=== PATIENT | male | born 1935 | race Caucasian/White ===

== ENCOUNTER 2019-06-18 11:26 | Inpatient (IN) | payer MEDICARE, SELFPAY ==
[2019-06-18] VITALS (20 sets, daily range): BP systolic 82–163; BP diastolic 61–112; PULSE 74–79; RESP 12–28; TEMP 33.6–37; O2SAT 90–100; BMI 25.0; BMI 25.1; BMI 24.0
--- NOTE | 2019-06-18 12:10 | EKG12_ITS ---
Test Reason : MENTAL CHANGE Blood Pressure : / mmHG Vent. Rate : 075 BPM Atrial Rate : 075 BPM P-R Int : 000 ms QRS Dur : 180 ms QT Int : 464 ms P-R-T Axes : 000 262 112 degrees QTc Int : 518 ms Ventricular-paced rhythm Biventricular pacemaker detected Abnormal ECG Confirmed by NATALIIA PORTILLO MD ([id number]), news video editor CODI PEGUERO ([id number]) on 06/22/2019 3:44:38 PM Referred By: KENDAL Confirmed By:NATALIIA PORTILLO MD
--- NOTE | 2019-06-18 12:12 | RAD_ITS ---
STUDY: X-RAY CHEST REASON FOR EXAM: Male, 84 years old. HYPOTENSION, ALTERED MENTAL STATUS TECHNIQUE: Single AP portable view of the chest. COMPARISON: None. FINDINGS: EKG electrodes are seen. The lungs are clear and expanded. There is no demonstrated pleural abnormality. Sternal cerclage wires and vascular clips are present from a prior sternotomy and coronary artery bypass graft procedure (CABG). Moderate cardiomegaly. A left-sided ICD is seen. Normal mediastinum and nevaeh. Normal visualized pulmonary arteries. There is atherosclerotic tortuosity of the aortic arch and descending thoracic aorta. Normal visualized thoracic spine. There is degenerative osteoarthritis of the bilateral shoulders. There is no demonstrated abnormality of the visualized soft tissue structures of the upper abdomen. RAD/Chest 1 View (Portable) IMPRESSION: Cardiomegaly. The lungs are clear. Electronically Signed: Dnoi Mcneal, at 12:36 EST , Service support ,
--- NOTE | 2019-06-18 12:13 | ED.DCSUM_ITS ---
- ER Visit Summary Date of Service: 06/18/19 Chief Complaint: Sent from snf with low blood pressure. Patient states he does not feel sick. History of Present Illness: The patient is a 84 M preop prior stroke, CAD, SC, triple bypass. COPD and diabetes. On Coumadin. History of pacemaker defibrill ator. Patient was recently hospitalized at [facility] for pneumonia. Was discharged back to extended care facility. Reportedly had low blood pressure today and was sent to the emergency department. He denies complaints. Physical Examination: Older male currently no acute distress. Blood pressure is 92/71. He is afebrile. His pulse ox 97% on room air no signs hypoxia. Family is at bedside. H EENT exam right eye is irregular from prior eye surgery. Left pupil is about 2 mm and reactive. Extra motions are intact. No facial droop. Moist mucous membranes. Neck nontender no lymphadenopathy. Lungs clear to auscultation bilaterally. Heart regular rate and rhythm no murmur. Rate about 80. Abdomen soft nontender normal bowel sounds no peritoneal signs. Nondistended. Extremities moves all 4. 1+ pitting edema both lower extremities up to his knees. Family states that been going on for several weeks. Normal equal symmetrical supervisor smoke control strength. Dorsi plantarflexion intact. Neurologically is awake and alert. He does know where he is at. He does follow commands. Test Results: [] Emergency Department Course and Treatment: Older male with hypotension from the snf. He also has chronic lower extremity edema for last several weeks. Treatment Plan: [] Disposition: [] Impression: Acute hypotension Bilateral lower extremity edema History of CAD with prior triple bypass and pacemaker. History of diabetes This note was generated with ActiveReplay dictation software. It may contain incorrect words, spelling, and punctuation that were not noted in review of the chart prior to signing ED Disposition - Plan for ED Patient: Referrals: Jens Giraldo MD [Primary Care Provider] -
--- NOTE | 2019-06-18 12:17 | NURSING ---
NO OLD EKGS
[2019-06-18 13:15] LABS: Absolute Lymphocyte Count 1.22 X10^3/uL (0.83-4.51); Absolute Neutrophil Count 3.5 X10^3/uL (2.0-7.7); Basophil# 0.02 X10^3/uL; Basophil% 0.4 % (0-1); Eosinophil# 0.11 X10^3/uL; Hematocrit 31.6 % (40-54); Hemoglobin 9.6 g/dL (13.0-16.5); Lymphocyte # 1.22 X10^3/ul (4.0); Lymphocyte % 22.7 % (19-41); Mean Corp Hgb Conc 30.4 g/dL (32-36); Mean Corpuscular Hgb 28.8 pg (27.0-32.0); Mean Corpuscular Volume 94.9 fL (80-94); Monocyte# 0.48 X10^3/uL; Monocyte% 8.9 % (0-10); NRBC Flagged by Analyzer 0 % (0-5); Neutrophil # 3.54 X10^3/uL (2.7-7.7); Neutrophil % 65.8 % (47-70); Platelet Count 135 K/mm3 (150-450); RBC Distribution Width CV 16.1 % (11.6-14.6); Red Blood Count 3.33 M/mm3 (4.6-6.2); White Blood Count 5.4 K/mm3 (4.4-11.0)
[2019-06-18 13:24] LABS: Prothrombin Time (Protime)PT. 44.9 SECONDS (11.7-14.9)
[2019-06-18 13:25] LABS: International Normalized Ratio 4.7
[2019-06-18 13:31] LABS: Anion Gap 5 (5-15); BUN 54 mg/dL (7-18); BUN/Creat Ratio 28.7 RATIO (10-20); Calcium,Total 9.3 mg/dL (8.5-10.1); Chloride 108 mmol/L (98-107); Creatinine, Serum 1.88 mg/dL (0.70-1.30); EST Glomerular Filtration Rate 37 mL/min (>60); Est Glom Filt Rate - Afr Amer 44 mL/min (>60); Estimated Creatinine Clearance 29.25 ml/min; Glucose 67 mg/dL (74-106); Sodium Level 143 mmol/L (136-145)
[2019-06-18 13:39] LABS: BNP,B-Type NATRIURETIC PEPTIDE 389.6 pg/mL (0-100)
[2019-06-18 15:05] LABS: Bacteria 0 SEEN /hpf (None Seen); Mucous, Urine 0 SEEN /hpf (<or=2+); Red Blood Cells-Urine 0 SEEN /hpf (0-5); Squamous Epithelial Cells - UA 0 SEEN /hpf (0-5); White Blood Cells 0 SEEN /hpf (0-5)
[2019-06-18 15:07] LABS: Color, Urine Yellow (Yellow); Glucose, Dipstick Normal (Normal); Ketone-Dipstick Negative (Negative); Leukocyte Esterase-Dipstick Negative /ul (Negative); Nitrite-Dipstick Negative (Negative); Occult Blood-Urine Negative /ul (Negative); Protein-Dipstick 15 mg/dl (Negative); Specific Gravity, Urine 1.015 (1.002-1.030); Urine Bilirubin Dipstick Negative (Negative); Urine Clarity Clear (Clear); Urine Urobilinogen Normal (Normal)
[2019-06-18 15:12] LABS: Hyaline Cast 0-5 SEEN /lpf (0-5)
--- NOTE | 2019-06-18 15:49 | NURSING ---
115 KOTSONIS HYPOTENSION, DEHYDRATION, ANTICOAGULATED
--- NOTE | 2019-06-18 15:54 | CT_ITS ---
STUDY: CT BRAIN WITHOUT CONTRAST REASON FOR EXAM: Male, 84 years old. FALL. Hx of diabetes, HTN, CAD, CHF and hypothyroid RADIATION DOSAGE (If Supplied By Facility): CTDIvol = ( 44.99 ) mGy, DLP = ( 812.98 ) mGycm TECHNIQUE: Transaxial CT imaging of the brain was performed without administration of intravenous contrast material. Individualized dose optimization techniques were used for this CT. COMPARISON: No relevant priors. FINDINGS: Normal soft tissue structures. Normal calvarium. There is mild cerebral atrophy with widening of the extra-axial spaces and ventricular dilatation. There are areas of decreased attenuation within the white matter tracts of the supratentorial brain, consistent with microvascular disease changes. Ill-defined decreased density of possible microvascular ischemic change also questioned in the bilateral basal ganglia. Focal low-density in the medial left limb of the midbrain on series 2 image 17 may be a prominent perivascular space or very small old lacunar infarct. Normal cerebellum. There is no intracranial hemorrhage. Incompletely defined subcortical lucencies in the bilateral insula consistent with additional chronic ischemic change. There are no findings of an acute ischemic infarction. Normal visualized paranasal sinuses. There are small to moderate accumulations of cerumen in the bilateral external auditory canals. CT/Brain/Head without Contrast IMPRESSION: Chronic involutional and ischemic changes of the brain, as described. No acute intracranial injury. Electronically Signed: Jesus Pandya MD at 16:32 EST , Service support ,
--- NOTE | 2019-06-18 16:04 | NURSING ---
115 CHF EXAC, AND HYPOTENSION ROSALINOS
[2019-06-18] MEDS: Dextrose 50%-Water 25 GM/50 ML DISP.SYRIN IV (16:12)
--- NOTE | 2019-06-18 16:22 | ED.RN ---
PATIENT UNRESPONSIVE IN BED. BLOOD SUGAR OF 22 AND D50 GIVEN PER MD VERBAL ORDER. ON ARRIVAL BACK FROM CT PT BLOOD SUGAR WAS 160. PATIENT NOW A&O X3 WILL CONTINUE TO MONITOR.
--- NOTE | 2019-06-18 16:48 | PCM.HP.STD ---
<Mainor Cho - Last Filed: 06/18/19 17:34> Problem List (1) Hypoglycemia Status: Acute (2) CHF (congestive heart failure) Status: Acute (3) Hypotension Status: Acute (4) CAD (coronary artery disease) Status: Chronic (5) Pacemaker Status: Chronic (6) Diabetes Status: Chronic Qualifiers: Diabetes mellitus type: type 2 History of Present Illness Date of Admission: 06/18/19 Chief Complaint: altered mental status The patient is a 84 year old M with pmhx of CAD with CABG, pacemaker, CHF, who was sent to the ER from assisted living with multiple complaints. Reportedly he has been very lethargic, and today he is noted to have a change in his right pupil, low blood pressure, and supposedly he was told that he was dehydrated. The patient is in the [facility] nursing facility after being admitted to [facility] and treated for pneumonia. Prior to that he was completely independent. Today he is very lethargic and unable to follow commands, however this improved after he was given D50 for a blood sugar of 22. He was found to have evidence of congestive heart failure with severe swelling of the lower extremities. He does not have any respiratory complaints at this time. He is resting comfortably in bed off oxygen. He has had all his care at [facility] and we do not have any records of his previous diagnoses and treatments. [] Past Medical History Past Medical History (Chronic Problems): Chronic Problems CAD (coronary artery disease) (Chronic) Pacemaker (Chronic) Diabetes (Chronic) Allergies No Known Allergies Allergy (Verified 06/18/19 11:28) Home Medications: Ambulatory Orders Medication Instructions Recorded Calcitriol 0.25 mcg PO DAILY 06/18/19 Carvedilol 25 mg PO BID 06/18/19 Ferrous Sulfate 325 mg PO DAILY 06/18/19 Glimepiride [Amaryl] 1 mg PO BID 06/18/19 Insulin Lispro [Humalog KwikPen] See Protocol SQ QHS 06/18/19 Insulin Lispro [Humalog KwikPen] See Protocol SQ TIDCM 06/18/19 Levothyroxine Sodium [Synthroid] 125 mcg PO DAILY 06/18/19 Lisinopril [Zestril] 10 mg PO DAILY 06/18/19 Magnesium Oxide 400 mg PO DAILY 06/18/19 Omeprazole [Prilosec] 20 mg PO DAILY 06/18/19 Pravastatin Sodium 80 mg PO QHS 06/18/19 Warfarin Sodium [Coumadin] 2 mg PO QHS 06/18/19 Surgical History: no surgical history Psychiatric History: No pertinent psych hx Lives: Assisted Smoking Status: Former smoker Tobacco Use: Cigars Alcohol: None Drugs: None - *Family History Maternal History Items: No pertinent history Paternal History Items: No pertinent history Review of Systems Unable to obtain accurate/complete ROS d/t: Patient lethargic and confused VTE Information - Inpt Only VTE Present on Admission: No VTE Mechan Device Prophylaxis: None VTE Pharm Prophylaxis ordered?: Yes Patient Problems: Active and Suspected Problems Hypoglycemia (Acute) CHF (congestive heart failure) (Acute) Hypotension (Acute) - Physical Exam Vitals/I&O's: Vital Signs Temp Pulse Resp BP Pulse Ox 98.6 F 75 12 94/66 97 06/18/19 15:47 06/18/19 16:29 06/18/19 16:29 06/18/19 16:36 06/18/19 16:36 Oxygen Delivery Method Room Air Weight: 169 lb 12.095 oz Body Mass Index (BMI) 25.0 Intake and Output for Last 24 Hours 06/16/19 06/17/19 06/18/19 23:59 23:59 23:59 Intake Total 500 / 500 Balance 500 / 500 General: Alert, Confused, Lethargic HEENT: Atraumatic, PERRLA, EOMI, Normocephalic Neck: Supple, No JVD, Negative Carotid Bruits Lungs: Clear to auscultation, Normal air movement Cardiovascular: Regular rate, No murmurs Abdomen: Bowel Sounds Present, Soft, Non Tender Extremities: No edema, Capillary Refill Less than 3 Seconds Skin: No rashes, No breakdown Musculoskeletal: No Tenderness to Palpation of Joints or Extremities Neurological: Cranial nerves II-XII grossly intact Psych/Mental Status: Normal Affect, Appropriate, Alert and oriented to time, place, person, mood and affect Laboratory Results 06/18/19 13:02: WBC 5.4, RBC 3.33 L, Hgb 9.6 L, Hct 31.6 L, MCV 94.9 H, MCH 28.8, MCHC 30.4 L, RDW Std Deviation 55.0 H, RDW Coeff of Shelbi 16.1 H, Plt Count 135 L, MPV 11.0, Immature Gran % (Auto) 0.200, Neut % (Auto) 65.8, Lymph % (Auto) 22.7, Reynolds % (Auto) 8.9, Eos % (Auto) 2.0, Baso % (Auto) 0.4, Absolute Neuts (auto) 3.5, Absolute Lymphs (auto) 1.22, Nucleated RBC % 0 06/18/19 13:02: PT 44.9 H, INR 4.7 H* 06/18/19 13:02: Sodium 143, Potassium 4.0, Chloride 108 H, Carbon Dioxide 30.0, Anion Gap 5, BUN 54 H, Creatinine 1.88 H, Estim Creat Clear Calc 29.25, Est GFR (MDRD) Af Amer 44 L, Est GFR (MDRD) Non-Af 37 L, BUN/Creatinine Ratio 28.7 H, Glucose 67 L, Calcium 9.3, Troponin I 0.117 H 06/18/19 13:02: Lactic Acid 1.0 06/18/19 13:02: B-Natriuretic Peptide 389.6 H 06/18/19 14:57: Urine Color Yellow, Urine Clarity Clear, Urine pH 5.0, Ur Specific Foster 1.015, Urine Protein 15 H, Urine Glucose (UA) Normal, Urine Ketones Negative, Urine Occult Blood Negative, Urine Nitrite Negative, Urine Bilirubin Negative, Urine Urobilinogen Normal, Ur Leukocyte Esterase Negative, Urine RBC 0 SEEN, Urine WBC 0 SEEN, Ur Squamous Epith Cells 0 SEEN, Urine Bacteria 0 SEEN, Hyaline Casts 0-5 SEEN, Urine Mucus 0 SEEN Current Medications Sodium Chloride () 10 - 40 ml IV UD PRN PRN Reason: SALINE FLUSH Assessment/Plan All Active Problems Hypoglycemia (Acute) CHF (congestive heart failure) (Acute) Hypotension (Acute) 1. Acute CHF-type unclear, no prior records here. Elevated BNP, severe lower extremity edema. Chest x-ray shows cardiomegaly, clear lungs. Apply Jamel wraps, limit sodium and fluid. Dietitian eval. Obtain echo. Trend BP with some mild hypotension in the ER, however map 75 so he should tolerate diuresis. 2. Indeterminate troponin-no chest pain. History of CAD, CABG. Will need to cycle this and repeat EKG in the morning. EKG now shows V paced rhythm. 3. Supratherapeutic INR-4.7. I do not have any records as to why he is on this. Will obtain records from [facility]. Trend INR. 4. Acute metabolic encephalopathy likely secondary to hypoglycemia-improving after D50. CT of the brain is negative. UA negative. Check TSH. 5. Type 2 diabetes with [id number]-Cafc-Ozyra every 6, hold home medications. Hypoglycemic protocol. Reintroduce medications when appropriate. Sliding scale insulin. 6. Suspected CKD, stage unclear, obtain prior records. BUN 54, creatinine 1.88. 7. Anemia-Baseline unclear, will trend, obtain records. Continue ferrous sulfate. 8. Hypothyroidism-continue Synthroid, check TSH. DVT prophylaxis: INR is supratherapeutic DC planning: Likely will return to the [facility] when appropriate. This patient was seen by Mainor Cho PA-C under the supervision of Doctor Sridhar. <Ramana Waller - Last Filed: 06/18/19 21:04> History of Present Illness The patient is a 84 year old M [] Past Medical History Allergies No Known Allergies Allergy (Verified 06/18/19 11:28) - Physical Exam Vitals/I&O's: Vital Signs Temp Pulse Resp BP Pulse Ox 95.8 F L 75 20 H 101/68 96 06/18/19 19:00 06/18/19 19:00 06/18/19 19:00 06/18/19 19:00 06/18/19 19:00 Oxygen Delivery Method Room Air Weight: 165 lb 5.547 oz Body Mass Index (BMI) 24.0 Intake and Output for Last 24 Hours 06/16/19 06/17/19 06/18/19 23:59 23:59 23:59 Intake Total 500 / 500 Balance 500 / 500 Laboratory Results 06/18/19 13:02: WBC 5.4, RBC 3.33 L, Hgb 9.6 L, Hct 31.6 L, MCV 94.9 H, MCH 28.8, MCHC 30.4 L, RDW Std Deviation 55.0 H, RDW Coeff of Shelbi 16.1 H, Plt Count 135 L, MPV 11.0, Immature Gran % (Auto) 0.200, Neut % (Auto) 65.8, Lymph % (Auto) 22.7, Reynolds % (Auto) 8.9, Eos % (Auto) 2.0, Baso % (Auto) 0.4, Absolute Neuts (auto) 3.5, Absolute Lymphs (auto) 1.22, Nucleated RBC % 0 06/18/19 13:02: PT 44.9 H, INR 4.7 H* 06/18/19 13:02: Sodium 143, Potassium 4.0, Chloride 108 H, Carbon Dioxide 30.0, Anion Gap 5, BUN 54 H, Creatinine 1.88 H, Estim Creat Clear Calc 29.25, Est GFR (MDRD) Af Amer 44 L, Est GFR (MDRD) Non-Af 37 L, BUN/Creatinine Ratio 28.7 H, Glucose 67 L, Calcium 9.3, Troponin I 0.117 H 06/18/19 13:02: Lactic Acid 1.0 06/18/19 13:02: B-Natriuretic Peptide 389.6 H 06/18/19 14:57: Urine Color Yellow, Urine Clarity Clear, Urine pH 5.0, Ur Specific Foster 1.015, Urine Protein 15 H, Urine Glucose (UA) Normal, Urine Ketones Negative, Urine Occult Blood Negative, Urine Nitrite Negative, Urine Bilirubin Negative, Urine Urobilinogen Normal, Ur Leukocyte Esterase Negative, Urine RBC 0 SEEN, Urine WBC 0 SEEN, Ur Squamous Epith Cells 0 SEEN, Urine Bacteria 0 SEEN, Hyaline Casts 0-5 SEEN, Urine Mucus 0 SEEN 06/18/19 17:10: TSH 1.00 06/18/19 17:10: Troponin I 0.120 H 06/18/19 17:20: POC Glucose 96 06/18/19 18:51: POC Glucose 95 Current Medications Furosemide (Lasix) 40 mg IV DAILY SHADY Glucagon () 1 mg IM .X1 PRN PRN Reason: Hypoglycemia Dextrose (Dextrose 10%-Water) 250 mls @ 999 mls/hr IV .Q16M PRN; Protocol PRN Reason: HYPOGLYCEMIA Ondansetron HCl (Zofran) 4 mg IV Q8H PRN PRN PRN Reason: NAUSEA/VOMITING Sodium Chloride () 10 - 40 ml IV UD PRN PRN Reason: SALINE FLUSH Last Admin: 06/18/19 17:43 Dose: 10 ml Documented by: Addendum: Dr. Waller I personally examined the patient and reviewed the chart. I agree with the above. 84-year-old male with a history of a CAD status post CABG and stents as well as systolic heart failure presents with hypotension, and confusion. Initially there was thought that he had hit his head with supratherapeutic INR 4.7, CT of his brain was negative for bleed. He was also hypotensive into the mid 80s to low 90s with a normal map in the 70s. He was given a liter of fluid to try to support his blood pressure which did not help. It was felt that given his elevated BNP and his increased lower extremity edema, he was probably in failure so dose of Lasix was provided. He did seem to do a little bit better from his blood pressure standpoint after Lasix with systolics in the 100s. Will obtain an echo in the morning as well as further electrolytes. He was also found to be hypoglycemic, he is on insulin and is on a sulfonylurea therefore these were discontinued and he was given D50. At one point did recheck a blood sugar of 22. We will continue to monitor at a q2 interval and provide either orange juice or D50 as needed. Inpatient E&M: 57094 Init Hosp L3
--- NOTE | 2019-06-18 16:53 | ECHOCS_ITS ---
Reason For Study: CHF Procedure This was a 2D Doppler, Color Flow transthoracic echocardiogram. Contrast injection was performed. Exam performed portable in ICU/CCU. Left Ventricle Normal LV size. The estimated ejection fraction is 15 %. Infero-Basal: Akinetic. Basal inferoseptal: Akinetic. There is severe global hypokinesis of the left ventricle. Right Ventricle Normal RV size. ICD or pacer leads identified within the right ventricle. Normal systolic function. Atria The left atrium is moderately enlarged. The right atrium is mildly enlarged. Mitral Valve Mild-Moderate (1-2+) eccentric mitral valve insufficiency. Aortic Valve Trisinus/trileaflet aortic valve. Mild focal aortic valve calcification. Mild (1+) aortic valve insufficiency. Pulmonic Valve The pulmonic valve is not well visualized. Great Vessels Normal aortic root. The pulmonary artery is normal size. Normal inferior vena cava. Pericardium/Pleural No pericardial effusion. Medication Diluted definity 2ml given slow IV push to enhance endocardial definition. MMode/2D Measurements & Calculations LVIDd: 5.0 cm IVSd: 1.0 cm Ao root diam: 3.8 cm LVIDs: 4.6 cm LVPWd: 1.2 cm LA dimension: 5.5 cm RVDd: 3.7 cm FS: 7.7 % LAV(MOD-bp): 143.2 ml LVAd ap4: 50.8 cm2 SV(MOD-sp4): 56.9 ml LAV(MOD-bp) Indexed: 75.2 ml/m2 EDV(MOD-sp4): 237.0 ml LAV(MOD-sp2): 126.2 ml EDV(sp4-el): 244.3 ml LAV(MOD-sp4): 159.6 ml LVAs ap4: 43.3 cm2 ESV(MOD-sp4): 180.1 ml ESV(sp4-el): 188.5 ml EF(MOD-sp4): 24.0 % EF(sp4-el): 22.8 % SV(sp4-el): 55.8 ml LA A4 area: 37.7 cm2 RA A4 area: 25.5 cm2 Time Measurements MV dec time: 0.14 sec Doppler Measurements & Calculations MV E max dinh: 113.6 cm/sec Lat Peak E' Dinh: 5.6 cm/sec Med Peak E' Dinh: 5.4 cm/sec MV A max dinh: 25.7 cm/sec E/E' lat: 20.5 E/E' med: 21.2 MV E/A: 4.4 MV V2 max: 111.7 cm/sec MV P1/2t max dinh: 112.7 cm/sec Ao V2 max: 80.9 cm/sec MV max P.0 mmHg MV P1/2t: 53.8 msec Ao max P.6 mmHg MV V2 mean: 64.3 cm/sec MV mean P.9 mmHg MV dec slope: 613.4 cm/sec2 MV V2 VTI: 26.4 cm MVA(P1/2t): 4.1 cm2 AI max dinh: 312.0 cm/sec LV V1 max: 69.5 cm/sec MR max dinh: 343.4 cm/sec AI max P.9 mmHg LV V1 max P.9 mmHg MR max P.2 mmHg AI dec slope: 190.3 cm/sec2 MR mean dinh: 262.9 cm/sec AI P1/2t: 480.4 msec MR mean P.8 mmHg MR VTI: 128.8 cm PA V2 max: 64.2 cm/sec TR max dinh: 257.6 cm/sec TR max P.5 mmHg Interpretation Summary Normal LV size. The estimated ejection fraction is 15 %. ICD or pacer leads identified within the right ventricle. The left atrium is moderately enlarged. The right atrium is mildly enlarged. Contrast injection was performed. Ordering Physician: Ramana Waller Referring Physician: Blake Rhodes Performed By: Brien Fajardo RCS
[2019-06-18 17:40] LABS: Bedside Glucose 96 mg/dL (70-110)
[2019-06-18] MEDS: 0.9% Saline Lock 10 ML Syringe IV (17:43)
[2019-06-18] MEDS: Furosemide 40 MG/4 ML Vial IV (17:43)
[2019-06-18 18:55] LABS: Bedside Glucose 95 mg/dL (70-110)
--- NOTE | 2019-06-18 19:59 | NURSING ---
Pt was alert and asking for help with TV remote at 19:30. Pt heart monitor leads had been adjusted at that time d/t interference from pacemaker. pt had been vpaced at that time. This RN reviewed ECG reading post lead adjustment and pt converted to vtach at 19:35. This RN ran back to room and pt was not responding with tremors noted to LUE. Pt had a pulse and was breathing at that time. Staff assist was called by this RN. Pt breathing became more labored and pt's lips and cheeks became dusky. pt put on 2L O2. Pt was noted to have stopped breathing and carotid pulse was not noted. CPR was initiated. pt given x1 dose of epi and shocked once. pt breathing and pulse returned. Pt en route to ICU. report given to TOOL STORAGE ATTENDANT by this RN. Carolynn GOMES
[2019-06-18 20:00] LABS: Base Excess -3 mmol/L (-2 to +2); Bicarbonate 23.6 mmol/L (22-26); Blood Gas Specimen Type ART; FI02 100; PO2 105 mmHG (75-100); SITE R Radial; SO2 97 % (95-99); Time Given 1948; Total Carbon Dioxide 25 mmol/L; pCO2 46.3 mmHg (35-45); pH 7.32 (7.35-7.45)
[2019-06-18 20:06] LABS: Absolute Lymphocyte Count 3.84 X10^3/uL (0.83-4.51); Absolute Neutrophil Count 3.7 X10^3/uL (2.0-7.7); Basophil# 0.04 X10^3/uL; Basophil% 0.5 % (0-1); Eosinophil# 0.13 X10^3/uL; Eosinophils% 1.6 % (0-5); Hematocrit 36.8 % (40-54); Lymphocyte # 3.84 X10^3/ul (4.0); Lymphocyte % 46.2 % (19-41); Mean Corp Hgb Conc 29.9 g/dL (32-36); Mean Corpuscular Hgb 29.3 pg (27.0-32.0); Mean Corpuscular Volume 97.9 fL (80-94); Mean Platelet Vol. 11.6 fl (6.2-12.0); Monocyte# 0.54 X10^3/uL; Monocyte% 6.5 % (0-10); NRBC Flagged by Analyzer 0.6 % (0-5); Neutrophil # 3.65 X10^3/uL (2.7-7.7); Neutrophil % 43.8 % (47-70); POSITIVE COUNT YES; Platelet Count 97 K/mm3 (150-450); RBC Distribution Width CV 16.1 % (11.6-14.6); RBC Distribution Width SD 57.4 fl (35.1-43.9); Red Blood Count 3.76 M/mm3 (4.6-6.2); White Blood Count 8.3 K/mm3 (4.4-11.0)
[2019-06-18 20:08] LABS: Differential Indicated SCAN CRITERIA MET
[2019-06-18 20:24] LABS: Anion Gap 4 (5-15); BUN 52 mg/dL (7-18); Calcium,Total 9.6 mg/dL (8.5-10.1); Chloride 111 mmol/L (98-107); EST Glomerular Filtration Rate 34 mL/min (>60); Est Glom Filt Rate - Afr Amer 41 mL/min (>60); Estimated Creatinine Clearance 27.49 ml/min; Glucose 102 mg/dL (74-106); Magnesium 2.5 mg/dL (1.6-2.6); Potassium 4.4 mmol/L (3.5-5.1); Sodium Level 144 mmol/L (136-145)
[2019-06-18 20:40] LABS: Lactic Acid 3.9 mmol/L (0.4-1.9)
[2019-06-18 20:42] LABS: Ovalocyte 1+; Platelet Estimate MOD DEC (ADEQ); Red Cell Morphology N CHROM NORMAL (NORM C&C)
--- NOTE | 2019-06-18 20:42 | RAD_ITS ---
STUDY: X-RAY CHEST REASON FOR EXAM: Male, 84 years old. POST CPR TECHNIQUE: Post-CPR. COMPARISON: None. FINDINGS: Left pacer placed with leads overlying the right atrium and right ventricle. Sternotomy wires are midline. Prominent interstitial markings are seen bilaterally consistent with component of soft tissue edema. There is no demonstrated pleural abnormality. There is moderate cardiac enlargement. Normal mediastinum and nevaeh. Normal visualized pulmonary arteries. Normal visualized aortic arch and descending thoracic aorta. Normal visualized thoracic spine. Normal visualized ribs, clavicles, and shoulders. There is no demonstrated abnormality of the visualized soft tissue structures of the upper abdomen. RAD/Chest 1 View (Portable) IMPRESSION: Prominent interstitial markings consistent with component of interstitial edema with moderate cardiomegaly. Electronically Signed: Gerhard Metz DO at 21:19 EST , Service support ,
[2019-06-18 20:55] LABS: Bedside Glucose 86 mg/dL (70-110)
[2019-06-18] MEDS: 0.9% Normal Saline 1,000 ML 125 ML IV (21:04)
--- NOTE | 2019-06-18 21:04 | PN_ITS ---
Progress Note At 1935 and a rapid response was called for patient being unresponsive. Is also arriving this was converted into a CODE BLUE. Per report he had gone into V. tach and was unresponsive without a pulse, CPR was initiated right away as well as a dose of epinephrine was given. After round of CPR it was seen that he was still in V. tach and therefore he was shocked. After a single shock he returned to his paced rhythm and he was alert and communicative. Labs were obtained with normal electrolytes and an ABG was obtained which was unremarkable. Lactates was elevated secondary to CPR and a CXR is pending. He was placed on oxygen and transferred to the ICU. He was started on IVF @125 NS and the case was discussed with both cardiology and the tai chi instructor. It appears that the ICD did not fire and this will need to be interrogated in the morning. There is an echo pending in the am as well. I had a 30 mintue discussion on advance care planning and code status with the patient and the family, the patient is AOx3 and wants to be a full code at this time. Critical care time of 60 minutes General: Alert, Oriented x3, Cooperative, No apparent distress HEENT: Atraumatic, PERRLA on the left the right pupil is abnormal from surgery, EOMI, Normocephalic Oral: Moist Mucosa Neck: Supple Lungs: Clear to auscultation, Normal air movement, No rhonchi, No wheeze, No rales Cardiovascular: Regular rate, Regular Rhythm, Normal S1, Normal S2, No murmurs Abdomen: Soft, Non Tender, Non-Distended, No Hepato-splenomegaly Extremities: 1+ pitting edema, Capillary Refill Less than 3 Seconds Skin: No rashes, No breakdown Musculoskeletal: No Tenderness to Palpation of Joints or Extremities Neurological: Cranial nerves II-XII grossly intact, Motor Exam 5/5 strength throughout, Sensory exam intact to light touch and pain Psych/Mental Status: Normal Affect, Appropriate A/P: Vtach arrest secondary low EF and [id number] of his ICD 1. Consult to cardiology and ICU 2. NS@125 3. echo and pacemaker interrogation 4. O2 via NC 5. Hold all BP and dm medications 6. Check INR in am and hold coumadin STROKE Vital Signs/Narrative: Vital Signs Temp Pulse Pulse Resp Resp BP BP 06/18/19 19:56 76 28 H 163/112 H 03/05/20 19:00 95.8 F L 75 20 H 101/68 06/18/19 17:06 95.7 F L 77 20 H 96/65 Pulse Ox 06/18/19 19:56 06/18/19 19:00 96 06/18/19 17:06 99 Procedures: 84371 Critial Care 1st Hr
[2019-06-18 21:26] LABS: Bedside Glucose 121 mg/dL (70-110)
--- NOTE | 2019-06-18 21:59 | PCM.PN.BLA ---
Progress Note Patient with a temperature of 92.6 Fahrenheit; lactic acid of 3.6; recent hypoglycemia. Cannot rule out infection. Source unclear at this time. Will start patient on vancomycin and Zosyn. Of note patient was coded during the last 3 hours. Blood cultures are pending. Urinalysis and urine culture ordered. No address sirs criteria to classify as septic at this time. STROKE Vital Signs/Narrative: Vital Signs Temp Pulse Pulse Resp Resp BP BP 06/18/19 19:56 76 28 H 163/112 H 06/18/19 19:00 95.8 F L 75 20 H 101/68 Pulse Ox 06/18/19 19:56 06/18/19 19:00 96
[2019-06-18 22:28] LABS: Bacteria 0 SEEN /hpf (None Seen); Mucous, Urine 0 SEEN /hpf (<or=2+); Squamous Epithelial Cells - UA 0 SEEN /hpf (0-5)
[2019-06-18 22:31] LABS: Color, Urine Straw (Yellow); Glucose, Dipstick Normal (Normal); Ketone-Dipstick Negative (Negative); Leukocyte Esterase-Dipstick Negative /ul (Negative); Nitrite-Dipstick Negative (Negative); Occult Blood-Urine 25 /ul (Negative); Protein-Dipstick 30 mg/dl (Negative); Urine Bilirubin Dipstick Negative (Negative); Urine Clarity Clear (Clear); Urine Urobilinogen Normal (Normal); Urine pH 6.5 (5.0 - 8.0)
[2019-06-18 22:57] LABS: Red Blood Cells-Urine 0-5 SEEN /hpf (0-5); White Blood Cells 0-5 SEEN /hpf (0-5)
[2019-06-18 23:08] LABS: Hyaline Cast 0-5 SEEN /lpf (0-5)
[2019-06-19] VITALS (33 sets, daily range): BP systolic 74–102; BP diastolic 49–75; PULSE 74–79; RESP 13–25; TEMP 34.8–36.7; O2SAT 90–100
[2019-06-19 00:31] LABS: Bedside Glucose 118 mg/dL (70-110)
--- NOTE | 2019-06-19 00:36 | PCM.RX.CS ---
Consult Pharmacy has been consulted to manage selected antiobiotic: Vancomycin Type of Consult: New start Suspected Infection: Other Prior Doses of Antibiotics Received/Current Regimen: Medications Vancomycin HCl 750 mg/ Sodium (Chloride) 265 mls @ 250 mls/hr IV Q24H SHADY Discontinued Medications Vancomycin HCl 1,250 mg/ (Sodium Chloride) 275 mls @ 167 mls/hr IV X1 ONE Stop: 06/19/19 00:08 Last Admin: 06/18/19 23:42 Dose: 167 mls/hr Labs: Sodium 144 mmol/L (136-145) 06/18/19 19:45 Potassium 4.4 mmol/L (3.5-5.1) 06/18/19 19:45 Chloride 111 mmol/L (98-107) H 06/18/19 19:45 Carbon Dioxide 29.0 mmol/L (21.0-32.0) 06/18/19 19:45 Anion Gap 4 (5-15) L 06/18/19 19:45 BUN 52 mg/dL (7-18) H 06/18/19 19:45 Creatinine 2.00 mg/dL (0.70-1.30) H 06/18/19 19:45 Est GFR (MDRD) Af Amer 41 mL/min (>60) L 06/18/19 19:45 Est GFR (MDRD) Non-Af 34 mL/min (>60) L 06/18/19 19:45 BUN/Creatinine Ratio 26.0 RATIO (10-20) H 06/18/19 19:45 Glucose 102 mg/dL (74-106) 06/18/19 19:45 Weight used for dosin kg Estimated Creatinine Clearance: 27.5 Goal Trough: 15-20 mcg/mL Pharmacy Plan for Drug Dosing: Pharmacy Service will continue to monitor and adjust dosing as required. Follow-Up Labs: Trough Vancomycin Labs to be done on [date and time ordered]: 06/20/19 @2300
[2019-06-19 02:16] LABS: Bedside Glucose 103 mg/dL (70-110)
[2019-06-19 04:01] LABS: Absolute Lymphocyte Count 1.14 X10^3/uL (0.83-4.51); Absolute Neutrophil Count 5.1 X10^3/uL (2.0-7.7); Basophil# 0.01 X10^3/uL; Basophil% 0.1 % (0-1); Eosinophil# 0.08 X10^3/uL; Eosinophils% 1.2 % (0-5); Hematocrit 28.5 % (40-54); Hemoglobin 8.9 g/dL (13.0-16.5); Lymphocyte # 1.14 X10^3/ul (4.0); Lymphocyte % 16.6 % (19-41); Mean Corp Hgb Conc 31.2 g/dL (32-36); Mean Corpuscular Hgb 29.6 pg (27.0-32.0); Mean Corpuscular Volume 94.7 fL (80-94); Mean Platelet Vol. 10.9 fl (6.2-12.0); Monocyte# 0.53 X10^3/uL; Monocyte% 7.7 % (0-10); NRBC Flagged by Analyzer 0 % (0-5); Neutrophil # 5.09 X10^3/uL (2.7-7.7); Neutrophil % 74.1 % (47-70); Platelet Count 114 K/mm3 (150-450); RBC Distribution Width CV 16.1 % (11.6-14.6); RBC Distribution Width SD 55.2 fl (35.1-43.9); Red Blood Count 3.01 M/mm3 (4.6-6.2); White Blood Count 6.9 K/mm3 (4.4-11.0)
[2019-06-19 04:19] LABS: Anion Gap 4 (5-15); BUN 52 mg/dL (7-18); Calcium,Total 8.6 mg/dL (8.5-10.1); Chloride 109 mmol/L (98-107); Cholesterol 119 mg/dL (200); Creatinine, Serum 2.08 mg/dL (0.70-1.30); EST Glomerular Filtration Rate 33 mL/min (>60); Est Glom Filt Rate - Afr Amer 39 mL/min (>60); Estimated Creatinine Clearance 26.44 ml/min; Glucose 95 mg/dL (74-106); High Density Lipoprotein 45 mg/dL; Potassium 4.3 mmol/L (3.5-5.1); Sodium Level 141 mmol/L (136-145); Triglycerides 120 mg/dL; Very Low Density Lipoprotein 24 mg/dL (5-40)
[2019-06-19 04:29] LABS: Prothrombin Time (Protime)PT. 43.7 SECONDS (11.7-14.9)
[2019-06-19 04:30] LABS: International Normalized Ratio 4.6
[2019-06-19 04:36] LABS: Bedside Glucose 74 mg/dL (70-110)
[2019-06-19] MEDS: Dextrose 10%-Water 250 ML 999 ML IV (05:32)
[2019-06-19] MEDS: 0.9% Normal Saline 1,000 ML 125 ML IV (05:52)
[2019-06-19] MEDS: 0.9% Saline Lock 10 ML Syringe IV (05:53)
--- NOTE | 2019-06-19 05:55 | EKG12_ITS ---
Test Reason : AM EKG Blood Pressure : / mmHG Vent. Rate : 075 BPM Atrial Rate : 441 BPM P-R Int : 000 ms QRS Dur : 172 ms QT Int : 436 ms P-R-T Axes : 000 -79 130 degrees QTc Int : 486 ms Electronic ventricular pacemaker Confirmed by NORM GUERIN, ОЛЬГА ([id number]), editor department KOKO QUIROS ([id number]) on 06/24/2019 9:43:44 AM Referred By: EMILE Confirmed By:ОЛЬГА ZHENG MD
[2019-06-19 05:56] LABS: Bedside Glucose 113 mg/dL (70-110)
[2019-06-19] MEDS: Dext 5%-0.45% NS 1,000 ML 75 ML IV (06:37)
[2019-06-19 07:06] LABS: Bedside Glucose 160 mg/dL (70-110)
[2019-06-19 07:06] LABS: Bedside Glucose 22 mg/dL (70-110)
[2019-06-19 08:35] LABS: Bedside Glucose 94 mg/dL (70-110)
--- NOTE | 2019-06-19 09:40 | PCM.CON.CC ---
Problem List (1) Cardiac arrest Status: Acute (2) Hypoglycemia Status: Acute (3) CHF (congestive heart failure) Status: Acute (4) Hypotension Status: Acute Qualifiers: Hypotension type: idiopathic hypotension Qualified Code(s): I95.0 - Idiopathic hypotension (5) CAD (coronary artery disease) Status: Chronic Qualifiers: Coronary Disease-Associated Artery/Lesion type: [place] artery [place] vs. transplanted heart: [place] heart Associated angina: angina presence unspecified Qualified Code(s): I25.10 - Atherosclerotic heart disease of [place] coronary artery without angina pectoris (6) Pacemaker Status: Chronic (7) Diabetes Status: Chronic Qualifiers: Diabetes mellitus type: type 2 Reason for Consult Date of Consultation: 06/19/19 Reason for Consultation: Cardiac arrest History of Present Illness: The patient is a 84 year old M, with past medical history listed below, who presented to [facility]. Patient reportedly did not feel sick. Patient does have a history of coronary artery disease status post triple bypass, [place], COPD and diabetes. Patient is on Coumadin and was recently hospitalized at [facility] for pneumonia. Patient was discharged to extended care facility and was noted to have lower blood pressure, so was sent to the ER for evaluation. Patient denied any subjective complaints. Per patient's daughter, blood pressures are typically in the 100s over 70s. In the ER, patient was 97% on room air. Patient was noted to be afebrile with a blood pressure of 92/71. Neurologic examination was nonfocal and mild lower extremity edema was noted. She reportedly did have a blood sugar of 22 requiring D50, but was admitted to the floor and was doing well. Last evening, patient reportedly had a VT arrest. Patient received 1 dose of epinephrine and electrocardioversion with response. Patient was able to be placed back on room air. Patient was transferred to the intensive care unit for further evaluation. Overnight, patient has had marginal blood sugars requiring additional glucose administration. Patient was confused on my evaluation, but patient's daughter reported that he had decided he wanted to be a full code. Patient was requiring 3 L nasal cannula this morning when sleeping, but this appears to be improving now that he is awake. Unable to obtain a reliable review of systems secondary to acute condition. No bleeding complications have been reported by nursing despite elevated INR. Patient's daughter does report a history of chronic kidney problems, but is unaware of a baseline creatinine. Past Medical History Past Medical History (Chronic Problems): Chronic Problems CAD (coronary artery disease) (Chronic) Pacemaker (Chronic) Diabetes (Chronic) Allergies No Known Allergies Allergy (Verified 06/18/19 11:28) Home Medications: Ambulatory Orders Medication Instructions Recorded Calcitriol 0.25 mcg PO DAILY 06/18/19 Carvedilol 25 mg PO BID 06/18/19 Ferrous Sulfate 325 mg PO DAILY 06/18/19 Glimepiride [Amaryl] 1 mg PO BID 06/18/19 Insulin Lispro [Humalog KwikPen] See Protocol SQ QHS 06/18/19 Insulin Lispro [Humalog KwikPen] See Protocol SQ TIDCM 06/18/19 Levothyroxine Sodium [Synthroid] 125 mcg PO DAILY 06/18/19 Lisinopril [Zestril] 10 mg PO DAILY 06/18/19 Magnesium Oxide 400 mg PO DAILY 06/18/19 Omeprazole [Prilosec] 20 mg PO DAILY 06/18/19 Pravastatin Sodium 80 mg PO QHS 06/18/19 Warfarin Sodium [Coumadin] 2 mg PO QHS 06/18/19 Surgical History: no surgical history Psychiatric History: No pertinent psych hx Lives: Jail Smoking Status: Former smoker Tobacco Use: Cigars Alcohol: None Drugs: None - *Family History Maternal History Items: No pertinent history Paternal History Items: No pertinent history Review of Systems Unable to obtain accurate/complete ROS d/t: See HPI Patient Problems: Active and Suspected Problems Hypoglycemia (Acute) CHF (congestive heart failure) (Acute) Hypotension (Acute) Cardiac arrest (Acute) Objective: Chest x-ray shows increased interstitial markings consistent with possible pulmonary edema. CT of the head was read as chronic involutional changes with no acute issues. Patient does not have any echocardiogram or pulmonary function tests in our system. - Physical Exam Vitals/I&O's: Vital Signs Temp Pulse Resp BP Pulse Ox 36.3 C L 75 18 78/61 L 100 06/19/19 08:00 06/19/19 09:00 06/19/19 09:00 06/19/19 09:00 06/19/19 09:00 Oxygen Flow Rate (L/min) 3 Oxygen Delivery Method Nasal Cannula Weight: 78 kg Body Mass Index (BMI) 24.0 Intake and Output for Last 24 Hours 06/17/19 06/18/19 06/19/19 23:59 23:59 23:59 Intake Total 831.25 / 831.25 1099.89 / 1099.89 Output Total 300 / 300 300 / 300 Balance 531.25 / 531.25 799.89 / 799.89 General: Alert, Cooperative, Confused - Intermittently, - - Appears stated age. No conversational dyspnea. HEENT: Atraumatic, PERRLA, EOMI, Normocephalic, - - Mild temporal wasting Oral: Moist Mucosa, No Gingival or Mucosal Lesions/ Ulcerations Neck: Supple, No JVD, No Nodes, Trachea Midline Lungs: No rhonchi, No wheeze, No rales, Diminished, - - Symmetric expansion. No dullness to percussion. Cardiovascular: Regular rate, Normal S1, Normal S2, Murmur - Grade 2 out of 6 systolic ejection murmur at the right sternal border, No rub noted, No Gallop, - - Paced rhythm on telemetry Abdomen: Bowel Sounds Present, Soft, Non Tender, Non-Distended Extremities: No clubbing, No cyanosis, Edema - 1+ lower extremity Skin: No rashes, No breakdown Musculoskeletal: No Tenderness to Palpation of Joints or Extremities Lymphatic: No Cervical, Supraclavicular, or Inguinal Adenopathy Neurological: Cranial nerves II-XII grossly intact, Neuro grossly intact - Marginal cooperation with examination. Spontaneous movement of all extremities. Psych/Mental Status: Appropriate, Flat Affect Laboratory Results 06/18/19 13:02: WBC 5.4, RBC 3.33 L, Hgb 9.6 L, Hct 31.6 L, MCV 94.9 H, MCH 28.8, MCHC 30.4 L, RDW Std Deviation 55.0 H, RDW Coeff of Shelbi 16.1 H, Plt Count 135 L, MPV 11.0, Immature Gran % (Auto) 0.200, Neut % (Auto) 65.8, Lymph % (Auto) 22.7, Terrell % (Auto) 8.9, Eos % (Auto) 2.0, Baso % (Auto) 0.4, Absolute Neuts (auto) 3.5, Absolute Lymphs (auto) 1.22, Nucleated RBC % 0 06/18/19 13:02: PT 44.9 H, INR 4.7 H* 06/18/19 13:02: Sodium 143, Potassium 4.0, Chloride 108 H, Carbon Dioxide 30.0, Anion Gap 5, BUN 54 H, Creatinine 1.88 H, Estim Creat Clear Calc 29.25, Est GFR (MDRD) Af Amer 44 L, Est GFR (MDRD) Non-Af 37 L, BUN/Creatinine Ratio 28.7 H, Glucose 67 L, Calcium 9.3, Troponin I 0.117 H 06/18/19 13:02: Lactic Acid 1.0 06/18/19 13:02: B-Natriuretic Peptide 389.6 H 06/18/19 14:57: Urine Color Yellow, Urine Clarity Clear, Urine pH 5.0, Ur Specific Whitmer 1.015, Urine Protein 15 H, Urine Glucose (UA) Normal, Urine Ketones Negative, Urine Occult Blood Negative, Urine Nitrite Negative, Urine Bilirubin Negative, Urine Urobilinogen Normal, Ur Leukocyte Esterase Negative, Urine RBC 0 SEEN, Urine WBC 0 SEEN, Ur Squamous Epith Cells 0 SEEN, Urine Bacteria 0 SEEN, Hyaline Casts 0-5 SEEN, Urine Mucus 0 SEEN 06/18/19 16:03: POC Glucose 22 L* 06/18/19 16:17: POC Glucose 160 H 06/18/19 17:10: TSH 1.00 06/18/19 17:10: Troponin I 0.120 H 06/18/19 17:20: POC Glucose 96 06/18/19 18:51: POC Glucose 95 06/18/19 19:36: POC Glucose 86 06/18/19 19:45: Troponin I 0.139 H 06/18/19 19:45: Sodium 144, Potassium 4.4, Chloride 111 H, Carbon Dioxide 29.0, Anion Gap 4 L, BUN 52 H, Creatinine 2.00 H, Estim Creat Clear Calc 27.49, Est GFR (MDRD) Af Amer 41 L, Est GFR (MDRD) Non-Af 34 L, BUN/Creatinine Ratio 26.0 H, Glucose 102, Calcium 9.6, Phosphorus 4.0, Magnesium 2.5 06/18/19 19:45: WBC 8.3, RBC 3.76 L, Hgb 11.0 L, Hct 36.8 L, MCV 97.9 H, MCH 29.3, MCHC 29.9 L, RDW Std Deviation 57.4 H, RDW Coeff of Shelbi 16.1 H, Plt Count 97 L, MPV 11.6, Immature Gran % (Auto) 1.400 H, Neut % (Auto) 43.8 L, Lymph % (Auto) 46.2 H, Terrell % (Auto) 6.5, Eos % (Auto) 1.6, Baso % (Auto) 0.5, Absolute Neuts (auto) 3.7, Absolute Lymphs (auto) 3.84, Nucleated RBC % 0.6, Platelet Estimate MOD DEC, RBC Morphology N CHROM, Ovalocytes 1+ 06/18/19 19:45: Lactic Acid 3.9 H* 06/18/19 19:54: Specimen Type ART, Sample Site R Radial, pH 7.32 L, Bicarbonate Actual 23.6, POC Total CO2 25, Base Excess -3 L, O2 Saturation 97, O2 % 100, ABG pCO2 46.3 H, ABG pO2 105 H, O2 Delivery Device Ambu, Blood Gas Notified Whom [facility] , Blood Gas Notified Time 194706/18/19 21:12: POC Glucose 121 H 06/18/19 22:20: Urine Color Straw, Urine Clarity Clear, Urine pH 6.5, Ur Specific [place] 1.010, Urine Protein 30 H, Urine Glucose (UA) Normal, Urine Ketones Negative, Urine Occult Blood 25 H, Urine Nitrite Negative, Urine Bilirubin Negative, Urine Urobilinogen Normal, Ur Leukocyte Esterase Negative, Urine RBC 0-5 SEEN, Urine WBC 0-5 SEEN, Ur Squamous Epith Cells 0 SEEN, Urine Bacteria 0 SEEN, Hyaline Casts 0-5 SEEN, Urine Mucus 0 SEEN 06/19/19 00:24: POC Glucose 118 H 06/19/19 02:11: POC Glucose 103 06/19/19 03:50: Sodium 141, Potassium 4.3, Chloride 109 H, Carbon Dioxide 28.0, Anion Gap 4 L, BUN 52 H, Creatinine 2.08 H, Estim Creat Clear Calc 26.44, Est GFR (MDRD) Af Amer 39 L, Est GFR (MDRD) Non-Af 33 L, BUN/Creatinine Ratio 25.0 H, Glucose 95, Calcium 8.6, Triglycerides 120, Cholesterol 119, LDL Cholesterol 50, VLDL Cholesterol 24, HDL Cholesterol 45 03/06/20 03:50: WBC 6.9, RBC 3.01 L, Hgb 8.9 L, Hct 28.5 L, MCV 94.7 H, MCH 29.6, MCHC 31.2 L, RDW Std Deviation 55.2 H, RDW Coeff of Shelbi 16.1 H, Plt Count 114 L, MPV 10.9, Immature Gran % (Auto) 0.300, Neut % (Auto) 74.1 H, Lymph % (Auto) 16.6 L, Terrell % (Auto) 7.7, Eos % (Auto) 1.2, Baso % (Auto) 0.1, Absolute Neuts (auto) 5.1, Absolute Lymphs (auto) 1.14, Nucleated RBC % 0 06/19/19 03:50: PT 43.7 H, INR 4.6 H* 06/19/19 04:32: POC Glucose 74 06/19/19 05:42: POC Glucose 113 H 06/19/19 08:31: POC Glucose 94 Current Medications Furosemide (Lasix) 40 mg IV DAILY SHADY Glucagon () 1 mg IM .X1 PRN PRN Reason: Hypoglycemia Dextrose (Dextrose 10%-Water) 250 mls @ 999 mls/hr IV .Q16M PRN; Protocol PRN Reason: HYPOGLYCEMIA Last Infusion: 06/19/19 05:39 Dose: 0 mls/hr Documented by: Piperacillin Sod/Tazobactam (Sod 3.375 gm/ Sodium Chloride) 50 mls @ 12.5 mls/hr IV Q8 SHADY Last Admin: 06/19/19 05:33 Dose: 12.5 mls/hr Documented by: Vancomycin IV Pharmacy to Dose (1,250 ea/ Sodium Chloride) 500 mls @ 250 mls/hr IV PRN PRN; Protocol Vancomycin HCl 750 mg/ Sodium (Chloride) 265 mls @ 250 mls/hr IV Q24H [facility] Dextrose/Sodium Chloride () 1,000 mls @ 75 mls/hr IV .[id number] [facility] Last Admin: 06/19/19 06:37 Dose: 75 mls/hr Documented by: Ondansetron HCl (Zofran) 4 mg IV Q8H PRN PRN PRN Reason: NAUSEA/VOMITING Sodium Chloride () 10 - 40 ml IV UD PRN PRN Reason: SALINE FLUSH Last Admin: 06/19/19 05:53 Dose: 20 ml Documented by: Clinical Impression(s) from Imaging Studies Chest X-Ray 06/18/19 12:12 IMPRESSION: Cardiomegaly. The lungs are clear. Electronically Signed: Doni Mcnela, at 12:36 EST , Service support , Brain CT 06/18/19 15:54 IMPRESSION: Chronic involutional and ischemic changes of the brain, as described. No acute intracranial injury. Electronically Signed: Jesus Pandya MD at 16:32 EST , Service support , Chest X-Ray 06/18/19 20:42 IMPRESSION: Prominent interstitial markings consistent with component of interstitial edema with moderate cardiomegaly. Electronically Signed: Gerhard Metz DO at 21:19 EST , Service support , Assessment/Plan Active and Suspected Problems Hypoglycemia (Acute) CHF (congestive heart failure) (Acute) Hypotension (Acute) Cardiac arrest (Acute) RECOMMENDATIONS: 1. Continue to hold BP and DM medications 2. Initiate low-dose dextrose infusion 3. Await echocardiogram and ICD interrogation 4. Hold on diuretic therapy secondary to hypotension 5. Await cardiology recommendations 6. No active reversal of INR unless develops bleeding problems 7. Monitor in intensive care unit IMPRESSIONS: 1. Acute ventricular tachycardic arrest Unclear etiology at this time. Electrolytes were within normal limits following the acute condition. Patient has done relatively well overnight. Patient's blood pressures are a little bit down. Cannot exclude an acute [place] given extensive coronary disease. Will await echocardiogram. Will likely need old records for comparison to see if there is a significant change. Patient has been hypoglycemic, but blood sugar at the code was in acceptable levels. 2. Hypoglycemia Clinical suspicion for slowed elimination of sulfonylureas leading to recurrent hypoglycemia. Patient will be placed on a lower dextrose infusion. Continue blood sugar monitoring. Patient is on a modified diet, so p.o. intake may be variable. 3. Coagulopathy secondary to Coumadin Clinical suspicion for interactions with Coumadin leading to elevated INR. However, patient is not actively bleeding. Would continue to monitor on a daily basis. No indication for FFP or vitamin K from my perspective 4. Hypotension Medical suspicion for cardiac versus drug etiology. Patient does have some renal dysfunction, but it is unclear if this is secondary to an acute event or chronic dysfunction. Patient was recently hospitalized at [facility]. Will attempt to obtain records for comparison. Patient may have accumulation of medication secondary to decreased elimination. All blood pressure medications have been held. Low clinical suspicion for sepsis. Likely okay to discontinue antibiotics at 48 hours if culture negative. 5. Advanced age/poor history/diabetes mellitus/hyperlipidemia/GERD/hypothyroidism Complicates care, management, recovery and prognosis. Medication alterations as listed above. Continue to monitor in the intensive care unit for another 24 hours. Inpatient E&M: 17143 Init Hosp L3
--- NOTE | 2019-06-19 09:54 | PCM.PN.HOSP ---
Patient Problems: Active and Suspected Problems Hypoglycemia (Acute) CHF (congestive heart failure) (Acute) Hypotension (Acute) Cardiac arrest (Acute) Subjective: Alert and oriented and no further issues overnight, he has continued to have difficulty with low blood sugar Vitals/I&O's: Vital Signs Temp Pulse Resp BP Pulse Ox 97.4 F L 75 18 78/61 L 100 06/19/19 08:00 06/19/19 09:00 06/19/19 09:00 06/19/19 09:00 06/19/19 09:00 Oxygen Flow Rate (L/min) 3 Oxygen Delivery Method Nasal Cannula Weight: 171 lb 15.369 oz Body Mass Index (BMI) 24.0 Intake and Output for Last 24 Hours 06/17/19 06/18/19 06/19/19 23:59 23:59 23:59 Intake Total 831.25 / 831.25 1099.89 / 1099.89 Output Total 300 / 300 300 / 300 Balance 531.25 / 531.25 799.89 / 799.89 General: Alert, Oriented x3, Cooperative, No apparent distress HEENT: Atraumatic, PERRLA, EOMI, Normocephalic Oral: Moist Mucosa Neck: Supple, No JVD Lungs: Clear to auscultation, Normal air movement, No rhonchi, No wheeze, No rales, Diminished Cardiovascular: Regular rate, Regular Rhythm, Normal S1, Normal S2, No murmurs Abdomen: Soft, Non Tender, Non-Distended, No Hepato-splenomegaly Extremities: Capillary Refill Less than 3 Seconds, Edema - 1+ pitting edema Skin: No rashes, No breakdown Neurological: Neuro grossly intact, Sensory exam intact to light touch and pain Psych/Mental Status: Normal Affect, Appropriate Laboratory Results 06/18/19 13:02: WBC 5.4, RBC 3.33 L, Hgb 9.6 L, Hct 31.6 L, MCV 94.9 H, MCH 28.8, MCHC 30.4 L, RDW Std Deviation 55.0 H, RDW Coeff of Shelbi 16.1 H, Plt Count 135 L, MPV 11.0, Immature Gran % (Auto) 0.200, Neut % (Auto) 65.8, Lymph % (Auto) 22.7, Page % (Auto) 8.9, Eos % (Auto) 2.0, Baso % (Auto) 0.4, Absolute Neuts (auto) 3.5, Absolute Lymphs (auto) 1.22, Nucleated RBC % 0 06/18/19 13:02: PT 44.9 H, INR 4.7 H* 06/18/19 13:02: Sodium 143, Potassium 4.0, Chloride 108 H, Carbon Dioxide 30.0, Anion Gap 5, BUN 54 H, Creatinine 1.88 H, Estim Creat Clear Calc 29.25, Est GFR (MDRD) Af Amer 44 L, Est GFR (MDRD) Non-Af 37 L, BUN/Creatinine Ratio 28.7 H, Glucose 67 L, Calcium 9.3, Troponin I 0.117 H 06/18/19 13:02: Lactic Acid 1.0 06/18/19 13:02: B-Natriuretic Peptide 389.6 H 06/18/19 14:57: Urine Color Yellow, Urine Clarity Clear, Urine pH 5.0, Ur Specific [place] 1.015, Urine Protein 15 H, Urine Glucose (UA) Normal, Urine Ketones Negative, Urine Occult Blood Negative, Urine Nitrite Negative, Urine Bilirubin Negative, Urine Urobilinogen Normal, Ur Leukocyte Esterase Negative, Urine RBC 0 SEEN, Urine WBC 0 SEEN, Ur Squamous Epith Cells 0 SEEN, Urine Bacteria 0 SEEN, Hyaline Casts 0-5 SEEN, Urine Mucus 0 SEEN 06/18/19 16:03: POC Glucose 22 L* 06/18/19 16:17: POC Glucose 160 H 06/18/19 17:10: TSH 1.00 06/18/19 17:10: Troponin I 0.120 H 06/18/19 17:20: POC Glucose 96 06/18/19 18:51: POC Glucose 95 06/18/19 19:36: POC Glucose 86 06/18/19 19:45: Troponin I 0.139 H 06/18/19 19:45: Sodium 144, Potassium 4.4, Chloride 111 H, Carbon Dioxide 29.0, Anion Gap 4 L, BUN 52 H, Creatinine 2.00 H, Estim Creat Clear Calc 27.49, Est GFR (MDRD) Af Amer 41 L, Est GFR (MDRD) Non-Af 34 L, BUN/Creatinine Ratio 26.0 H, Glucose 102, Calcium 9.6, Phosphorus 4.0, Magnesium 2.5 03/05/20 19:45: WBC 8.3, RBC 3.76 L, Hgb 11.0 L, Hct 36.8 L, MCV 97.9 H, MCH 29.3, MCHC 29.9 L, RDW Std Deviation 57.4 H, RDW Coeff of Shelbi 16.1 H, Plt Count 97 L, MPV 11.6, Immature Gran % (Auto) 1.400 H, Neut % (Auto) 43.8 L, Lymph % (Auto) 46.2 H, Page % (Auto) 6.5, Eos % (Auto) 1.6, Baso % (Auto) 0.5, Absolute Neuts (auto) 3.7, Absolute Lymphs (auto) 3.84, Nucleated RBC % 0.6, Platelet Estimate MOD DEC, RBC Morphology N CHROM, Ovalocytes 1+ 06/18/19 19:45: Lactic Acid 3.9 H* 06/18/19 19:54: Specimen Type ART, Sample Site R Radial, pH 7.32 L, Bicarbonate Actual 23.6, POC Total CO2 25, Base Excess -3 L, O2 Saturation 97, O2 % 100, ABG pCO2 46.3 H, ABG pO2 105 H, O2 Delivery Device Ambu, Blood Gas Notified Whom [facility] , Blood Gas Notified Time 194706/18/19 21:12: POC Glucose 121 H 06/18/19 22:20: Urine Color Straw, Urine Clarity Clear, Urine pH 6.5, Ur Specific Wever 1.010, Urine Protein 30 H, Urine Glucose (UA) Normal, Urine Ketones Negative, Urine Occult Blood 25 H, Urine Nitrite Negative, Urine Bilirubin Negative, Urine Urobilinogen Normal, Ur Leukocyte Esterase Negative, Urine RBC 0-5 SEEN, Urine WBC 0-5 SEEN, Ur Squamous Epith Cells 0 SEEN, Urine Bacteria 0 SEEN, Hyaline Casts 0-5 SEEN, Urine Mucus 0 SEEN 06/19/19 00:24: POC Glucose 118 H 06/19/19 02:11: POC Glucose 103 06/19/19 03:50: Sodium 141, Potassium 4.3, Chloride 109 H, Carbon Dioxide 28.0, Anion Gap 4 L, BUN 52 H, Creatinine 2.08 H, Estim Creat Clear Calc 26.44, Est GFR (MDRD) Af Amer 39 L, Est GFR (MDRD) Non-Af 33 L, BUN/Creatinine Ratio 25.0 H, Glucose 95, Calcium 8.6, Triglycerides 120, Cholesterol 119, LDL Cholesterol 50, VLDL Cholesterol 24, HDL Cholesterol 45 06/19/19 03:50: WBC 6.9, RBC 3.01 L, Hgb 8.9 L, Hct 28.5 L, MCV 94.7 H, MCH 29.6, MCHC 31.2 L, RDW Std Deviation 55.2 H, RDW Coeff of Shelbi 16.1 H, Plt Count 114 L, MPV 10.9, Immature Gran % (Auto) 0.300, Neut % (Auto) 74.1 H, Lymph % (Auto) 16.6 L, Page % (Auto) 7.7, Eos % (Auto) 1.2, Baso % (Auto) 0.1, Absolute Neuts (auto) 5.1, Absolute Lymphs (auto) 1.14, Nucleated RBC % 0 06/19/19 03:50: PT 43.7 H, INR 4.6 H* 06/19/19 04:32: POC Glucose 74 06/19/19 05:42: POC Glucose 113 H 06/19/19 08:31: POC Glucose 94 Current Medications Furosemide (Lasix) 40 mg IV DAILY SHADY Glucagon () 1 mg IM .X1 PRN PRN Reason: Hypoglycemia Dextrose (Dextrose 10%-Water) 250 mls @ 999 mls/hr IV .Q16M PRN; Protocol PRN Reason: HYPOGLYCEMIA Last Infusion: 06/19/19 05:39 Dose: 0 mls/hr Documented by: Piperacillin Sod/Tazobactam (Sod 3.375 gm/ Sodium Chloride) 50 mls @ 12.5 mls/hr IV Q8 SHADY Last Admin: 06/19/19 05:33 Dose: 12.5 mls/hr Documented by: Vancomycin IV Pharmacy to Dose (1,250 ea/ Sodium Chloride) 500 mls @ 250 mls/hr IV PRN PRN; Protocol Vancomycin HCl 750 mg/ Sodium (Chloride) 265 mls @ 250 mls/hr IV Q24H [facility] Dextrose/Sodium Chloride () 1,000 mls @ 75 mls/hr IV .[id number] [facility] Last Admin: 06/19/19 06:37 Dose: 75 mls/hr Documented by: Ondansetron HCl (Zofran) 4 mg IV Q8H PRN PRN PRN Reason: NAUSEA/VOMITING Sodium Chloride () 10 - 40 ml IV UD PRN PRN Reason: SALINE FLUSH Last Admin: 06/19/19 05:53 Dose: 20 ml Documented by: STROKE Vital Signs/Narrative: Vital Signs Temp Pulse Resp BP Pulse Ox 06/19/19 09:00 75 18 78/61 L 100 06/19/19 08:00 97.4 F L 75 20 H 83/55 L 92 06/19/19 07:00 75 22 H 96/64 92 06/19/19 06:00 97.3 F L 75 15 84/59 L 95 Medical Necessity - Tobacco Use Smoking Status: Former smoker Tobacco Use: Cigars Assessment/Plan All Active Problems Hypoglycemia (Acute) CHF (congestive heart failure) (Acute) Hypotension (Acute) Cardiac arrest (Acute) 1. Acute systolic CHF exacerbation/hypoglycemia/V. tach arrest/hypotension/acute metabolic encephalopathy resolved with improvement in hyperglycemia -He had CPR yesterday and has been stable since, he is not intubated and is alert -He would like to be a full code -Appreciate cardiology and space engineer input -We will interrogate both pacer and have a echo performed -Troponin was only mildly elevated, will monitor -We will hold his home blood pressure medications and he will likely need to be adjusted -BNP was elevated to 389 however he did have renal disease on admission as well -No evidence of an infectious process can likely discontinue antibiotics that were started overnight 2. Supratherapeutic INR -Awaiting records from [place] to see why he is on Coumadin 3. DM 2/hyperglycemia/CKD 3/anemia of chronic disease -With his renal failure he is likely maintaining his sulfonylurea, will hold his home medications and provide him with D50 as needed -He is allowed to eat -As his polyuria clears his body will have a sliding scale insulin available as needed -He had no previous records on him therefore I assume he has CKD 3 though we will continue to monitor -Continue to monitor hemoglobin 4. Hypothyroidism -Stable -TSH was a 1, will continue with his home Synthroid DVT: supratherapeutic INR Inpatient E&M: 19799 Subs Hosp L2
[2019-06-19 11:01] LABS: Bedside Glucose 72 mg/dL (70-110)
[2019-06-19 12:21] LABS: Bedside Glucose 61 mg/dL (70-110)
[2019-06-19 13:20] LABS: Bedside Glucose 79 mg/dL (70-110)
--- NOTE | 2019-06-19 14:41 | CHAPLAIN ---
Type of Pastoral Visit _x__ Initial Visit ___ Follow-up Visit ___ On-call Visit ___ General Patient Visit ___ Spiritual Assessment ___ Family Conference ___ Bereavement ___ Rapid Response ___ Code Blue ___ Other (describe below) Pastoral Care Referral From ___ Patient _x__ Family ___ Nurse ___ Physician ___ Insole Presser ___ Creasing Machine Operator ___ Other (describe below) Sacrament/Intervention _x__ Active listening ___ Anointing ___ Yarsani ___ Bereavement ___ Communion ___ Kimberly exploration ___ _x__ Life review _x__ Prayer ___ Reconciliation ___ Sacrament of Sick _x__ Supportive presence ___ Wedding ___ Other (describe below) Pastoral Comments patient is awake and acknowledges 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
--- NOTE | 2019-06-19 15:30 | CASEMGMT ---
Addendum entered by Katie Rasheed 06/19/19 15:38: Spoke with [facility] and pt is from SNF and can return - will need new precert to return. No DC at this time. SW to continue to follow. Original Note: Social Work Per chart review, pt was independent prior at [facility], but unsure if pt was from [place] or SNF. Left message with Gege at [facility] for further information, and to confirm pt will need a new precert through [employer] prior to return, if accepted. SW to continue to follow. Katie Rasheed, SUJATHA EID
[2019-06-19 15:31] LABS: Bedside Glucose 77 mg/dL (70-110)
--- NOTE | 2019-06-19 15:34 | PCM.CONS.C ---
Reason for Consult Date of Consultation: 06/19/19 Reason for Consultation: Cardiac dysrhythmia History of Present Illness: The patient is a 84 year old M with past medical history significant for coronary artery disease status post remote triple bypass, ischemic cardiomyopathy, status post ICD implantation. The patient was apparently recently hospitalized to [facility] for pneumonia and was subsequently discharged to an extended care facility. While he was in the extended care facility he was noted to have low blood pressure and so he was sent to the emergency room. He was evaluated here he was noted to be mildly hypotensive but was markedly hypoglycemic. He did require D50. The patient was then admitted to the hospital. While in the hospital he reportedly had a VT arrest requiring a dose of epinephrine and cardioversion. Throughout the night he was noted to have marginal blood pressures as well as blood sugars which were also noted to be marginal. He was noted to have a paced rhythm. The patient has not been very communicative and has not been able to give an exact history as to whether he has had any chest pain. In the intensive care unit he was noted to have some dysrhythmias. Cardiology was called for further evaluation and management. On further questioning of the daughter who is present at this time no defibrillator discharges have been noted. Past Medical History Allergies/Adverse Reactions: Allergies No Known Allergies Allergy (Verified 06/18/19 11:28) Home Medications: Ambulatory Orders Medication Instructions Recorded Calcitriol 0.25 mcg PO DAILY 06/18/19 Carvedilol 25 mg PO BID 06/18/19 Ferrous Sulfate 325 mg PO DAILY 06/18/19 Glimepiride [Amaryl] 1 mg PO BID 06/18/19 Insulin Lispro [Humalog KwikPen] See Protocol SQ QHS 06/18/19 Insulin Lispro [Humalog KwikPen] See Protocol SQ TIDCM 06/18/19 Levothyroxine Sodium [Synthroid] 125 mcg PO DAILY 06/18/19 Lisinopril [Zestril] 10 mg PO DAILY 06/18/19 Magnesium Oxide 400 mg PO DAILY 06/18/19 Omeprazole [Prilosec] 20 mg PO DAILY 06/18/19 Pravastatin Sodium 80 mg PO QHS 06/18/19 Warfarin Sodium [Coumadin] 2 mg PO QHS 06/18/19 Past Medical History (Chronic Problems): Chronic Problems CAD (coronary artery disease) (Chronic) Pacemaker (Chronic) Diabetes (Chronic) Surgical History: no surgical history Psychiatric History: No pertinent psych hx - *Family History Maternal History Items: No pertinent history Paternal History Items: No pertinent history Lives: Retirement Smoking Status: Former smoker Tobacco Use: Cigars Alcohol: None Drugs: None Review of Systems - Review of Systems General: Denies: Fever, Night Sweats, Fatigue HEENT: Denies: Vision Change Cardiovascular: Denies: Chest Discomfort, Shortness of Breath, Orthopnea, PND, Peripheral Edema, Palpitations, Lightheadedness, Dizziness, Near Syncope, Syncope Respiratory: Denies: Cough, Sputum Production, Hemoptysis Gastrointestinal: Denies: Hematemesis, Hematochezia, Melena Genitourinary: Denies: Dysuria, Hematuria Muscoloskeletal: Denies: Myalgias Skin: Denies: Rash Neurological: Reports: Weakness. Denies: Dizziness Psychiatric: Denies: Anxiety Endocrine: Denies: Heat Intolerance Hematologic/ Lymphatic: Denies: Anemia Subjectve: Elderly man in no distress lying in bed not very communicative Objective: Vital Signs Temp Pulse Resp BP Pulse Ox 97.0 F L 76 19 H 91/65 90 06/19/19 12:00 06/19/19 13:00 06/19/19 13:00 06/19/19 13:00 06/19/19 13:00 Oxygen Flow Rate (L/min) 2 Oxygen Delivery Method Nasal Cannula Weight: 171 lb 15.369 oz Body Mass Index (BMI) 24.0 Intake and Output for Last 24 Hours 06/17/19 06/18/19 06/19/19 23:59 23:59 23:59 Intake Total 831.25 / 831.25 1149.89 / 1149.89 Output Total 300 / 300 500 / 500 Balance 531.25 / 531.25 649.89 / 649.89 General: Awake, Alert, Oriented x 3 HEENT: PERRL, EOMI, Sclera Non Icteric Neck: Supple, Good ROM, No Lymph Node Enlargement Lungs: Clear to auscultation Cardiovascular: Regular Rhythm, Normal S1, Normal S2, No Murmurs, No Rubs, No Gallops Vascular: No Carotid Bruits, Normal Femoral Pulses, Normal Radial Pulses, Normal Dorsalis Pedal Pulse, Normal Posterior Tibial Pulses Abdomen: Bowel Sounds Present, Soft, Non Tender, No HSM, No Organomegaly Extremities: No Cyanosis, No Clubbing, No edema Musculoskeletal: No Erythema Skin: No Rashes Lymphatic: No Lymph Node Enlargement Neurological: No Focal Motor or Sensory Deficit Psych/Mental Status: Appropriate 06/18/19 17:10: Troponin I 0.120 H 06/18/19 19:45: Troponin I 0.139 H 06/18/19 19:45: Sodium 144, Potassium 4.4, Chloride 111 H, Carbon Dioxide 29.0, Anion Gap 4 L, BUN 52 H, Creatinine 2.00 H, Est GFR (MDRD) Af Amer 41 L, Est GFR (MDRD) Non-Af 34 L, BUN/Creatinine Ratio 26.0 H, Glucose 102, Calcium 9.6, Phosphorus 4.0, Magnesium 2.5 06/18/19 19:45: WBC 8.3, RBC 3.76 L, Hgb 11.0 L, Hct 36.8 L, MCV 97.9 H, MCH 29.3, MCHC 29.9 L, Plt Count 97 L, MPV 11.6, Immature Gran % (Auto) 1.400 H, Neut % (Auto) 43.8 L, Lymph % (Auto) 46.2 H, Sampson % (Auto) 6.5, Eos % (Auto) 1.6, Baso % (Auto) 0.5, Absolute Neuts (auto) 3.7, Nucleated RBC % 0.6 06/18/19 19:45: Lactic Acid 3.9 H* 06/18/19 19:54: pH 7.32 L, Bicarbonate Actual 23.6, POC Total CO2 25, Base Excess -3 L, O2 Saturation 97, ABG pCO2 46.3 H, ABG pO2 105 H 06/18/19 22:20: Urine Color Straw, Urine Clarity Clear, Urine pH 6.5, Ur Specific Rowlett 1.010, Urine Protein 30 H, Urine Glucose (UA) Normal, Urine Ketones Negative, Urine Occult Blood 25 H, Urine Nitrite Negative, Urine Bilirubin Negative, Urine Urobilinogen Normal, Ur Leukocyte Esterase Negative, Urine RBC 0-5 SEEN, Urine WBC 0-5 SEEN 06/19/19 03:50: Sodium 141, Potassium 4.3, Chloride 109 H, Carbon Dioxide 28.0, Anion Gap 4 L, BUN 52 H, Creatinine 2.08 H, Est GFR (MDRD) Af Amer 39 L, Est GFR (MDRD) Non-Af 33 L, BUN/Creatinine Ratio 25.0 H, Glucose 95, Calcium 8.6, Triglycerides 120, Cholesterol 119, LDL Cholesterol 50, VLDL Cholesterol 24, HDL Cholesterol 45 06/19/19 03:50: WBC 6.9, RBC 3.01 L, Hgb 8.9 L, Hct 28.5 L, MCV 94.7 H, MCH 29.6, MCHC 31.2 L, Plt Count 114 L, MPV 10.9, Immature Gran % (Auto) 0.300, Neut % (Auto) 74.1 H, Lymph % (Auto) 16.6 L, Sampson % (Auto) 7.7, Eos % (Auto) 1.2, Baso % (Auto) 0.1, Absolute Neuts (auto) 5.1, Nucleated RBC % 0 06/19/19 03:50: PT 43.7 H, INR 4.6 H* Rhythm: EKG: Sinus rhythm with a ventricular pacing ECHO: Globally reduced left ventricular ejection fraction estimated EF 15% Stress Test: Cardiac Cath: PCI: CT Surgery: Holter monitor: EPS: PPM: CXR: Chest CT Scan: Assessment/Plan 1. Sustained ventricular tachycardia and cardiac arrest Patient appears to have sustained ventricular tachycardia and had a cardiac arrest. Interrogation of his ICD demonstrated numerous episodes of nonsustained ventricular tachycardia with antitachycardia pacing. The cut off however appear to be below the threshold for the defibrillator to discharge. He responded well to epinephrine and DC cardioversion. At this particular time I would recommend that we continue to manage him medically with intravenous amiodarone loading. Depending on how his blood pressure response his medications may be resumed. At this particular time the exact etiology for why his defibrillator discharge was not clear but certainly hypoglycemia, hypoxia and acidosis could be potential etiologies. 2. Coronary artery disease He does have evidence of coronary artery disease status post bypass surgery. He does have mildly elevated cardiac troponin enzymes but at this time I would recommend that we continue to observe him to see how he does. Will discuss with the family as to further investigations which may need to be performed. 3. Left ventricular systolic dysfunction He does have known severe left ventricular systolic dysfunction likely secondary to his coronary artery disease. He did not appear to be in any heart failure. He had previously been on a beta-mike and ANOOP inhibitor and depending on his recovery the above may be reinstituted. Thank you for allowing me to participate in the care of your patient. Please don't hesitate to call if any issues arise His overall prognosis appears to be rather guarded. And I will continue to follow with you.
[2019-06-19] MEDS: Amiodarone 360 MG in Dextrose 5% Viaflo Bag 192.8 ML 33.3 MG CONT INF (16:02)
[2019-06-19 17:21] LABS: Bedside Glucose 84 mg/dL (70-110)
[2019-06-19] MEDS: Sodium Chloride 19.25 MEQ in Dextrose 10%-Water 250 ML 75 MEQ IV ×2 (18:55→22:06)
[2019-06-19 19:41] LABS: Bedside Glucose 98 mg/dL (70-110)
[2019-06-19] MEDS: Amiodarone 360 MG in Dextrose 5% Viaflo Bag 192.8 ML 16.7 MG CONT INF (21:45)
[2019-06-19 21:55] LABS: Bedside Glucose 143 mg/dL (70-110)
[2019-06-19 23:36] LABS: Bedside Glucose 164 mg/dL (70-110)
[2019-06-20] VITALS (28 sets, daily range): BP systolic 71–115; BP diastolic 57–78; PULSE 74–107; RESP 12–29; TEMP 35.3–37.8; O2SAT 90–99
[2019-06-20] MEDS: Sodium Chloride 19.25 MEQ in Dextrose 10%-Water 250 ML 75 MEQ IV ×2 (01:31→04:56)
[2019-06-20 01:41] LABS: Bedside Glucose 152 mg/dL (70-110)
[2019-06-20 03:51] LABS: Bedside Glucose 162 mg/dL (70-110)
[2019-06-20 03:53] LABS: Absolute Lymphocyte Count 1.39 X10^3/uL (0.83-4.51); Basophil# 0.02 X10^3/uL; Basophil% 0.3 % (0-1); Eosinophil# 0.12 X10^3/uL; Eosinophils% 1.9 % (0-5); Hematocrit 30.5 % (40-54); Hemoglobin 9.4 g/dL (13.0-16.5); Lymphocyte # 1.39 X10^3/ul (4.0); Lymphocyte % 22.3 % (19-41); Mean Corp Hgb Conc 30.8 g/dL (32-36); Mean Corpuscular Hgb 29.1 pg (27.0-32.0); Mean Corpuscular Volume 94.4 fL (80-94); Mean Platelet Vol. 11.5 fl (6.2-12.0); Monocyte# 0.67 X10^3/uL; Monocyte% 10.8 % (0-10); NRBC Flagged by Analyzer 0 % (0-5); Neutrophil # 3.99 X10^3/uL (2.7-7.7); Neutrophil % 64.2 % (47-70); Platelet Count 127 K/mm3 (150-450); RBC Distribution Width CV 16.2 % (11.6-14.6); RBC Distribution Width SD 55.5 fl (35.1-43.9); Red Blood Count 3.23 M/mm3 (4.6-6.2); White Blood Count 6.2 K/mm3 (4.4-11.0)
[2019-06-20 04:02] LABS: International Normalized Ratio 3.4; Prothrombin Time (Protime)PT. 34.5 SECONDS (11.7-14.9)
[2019-06-20 04:05] LABS: Anion Gap 6 (5-15); BUN 50 mg/dL (7-18); BUN/Creat Ratio 22.4 RATIO (10-20); Calcium,Total 8.8 mg/dL (8.5-10.1); Chloride 108 mmol/L (98-107); Creatinine, Serum 2.23 mg/dL (0.70-1.30); EST Glomerular Filtration Rate 30 mL/min (>60); Est Glom Filt Rate - Afr Amer 36 mL/min (>60); Estimated Creatinine Clearance 24.66 ml/min; Glucose 177 mg/dL (74-106); Potassium 4.5 mmol/L (3.5-5.1); Sodium Level 140 mmol/L (136-145)
[2019-06-20] MEDS: 0.9% Saline Lock 10 ML Syringe IV ×2 (04:57→12:33)
[2019-06-20 05:45] LABS: Bedside Glucose 180 mg/dL (70-110)
--- NOTE | 2019-06-20 07:29 | PN_ITS ---
Subjective: Patient did okay overnight. Patient has had marginal blood pressures, but no significant interventions have been required. No bleeding is been reported. Patient is currently on an amiodarone drip. Blood sugars have been trending up on D10 drip. Patient is very confused this morning and unable to provide much history or insight. Objective: Echocardiogram from yesterday showed an EF of 15% with akinetic inferior basal wall, moderately dilated left atrium and mildly enlarged right atrium. Unable to estimate pulmonary artery pressures. General: Alert, No apparent distress, Confused, Disoriented, - - Periodic cough noted. HEENT: Atraumatic, PERRLA, EOMI, Normocephalic, - - No scleral icterus or injection noted Oral: Moist Mucosa, No Gingival or Mucosal Lesions/ Ulcerations Neck: Supple, No Nodes, Trachea Midline, JVD, Right Lungs: No wheeze, No rales, Diminished, Rhonchi, - - Symmetric expansion. No dullness to percussion. Cardiovascular: Normal S1, Normal S2, No murmurs, Irregular Rate, No rub noted, No Gallop Abdomen: Bowel Sounds Present, Soft, Non Tender, Non-Distended Extremities: No clubbing, No cyanosis, Edema Skin: No rashes, No breakdown Musculoskeletal: No Tenderness to Palpation of Joints or Extremities Lymphatic: No Cervical, Supraclavicular, or Inguinal Adenopathy Neurological: Cranial nerves II-XII grossly intact, Neuro grossly intact, Motor Exam 5/5 strength throughout Psych/Mental Status: Impulsive, Restless Vital Signs Temp Pulse Resp BP Pulse Ox 36.3 C L 75 29 H 91/70 90 06/20/19 07:00 06/20/19 07:00 06/20/19 07:00 06/20/19 07:00 06/20/19 07:00 Oxygen Flow Rate (L/min) 2 Oxygen Delivery Method Room Air Weight: 79.1 kg Body Mass Index (BMI) 24.0 Intake and Output for Last 24 Hours 06/18/19 06/19/19 06/20/19 23:59 23:59 23:59 Intake Total 831.25 / 831.25 2732.01 / 2732.01 939.6175 / 939.6175 Output Total 300 / 300 900 / 900 125 / 125 Balance 531.25 / 531.25 1832.01 / 1832.01 814.6175 / 814.6175 Labs (Last 48 Hours) 06/18/19 06/18/19 06/18/19 13:02 13:02 13:02 WBC 5.4 RBC 3.33 L Hgb 9.6 L Hct 31.6 L MCV 94.9 H MCH 28.8 MCHC 30.4 L RDW Std Deviation 55.0 H RDW Coeff of Shelbi 16.1 H Plt Count 135 L MPV 11.0 Immature Gran % (Auto) 0.200 Neut % (Auto) 65.8 Lymph % (Auto) 22.7 Pope % (Auto) 8.9 Eos % (Auto) 2.0 Baso % (Auto) 0.4 Absolute Neuts (auto) 3.5 Absolute Lymphs (auto) 1.22 Nucleated RBC % 0 Platelet Estimate RBC Morphology Ovalocytes PT 44.9 H INR 4.7 H* Specimen Type Sample Site pH Bicarbonate Actual POC Total CO2 Base Excess O2 Saturation O2 % ABG pCO2 ABG pO2 O2 Delivery Device Blood Gas Notified Whom Blood Gas Notified Time Sodium 143 Potassium 4.0 Chloride 108 H Carbon Dioxide 30.0 Anion Gap 5 BUN 54 H Creatinine 1.88 H Estim Creat Clear Calc 29.25 Est GFR (MDRD) Af Amer 44 L Est GFR (MDRD) Non-Af 37 L BUN/Creatinine Ratio 28.7 H Glucose 67 L Lactic Acid Calcium 9.3 Phosphorus Magnesium Troponin I 0.117 H B-Natriuretic Peptide Triglycerides Cholesterol LDL Cholesterol VLDL Cholesterol HDL Cholesterol TSH Urine Color Urine Clarity Urine pH Ur Specific [place] Urine Protein Urine Glucose (UA) Urine Ketones Urine Occult Blood Urine Nitrite Urine Bilirubin Urine Urobilinogen Ur Leukocyte Esterase Urine RBC Urine WBC Ur Squamous Epith Cells Urine Bacteria Hyaline Casts Urine Mucus POC Glucose 06/18/19 06/18/19 06/18/19 13:02 13:02 14:57 WBC RBC Hgb Hct MCV MCH MCHC RDW Std Deviation RDW Coeff of [place] Plt Count MPV Immature Gran % (Auto) Neut % (Auto) Lymph % (Auto) Pope % (Auto) Eos % (Auto) Baso % (Auto) Absolute Neuts (auto) Absolute Lymphs (auto) Nucleated RBC % Platelet Estimate RBC Morphology Ovalocytes PT INR Specimen Type Sample Site pH Bicarbonate Actual POC Total CO2 Base Excess O2 Saturation O2 % ABG pCO2 ABG pO2 O2 Delivery Device Blood Gas Notified Whom Blood Gas Notified Time Sodium Potassium Chloride Carbon Dioxide Anion Gap BUN Creatinine Estim Creat Clear Calc Est GFR (MDRD) Af Amer Est GFR (MDRD) Non-Af BUN/Creatinine Ratio Glucose Lactic Acid 1.0 Calcium Phosphorus Magnesium Troponin I B-Natriuretic Peptide 389.6 H Triglycerides Cholesterol LDL Cholesterol VLDL Cholesterol HDL Cholesterol TSH Urine Color Yellow Urine Clarity Clear Urine pH 5.0 Ur Specific [place] 1.015 Urine Protein 15 H Urine Glucose (UA) Normal Urine Ketones Negative Urine Occult Blood Negative Urine Nitrite Negative Urine Bilirubin Negative Urine Urobilinogen Normal Ur Leukocyte Esterase Negative Urine RBC 0 SEEN Urine WBC 0 SEEN Ur Squamous Epith Cells 0 SEEN Urine Bacteria 0 SEEN Hyaline Casts 0-5 SEEN Urine Mucus 0 SEEN POC Glucose 06/18/19 06/18/19 06/18/19 16:03 16:17 17:10 WBC RBC Hgb Hct MCV MCH MCHC RDW Std Deviation RDW Coeff of Shel[place] Plt Count MPV Immature Gran % (Auto) Neut % (Auto) Lymph % (Auto) Pope % (Auto) Eos % (Auto) Baso % (Auto) Absolute Neuts (auto) Absolute Lymphs (auto) Nucleated RBC % Platelet Estimate RBC Morphology Ovalocytes PT INR Specimen Type Sample Site pH Bicarbonate Actual POC Total CO2 Base Excess O2 Saturation O2 % ABG pCO2 ABG pO2 O2 Delivery Device Blood Gas Notified Whom Blood Gas Notified Time Sodium Potassium Chloride Carbon Dioxide Anion Gap BUN Creatinine Estim Creat Clear Calc Est GFR (MDRD) Af Amer Est GFR (MDRD) Non-Af BUN/Creatinine Ratio Glucose Lactic Acid Calcium Phosphorus Magnesium Troponin I B-Natriuretic Peptide Triglycerides Cholesterol LDL Cholesterol VLDL Cholesterol HDL Cholesterol TSH 1.00 Urine Color Urine Clarity Urine pH Ur Specific [place] Urine Protein Urine Glucose (UA) Urine Ketones Urine Occult Blood Urine Nitrite Urine Bilirubin Urine Urobilinogen Ur Leukocyte Esterase Urine RBC Urine WBC Ur Squamous Epith Cells Urine Bacteria Hyaline Casts Urine Mucus POC Glucose 22 L* 160 H 06/18/19 06/18/19 06/18/19 17:10 17:20 18:51 WBC RBC Hgb Hct MCV MCH MCHC RDW Std Deviation RDW Coeff of [place] Plt Count MPV Immature Gran % (Auto) Neut % (Auto) Lymph % (Auto) Pope % (Auto) Eos % (Auto) Baso % (Auto) Absolute Neuts (auto) Absolute Lymphs (auto) Nucleated RBC % Platelet Estimate RBC Morphology Ovalocytes PT INR Specimen Type Sample Site pH Bicarbonate Actual POC Total CO2 Base Excess O2 Saturation O2 % ABG pCO2 ABG pO2 O2 Delivery Device Blood Gas Notified Whom Blood Gas Notified Time Sodium Potassium Chloride Carbon Dioxide Anion Gap BUN Creatinine Estim Creat Clear Calc Est GFR (MDRD) Af Amer Est GFR (MDRD) Non-Af BUN/Creatinine Ratio Glucose Lactic Acid Calcium Phosphorus Magnesium Troponin I 0.120 H B-Natriuretic Peptide Triglycerides Cholesterol LDL Cholesterol VLDL Cholesterol HDL Cholesterol TSH Urine Color Urine Clarity Urine pH Ur Specific [place] Urine Protein Urine Glucose (UA) Urine Ketones Urine Occult Blood Urine Nitrite Urine Bilirubin Urine Urobilinogen Ur Leukocyte Esterase Urine RBC Urine WBC Ur Squamous Epith Cells Urine Bacteria Hyaline Casts Urine Mucus POC Glucose 96 95 06/18/19 06/18/19 06/18/19 19:36 19:45 19:45 WBC RBC Hgb Hct MCV MCH MCHC RDW Std Deviation RDW Coeff of [place] Plt Count MPV Immature Gran % (Auto) Neut % (Auto) Lymph % (Auto) Pope % (Auto) Eos % (Auto) Baso % (Auto) Absolute Neuts (auto) Absolute Lymphs (auto) Nucleated RBC % Platelet Estimate RBC Morphology Ovalocytes PT INR Specimen Type Sample Site pH Bicarbonate Actual POC Total CO2 Base Excess O2 Saturation O2 % ABG pCO2 ABG pO2 O2 Delivery Device Blood Gas Notified Whom Blood Gas Notified Time Sodium 144 Potassium 4.4 Chloride 111 H Carbon Dioxide 29.0 Anion Gap 4 L BUN 52 H Creatinine 2.00 H Estim Creat Clear Calc 27.49 Est GFR (MDRD) Af Amer 41 L Est GFR (MDRD) Non-Af 34 L BUN/Creatinine Ratio 26.0 H Glucose 102 Lactic Acid Calcium 9.6 Phosphorus 4.0 Magnesium 2.5 Troponin I 0.139 H B-Natriuretic Peptide Triglycerides Cholesterol LDL Cholesterol VLDL Cholesterol HDL Cholesterol TSH Urine Color Urine Clarity Urine pH Ur Specific [place] Urine Protein Urine Glucose (UA) Urine Ketones Urine Occult Blood Urine Nitrite Urine Bilirubin Urine Urobilinogen Ur Leukocyte Esterase Urine RBC Urine WBC Ur Squamous Epith Cells Urine Bacteria Hyaline Casts Urine Mucus POC Glucose 86 06/18/19 06/18/19 06/18/19 19:45 19:45 19:54 WBC 8.3 RBC 3.76 L Hgb 11.0 L Hct 36.8 L MCV 97.9 H MCH 29.3 MCHC 29.9 L RDW Std Deviation 57.4 H RDW Coeff of Shelbi 16.1 H Plt Count 97 L MPV 11.6 Immature Gran % (Auto) 1.400 H Neut % (Auto) 43.8 L Lymph % (Auto) 46.2 H Pope % (Auto) 6.5 Eos % (Auto) 1.6 Baso % (Auto) 0.5 Absolute Neuts (auto) 3.7 Absolute Lymphs (auto) 3.84 Nucleated RBC % 0.6 Platelet Estimate MOD DEC RBC Morphology N CHROM Ovalocytes 1+ PT INR Specimen Type ART Sample Site R Radial pH 7.32 L Bicarbonate Actual 23.6 POC Total CO2 25 Base Excess -3 L O2 Saturation 97 O2 % 100 ABG pCO2 46.3 H ABG pO2 105 H O2 Delivery Device Ambu Blood Gas Notified Whom HOSP Blood Gas Notified Time 1947 Sodium Potassium Chloride Carbon Dioxide Anion Gap BUN Creatinine Estim Creat Clear Calc Est GFR (MDRD) Af Amer Est GFR (MDRD) Non-Af BUN/Creatinine Ratio Glucose Lactic Acid 3.9 H* Calcium Phosphorus Magnesium Troponin I B-Natriuretic Peptide Triglycerides Cholesterol LDL Cholesterol VLDL Cholesterol HDL Cholesterol TSH Urine Color Urine Clarity Urine pH Ur Specific [place] Urine Protein Urine Glucose (UA) Urine Ketones Urine Occult Blood Urine Nitrite Urine Bilirubin Urine Urobilinogen Ur Leukocyte Esterase Urine RBC Urine WBC Ur Squamous Epith Cells Urine Bacteria Hyaline Casts Urine Mucus POC Glucose 06/18/19 06/18/19 06/19/19 21:12 22:20 00:24 WBC RBC Hgb Hct MCV MCH MCHC RDW Std Deviation RDW Coeff of [place] Plt Count MPV Immature Gran % (Auto) Neut % (Auto) Lymph % (Auto) Pope % (Auto) Eos % (Auto) Baso % (Auto) Absolute Neuts (auto) Absolute Lymphs (auto) Nucleated RBC % Platelet Estimate RBC Morphology Ovalocytes PT INR Specimen Type Sample Site pH Bicarbonate Actual POC Total CO2 Base Excess O2 Saturation O2 % ABG pCO2 ABG pO2 O2 Delivery Device Blood Gas Notified Whom Blood Gas Notified Time Sodium Potassium Chloride Carbon Dioxide Anion Gap BUN Creatinine Estim Creat Clear Calc Est GFR (MDRD) Af Amer Est GFR (MDRD) Non-Af BUN/Creatinine Ratio Glucose Lactic Acid Calcium Phosphorus Magnesium Troponin I B-Natriuretic Peptide Triglycerides Cholesterol LDL Cholesterol VLDL Cholesterol HDL Cholesterol TSH Urine Color Straw Urine Clarity Clear Urine pH 6.5 Ur Specific [place] 1.010 Urine Protein 30 H Urine Glucose (UA) Normal Urine Ketones Negative Urine Occult Blood 25 H Urine Nitrite Negative Urine Bilirubin Negative Urine Urobilinogen Normal Ur Leukocyte Esterase Negative Urine RBC 0-5 SEEN Urine WBC 0-5 SEEN Ur Squamous Epith Cells 0 SEEN Urine Bacteria 0 SEEN Hyaline Casts 0-5 SEEN Urine Mucus 0 SEEN POC Glucose 121 H 118 H 06/19/19 06/19/19 06/19/19 02:11 03:50 03:50 WBC 6.9 RBC 3.01 L Hgb 8.9 L Hct 28.5 L MCV 94.7 H MCH 29.6 MCHC 31.2 L RDW Std Deviation 55.2 H RDW Coeff of Shel[place] 16.1 H Plt Count 114 L MPV 10.9 Immature Gran % (Auto) 0.300 Neut % (Auto) 74.1 H Lymph % (Auto) 16.6 L Pope % (Auto) 7.7 Eos % (Auto) 1.2 Baso % (Auto) 0.1 Absolute Neuts (auto) 5.1 Absolute Lymphs (auto) 1.14 Nucleated RBC % 0 Platelet Estimate RBC Morphology Ovalocytes PT INR Specimen Type Sample Site pH Bicarbonate Actual POC Total CO2 Base Excess O2 Saturation O2 % ABG pCO2 ABG pO2 O2 Delivery Device Blood Gas Notified Whom Blood Gas Notified Time Sodium 141 Potassium 4.3 Chloride 109 H Carbon Dioxide 28.0 Anion Gap 4 L BUN 52 H Creatinine 2.08 H Estim Creat Clear Calc 26.44 Est GFR (MDRD) Af Amer 39 L Est GFR (MDRD) Non-Af 33 L BUN/Creatinine Ratio 25.0 H Glucose 95 Lactic Acid Calcium 8.6 Phosphorus Magnesium Troponin I B-Natriuretic Peptide Triglycerides 120 Cholesterol 119 LDL Cholesterol 50 VLDL Cholesterol 24 HDL Cholesterol 45 TSH Urine Color Urine Clarity Urine pH Ur Specific [place] Urine Protein Urine Glucose (UA) Urine Ketones Urine Occult Blood Urine Nitrite Urine Bilirubin Urine Urobilinogen Ur Leukocyte Esterase Urine RBC Urine WBC Ur Squamous Epith Cells Urine Bacteria Hyaline Casts Urine Mucus POC Glucose 103 06/19/19 06/19/19 06/19/19 03:50 04:32 05:42 WBC RBC Hgb Hct MCV MCH MCHC RDW Std Deviation RDW Coeff of [place] Plt Count MPV Immature Gran % (Auto) Neut % (Auto) Lymph % (Auto) Pope % (Auto) Eos % (Auto) Baso % (Auto) Absolute Neuts (auto) Absolute Lymphs (auto) Nucleated RBC % Platelet Estimate RBC Morphology Ovalocytes PT 43.7 H INR 4.6 H* Specimen Type Sample Site pH Bicarbonate Actual POC Total CO2 Base Excess O2 Saturation O2 % ABG pCO2 ABG pO2 O2 Delivery Device Blood Gas Notified Whom Blood Gas Notified Time Sodium Potassium Chloride Carbon Dioxide Anion Gap BUN Creatinine Estim Creat Clear Calc Est GFR (MDRD) Af Amer Est GFR (MDRD) Non-Af BUN/Creatinine Ratio Glucose Lactic Acid Calcium Phosphorus Magnesium Troponin I B-Natriuretic Peptide Triglycerides Cholesterol LDL Cholesterol VLDL Cholesterol HDL Cholesterol TSH Urine Color Urine Clarity Urine pH Ur Specific [place] Urine Protein Urine Glucose (UA) Urine Ketones Urine Occult Blood Urine Nitrite Urine Bilirubin Urine Urobilinogen Ur Leukocyte Esterase Urine RBC Urine WBC Ur Squamous Epith Cells Urine Bacteria Hyaline Casts Urine Mucus POC Glucose 74 113 H 06/19/19 06/19/19 06/19/19 08:31 10:57 12:15 WBC RBC Hgb Hct MCV MCH MCHC RDW Std Deviation RDW Coeff of [place] Plt Count MPV Immature Gran % (Auto) Neut % (Auto) Lymph % (Auto) Pope % (Auto) Eos % (Auto) Baso % (Auto) Absolute Neuts (auto) Absolute Lymphs (auto) Nucleated RBC % Platelet Estimate RBC Morphology Ovalocytes PT INR Specimen Type Sample Site pH Bicarbonate Actual POC Total CO2 Base Excess O2 Saturation O2 % ABG pCO2 ABG pO2 O2 Delivery Device Blood Gas Notified Whom Blood Gas Notified Time Sodium Potassium Chloride Carbon Dioxide Anion Gap BUN Creatinine Estim Creat Clear Calc Est GFR (MDRD) Af Amer Est GFR (MDRD) Non-Af BUN/Creatinine Ratio Glucose Lactic Acid Calcium Phosphorus Magnesium Troponin I B-Natriuretic Peptide Triglycerides Cholesterol LDL Cholesterol VLDL Cholesterol HDL Cholesterol TSH Urine Color Urine Clarity Urine pH Ur Specific [place] Urine Protein Urine Glucose (UA) Urine Ketones Urine Occult Blood Urine Nitrite Urine Bilirubin Urine Urobilinogen Ur Leukocyte Esterase Urine RBC Urine WBC Ur Squamous Epith Cells Urine Bacteria Hyaline Casts Urine Mucus POC Glucose 94 72 61 L 06/19/19 06/19/19 06/19/19 13:11 15:19 17:18 WBC RBC Hgb Hct MCV MCH MCHC RDW Std Deviation RDW Coeff of [place] Plt Count MPV Immature Gran % (Auto) Neut % (Auto) Lymph % (Auto) Pope % (Auto) Eos % (Auto) Baso % (Auto) Absolute Neuts (auto) Absolute Lymphs (auto) Nucleated RBC % Platelet Estimate RBC Morphology Ovalocytes PT INR Specimen Type Sample Site pH Bicarbonate Actual POC Total CO2 Base Excess O2 Saturation O2 % ABG pCO2 ABG pO2 O2 Delivery Device Blood Gas Notified Whom Blood Gas Notified Time Sodium Potassium Chloride Carbon Dioxide Anion Gap BUN Creatinine Estim Creat Clear Calc Est GFR (MDRD) Af Amer Est GFR (MDRD) Non-Af BUN/Creatinine Ratio Glucose Lactic Acid Calcium Phosphorus Magnesium Troponin I B-Natriuretic Peptide Triglycerides Cholesterol LDL Cholesterol VLDL Cholesterol HDL Cholesterol TSH Urine Color Urine Clarity Urine pH Ur Specific [place] Urine Protein Urine Glucose (UA) Urine Ketones Urine Occult Blood Urine Nitrite Urine Bilirubin Urine Urobilinogen Ur Leukocyte Esterase Urine RBC Urine WBC Ur Squamous Epith Cells Urine Bacteria Hyaline Casts Urine Mucus POC Glucose 79 77 84 06/19/19 06/19/19 06/19/19 19:33 21:48 23:25 WBC RBC Hgb Hct MCV MCH MCHC RDW Std Deviation RDW Coeff of [place] Plt Count MPV Immature Gran % (Auto) Neut % (Auto) Lymph % (Auto) Pope % (Auto) Eos % (Auto) Baso % (Auto) Absolute Neuts (auto) Absolute Lymphs (auto) Nucleated RBC % Platelet Estimate RBC Morphology Ovalocytes PT INR Specimen Type Sample Site pH Bicarbonate Actual POC Total CO2 Base Excess O2 Saturation O2 % ABG pCO2 ABG pO2 O2 Delivery Device Blood Gas Notified Whom Blood Gas Notified Time Sodium Potassium Chloride Carbon Dioxide Anion Gap BUN Creatinine Estim Creat Clear Calc Est GFR (MDRD) Af Amer Est GFR (MDRD) Non-Af BUN/Creatinine Ratio Glucose Lactic Acid Calcium Phosphorus Magnesium Troponin I B-Natriuretic Peptide Triglycerides Cholesterol LDL Cholesterol VLDL Cholesterol HDL Cholesterol TSH Urine Color Urine Clarity Urine pH Ur Specific [place] Urine Protein Urine Glucose (UA) Urine Ketones Urine Occult Blood Urine Nitrite Urine Bilirubin Urine Urobilinogen Ur Leukocyte Esterase Urine RBC Urine WBC Ur Squamous Epith Cells Urine Bacteria Hyaline Casts Urine Mucus POC Glucose 98 143 H 164 H 06/20/19 06/20/19 06/20/19 01:35 03:15 03:15 WBC 6.2 RBC 3.23 L Hgb 9.4 L Hct 30.5 L MCV 94.4 H MCH 29.1 MCHC 30.8 L RDW Std Deviation 55.5 H RDW Coeff of Shelbi 16.2 H Plt Count 127 L MPV 11.5 Immature Gran % (Auto) 0.500 Neut % (Auto) 64.2 Lymph % (Auto) 22.3 Pope % (Auto) 10.8 H Eos % (Auto) 1.9 Baso % (Auto) 0.3 Absolute Neuts (auto) 4.0 Absolute Lymphs (auto) 1.39 Nucleated RBC % 0 Platelet Estimate RBC Morphology Ovalocytes PT 34.5 H INR 3.4 Specimen Type Sample Site pH Bicarbonate Actual POC Total CO2 Base Excess O2 Saturation O2 % ABG pCO2 ABG pO2 O2 Delivery Device Blood Gas Notified Whom Blood Gas Notified Time Sodium Potassium Chloride Carbon Dioxide Anion Gap BUN Creatinine Estim Creat Clear Calc Est GFR (MDRD) Af Amer Est GFR (MDRD) Non-Af BUN/Creatinine Ratio Glucose Lactic Acid Calcium Phosphorus Magnesium Troponin I B-Natriuretic Peptide Triglycerides Cholesterol LDL Cholesterol VLDL Cholesterol HDL Cholesterol TSH Urine Color Urine Clarity Urine pH Ur Specific [place] Urine Protein Urine Glucose (UA) Urine Ketones Urine Occult Blood Urine Nitrite Urine Bilirubin Urine Urobilinogen Ur Leukocyte Esterase Urine RBC Urine WBC Ur Squamous Epith Cells Urine Bacteria Hyaline Casts Urine Mucus POC Glucose 152 H 06/20/19 06/20/19 06/20/19 03:15 03:34 05:40 WBC RBC Hgb Hct MCV MCH MCHC RDW Std Deviation RDW Coeff of [place] Plt Count MPV Immature Gran % (Auto) Neut % (Auto) Lymph % (Auto) Pope % (Auto) Eos % (Auto) Baso % (Auto) Absolute Neuts (auto) Absolute Lymphs (auto) Nucleated RBC % Platelet Estimate RBC Morphology Ovalocytes PT INR Specimen Type Sample Site pH Bicarbonate Actual POC Total CO2 Base Excess O2 Saturation O2 % ABG pCO2 ABG pO2 O2 Delivery Device Blood Gas Notified Whom Blood Gas Notified Time Sodium 140 Potassium 4.5 Chloride 108 H Carbon Dioxide 26.0 Anion Gap 6 BUN 50 H Creatinine 2.23 H Estim Creat Clear Calc 24.66 Est GFR (MDRD) Af Amer 36 L Est GFR (MDRD) Non-Af 30 L BUN/Creatinine Ratio 22.4 H Glucose 177 H Lactic Acid Calcium 8.8 Phosphorus Magnesium Troponin I B-Natriuretic Peptide Triglycerides Cholesterol LDL Cholesterol VLDL Cholesterol HDL Cholesterol TSH Urine Color Urine Clarity Urine pH Ur Specific [place] Urine Protein Urine Glucose (UA) Urine Ketones Urine Occult Blood Urine Nitrite Urine Bilirubin Urine Urobilinogen Ur Leukocyte Esterase Urine RBC Urine WBC Ur Squamous Epith Cells Urine Bacteria Hyaline Casts Urine Mucus POC Glucose 162 H 180 H Medical Necessity - Tobacco Use Smoking Status: Former smoker Tobacco Use: Cigars Assessment/Plan All Active Problems Hypoglycemia (Acute) CHF (congestive heart failure) (Acute) Hypotension (Acute) Cardiac arrest (Acute) RECOMMENDATIONS: 1. Continue to hold BP and DM medications 2. Discontinue IV fluids. Recheck blood sugars in 2 hours 3. Await cardiology recommendations 4. Hold on diuretic therapy secondary to hypotension 5. Continue delirium protocol. Consider renal consult 6. No active reversal of INR unless develops bleeding problems 7. Monitor in intensive care unit IMPRESSIONS: 1. Acute ventricular tachycardic arrest Unclear etiology at this time. Electrolytes were within normal limits following the acute condition. Patient has done relatively well overnight. Patient's blood pressures are a little bit down. Interrogation of the pacemaker showed nonsustained V. tach with ATP response. Patient currently is on amiodarone. Cardiology following. 2. Hypoglycemia Clinical suspicion for slowed elimination of sulfonylureas leading to recurrent hypoglycemia. Blood sugars have been trending up. Will attempt to discontinue IV fluids. Rhonchi on exam may be secondary to fluid overload. May dose with Lasix. 3. Coagulopathy secondary to Coumadin Clinical suspicion for interactions with Coumadin leading to elevated INR. However, patient is not actively bleeding. Would continue to monitor on a d aily basis. No indication for FFP or vitamin K from my perspective 4. Hypotension Medical suspicion for cardiac versus drug etiology. Patient does have some renal dysfunction, but it is unclear if this is secondary to an acute event or chronic dysfunction. Patient was recently hospitalized at [facility]. Will attempt to obtain records for comparison. Patient may have accumulation of medication secondary to decreased elimination. All blood pressure medications have been held. Low clinical suspicion for sepsis. Likely okay to discontinue antibiotics at 48 hours if culture negative. 5. Advanced age/poor history/diabetes mellitus/hyperlipidemia/GERD/hypothyroidism Complicates care, management, recovery and prognosis. Medication alterations as listed above. Continue to monitor in the intensive care unit for another 24 hours. 6. Delirium Patient very confused this morning. Unclear what baseline renal function has been. There is an element of uremia, but not enough to suggest an etiology for current confusion. Could consider renal consult. Inpatient E&M: [id number] Subs Hosp L3
[2019-06-20 08:41] LABS: Bedside Glucose 118 mg/dL (70-110)
[2019-06-20] MEDS: Amiodarone 360 MG in Dextrose 5% Viaflo Bag 192.8 ML 16.7 MG CONT INF ×2 (09:44→23:29)
--- NOTE | 2019-06-20 09:45 | CM.UR ---
Participated in interdisciplinary rounds. Patient coded on PCU and then his defibrillator went off during CPR. Transferred to ICU. Patient remains confused. Patient is normally independent. From the [address]. Remains on o2 per nc. Therapy to evaluate. Anticipating need for SNF at discharge. Sue Jensen RN, CCM.
[2019-06-20 10:21] LABS: Bedside Glucose 100 mg/dL (70-110)
--- NOTE | 2019-06-20 10:48 | PN.CARD_ITS ---
Subjectve: Patient seen and evaluated. Appears to be somnolent. Objective: Vital Signs Temp Pulse Resp BP Pulse Ox 97.4 F L 75 29 H 91/70 90 06/20/19 07:00 06/20/19 07:00 06/20/19 07:00 06/20/19 07:00 06/20/19 07:00 Oxygen Flow Rate (L/min) 2 Oxygen Delivery Method Room Air Weight: 174 lb 6.17 oz Body Mass Index (BMI) 24.0 Intake and Output for Last 24 Hours 06/18/19 06/19/19 06/20/19 23:59 23:59 23:59 Intake Total 831.25 / 831.25 2732.01 / 2732.01 989.6175 / 989.6175 Output Total 300 / 300 900 / 900 125 / 125 Balance 531.25 / 531.25 1832.01 / 1832.01 864.6175 / 864.6175 General: Awake, Alert, Oriented x 3 HEENT: PERRL, EOMI, Sclera Non Icteric Neck: Supple, Good ROM, No Lymph Node Enlargement Lungs: Clear to auscultation Cardiovascular: Regular Rhythm, Normal S1, Normal S2, No Murmurs, No Rubs, No Gallops Vascular: No Carotid Bruits, Normal Femoral Pulses, Normal Radial Pulses, Normal Dorsalis Pedal Pulse, Normal Posterior Tibial Pulses Abdomen: Bowel Sounds Present, Soft, Non Tender, No HSM, No Organomegaly Extremities: No Cyanosis, No Clubbing, No edema Musculoskeletal: No Erythema Skin: No Rashes Lymphatic: No Lymph Node Enlargement Neurological: No Focal Motor or Sensory Deficit Psych/Mental Status: Appropriate 06/20/19 03:15: PT 34.5 H, INR 3.4 06/20/19 03:15: WBC 6.2, RBC 3.23 L, Hgb 9.4 L, Hct 30.5 L, MCV 94.4 H, MCH 29.1, MCHC 30.8 L, Plt Count 127 L, MPV 11.5, Immature Gran % (Auto) 0.500, Neut % (Auto) 64.2, Lymph % (Auto) 22.3, [place] % (Auto) 10.8 H, Eos % (Auto) 1.9, Baso % (Auto) 0.3, Absolute Neuts (auto) 4.0, Nucleated RBC % 0 06/20/19 03:15: Sodium 140, Potassium 4.5, Chloride 108 H, Carbon Dioxide 26.0, Anion Gap 6, BUN 50 H, Creatinine 2.23 H, Est GFR (MDRD) Af Amer 36 L, Est GFR (MDRD) Non-Af 30 L, BUN/Creatinine Ratio 22.4 H, Glucose 177 H, Calcium 8.8 Rhythm: EKG: ECHO: Stress Test: Cardiac Cath: PCI: CT Surgery: Holter monitor: EPS: PPM: CXR: Chest CT Scan: Medical Necessity - Tobacco Use Smoking Status: Former smoker Tobacco Use: Cigars Assessment/Plan 1. Sustained ventricular tachycardia and cardiac arrest Patient appears to have sustained ventricular tachycardia and had a cardiac arrest. Interrogation of his ICD demonstrated numerous episodes of nonsustained ventricular tachycardia with antitachycardia pacing. The cut off however appear to be below the threshold for the defibrillator to discharge. He responded well to epinephrine and DC cardioversion. At this particular time I would recommend that we continue to manage him medically with intravenous amiodarone loading. Depending on how his blood pressure response his medications may be resumed. At this particular time the exact etiology for why his defibrillator discharge was not clear but certainly hypoglycemia, hypoxia and acidosis could be potential etiologies. * He appears to have been stable overnight without any cardiac dysrhythmias. 2. Coronary artery disease * He does have evidence of coronary artery disease status post bypass surgery. He does have mildly elevated cardiac troponin enzymes but at this time I would recommend that we continue to observe him to see how he does. * Will discuss with the family as to further investigations which may need to be performed. * * 3. Left ventricular systolic dysfunction * He does have known severe left ventricular systolic dysfunction likely secondary to his coronary artery disease. He did not appear to be in any heart failure. He had previously been on a beta-mike and ANOOP inhibitor and depending on his recovery the above may be reinstituted. * Thank you for allowing me to participate in the care of your patient. Please don't hesitate to call if any issues arise His overall prognosis appears to be rather guarded. And I will continue to follow with you.
--- NOTE | 2019-06-20 11:24 | PN_ITS ---
Patient Problems: Active and Suspected Problems Hypoglycemia (Acute) CHF (congestive heart failure) (Acute) Hypotension (Acute) Cardiac arrest (Acute) Subjective: Tired today and a little bit confused, he thinks he is at home Vitals/I&O's: Vital Signs Temp Pulse Resp BP Pulse Ox 97.4 F L 75 29 H 91/70 90 06/20/19 07:00 06/20/19 07:00 06/20/19 07:00 06/20/19 07:00 06/20/19 07:00 Oxygen Flow Rate (L/min) 2 Oxygen Delivery Method Room Air Weight: 174 lb 6.17 oz Body Mass Index (BMI) 24.0 Intake and Output for Last 24 Hours 06/18/19 06/19/19 06/20/19 23:59 23:59 23:59 Intake Total 831.25 / 831.25 2732.01 / 2732.01 989.6175 / 989.6175 Output Total 300 / 300 900 / 900 125 / 125 Balance 531.25 / 531.25 1832.01 / 1832.01 864.6175 / 864.6175 General: Alert, knows the year and who he has does not know where he is, Cooperative, No apparent distress HEENT: Atraumatic, PERRLA, EOMI, Normocephalic Oral: Moist Mucosa Neck: Supple, No JVD Lungs: Clear to auscultation, Normal air movement, No rhonchi, No wheeze, No rales, Diminished Cardiovascular: Regular rate, Regular Rhythm, Normal S1, Normal S2, No murmurs Abdomen: Soft, Non Tender, Non-Distended, No Hepato-splenomegaly Extremities: Capillary Refill Less than 3 Seconds, Edema - 1+ pitting edema Skin: No rashes, No breakdown Neurological: Neuro grossly intact, Sensory exam intact to light touch and pain Psych/Mental Status: Normal Affect, Appropriate Microbiology Past 72 Hours 06/18/19 22:20 Urine Catheter - Arguello Urine Culture - Preliminary Culture exhibits no growth. Laboratory Results 06/19/19 12:15: POC Glucose 61 L 06/19/19 13:11: POC Glucose 79 06/19/19 15:19: POC Glucose 77 06/19/19 17:18: POC Glucose 84 06/19/19 19:33: POC Glucose 98 06/19/19 21:48: POC Glucose 143 H 06/19/19 23:25: POC Glucose 164 H 06/20/19 01:35: POC Glucose 152 H 06/20/19 03:15: PT 34.5 H, INR 3.4 06/20/19 03:15: WBC 6.2, RBC 3.23 L, Hgb 9.4 L, Hct 30.5 L, MCV 94.4 H, MCH 29.1, MCHC 30.8 L, RDW Std Deviation 55.5 H, RDW Coeff of [place]bi 16.2 H, Plt Count 127 L, MPV 11.5, Immature Gran % (Auto) 0.500, Neut % (Auto) 64.2, Lymph % (Auto) 22.3, [place] % (Auto) 10.8 H, Eos % (Auto) 1.9, Baso % (Auto) 0.3, Absolute Neuts (auto) 4.0, Absolute Lymphs (auto) 1.39, Nucleated RBC % 0 06/20/19 03:15: Sodium 140, Potassium 4.5, Chloride 108 H, Carbon Dioxide 26.0, Anion Gap 6, BUN 50 H, Creatinine 2.23 H, Estim Creat Clear Calc 24.66, Est GFR (MDRD) Af Amer 36 L, Est GFR (MDRD) Non-Af 30 L, BUN/Creatinine Ratio 22.4 H, Glucose 177 H, Calcium 8.8 06/20/19 03:34: POC Glucose 162 H 06/20/19 05:40: POC Glucose 180 H 06/20/19 08:29: POC Glucose 118 H 06/20/19 10:16: POC Glucose 100 Current Medications Furosemide (Lasix) 40 mg IV DAILY [facility] Last Admin: 06/19/19 10:55 Dose: Not Given Documented by: Glucagon () 1 mg IM .X1 PRN PRN Reason: Hypoglycemia Dextrose (Dextrose 10%-Water) 250 mls @ 999 mls/hr IV .Q16M PRN; Protocol PRN Reason: HYPOGLYCEMIA Last Infusion: 06/19/19 18:28 Dose: Infused Documented by: Piperacillin Sod/Tazobactam (Sod 3.375 gm/ Sodium Chloride) 50 mls @ 12.5 mls/hr IV Q8 [facility] Last Infusion: 03/07/20 08:58 Dose: Infused Documented by: Vancomycin IV Pharmacy to Dose (1,250 ea/ Sodium Chloride) 500 mls @ 250 mls/hr IV PRN PRN; Protocol Vancomycin HCl 750 mg/ Sodium (Chloride) 265 mls @ 250 mls/hr IV Q24H [facility] Last Infusion: 06/20/19 01:59 Dose: Infused Documented by: Amiodarone HCl 360 mg/ (Dextrose) 200 mls @ 16.667 mls/hr CONT INF .Q12H [facility] Stop: 06/20/19 14:44 Last Admin: 06/19/19 21:45 Dose: 0.5 mg/min, 16.7 mls/hr Documented by: Ondansetron HCl (Zofran) 4 mg IV Q8H PRN PRN PRN Reason: NAUSEA/VOMITING Sodium Chloride () 10 - 40 ml IV UD PRN PRN Reason: SALINE FLUSH Last Admin: 06/20/19 04:57 Dose: 20 ml Documented by: Medical Necessity - Tobacco Use Smoking Status: Former smoker Tobacco Use: Cigars Assessment/Plan All Active Problems Hypoglycemia (Acute) CHF (congestive heart failure) (Acute) Hypotension (Acute) Cardiac arrest (Acute) 1. Acute systolic CHF exacerbation/hypoglycemia/V. tach arrest/hypotension/acute metabolic encephalopathy resolved with improvement in hyperglycemia -He had CPR 06/18/2019 and has been stable since, he is not intubated and is alert -He would like to be a full code -Appreciate cardiology and clinical social worker input -Pacemaker demonstrated that he had gone into V. tach 4 times and was paced out of it. Echo demonstrates an EF of 15% -Troponin was only mildly elevated, will monitor -Continue with amiodarone, decrease IV fluids and administer some Lasix for his rhonchi -We will hold his home blood pressure medications and he will likely need to be adjusted -BNP was elevated to 389 however he did have renal disease on admission as well -No evidence of an infectious process can likely discontinue antibiotics that were started 2. Supratherapeutic INR -Awaiting records from [place] to see why he is on Coumadin -INR today is 3.4 3. DM 2/hyperglycemia/CKD 3/anemia of chronic disease -With his renal failure he is likely maintaining his sulfonylurea, will hold his home medication -He failed his swallow eval again today, he is strict n.p.o. therefore will provide him with intermittent D50 as necessary -As his polyuria clears his body will have a sliding scale insulin available as needed -He had no previous records on him therefore I assume he has CKD 3 though we will continue to monitor -Continue to monitor hemoglobin 4. Hypothyroidism -Stable -TSH was a 1, will continue with his home Synthroid DVT: supratherapeutic INR Inpatient E&M: 35317 Subs Hosp L2
[2019-06-20] MEDS: Furosemide 40 MG/4 ML Vial IV (12:33)
[2019-06-20 13:50] LABS: Bedside Glucose 84 mg/dL (70-110)
[2019-06-20 14:16] LABS: Bedside Glucose 79 mg/dL (70-110)
[2019-06-20] MEDS: Sodium Chloride 19.25 MEQ in Dextrose 10%-Water 250 ML 50 MEQ IV (15:00)
[2019-06-20 15:15] LABS: AST(SGOT) 32 U/L (15-37); Alanine Aminotransfer ALT/SGPT 45 U/L (16-61); Albumin, Serum 2.4 g/dL (3.2-5.0); Alkaline Phosphatase 113 U/L (45-117); Bilirubin, Direct 0.31 mg/dL (0.00-0.30); Globulin 3.6 g/dL (2.2-4.2); Lipase 190 U/L (73-393)
[2019-06-20 15:46] LABS: Bedside Glucose 95 mg/dL (70-110)
[2019-06-20 16:32] LABS: Phosphorus 3.5 mg/dL (2.5-4.9)
[2019-06-20 16:46] LABS: Bedside Glucose 112 mg/dL (70-110)
[2019-06-20 17:55] LABS: Bedside Glucose 132 mg/dL (70-110)
[2019-06-20 19:21] LABS: Bedside Glucose 118 mg/dL (70-110)
[2019-06-20 21:15] LABS: Bedside Glucose 108 mg/dL (70-110)
[2019-06-20] MEDS: Sodium Chloride 19.25 MEQ in Dextrose 10%-Water 250 ML 25 MEQ IV (22:09)
[2019-06-20 23:10] LABS: Bedside Glucose 105 mg/dL (70-110)
[2019-06-20] MEDS: Menthol/Lanolin/Calamine/Znox 113 GM Tube 1 APPLIC TOPICAL (23:30)
[2019-06-21] VITALS (28 sets, daily range): BP systolic 84–122; BP diastolic 49–75; PULSE 73–84; RESP 14–25; TEMP 36.3–37.7; O2SAT 93–100
[2019-06-21 00:27] LABS: Vancomycin, Trough Level 16.5 ug/mL (5.0-15.0)
--- NOTE | 2019-06-21 00:38 | PCM.RX.CS ---
Consult Pharmacy has been consulted to manage selected antiobiotic: Vancomycin Type of Consult: Follow-up Suspected Infection: Other Prior Doses of Antibiotics Received/Current Regimen: Medications Vancomycin HCl 750 mg/ Sodium (Chloride) 265 mls @ 250 mls/hr IV Q24H [facility] Last Admin: 06/20/19 23:57 Dose: 250 mls/hr Labs: Sodium 140 mmol/L (136-145) 06/20/19 03:15 Potassium 4.5 mmol/L (3.5-5.1) 06/20/19 03:15 Chloride 108 mmol/L (98-107) H 06/20/19 03:15 Carbon Dioxide 26.0 mmol/L (21.0-32.0) 06/20/19 03:15 Anion Gap 6 (5-15) 06/20/19 03:15 BUN 50 mg/dL (7-18) H 06/20/19 03:15 Creatinine 2.23 mg/dL (0.70-1.30) H 06/20/19 03:15 Est GFR (MDRD) Af Amer 36 mL/min (>60) L 06/20/19 03:15 Est GFR (MDRD) Non-Af 30 mL/min (>60) L 06/20/19 03:15 BUN/Creatinine Ratio 22.4 RATIO (10-20) H 06/20/19 03:15 Glucose 177 mg/dL (74-106) H 06/20/19 03:15 Vancomycin Trough 16.5 ug/mL (5.0-15.0) H 06/20/19 23:04 Microbiology: Microbiology 06/18/19 14:05 Blood Culture (Wb) - Left Forearm Blood Culture - Preliminary No growth in 48 hours. 06/18/19 13:02 Blood Culture (Wb) - Right Forearm Blood Culture - Preliminary No growth in 48 hours. 06/18/19 22:20 Urine Catheter - Arguello Urine Culture - Preliminary Culture exhibits no growth. Weight used for dosin.1 kg Estimated Creatinine Clearance: 24.7 Goal Trough: 15-20 mcg/mL Pharmacy Plan for Drug Dosing: Trough level of 16.5 was within the target range of 15-20. Will continue dosing of 750mg q24hrs, and re-draw trough level in 4 days. Pharmacy Service will continue to monitor and adjust dosing as required. Follow-Up Labs: Trough Vancomycin Labs to be done on [date and time ordered]: 06/24/19 @5029
[2019-06-21] MEDS: 0.9% Saline Lock 10 ML Syringe IV (01:06)
[2019-06-21 01:16] LABS: Bedside Glucose 76 mg/dL (70-110)
[2019-06-21 04:06] LABS: Bedside Glucose 70 mg/dL (70-110)
[2019-06-21 05:01] LABS: Bedside Glucose 79 mg/dL (70-110)
[2019-06-21 05:28] LABS: Absolute Lymphocyte Count 1.21 X10^3/uL (0.83-4.51); Absolute Neutrophil Count 4.2 X10^3/uL (2.0-7.7); Basophil# 0.02 X10^3/uL; Basophil% 0.3 % (0-1); Eosinophil# 0.22 X10^3/uL; Eosinophils% 3.5 % (0-5); Hematocrit 30.4 % (40-54); Hemoglobin 9.3 g/dL (13.0-16.5); Lymphocyte # 1.21 X10^3/ul (4.0); Lymphocyte % 19.3 % (19-41); Mean Corp Hgb Conc 30.6 g/dL (32-36); Mean Corpuscular Hgb 28.8 pg (27.0-32.0); Mean Corpuscular Volume 94.1 fL (80-94); Mean Platelet Vol. 11.3 fl (6.2-12.0); Monocyte# 0.62 X10^3/uL; Monocyte% 9.9 % (0-10); NRBC Flagged by Analyzer 0 % (0-5); Neutrophil # 4.18 X10^3/uL (2.7-7.7); Neutrophil % 66.7 % (47-70); Platelet Count 140 K/mm3 (150-450); RBC Distribution Width CV 16.3 % (11.6-14.6); RBC Distribution Width SD 55.5 fl (35.1-43.9); Red Blood Count 3.23 M/mm3 (4.6-6.2); White Blood Count 6.3 K/mm3 (4.4-11.0)
[2019-06-21 06:14] LABS: Anion Gap 7 (5-15); BUN 49 mg/dL (7-18); BUN/Creat Ratio 19.8 RATIO (10-20); Calcium,Total 8.7 mg/dL (8.5-10.1); Chloride 109 mmol/L (98-107); Creatinine, Serum 2.47 mg/dL (0.70-1.30); EST Glomerular Filtration Rate 27 mL/min (>60); Est Glom Filt Rate - Afr Amer 32 mL/min (>60); Estimated Creatinine Clearance 22.26 ml/min; Glucose 78 mg/dL (74-106); Potassium 4.6 mmol/L (3.5-5.1); Sodium Level 142 mmol/L (136-145)
[2019-06-21 06:30] LABS: Bedside Glucose 81 mg/dL (70-110)
[2019-06-21] MEDS: Furosemide 40 MG/4 ML Vial IV ×2 (06:54→19:31)
--- NOTE | 2019-06-21 07:41 | PN_ITS ---
Subjective: Patient continued to have some confusion overnight. Patient is also noted to have some nonsustained V. tach. Patient has been stable on 4 L nasal cannula with marginal blood pressures. Attempted to discontinue D10 drip, but patient continues to have decreased blood sugars. General: Confused, Disoriented, Lethargic, Non-Cooperative, - - Vocalizes okay HEENT: Atraumatic, PERRLA, EOMI, Normocephalic, - - Slight scleral injection Oral: Moist Mucosa, No Gingival or Mucosal Lesions/ Ulcerations Neck: Supple, No Nodes, Trachea Midline, JVD, Right Lungs: No rhonchi, No wheeze, Diminished, Rales, - - Symmetric expansion Cardiovascular: Regular rate, Regular Rhythm, Normal S1, Normal S2, Murmur - Unchanged, No rub noted, No Gallop, - - Paced rhythm noted Abdomen: Bowel Sounds Present, Soft, Non Tender, Non-Distended Extremities: No clubbing, No cyanosis, Edema Skin: No rashes, No breakdown Musculoskeletal: No Tenderness to Palpation of Joints or Extremities Lymphatic: No Cervical, Supraclavicular, or Inguinal Adenopathy Neurological: Cranial nerves II-XII grossly intact, Neuro grossly intact, Motor Exam 5/5 strength throughout Psych/Mental Status: Restless Vital Signs Temp Pulse Resp BP Pulse Ox 36.8 C 75 16 93/61 97 06/21/19 06:25 06/21/19 06:25 06/21/19 06:25 06/21/19 06:25 06/21/19 06:25 Oxygen Flow Rate (L/min) 4 Oxygen Delivery Method Nasal Cannula Weight: 79 kg Body Mass Index (BMI) 24.0 Intake and Output for Last 24 Hours 06/19/19 06/20/19 06/22/19 23:59 23:59 00:59 Intake Total 2732.01 / 2732.01 1694.4300 / 1694.4300 315 / 315 Output Total 900 / 900 975 / 975 200 / 200 Balance 1832.01 / 1832.01 719.4300 / 719.4300 115 / 115 Labs (Last 48 Hours) 06/18/19 06/18/19 06/19/19 16:03 16:17 08:31 WBC RBC Hgb Hct MCV MCH MCHC RDW Std Deviation RDW Coeff of Shelbi Plt Count MPV Immature Gran % (Auto) Neut % (Auto) Lymph % (Auto) [place] % (Auto) Eos % (Auto) Baso % (Auto) Absolute Neuts (auto) Absolute Lymphs (auto) Nucleated RBC % PT INR Sodium Potassium Chloride Carbon Dioxide Anion Gap BUN Creatinine Estim Creat Clear Calc Est GFR (MDRD) Af Amer Est GFR (MDRD) Non-Af BUN/Creatinine Ratio Glucose Calcium Phosphorus Magnesium Total Bilirubin Direct Bilirubin AST ALT Alkaline Phosphatase Total Protein Albumin Globulin Lipase Vancomycin Trough POC Glucose 22 L* 160 H 94 06/19/19 06/19/19 06/19/19 10:57 12:15 13:11 WBC RBC Hgb Hct MCV MCH MCHC RDW Std Deviation RDW Coeff of Shelbi Plt Count MPV Immature Gran % (Auto) Neut % (Auto) Lymph % (Auto) [place] % (Auto) Eos % (Auto) Baso % (Auto) Absolute Neuts (auto) Absolute Lymphs (auto) Nucleated RBC % PT INR Sodium Potassium Chloride Carbon Dioxide Anion Gap BUN Creatinine Estim Creat Clear Calc Est GFR (MDRD) Af Amer Est GFR (MDRD) Non-Af BUN/Creatinine Ratio Glucose Calcium Phosphorus Magnesium Total Bilirubin Direct Bilirubin AST ALT Alkaline Phosphatase Total Protein Albumin Globulin Lipase Vancomycin Trough POC Glucose 72 61 L 79 06/19/19 06/19/19 06/19/19 15:19 17:18 19:33 WBC RBC Hgb Hct MCV MCH MCHC RDW Std Deviation RDW Coeff of Shelbi Plt Count MPV Immature Gran % (Auto) Neut % (Auto) Lymph % (Auto) [place] % (Auto) Eos % (Auto) Baso % (Auto) Absolute Neuts (auto) Absolute Lymphs (auto) Nucleated RBC % PT INR Sodium Potassium Chloride Carbon Dioxide Anion Gap BUN Creatinine Estim Creat Clear Calc Est GFR (MDRD) Af Amer Est GFR (MDRD) Non-Af BUN/Creatinine Ratio Glucose Calcium Phosphorus Magnesium Total Bilirubin Direct Bilirubin AST ALT Alkaline Phosphatase Total Protein Albumin Globulin Lipase Vancomycin Trough POC Glucose 77 84 98 06/19/19 06/19/19 06/20/19 21:48 23:25 01:35 WBC RBC Hgb Hct MCV MCH MCHC RDW Std Deviation RDW Coeff of Shelbi Plt Count MPV Immature Gran % (Auto) Neut % (Auto) Lymph % (Auto) [place] % (Auto) Eos % (Auto) Baso % (Auto) Absolute Neuts (auto) Absolute Lymphs (auto) Nucleated RBC % PT INR Sodium Potassium Chloride Carbon Dioxide Anion Gap BUN Creatinine Estim Creat Clear Calc Est GFR (MDRD) Af Amer Est GFR (MDRD) Non-Af BUN/Creatinine Ratio Glucose Calcium Phosphorus Magnesium Total Bilirubin Direct Bilirubin AST ALT Alkaline Phosphatase Total Protein Albumin Globulin Lipase Vancomycin Trough POC Glucose 143 H 164 H 152 H 06/20/19 06/20/19 06/20/19 03:15 03:15 03:15 WBC 6.2 RBC 3.23 L Hgb 9.4 L Hct 30.5 L MCV 94.4 H MCH 29.1 MCHC 30.8 L RDW Std Deviation 55.5 H RDW Coeff of Shelbi 16.2 H Plt Count 127 L MPV 11.5 Immature Gran % (Auto) 0.500 Neut % (Auto) 64.2 Lymph % (Auto) 22.3 [place] % (Auto) 10.8 H Eos % (Auto) 1.9 Baso % (Auto) 0.3 Absolute Neuts (auto) 4.0 Absolute Lymphs (auto) 1.39 Nucleated RBC % 0 PT 34.5 H INR 3.4 Sodium 140 Potassium 4.5 Chloride 108 H Carbon Dioxide 26.0 Anion Gap 6 BUN 50 H Creatinine 2.23 H Estim Creat Clear Calc 24.66 Est GFR (MDRD) Af Amer 36 L Est GFR (MDRD) Non-Af 30 L BUN/Creatinine Ratio 22.4 H Glucose 177 H Calcium 8.8 Phosphorus Magnesium Total Bilirubin Direct Bilirubin AST ALT Alkaline Phosphatase Total Protein Albumin Globulin Lipase Vancomycin Trough POC Glucose 06/20/19 06/20/19 06/20/19 03:15 03:15 03:15 WBC RBC Hgb Hct MCV MCH MCHC RDW Std Deviation RDW Coeff of Shelbi Plt Count MPV Immature Gran % (Auto) Neut % (Auto) Lymph % (Auto) [place] % (Auto) Eos % (Auto) Baso % (Auto) Absolute Neuts (auto) Absolute Lymphs (auto) Nucleated RBC % PT INR Sodium Potassium Chloride Carbon Dioxide Anion Gap BUN Creatinine Estim Creat Clear Calc Est GFR (MDRD) Af Amer Est GFR (MDRD) Non-Af BUN/Creatinine Ratio Glucose Calcium Phosphorus 3.5 Magnesium 2.0 Total Bilirubin 0.90 Direct Bilirubin 0.31 H AST 32 ALT 45 Alkaline Phosphatase 113 Total Protein 6.0 L Albumin 2.4 L Globulin 3.6 Lipase 190 Vancomycin Trough POC Glucose 06/20/19 06/20/19 06/20/19 03:34 05:40 08:29 WBC RBC Hgb Hct MCV MCH MCHC RDW Std Deviation RDW Coeff of Shelbi Plt Count MPV Immature Gran % (Auto) Neut % (Auto) Lymph % (Auto) [place] % (Auto) Eos % (Auto) Baso % (Auto) Absolute Neuts (auto) Absolute Lymphs (auto) Nucleated RBC % PT INR Sodium Potassium Chloride Carbon Dioxide Anion Gap BUN Creatinine Estim Creat Clear Calc Est GFR (MDRD) Af Amer Est GFR (MDRD) Non-Af BUN/Creatinine Ratio Glucose Calcium Phosphorus Magnesium Total Bilirubin Direct Bilirubin AST ALT Alkaline Phosphatase Total Protein Albumin Globulin Lipase Vancomycin Trough POC Glucose 162 H 180 H 118 H 06/20/19 06/20/19 06/20/19 10:16 12:58 14:11 WBC RBC Hgb Hct MCV MCH MCHC RDW Std Deviation RDW Coeff of Shelbi Plt Count MPV Immature Gran % (Auto) Neut % (Auto) Lymph % (Auto) [place] % (Auto) Eos % (Auto) Baso % (Auto) Absolute Neuts (auto) Absolute Lymphs (auto) Nucleated RBC % PT INR Sodium Potassium Chloride Carbon Dioxide Anion Gap BUN Creatinine Estim Creat Clear Calc Est GFR (MDRD) Af Amer Est GFR (MDRD) Non-Af BUN/Creatinine Ratio Glucose Calcium Phosphorus Magnesium Total Bilirubin Direct Bilirubin AST ALT Alkaline Phosphatase Total Protein Albumin Globulin Lipase Vancomycin Trough POC Glucose 100 84 79 06/20/19 06/20/19 06/20/19 15:36 16:40 17:50 WBC RBC Hgb Hct MCV MCH MCHC RDW Std Deviation RDW Coeff of Shelbi Plt Count MPV Immature Gran % (Auto) Neut % (Auto) Lymph % (Auto) [place] % (Auto) Eos % (Auto) Baso % (Auto) Absolute Neuts (auto) Absolute Lymphs (auto) Nucleated RBC % PT INR Sodium Potassium Chloride Carbon Dioxide Anion Gap BUN Creatinine Estim Creat Clear Calc Est GFR (MDRD) Af Amer Est GFR (MDRD) Non-Af BUN/Creatinine Ratio Glucose Calcium Phosphorus Magnesium Total Bilirubin Direct Bilirubin AST ALT Alkaline Phosphatase Total Protein Albumin Globulin Lipase Vancomycin Trough POC Glucose 95 112 H 132 H 06/20/19 06/20/19 06/20/19 19:15 21:12 23:00 WBC RBC Hgb Hct MCV MCH MCHC RDW Std Deviation RDW Coeff of Shelbi Plt Count MPV Immature Gran % (Auto) Neut % (Auto) Lymph % (Auto) [place] % (Auto) Eos % (Auto) Baso % (Auto) Absolute Neuts (auto) Absolute Lymphs (auto) Nucleated RBC % PT INR Sodium Potassium Chloride Carbon Dioxide Anion Gap BUN Creatinine Estim Creat Clear Calc Est GFR (MDRD) Af Amer Est GFR (MDRD) Non-Af BUN/Creatinine Ratio Glucose Calcium Phosphorus Magnesium Total Bilirubin Direct Bilirubin AST ALT Alkaline Phosphatase Total Protein Albumin Globulin Lipase Vancomycin Trough POC Glucose 118 H 108 105 06/20/19 06/21/19 06/21/19 23:04 01:11 03:56 WBC RBC Hgb Hct MCV MCH MCHC RDW Std Deviation RDW Coeff of Shelbi Plt Count MPV Immature Gran % (Auto) Neut % (Auto) Lymph % (Auto) [place] % (Auto) Eos % (Auto) Baso % (Auto) Absolute Neuts (auto) Absolute Lymphs (auto) Nucleated RBC % PT INR Sodium Potassium Chloride Carbon Dioxide Anion Gap BUN Creatinine Estim Creat Clear Calc Est GFR (MDRD) Af Amer Est GFR (MDRD) Non-Af BUN/Creatinine Ratio Glucose Calcium Phosphorus Magnesium Total Bilirubin Direct Bilirubin AST ALT Alkaline Phosphatase Total Protein Albumin Globulin Lipase Vancomycin Trough 16.5 H POC Glucose 76 70 06/21/19 06/21/19 06/21/19 04:37 04:37 04:55 WBC 6.3 RBC 3.23 L Hgb 9.3 L Hct 30.4 L MCV 94.1 H MCH 28.8 MCHC 30.6 L RDW Std Deviation 55.5 H RDW Coeff of Shelbi 16.3 H Plt Count 140 L MPV 11.3 Immature Gran % (Auto) 0.300 Neut % (Auto) 66.7 Lymph % (Auto) 19.3 [place] % (Auto) 9.9 Eos % (Auto) 3.5 Baso % (Auto) 0.3 Absolute Neuts (auto) 4.2 Absolute Lymphs (auto) 1.21 Nucleated RBC % 0 PT INR Sodium 142 Potassium 4.6 Chloride 109 H Carbon Dioxide 26.0 Anion Gap 7 BUN 49 H Creatinine 2.47 H Estim Creat Clear Calc 22.26 Est GFR (MDRD) Af Amer 32 L Est GFR (MDRD) Non-Af 27 L BUN/Creatinine Ratio 19.8 Glucose 78 Calcium 8.7 Phosphorus Magnesium Total Bilirubin Direct Bilirubin AST ALT Alkaline Phosphatase Total Protein Albumin Globulin Lipase Vancomycin Trough POC Glucose 79 06/21/19 06:22 WBC RBC Hgb Hct MCV MCH MCHC RDW Std Deviation RDW Coeff of Shelbi Plt Count MPV Immature Gran % (Auto) Neut % (Auto) Lymph % (Auto) [place] % (Auto) Eos % (Auto) Baso % (Auto) Absolute Neuts (auto) Absolute Lymphs (auto) Nucleated RBC % PT INR Sodium Potassium Chloride Carbon Dioxide Anion Gap BUN Creatinine Estim Creat Clear Calc Est GFR (MDRD) Af Amer Est GFR (MDRD) Non-Af BUN/Creatinine Ratio Glucose Calcium Phosphorus Magnesium Total Bilirubin Direct Bilirubin AST ALT Alkaline Phosphatase Total Protein Albumin Globulin Lipase Vancomycin Trough POC Glucose 81 Microbiology 06/18/19 14:05 Blood Culture (Wb) - Left Forearm Blood Culture - Preliminary No growth in 48 hours. 06/18/19 13:02 Blood Culture (Wb) - Right Forearm Blood Culture - Preliminary No growth in 48 hours. 06/18/19 22:20 Urine Catheter - Arguello Urine Culture - Preliminary Culture exhibits no growth. Medical Necessity - Tobacco Use Smoking Status: Former smoker Tobacco Use: Cigars Assessment/Plan All Active Problems Hypoglycemia (Acute) CHF (congestive heart failure) (Acute) Hypotension (Acute) Cardiac arrest (Acute) RECOMMENDATIONS: 1. Continue to hold BP and DM medications 2. Attempt to wean D10 drip. 3. Await cardiology recommendations 4. Diurese to account for IV fluids 5. Continue delirium protocol. Consider renal consult 6. No active reversal of INR unless develops bleeding problems. Recheck tomorrow 7. Monitor in intensive care unit IMPRESSIONS: 1. Acute ventricular tachycardic arrest Unclear etiology at this time. Electrolytes were within normal limits following the acute condition. Patient did have some nonsustained V. tach, but no loss of blood pressure. Interrogation of the pacemaker showed nonsustained V. tach with ATP response. Patient currently is on amiodarone. Cardiology following. 2. Hypoglycemia Clinical suspicion for slowed elimination of sulfonylureas leading to recurrent hypoglycemia. Attempts to discontinue D10 drip have been unsuccessful at this time. Will give Lasix therapy to compensate for fluid given patient's concomitant systolic congestive heart failure. Liver function studies and lipase are not suggestive of a secondary process. 3. Coagulopathy secondary to Coumadin Clinical suspicion for interactions with Coumadin leading to elevated INR. However, patient is not actively bleeding. Would continue to monitor on a daily basis. No indication for FFP or vitamin K from my perspective 4. Hypotension Medical suspicion for cardiac versus drug etiology. Patient does have some renal dysfunction, but it is unclear if this is secondary to an acute event or chronic dysfunction. Patient was recently hospitalized at [facility]. Patient may have accumulation of medication secondary to decreased elimination. All blood pressure medications have been held. Low clinical suspicion for sepsis and culture negative, so we will discontinue antibiotics. 5. Advanced age/poor history/diabetes mellitus/hyperlipidemia/GERD/hypothyroidism Complicates care, management, recovery and prognosis. Medication alterations as listed above. Continue to monitor in the intensive care unit for another 24 hours. 6. Delirium Patient very confused this morning. Unclear what baseline renal function has been. There is an element of uremia, but not enough to suggest an etiology for current confusion. Could consider renal consult. Inpatient E&M: 91264 Subs Hosp L3
[2019-06-21] MEDS: Sodium Chloride 19.25 MEQ in Dextrose 10%-Water 250 ML 25 MEQ IV (08:05)
[2019-06-21 08:15] LABS: Bedside Glucose 68 mg/dL (70-110)
[2019-06-21 08:41] LABS: Bedside Glucose 75 mg/dL (70-110)
[2019-06-21 09:04] LABS: International Normalized Ratio 3.2; Prothrombin Time (Protime)PT. 32.7 SECONDS (11.7-14.9)
--- NOTE | 2019-06-21 09:33 | PN.CARD_ITS ---
Subjectve: Patient seen and evaluated. Appears to be sleeping. Objective: Vital Signs Temp Pulse Resp BP Pulse Ox 98.2 F 75 16 93/61 97 06/21/19 06:25 06/21/19 06:25 06/21/19 06:25 06/21/19 06:25 06/21/19 06:25 Oxygen Flow Rate (L/min) 4 Oxygen Delivery Method Nasal Cannula Weight: 174 lb 2.643 oz Body Mass Index (BMI) 24.0 Intake and Output for Last 24 Hours 06/19/19 06/20/19 06/22/19 23:59 23:59 00:59 Intake Total 2732.01 / 2732.01 1694.4300 / 1694.4300 538.33 / 538.33 Output Total 900 / 900 975 / 975 200 / 200 Balance 1832.01 / 1832.01 719.4300 / 719.4300 338.33 / 338.33 General: Awake, Alert, Oriented x 3 HEENT: PERRL, EOMI, Sclera Non Icteric Neck: Supple, Good ROM, No Lymph Node Enlargement Lungs: Clear to auscultation Cardiovascular: Regular Rhythm, Normal S1, Normal S2, No Murmurs, No Rubs, No Gallops Vascular: No Carotid Bruits, Normal Femoral Pulses, Normal Radial Pulses, Normal Dorsalis Pedal Pulse, Normal Posterior Tibial Pulses Abdomen: Bowel Sounds Present, Soft, Non Tender, No HSM, No Organomegaly Extremities: No Cyanosis, No Clubbing, No edema Musculoskeletal: No Erythema Skin: No Rashes Lymphatic: No Lymph Node Enlargement Neurological: No Focal Motor or Sensory Deficit Psych/Mental Status: Appropriate 06/20/19 03:15: Total Bilirubin 0.90, Direct Bilirubin 0.31 H 06/20/19 03:15: Magnesium 2.0 06/20/19 03:15: Phosphorus 3.5 06/21/19 04:37: WBC 6.3, RBC 3.23 L, Hgb 9.3 L, Hct 30.4 L, MCV 94.1 H, MCH 28.8, MCHC 30.6 L, Plt Count 140 L, MPV 11.3, Immature Gran % (Auto) 0.300, Neut % (Auto) 66.7, Lymph % (Auto) 19.3, [place] % (Auto) 9.9, Eos % (Auto) 3.5, Baso % (Auto) 0.3, Absolute Neuts (auto) 4.2, Nucleated RBC % 0 06/21/19 04:37: Sodium 142, Potassium 4.6, Chloride 109 H, Carbon Dioxide 26.0, Anion Gap 7, BUN 49 H, Creatinine 2.47 H, Est GFR (MDRD) Af Amer 32 L, Est GFR (MDRD) Non-Af 27 L, BUN/Creatinine Ratio 19.8, Glucose 78, Calcium 8.7 06/21/19 08:45: PT 32.7 H, INR 3.2 Rhythm: EKG: ECHO: Stress Test: Cardiac Cath: PCI: CT Surgery: Holter monitor: EPS: PPM: CXR: Chest CT Scan: Medical Necessity - Tobacco Use Smoking Status: Former smoker Tobacco Use: Cigars Assessment/Plan 1. Sustained ventricular tachycardia and cardiac arrest Patient appears to have sustained ventricular tachycardia and had a cardiac arrest. Interrogation of his ICD demonstrated numerous episodes of nonsustained ventricular tachycardia with antitachycardia pacing. The cut off however appear to be below the threshold for the defibrillator to discharge. He responded well to epinephrine and DC cardioversion. At this particular time I would recommend that we continue to manage him medically with intravenous amiodarone loading. Depending on how his blood pressure response his medications may be resumed. At this particular time the exact etiology for why his defibrillator discharge was not clear but certainly hypoglycemia, hypoxia and acidosis could be potential etiologies. * He appears to have been stable overnight without any cardiac dysrhythmias. He did have some nonsustained ventricular tachycardia's. Potassium and magnesium checks were noted to be normal 2. Coronary artery disease * He does have evidence of coronary artery disease status post bypass surgery. He does have mildly elevated cardiac troponin enzymes but at this time I would recommend that we continue to observe him to see how he does. * Will discuss with the family as to further investigations which may need to be performed. * * 3. Left ventricular systolic dysfunction * He does have known severe left ventricular systolic dysfunction likely sec ondary to his coronary artery disease. He did not appear to be in any heart failure. He had previously been on a beta-mike and ANOOP inhibitor and depending on his recovery the above may be reinstituted. * Thank you for allowing me to participate in the care of your patient. Please don't hesitate to call if any issues arise * * His overall prognosis appears to be rather guarded. And I will continue to follow with you.
[2019-06-21 09:46] LABS: Bedside Glucose 77 mg/dL (70-110)
--- NOTE | 2019-06-21 10:15 | PN_ITS ---
Patient Problems: Active and Suspected Problems Hypoglycemia (Acute) CHF (congestive heart failure) (Acute) Hypotension (Acute) Cardiac arrest (Acute) Subjective: Sleeping this morning, nurses report fidgeting overnight, does respond okay Vitals/I&O's: Vital Signs Temp Pulse Resp BP Pulse Ox 98.2 F 75 16 93/61 97 06/21/19 06:25 06/21/19 06:25 06/21/19 06:25 06/21/19 06:25 06/21/19 06:25 Oxygen Flow Rate (L/min) 4 Oxygen Delivery Method Nasal Cannula Weight: 174 lb 2.643 oz Body Mass Index (BMI) 24.0 Intake and Output for Last 24 Hours 06/19/19 06/20/19 06/22/19 23:59 23:59 00:59 Intake Total 2732.01 / 2732.01 1694.4300 / 1694.4300 538.33 / 538.33 Output Total 900 / 900 975 / 975 200 / 200 Balance 1832.01 / 1832.01 719.4300 / 719.4300 338.33 / 338.33 General: Confused, no apparent distress HEENT: Atraumatic, PERRLA, EOMI, Normocephalic Oral: Moist Mucosa Neck: Supple, No JVD Lungs: Clear to auscultation, Normal air movement, No rhonchi, No wheeze, No rales, Diminished Cardiovascular: Regular rate, Regular Rhythm, Normal S1, Normal S2, No murmurs Abdomen: Soft, Non Tender, Non-Distended, No Hepato-splenomegaly Extremities: Capillary Refill Less than 3 Seconds, Edema - 1+ pitting edema Skin: No rashes, No breakdown Neurological: Neuro grossly intact, Sensory exam intact to light touch and pain Psych/Mental Status: Normal Affect, Appropriate Microbiology Past 72 Hours 06/18/19 22:20 Urine Catheter - Arguello Urine Culture - Final Culture exhibits no growth. 06/18/19 14:05 Blood Culture (Wb) - Left Forearm Blood Culture - Preliminary No growth in 48 hours. 06/18/19 13:02 Blood Culture (Wb) - Right Forearm Blood Culture - Preliminary No growth in 48 hours. Laboratory Results 06/20/19 03:15: Total Bilirubin 0.90, Direct Bilirubin 0.31 H, AST 32, ALT 45, Alkaline Phosphatase 113, Total Protein 6.0 L, Albumin 2.4 L, Globulin 3.6, Lipase 190 06/20/19 03:15: Magnesium 2.0 06/20/19 03:15: Phosphorus 3.5 06/20/19 10:16: POC Glucose 100 06/20/19 12:58: POC Glucose 84 06/20/19 14:11: POC Glucose 79 06/20/19 15:36: POC Glucose 95 06/20/19 16:40: POC Glucose 112 H 06/20/19 17:50: POC Glucose 132 H 06/20/19 19:15: POC Glucose 118 H 06/20/19 21:12: POC Glucose 108 06/20/19 23:00: POC Glucose 105 06/20/19 23:04: Vancomycin Trough 16.5 H 06/21/19 01:11: POC Glucose 76 06/21/19 03:56: POC Glucose 70 06/21/19 04:37: WBC 6.3, RBC 3.23 L, Hgb 9.3 L, Hct 30.4 L, MCV 94.1 H, MCH 28.8, MCHC 30.6 L, RDW Std Deviation 55.5 H, RDW Coeff of Shelbi 16.3 H, Plt Count 140 L, MPV 11.3, Immature Gran % (Auto) 0.300, Neut % (Auto) 66.7, Lymph % (Auto) 19.3, [place] % (Auto) 9.9, Eos % (Auto) 3.5, Baso % (Auto) 0.3, Absolute Neuts (auto) 4.2, Absolute Lymphs (auto) 1.21, Nucleated RBC % 0 06/21/19 04:37: Sodium 142, Potassium 4.6, Chloride 109 H, Carbon Dioxide 26.0, Anion Gap 7, BUN 49 H, Creatinine 2.47 H, Estim Creat Clear Calc 22.26, Est GFR (MDRD) Af Amer 32 L, Est GFR (MDRD) Non-Af 27 L, BUN/Creatinine Ratio 19.8, Glucose 78, Calcium 8.7 06/21/19 04:55: POC Glucose 79 06/21/19 06:22: POC Glucose 81 06/21/19 08:06: POC Glucose 68 L 06/21/19 08:37: POC Glucose 75 06/21/19 08:45: PT 32.7 H, INR 3.2 06/21/19 09:40: POC Glucose 77 Current Medications Calamine/Phenol (Calmoseptine Ointment) 1 applic TOPICAL BID FOR[facility]LY [facility], 1928–1983; Protocol Last Admin: 06/20/19 23:30 Dose: 1 applicatio Documented by: Furosemide (Lasix) 40 mg IV BID@1000,1800 [facility], 1928–1983 Last Admin: 06/21/19 06:54 Dose: 40 mg Documented by: Glucagon () 1 mg IM .X1 PRN PRN Reason: Hypoglycemia Dextrose (Dextrose 10%-Water) 250 mls @ 999 mls/hr IV .Q16M PRN; Protocol PRN Reason: HYPOGLYCEMIA Last Infusion: 06/19/19 18:28 Dose: Infused Documented by: Sodium Chloride 19.25 meq/ (Dextrose) 254.8125 mls @ 35 mls/hr IV .Q7H17M [facility], 1928–1983 Last Infusion: 06/21/19 08:05 Dose: 35 mls/hr Documented by: Amiodarone HCl 360 mg/ (Dextrose) 200 mls @ 16.667 mls/hr CONT INF .Q12H [facility], 1928–1983 Last Admin: 06/20/19 23:29 Dose: 0.5 mg/min, 16.7 mls/hr Documented by: Ondansetron HCl (Zofran) 4 mg IV Q8H PRN PRN PRN Reason: NAUSEA/VOMITING Sodium Chloride () 10 - 40 ml IV UD PRN PRN Reason: SALINE FLUSH Last Admin: 06/21/19 01:06 Dose: 10 ml Documented by: STROKE Vital Signs/Narrative: Vital Signs Temp Pulse Resp BP Pulse Ox 06/21/19 06:25 98.2 F 75 16 93/61 97 Medical Necessity - Tobacco Use Smoking Status: Former smoker Tobacco Use: Cigars Assessment/Plan All Active Problems Hypoglycemia (Acute) CHF (congestive heart failure) (Acute) Hypotension (Acute) Cardiac arrest (Acute) 1. Acute systolic CHF exacerbation/hypoglycemia/V. tach arrest/hypotension/acute metabolic encephalopathy resolved with improvement in hyperglycemia -He had CPR 06/18/2019 and has been stable since, he is not intubated and is alert -He would like to be a full code, will further discuss CODE STATUS with family as he is confused. -Appreciate cardiology and gold leaf layer input -Pacemaker demonstrated that he had gone into V. tach 4 times and was paced out of it. Echo demonstrates an EF of 15% -Troponin was only mildly elevated, will monitor -Continue with amiodarone, decrease IV fluids and administer some Lasix -We will hold his home blood pressure medications and he will likely need to be adjusted -BNP was elevated to 389 however he did have renal disease on admission as well -No evidence of an infectious process can likely discontinue antibiotics that were started 2. Supratherapeutic INR -Awaiting records from [place] to see why he is on Coumadin -INR today is 3.2 3. DM 2/hyperglycemia/CKD 3/anemia of chronic disease -With his renal failure he is likely maintaining his sulfonylurea, will hold his home medication -He failed his swallow eval again today, he is strict n.p.o. therefore will provide him with intermittent D50 as necessary -As his polyuria clears his body will have a sliding scale insulin available as needed -He had no previous records on him therefore I assume he has CKD 3 though we will continue to monitor -Continue to monitor hemoglobin 4. Hypothyroidism -Stable -TSH was a 1, will continue with his home Synthroid DVT: supratherapeutic INR Inpatient E&M: 70139 Subs Hosp L2
[2019-06-21] MEDS: Menthol/Lanolin/Calamine/Znox 113 GM Tube 1 APPLIC TOPICAL ×2 (10:30→22:30)
[2019-06-21 11:15] LABS: Bedside Glucose 80 mg/dL (70-110)
[2019-06-21 13:10] LABS: Bedside Glucose 90 mg/dL (70-110)
[2019-06-21] MEDS: Amiodarone 360 MG in Dextrose 5% Viaflo Bag 192.8 ML 16.7 MG CONT INF (13:45)
[2019-06-21] MEDS: Sodium Chloride 19.25 MEQ in Dextrose 10%-Water 250 ML 35 MEQ IV (15:18)
[2019-06-21 16:45] LABS: Bedside Glucose 124 mg/dL (70-110)
[2019-06-21 18:11] LABS: Bedside Glucose 142 mg/dL (70-110)
[2019-06-21 20:01] LABS: Bedside Glucose 116 mg/dL (70-110)
--- NOTE | 2019-06-21 21:15 | NURSING ---
Pt given yogurt, total feed. lungs clear pre and post yogurt. Pt the assisted back to bed with assist x2 and pivoted.
[2019-06-21 22:01] LABS: Bedside Glucose 107 mg/dL (70-110)
[2019-06-21 22:16] LABS: Bedside Glucose 96 mg/dL (70-110)
[2019-06-21 23:26] LABS: Bedside Glucose 95 mg/dL (70-110)
[2019-06-22] VITALS (30 sets, daily range): BP systolic 89–129; BP diastolic 53–84; PULSE 74–77; RESP 13–26; TEMP 36.3–37.2; O2SAT 2–100
[2019-06-22 00:51] LABS: Bedside Glucose 89 mg/dL (70-110)
[2019-06-22 02:11] LABS: Bedside Glucose 126 mg/dL (70-110)
[2019-06-22] MEDS: Amiodarone 360 MG in Dextrose 5% Viaflo Bag 192.8 ML 16.7 MG CONT INF ×2 (02:56→15:03)
--- NOTE | 2019-06-22 03:52 | NURSING ---
amiodarone drip infusing from [id number], bag read empty but wasnt. new bag hung at 0256
[2019-06-22 03:53] LABS: Absolute Lymphocyte Count 1.09 X10^3/uL (0.83-4.51); Absolute Neutrophil Count 5.1 X10^3/uL (2.0-7.7); Basophil# 0.01 X10^3/uL; Basophil% 0.1 % (0-1); Eosinophil# 0.43 X10^3/uL; Eosinophils% 5.8 % (0-5); Hematocrit 29.2 % (40-54); Hemoglobin 9.1 g/dL (13.0-16.5); Lymphocyte # 1.09 X10^3/ul (4.0); Lymphocyte % 14.6 % (19-41); Mean Corp Hgb Conc 31.2 g/dL (32-36); Mean Corpuscular Hgb 29.4 pg (27.0-32.0); Mean Corpuscular Volume 94.2 fL (80-94); Mean Platelet Vol. 10.6 fl (6.2-12.0); Monocyte# 0.81 X10^3/uL; Monocyte% 10.8 % (0-10); NRBC Flagged by Analyzer 0 % (0-5); Neutrophil % 68.3 % (47-70); Platelet Count 135 K/mm3 (150-450); RBC Distribution Width CV 16.3 % (11.6-14.6); RBC Distribution Width SD 55.1 fl (35.1-43.9); White Blood Count 7.5 K/mm3 (4.4-11.0)
[2019-06-22 04:06] LABS: Anion Gap 6 (5-15); BUN 54 mg/dL (7-18); BUN/Creat Ratio 21.3 RATIO (10-20); Calcium,Total 8.7 mg/dL (8.5-10.1); Chloride 109 mmol/L (98-107); Creatinine, Serum 2.54 mg/dL (0.70-1.30); EST Glomerular Filtration Rate 26 mL/min (>60); Est Glom Filt Rate - Afr Amer 31 mL/min (>60); Estimated Creatinine Clearance 21.65 ml/min; Glucose 102 mg/dL (74-106); Magnesium 1.9 mg/dL (1.6-2.6); Phosphorus 4.4 mg/dL (2.5-4.9); Potassium 4.1 mmol/L (3.5-5.1); Sodium Level 141 mmol/L (136-145)
[2019-06-22 06:05] LABS: Bedside Glucose 79 mg/dL (70-110)
--- NOTE | 2019-06-22 06:30 | PN_ITS ---
Subjective: The patient was seen and examined at the bedside this morning. Events from the last 24 hours have been reviewed. The patient is currently afebrile, hemodynamically stable and maintaining appropriate oxygen saturations on 2 L/min via nasal cannula. The patient is currently documented to be overall net +2.8 L for the hospital admission. Creatinine remains elevated at 2.54. The patient has been off of his D10 drip since yesterday. Objective: The patient's most recent lab work, culture data and imaging studies have all been personally reviewed. Surface echocardiogram revealed normal LV size with an ejection fraction of 15%. General: Alert, Cooperative, Disoriented HEENT: Atraumatic, Normocephalic Oral: No Gingival or Mucosal Lesions/ Ulcerations Neck: Supple, No Nodes, Trachea Midline Lungs: Diminished, Rales, - - Poor inspiratory effort Cardiovascular: Regular rate, Regular Rhythm, Normal S1, Normal S2, Murmur Abdomen: Bowel Sounds Present, Soft, Non Tender Extremities: No clubbing, No cyanosis, Edema Skin: No breakdown Musculoskeletal: No Tenderness to Palpation of Joints or Extremities Lymphatic: No Cervical, Supraclavicular, or Inguinal Adenopathy Neurological: Neuro grossly intact Psych/Mental Status: Flat Affect Vital Signs Temp Pulse Resp BP Pulse Ox 98.7 F 75 22 H 101/81 H 99 06/22/19 06:00 06/22/19 06:00 06/22/19 06:00 06/22/19 06:00 06/22/19 06:00 Oxygen Flow Rate (L/min) 2 Oxygen Delivery Method Nasal Cannula Weight: 172 lb 13.478 oz Body Mass Index (BMI) 24.0 Intake and Output for Last 24 Hours 06/20/19 06/21/19 06/22/19 22:59 23:59 23:59 Intake Total 502.66 / 502.66 Output Total 900 / 900 Balance -397.34 / -397.34 Labs (Last 48 Hours) 06/20/19 06/20/19 06/20/19 03:15 03:15 03:15 WBC RBC Hgb Hct MCV MCH MCHC RDW Std Deviation RDW Coeff of Shelbi Plt Count MPV Immature Gran % (Auto) Neut % (Auto) Lymph % (Auto) [place] % (Auto) Eos % (Auto) Baso % (Auto) Absolute Neuts (auto) Absolute Lymphs (auto) Nucleated RBC % PT INR Sodium Potassium Chloride Carbon Dioxide Anion Gap BUN Creatinine Estim Creat Clear Calc Est GFR (MDRD) Af Amer Est GFR (MDRD) Non-Af BUN/Creatinine Ratio Glucose Calcium Phosphorus 3.5 Magnesium 2.0 Total Bilirubin 0.90 Direct Bilirubin 0.31 H AST 32 ALT 45 Alkaline Phosphatase 113 Total Protein 6.0 L Albumin 2.4 L Globulin 3.6 Lipase 190 Vancomycin Trough POC Glucose 06/20/19 06/20/19 06/20/19 05:40 08:29 10:16 WBC RBC Hgb Hct MCV MCH MCHC RDW Std Deviation RDW Coeff of Shelbi Plt Count MPV Immature Gran % (Auto) Neut % (Auto) Lymph % (Auto) [place] % (Auto) Eos % (Auto) Baso % (Auto) Absolute Neuts (auto) Absolute Lymphs (auto) Nucleated RBC % PT INR Sodium Potassium Chloride Carbon Dioxide Anion Gap BUN Creatinine Estim Creat Clear Calc Est GFR (MDRD) Af Amer Est GFR (MDRD) Non-Af BUN/Creatinine Ratio Glucose Calcium Phosphorus Magnesium Total Bilirubin Direct Bilirubin AST ALT Alkaline Phosphatase Total Protein Albumin Globulin Lipase Vancomycin Trough POC Glucose 180 H 118 H 100 06/20/19 06/20/19 06/20/19 12:58 14:11 15:36 WBC RBC Hgb Hct MCV MCH MCHC RDW Std Deviation RDW Coeff of Shelbi Plt Count MPV Immature Gran % (Auto) Neut % (Auto) Lymph % (Auto) [place] % (Auto) Eos % (Auto) Baso % (Auto) Absolute Neuts (auto) Absolute Lymphs (auto) Nucleated RBC % PT INR Sodium Potassium Chloride Carbon Dioxide Anion Gap BUN Creatinine Estim Creat Clear Calc Est GFR (MDRD) Af Amer Est GFR (MDRD) Non-Af BUN/Creatinine Ratio Glucose Calcium Phosphorus Magnesium Total Bilirubin Direct Bilirubin AST ALT Alkaline Phosphatase Total Protein Albumin Globulin Lipase Vancomycin Trough POC Glucose 84 79 95 06/20/19 06/20/19 06/20/19 16:40 17:50 19:15 WBC RBC Hgb Hct MCV MCH MCHC RDW Std Deviation RDW Coeff of Shelbi Plt Count MPV Immature Gran % (Auto) Neut % (Auto) Lymph % (Auto) [place] % (Auto) Eos % (Auto) Baso % (Auto) Absolute Neuts (auto) Absolute Lymphs (auto) Nucleated RBC % PT INR Sodium Potassium Chloride Carbon Dioxide Anion Gap BUN Creatinine Estim Creat Clear Calc Est GFR (MDRD) Af Amer Est GFR (MDRD) Non-Af BUN/Creatinine Ratio Glucose Calcium Phosphorus Magnesium Total Bilirubin Direct Bilirubin AST ALT Alkaline Phosphatase Total Protein Albumin Globulin Lipase Vancomycin Trough POC Glucose 112 H 132 H 118 H 06/20/19 06/20/19 06/20/19 21:12 23:00 23:04 WBC RBC Hgb Hct MCV MCH MCHC RDW Std Deviation RDW Coeff of Shelbi Plt Count MPV Immature Gran % (Auto) Neut % (Auto) Lymph % (Auto) [place] % (Auto) Eos % (Auto) Baso % (Auto) Absolute Neuts (auto) Absolute Lymphs (auto) Nucleated RBC % PT INR Sodium Potassium Chloride Carbon Dioxide Anion Gap BUN Creatinine Estim Creat Clear Calc Est GFR (MDRD) Af Amer Est GFR (MDRD) Non-Af BUN/Creatinine Ratio Glucose Calcium Phosphorus Magnesium Total Bilirubin Direct Bilirubin AST ALT Alkaline Phosphatase Total Protein Albumin Globulin Lipase Vancomycin Trough 16.5 H POC Glucose 108 105 06/21/19 06/21/19 06/21/19 01:11 03:56 04:37 WBC 6.3 RBC 3.23 L Hgb 9.3 L Hct 30.4 L MCV 94.1 H MCH 28.8 MCHC 30.6 L RDW Std Deviation 55.5 H RDW Coeff of Shelbi 16.3 H Plt Count 140 L MPV 11.3 Immature Gran % (Auto) 0.300 Neut % (Auto) 66.7 Lymph % (Auto) 19.3 [place] % (Auto) 9.9 Eos % (Auto) 3.5 Baso % (Auto) 0.3 Absolute Neuts (auto) 4.2 Absolute Lymphs (auto) 1.21 Nucleated RBC % 0 PT INR Sodium Potassium Chloride Carbon Dioxide Anion Gap BUN Creatinine Estim Creat Clear Calc Est GFR (MDRD) Af Amer Est GFR (MDRD) Non-Af BUN/Creatinine Ratio Glucose Calcium Phosphorus Magnesium Total Bilirubin Direct Bilirubin AST ALT Alkaline Phosphatase Total Protein Albumin Globulin Lipase Vancomycin Trough POC Glucose 76 70 06/21/19 06/21/19 06/21/19 04:37 04:55 06:22 WBC RBC Hgb Hct MCV MCH MCHC RDW Std Deviation RDW Coeff of Shelbi Plt Count MPV Immature Gran % (Auto) Neut % (Auto) Lymph % (Auto) [place] % (Auto) Eos % (Auto) Baso % (Auto) Absolute Neuts (auto) Absolute Lymphs (auto) Nucleated RBC % PT INR Sodium 142 Potassium 4.6 Chloride 109 H Carbon Dioxide 26.0 Anion Gap 7 BUN 49 H Creatinine 2.47 H Estim Creat Clear Calc 22.26 Est GFR (MDRD) Af Amer 32 L Est GFR (MDRD) Non-Af 27 L BUN/Creatinine Ratio 19.8 Glucose 78 Calcium 8.7 Phosphorus Magnesium Total Bilirubin Direct Bilirubin AST ALT Alkaline Phosphatase Total Protein Albumin Globulin Lipase Vancomycin Trough POC Glucose 79 81 06/21/19 06/21/19 06/21/19 08:06 08:37 08:45 WBC RBC Hgb Hct MCV MCH MCHC RDW Std Deviation RDW Coeff of Shelbi Plt Count MPV Immature Gran % (Auto) Neut % (Auto) Lymph % (Auto) [place] % (Auto) Eos % (Auto) Baso % (Auto) Absolute Neuts (auto) Absolute Lymphs (auto) Nucleated RBC % PT 32.7 H INR 3.2 Sodium Potassium Chloride Carbon Dioxide Anion Gap BUN Creatinine Estim Creat Clear Calc Est GFR (MDRD) Af Amer Est GFR (MDRD) Non-Af BUN/Creatinine Ratio Glucose Calcium Phosphorus Magnesium Total Bilirubin Direct Bilirubin AST ALT Alkaline Phosphatase Total Protein Albumin Globulin Lipase Vancomycin Trough POC Glucose 68 L 75 06/21/19 06/21/19 06/21/19 09:40 11:01 13:08 WBC RBC Hgb Hct MCV MCH MCHC RDW Std Deviation RDW Coeff of Shelbi Plt Count MPV Immature Gran % (Auto) Neut % (Auto) Lymph % (Auto) [place] % (Auto) Eos % (Auto) Baso % (Auto) Absolute Neuts (auto) Absolute Lymphs (auto) Nucleated RBC % PT INR Sodium Potassium Chloride Carbon Dioxide Anion Gap BUN Creatinine Estim Creat Clear Calc Est GFR (MDRD) Af Amer Est GFR (MDRD) Non-Af BUN/Creatinine Ratio Glucose Calcium Phosphorus Magnesium Total Bilirubin Direct Bilirubin AST ALT Alkaline Phosphatase Total Protein Albumin Globulin Lipase Vancomycin Trough POC Glucose 77 80 90 06/21/19 06/21/19 06/21/19 16:40 18:04 19:54 WBC RBC Hgb Hct MCV MCH MCHC RDW Std Deviation RDW Coeff of Shelbi Plt Count MPV Immature Gran % (Auto) Neut % (Auto) Lymph % (Auto) [place] % (Auto) Eos % (Auto) Baso % (Auto) Absolute Neuts (auto) Absolute Lymphs (auto) Nucleated RBC % PT INR Sodium Potassium Chloride Carbon Dioxide Anion Gap BUN Creatinine Estim Creat Clear Calc Est GFR (MDRD) Af Amer Est GFR (MDRD) Non-Af BUN/Creatinine Ratio Glucose Calcium Phosphorus Magnesium Total Bilirubin Direct Bilirubin AST ALT Alkaline Phosphatase Total Protein Albumin Globulin Lipase Vancomycin Trough POC Glucose 124 H 142 H 116 H 06/21/19 06/21/19 06/21/19 21:03 22:13 23:16 WBC RBC Hgb Hct MCV MCH MCHC RDW Std Deviation RDW Coeff of Shelbi Plt Count MPV Immature Gran % (Auto) Neut % (Auto) Lymph % (Auto) [place] % (Auto) Eos % (Auto) Baso % (Auto) Absolute Neuts (auto) Absolute Lymphs (auto) Nucleated RBC % PT INR Sodium Potassium Chloride Carbon Dioxide Anion Gap BUN Creatinine Estim Creat Clear Calc Est GFR (MDRD) Af Amer Est GFR (MDRD) Non-Af BUN/Creatinine Ratio Glucose Calcium Phosphorus Magnesium Total Bilirubin Direct Bilirubin AST ALT Alkaline Phosphatase Total Protein Albumin Globulin Lipase Vancomycin Trough POC Glucose 107 96 95 06/22/19 06/22/19 06/22/19 00:37 02:03 03:45 WBC 7.5 RBC 3.10 L Hgb 9.1 L Hct 29.2 L MCV 94.2 H MCH 29.4 MCHC 31.2 L RDW Std Deviation 55.1 H RDW Coeff of Shelbi 16.3 H Plt Count 135 L MPV 10.6 Immature Gran % (Auto) 0.400 Neut % (Auto) 68.3 Lymph % (Auto) 14.6 L [place] % (Auto) 10.8 H Eos % (Auto) 5.8 H Baso % (Auto) 0.1 Absolute Neuts (auto) 5.1 Absolute Lymphs (auto) 1.09 Nucleated RBC % 0 PT INR Sodium Potassium Chloride Carbon Dioxide Anion Gap BUN Creatinine Estim Creat Clear Calc Est GFR (MDRD) Af Amer Est GFR (MDRD) Non-Af BUN/Creatinine Ratio Glucose Calcium Phosphorus Magnesium Total Bilirubin Direct Bilirubin AST ALT Alkaline Phosphatase Total Protein Albumin Globulin Lipase Vancomycin Trough POC Glucose 89 126 H 06/22/19 06/22/19 03:45 06:01 WBC RBC Hgb Hct MCV MCH MCHC RDW Std Deviation RDW Coeff of Shelbi Plt Count MPV Immature Gran % (Auto) Neut % (Auto) Lymph % (Auto) [place] % (Auto) Eos % (Auto) Baso % (Auto) Absolute Neuts (auto) Absolute Lymphs (auto) Nucleated RBC % PT INR Sodium 141 Potassium 4.1 Chloride 109 H Carbon Dioxide 26.0 Anion Gap 6 BUN 54 H Creatinine 2.54 H Estim Creat Clear Calc 21.65 Est GFR (MDRD) Af Amer 31 L Est GFR (MDRD) Non-Af 26 L BUN/Creatinine Ratio 21.3 H Glucose 102 Calcium 8.7 Phosphorus 4.4 Magnesium 1.9 Total Bilirubin Direct Bilirubin AST ALT Alkaline Phosphatase Total Protein Albumin Globulin Lipase Vancomycin Trough POC Glucose 79 Microbiology 06/18/19 22:20 Urine Catheter - Arguello Urine Culture - Final Culture exhibits no growth. 06/18/19 14:05 Blood Culture (Wb) - Left Forearm Blood Culture - Preliminary No growth in 48 hours. 06/18/19 13:02 Blood Culture (Wb) - Right Forearm Blood Culture - Preliminary No growth in 48 hours. Clinical Impression(s) from Imaging Studies Chest X-Ray 06/18/19 12:12 IMPRESSION: Cardiomegaly. The lungs are clear. Electronically Signed: Doni Mcneal, at 12:36 EST , Service support , Brain CT 06/18/19 15:54 IMPRESSION: Chronic involutional and ischemic changes of the brain, as described. No acute intracranial injury. Electronically Signed: Jesus Pandya MD at 16:32 EST , Service support , Chest X-Ray 06/18/19 20:42 IMPRESSION: Prominent interstitial markings consistent with component of interstitial edema with moderate cardiomegaly. Electronically Signed: Gerhard Metz DO at 21:19 EST , Service support , Medical Necessity - Tobacco Use Smoking Status: Former smoker Tobacco Use: Cigars Assessment/Plan All Active Problems Hypoglycemia (Acute) CHF (congestive heart failure) (Acute) Hypotension (Acute) Cardiac arrest (Acute) RECOMMENDATIONS: 1. Continue to hold BP and DM medications. 2. Continue diuretic therapy and amiodarone per cardiology recommendations. 3. Wean supplemental oxygen to maintain saturations at or above 90%. 4. Encourage incentive spirometer use and mobilize patient as tolerated. 5. Continue diet per speech therapy recommendations. 6. Restart Synthroid. IMPRESSIONS: 1. Sustained ventricular tachycardia arrest/history of coronary artery disease status post CABG/systolic heart failure Cardiology is currently following to assist with medical management. Continue amiodarone and diuretic therapy. Recommend continuing to hold ANOOP inhibitor, given issues with renal function. 2. Hypoglycemia Clinical suspicion for slowed elimination of sulfonylureas leading to recurrent hypoglycemia. D10 infusion has been discontinued at this time. Continue dietary advancement per speech therapy recommendations. Continue to monitor blood sugars. 3. Coagulopathy secondary to Coumadin Clinical suspicion for interactions with Coumadin leading to elevated INR. However, patient is not actively bleeding. Would continue to monitor on a daily basis. No indication for FFP or vitamin K from my perspective. 4. Worsening renal insufficiency Unclear if this is related to low perfusion state in the setting of heart failure. The patient is currently being diuresed. If renal function continues to worsen, recommend nephrology consultation. 5. Delirium/advanced age/poor historian/diabetes mellitus/hyperlipidemia/GERD/hypothyroidism Complicates care, management, recovery and prognosis. Continue to hold ANOOP inhibitor and diabetic medications. Restart Synthroid. Physical therapy to work with the patient. This note was generated with [employer] dictation software. It may contain incorrect words, spelling, and punctuation that were not noted in checking the note before signing. Inpatient E&M: 15026 [facility] L[facility]
--- NOTE | 2019-06-22 07:22 | PN.CARD_ITS ---
Subjectve: Patient seen and evaluated. Appears to be more awake and alert now that she has eaten some real food Objective: Vital Signs Temp Pulse Resp BP Pulse Ox 98.5 F 75 20 H 107/70 98 06/22/19 07:00 06/22/19 07:00 06/22/19 07:00 06/22/19 07:00 06/22/19 07:00 Oxygen Flow Rate (L/min) 2 Oxygen Delivery Method Nasal Cannula Weight: 172 lb 13.478 oz Body Mass Index (BMI) 24.0 Intake and Output for Last 24 Hours 06/20/19 06/21/19 06/22/19 22:59 23:59 23:59 Intake Total 502.66 / 502.66 Output Total 900 / 900 Balance -397.34 / -397.34 General: Awake, Alert, Disoriented HEENT: PERRL, EOMI, Sclera Non Icteric Neck: Supple, Good ROM, No Lymph Node Enlargement Lungs: Clear to auscultation Cardiovascular: Regular Rhythm, Normal S1, Normal S2, No Murmurs, No Rubs, No Gallops Vascular: No Carotid Bruits, Normal Femoral Pulses, Normal Radial Pulses, Normal Dorsalis Pedal Pulse, Normal Posterior Tibial Pulses Abdomen: Bowel Sounds Present, Soft, Non Tender, No HSM, No Organomegaly Extremities: No Cyanosis, No Clubbing, No edema Musculoskeletal: No Erythema Skin: No Rashes Lymphatic: No Lymph Node Enlargement Neurological: No Focal Motor or Sensory Deficit Psych/Mental Status: Inappropriate 06/21/19 08:45: PT 32.7 H, INR 3.2 06/22/19 03:45: WBC 7.5, RBC 3.10 L, Hgb 9.1 L, Hct 29.2 L, MCV 94.2 H, MCH 29.4, MCHC 31.2 L, Plt Count 135 L, MPV 10.6, Immature Gran % (Auto) 0.400, Neut % (Auto) 68.3, Lymph % (Auto) 14.6 L, [place] % (Auto) 10.8 H, Eos % (Auto) 5.8 H, Baso % (Auto) 0.1, Absolute Neuts (auto) 5.1, Nucleated RBC % 0 06/22/19 03:45: Sodium 141, Potassium 4.1, Chloride 109 H, Carbon Dioxide 26.0, Anion Gap 6, BUN 54 H, Creatinine 2.54 H, Est GFR (MDRD) Af Amer 31 L, Est GFR (MDRD) Non-Af 26 L, BUN/Creatinine Ratio 21.3 H, Glucose 102, Calcium 8.7, Phosphorus 4.4, Magnesium 1.9 Rhythm: EKG: ECHO: Stress Test: Cardiac Cath: PCI: CT Surgery: Holter monitor: EPS: PPM: CXR: Chest CT Scan: Medical Necessity - Tobacco Use Smoking Status: Former smoker Tobacco Use: Cigars Assessment/Plan 1. Sustained ventricular tachycardia and cardiac arrest Patient appears to have sustained ventricular tachycardia and had a cardiac arrest. Interrogation of his ICD demonstrated numerous episodes of nonsustained ventricular tachycardia with antitachycardia pacing. The cut off however appear to be below the threshold for the defibrillator to discharge. He responded well to epinephrine and DC cardioversion. At this particular time I would recommend that we continue to manage him medically with intravenous amiodarone loading. After that we will switch to p.o. Lasix. Depending on how his blood pressure response his medications may be resumed. At this particular time the exact etiology for why his defibrillator discharge was not clear but certainly hypoglycemia, hypoxia and acidosis could be potential etiologies. * He appears to have been stable overnight without any cardiac dysrhythmias. He did have some nonsustained ventricular tachycardia's. Potassium and magnesium checks were noted to be normal 2. Coronary artery disease * He does have evidence of coronary artery disease status post bypass surgery. He does have mildly elevated cardiac troponin enzymes but at this time I would recommend that we continue to observe him to see how he does. * Will discuss with the family as to further investigations which may need to be performed. * His overall status at the moment is not particularly conducive to any further invasive cardiac investigations * 3. Left ventricular systolic dysfunction * He does have known severe left ventricular systolic dysfunction likely secondary to his coronary artery disease. He did not appear to be in any heart failure. He had previously been on a beta-mike and ANOOP inhibitor and depending on his recovery the above may be reinstituted. * Thank you for allowing me to participate in the care of your patient. Please don't hesitate to call if any issues arise * * 4. Status post ICD implantation * His ICD was interrogated and he had been noted to have nonsustained ventricular tachyarrhythmias with ATP pacing. Defibrillator appears to be functioning well. The ventricular tachycardia was below the cutoff point for the defibrillator discharge. * * He can probably be transferred to the stepdown unit if need be. His overall prognosis appears to be rather guarded. And I will continue to follow with you.
[2019-06-22 07:41] LABS: Bedside Glucose 111 mg/dL (70-110)
[2019-06-22 08:30] LABS: Bedside Glucose 91 mg/dL (70-110)
[2019-06-22 09:46] LABS: Bedside Glucose 125 mg/dL (70-110)
[2019-06-22 10:08] LABS: Thyroid Stim Hormone (TSH) 0.71 uIU/mL (0.358-3.74)
--- NOTE | 2019-06-22 10:51 | PN_ITS ---
Patient Problems: Active and Suspected Problems Hypoglycemia (Acute) CHF (congestive heart failure) (Acute) Hypotension (Acute) Cardiac arrest (Acute) Subjective: Patient seen and examined. He was alert and watching TV. He looks frail but had no complaints. He denied any chest pain, shortness of breath, palpitations or dizziness, nausea vomiting or diarrhea. Review of systems is otherwise negative. Labs and vitals reviewed. He is still on the amiodarone drip but he is getting Accu-Cheks 1-2 hourly on account of hypoglycemia. Respiration rate is around 25 this morning but he is otherwise hemodynamically stable. Vitals/I&O's: Vital Signs Temp Pulse Resp BP Pulse Ox 99.0 F 74 25 H 129/84 H 93 06/22/19 08:00 06/22/19 08:00 06/22/19 08:00 06/22/19 08:00 06/22/19 09:10 Oxygen Flow Rate (L/min) 2 Oxygen Delivery Method Nasal Cannula Weight: 172 lb 13.478 oz Body Mass Index (BMI) 24.0 Intake and Output for Last 24 Hours 06/20/19 06/21/19 06/22/19 22:59 23:59 23:59 Intake Total 502.66 / 502.66 Output Total 900 / 900 Balance -397.34 / -397.34 General: Alert, Cooperative, Lethargic HEENT: Atraumatic, PERRLA, EOMI, Normocephalic Oral: Dry Mucosa Neck: Supple, No JVD, Negative Carotid Bruits Lungs: Clear to auscultation, Normal air movement, No rhonchi, No wheeze Cardiovascular: Regular rate, Regular Rhythm, Normal S1, Normal S2, No murmurs Abdomen: Bowel Sounds Present, Soft, Non Tender Extremities: No clubbing, No cyanosis, No edema, Capillary Refill Less than 3 Seconds Skin: No rashes, No breakdown Musculoskeletal: No Tenderness to Palpation of Joints or Extremities Neurological: Cranial nerves II-XII grossly intact Psych/Mental Status: Flat Affect Microbiology Past 72 Hours 06/18/19 22:20 Urine Catheter - Arguello Urine Culture - Final Culture exhibits no growth. 06/18/19 14:05 Blood Culture (Wb) - Left Forearm Blood Culture - Preliminary No growth in 48 hours. 06/18/19 13:02 Blood Culture (Wb) - Right Forearm Blood Culture - Preliminary No growth in 48 hours. Laboratory Results 06/21/19 11:01: POC Glucose 80 06/21/19 13:08: POC Glucose 90 06/21/19 16:40: POC Glucose 124 H 06/21/19 18:04: POC Glucose 142 H 06/21/19 19:54: POC Glucose 116 H 06/21/19 21:03: POC Glucose 107 06/21/19 22:13: POC Glucose 96 06/21/19 23:16: POC Glucose 95 06/22/19 00:37: POC Glucose 89 06/22/19 02:03: POC Glucose 126 H 06/22/19 03:45: WBC 7.5, RBC 3.10 L, Hgb 9.1 L, Hct 29.2 L, MCV 94.2 H, MCH 29.4, MCHC 31.2 L, RDW Std Deviation 55.1 H, RDW Coeff of Shelbi 16.3 H, Plt Count 135 L, MPV 10.6, Immature Gran % (Auto) 0.400, Neut % (Auto) 68.3, Lymph % (Auto) 14.6 L, [place] % (Auto) 10.8 H, Eos % (Auto) 5.8 H, Baso % (Auto) 0.1, Absolute Neuts (auto) 5.1, Absolute Lymphs (auto) 1.09, Nucleated RBC % 0 06/22/19 03:45: Sodium 141, Potassium 4.1, Chloride 109 H, Carbon Dioxide 26.0, Anion Gap 6, BUN 54 H, Creatinine 2.54 H, Estim Creat Clear Calc 21.65, Est GFR (MDRD) Af Amer 31 L, Est GFR (MDRD) Non-Af 26 L, BUN/Creatinine Ratio 21.3 H, Glucose 102, Calcium 8.7, Phosphorus 4.4, Magnesium 1.9 06/22/19 03:45: TSH 0.71 06/22/19 06:01: POC Glucose 79 06/22/19 07:32: POC Glucose 111 H 06/22/19 08:26: POC Glucose 91 06/22/19 09:41: POC Glucose 125 H Diagnostic Data Brain CT 06/18/19 15:54 IMPRESSION: Chronic involutional and ischemic changes of the brain, as described. No acute intracranial injury. Electronically Signed: Jesus Pandya MD at 16:32 EST , Service support , Chest X-Ray 06/18/19 20:42 IMPRESSION: Prominent interstitial markings consistent with component of interstitial edema with moderate cardiomegaly. Electronically Signed: Gerhard Metz DO at 21:19 EST , Service support , Current Medications Calamine/Phenol (Calmoseptine Ointment) 1 applic TOPICAL BID SHADY; Protocol Last Admin: 06/21/19 22:30 Dose: 1 applicatio Documented by: Furosemide (Lasix) 40 mg PO BID@1000,1800 SHADY Glucagon () 1 mg IM .X1 PRN PRN Reason: Hypoglycemia Amiodarone HCl 360 mg/ (Dextrose) 200 mls @ 16.667 mls/hr CONT INF .Q12H [facility] Last Infusion: 06/22/19 05:45 Dose: 0.5 mg/min, 16.7 mls/hr Documented by: Levothyroxine Sodium (Synthroid) 125 mcg PO DAILY@0600 [facility] Nutritional Formula (Lactose Free) (Glucerna Shake) 120 ml PO 4X/DAY [facility] Ondansetron HCl (Zofran) 4 mg IV Q8H PRN PRN PRN Reason: NAUSEA/VOMITING Sodium Chloride () 10 - 40 ml IV UD PRN PRN Reason: SALINE FLUSH Last Admin: 06/21/19 01:06 Dose: 10 ml Documented by: STROKE Vital Signs/Narrative: Vital Signs Temp Pulse Resp BP Pulse Ox 06/22/19 09:10 93 06/22/19 08:00 99.0 F 74 25 H 129/84 H 91 06/22/19 07:17 75 06/22/19 07:00 98.5 F 75 20 H 107/70 98 Medical Necessity - Tobacco Use Smoking Status: Former smoker Tobacco Use: Cigars Assessment/Plan All Active Problems Hypoglycemia (Acute) CHF (congestive heart failure) (Acute) Hypotension (Acute) Cardiac arrest (Acute) 1.s/p cardiac arrest due to sustained Ventricular tachycardia * on amiodarone drip. * pacemaker was interrogated and showed he went into Vtach 4 times * 2D Echo shows EF of 15% * cardiology on board * on lasix. in cumulative positive balance by 2.8L since admission. 2. Acute on chronic HFreF * EF is 15%. on PO lasix 40mg bid. * in positive balance by 2.8L since admission 3. Supratherapeutic INR: INR is now down to 3.2 Was 4.7 on admission. Coumadin on hold,. Reason why he is on coumadin not clear 4. Hypoglycemia * on accuchecks 1-2 hrly due to hypoglycemia 5. KARRI on CKD 3: * Cr is 2.54; was 1.88 on admission. No baseline in system * will check urine electrolytes and renal USG * consider nephrology consult if kidney function worsens 6. Diabetes mellitus: was having hypoglycemia. Delayed clearance of sulfonylureas due to impaired kidney function thought to be contributing to hypoglycemia. All meds on hold. Insulin sliding scale. Accu-Cheks AC at bedtime. 7. Anemia of chronic disease: Hb is 9.1 today. Will monitor 8. Hypothyroidism: on synthroid.; TSH was 0.71. DVT prophylaxis: not indicated as INR is now therapeutic at 3.2 Inpatient E&M: [id number] [facility] L3
[2019-06-22] MEDS: Glucerna Shake 120 ML LIQUID PO (11:10)
[2019-06-22 11:11] LABS: Bedside Glucose 112 mg/dL (70-110)
[2019-06-22] MEDS: Furosemide 40 MG Tablet PO (11:11)
[2019-06-22] MEDS: Menthol/Lanolin/Calamine/Znox 113 GM Tube 1 APPLIC TOPICAL ×2 (11:11→22:37)
--- NOTE | 2019-06-22 11:12 | US_ITS ---
STUDY: RENAL ULTRASOUND - COMPLETE REASON FOR EXAM: Male, 84 years old. CKD WITH KARRI TECHNIQUE: Ultrasound evaluation of the kidneys was performed with real-time and static lim-scale imaging. COMPARISON: None. FINDINGS: RIGHT KIDNEY: Normal location of the right kidney, which is mildly atrophic.. The right kidney measures 7.7 x 5.1 x 4.9 cm. There is a normal cortex of the right kidney. The renal cortex measures 1.2 cm. There is no right renal mass or cyst. There are no right renal calculi. There is no right hydronephrosis. DISTAL RIGHT URETER: There is non-visualization of the distal right ureter. There is no demonstrated right ureterovesical junction calculus. There is no demonstrated right ureteral jet. LEFT KIDNEY: Normal location of the left kidney, which is mildly atrophic. The left kidney measures 8.3 x 4.3 x 4.5 cm. There is a normal cortex of the left kidney. The renal cortex measures 1.3 cm. There is no left renal mass or cyst. There are no left renal calculi. There is no left hydronephrosis. DISTAL LEFT URETER: There is non-visualization of the distal left ureter. There is no demonstrated left ureterovesical junction calculus. There is no demonstrated left ureteral jet. BLADDER: A Arguello catheter is present within a decompressed urinary bladder. US/Kidney and Bladder IMPRESSION: Mildly atrophic kidneys. Electronically Signed: John Salazar MD at 23:09 EDT , Service support ,
[2019-06-22 12:01] LABS: Urea Nitrogen, Urine 774 mg/dL (NO RANGE EST.)
[2019-06-22 13:20] LABS: Bedside Glucose 99 mg/dL (70-110)
[2019-06-22 14:10] LABS: Bedside Glucose 107 mg/dL (70-110)
[2019-06-22 14:56] LABS: International Normalized Ratio 2.1; Prothrombin Time (Protime)PT. 23.4 SECONDS (11.7-14.9)
[2019-06-22 15:11] LABS: Bedside Glucose 113 mg/dL (70-110)
[2019-06-22 18:10] LABS: Bedside Glucose 87 mg/dL (70-110)
[2019-06-22] MEDS: Furosemide 40 MG/4 ML Vial IV (18:36)
[2019-06-22 19:21] LABS: Bedside Glucose 69 mg/dL (70-110)
[2019-06-22] MEDS: Sodium Chloride 19.25 MEQ in Dextrose 10%-Water 250 ML 25 MEQ IV (19:56)
[2019-06-22 20:21] LABS: Bedside Glucose 85 mg/dL (70-110)
[2019-06-22 21:20] LABS: Bedside Glucose 77 mg/dL (70-110)
[2019-06-22 22:11] LABS: Bedside Glucose 93 mg/dL (70-110)
[2019-06-22 23:26] LABS: Bedside Glucose 86 mg/dL (70-110)
[2019-06-23] VITALS (30 sets, daily range): BP systolic 93–167; BP diastolic 57–138; PULSE 75–79; RESP 14–23; TEMP 36.1–37.2; O2SAT 92–100
[2019-06-23 01:21] LABS: Bedside Glucose 96 mg/dL (70-110)
[2019-06-23] MEDS: Amiodarone 360 MG in Dextrose 5% Viaflo Bag 192.8 ML 16.7 MG CONT INF ×2 (02:51→15:30)
[2019-06-23 04:14] LABS: Absolute Lymphocyte Count 1.08 X10^3/uL (0.83-4.51); Absolute Neutrophil Count 4.5 X10^3/uL (2.0-7.7); Basophil# 0.02 X10^3/uL; Basophil% 0.3 % (0-1); Eosinophil# 0.38 X10^3/uL; Eosinophils% 5.6 % (0-5); Hematocrit 29.6 % (40-54); Hemoglobin 9.2 g/dL (13.0-16.5); Lymphocyte # 1.08 X10^3/ul (4.0); Lymphocyte % 15.8 % (19-41); Mean Corp Hgb Conc 31.1 g/dL (32-36); Mean Corpuscular Hgb 29.4 pg (27.0-32.0); Mean Corpuscular Volume 94.6 fL (80-94); Mean Platelet Vol. 10.3 fl (6.2-12.0); Monocyte# 0.87 X10^3/uL; Monocyte% 12.7 % (0-10); NRBC Flagged by Analyzer 0 % (0-5); Neutrophil # 4.46 X10^3/uL (2.7-7.7); Neutrophil % 65.2 % (47-70); Platelet Count 132 K/mm3 (150-450); RBC Distribution Width CV 16.1 % (11.6-14.6); Red Blood Count 3.13 M/mm3 (4.6-6.2); White Blood Count 6.8 K/mm3 (4.4-11.0)
[2019-06-23 04:19] LABS: Prothrombin Time (Protime)PT. 22.7 SECONDS (11.7-14.9)
[2019-06-23 04:25] LABS: Anion Gap 7 (5-15); BUN 48 mg/dL (7-18); BUN/Creat Ratio 22.3 RATIO (10-20); Calcium,Total 8.8 mg/dL (8.5-10.1); Chloride 107 mmol/L (98-107); Creatinine, Serum 2.15 mg/dL (0.70-1.30); EST Glomerular Filtration Rate 31 mL/min (>60); Est Glom Filt Rate - Afr Amer 38 mL/min (>60); Estimated Creatinine Clearance 25.58 ml/min; Glucose 91 mg/dL (74-106); Potassium 3.8 mmol/L (3.5-5.1); Sodium Level 143 mmol/L (136-145)
[2019-06-23] MEDS: Sodium Chloride 19.25 MEQ in Dextrose 10%-Water 250 ML 25 MEQ IV ×2 (05:11→15:28)
--- NOTE | 2019-06-23 07:20 | PN.CARD_ITS ---
Subjectve: Patient seen and evaluated. Slightly more alert. No further cardiac issues Objective: Vital Signs Temp Pulse Resp BP Pulse Ox 97.1 F L 75 14 112/68 98 06/23/19 06:00 06/23/19 06:00 06/23/19 06:00 06/23/19 06:00 06/23/19 06:00 Oxygen Flow Rate (L/min) 1 Oxygen Delivery Method Room Air Weight: 170 lb 10.205 oz Body Mass Index (BMI) 24.0 Intake and Output for Last 24 Hours 06/21/19 06/22/19 06/23/19 23:59 23:59 23:59 Intake Total 1065.06 / 1065.06 291.90 / 291.90 Output Total 1800 / 3200 2049 / 2049 Balance -734.94 / -2134.94 -1758.10 / -1758.10 General: Awake, Alert, Oriented x 3 HEENT: PERRL, EOMI, Sclera Non Icteric Neck: Supple, Good ROM, No Lymph Node Enlargement Lungs: Clear to auscultation Cardiovascular: Regular Rhythm, Normal S1, Normal S2, No Murmurs, No Rubs, No Gallops Vascular: No Carotid Bruits, Normal Femoral Pulses, Normal Radial Pulses, Normal Dorsalis Pedal Pulse, Normal Posterior Tibial Pulses Abdomen: Bowel Sounds Present, Soft, Non Tender, No HSM, No Organomegaly Extremities: No Cyanosis, No Clubbing, No edema Musculoskeletal: No Erythema Skin: No Rashes Lymphatic: No Lymph Node Enlargement Neurological: No Focal Motor or Sensory Deficit Psych/Mental Status: Appropriate 06/22/19 14:40: PT 23.4 H, INR 2.1 06/23/19 04:00: PT 22.7 H, INR 2.0 06/23/19 04:00: WBC 6.8, RBC 3.13 L, Hgb 9.2 L, Hct 29.6 L, MCV 94.6 H, MCH 29.4, MCHC 31.1 L, Plt Count 132 L, MPV 10.3, Immature Gran % (Auto) 0.400, Neut % (Auto) 65.2, Lymph % (Auto) 15.8 L, [place] % (Auto) 12.7 H, Eos % (Auto) 5.6 H, Baso % (Auto) 0.3, Absolute Neuts (auto) 4.5, Nucleated RBC % 0 06/23/19 04:00: Sodium 143, Potassium 3.8, Chloride 107, Carbon Dioxide 29.0, Anion Gap 7, BUN 48 H, Creatinine 2.15 H, Est GFR (MDRD) Af Amer 38 L, Est GFR (MDRD) Non-Af 31 L, BUN/Creatinine Ratio 22.3 H, Glucose 91, Calcium 8.8 Rhythm: EKG: ECHO: Stress Test: Cardiac Cath: PCI: CT Surgery: Holter monitor: EPS: PPM: CXR: Chest CT Scan: Medical Necessity - Tobacco Use Smoking Status: Former smoker Tobacco Use: Cigars Assessment/Plan 1. Sustained ventricular tachycardia and cardiac arrest Patient appears to have sustained ventricular tachycardia and had a cardiac arrest. Interrogation of his ICD demonstrated numerous episodes of nonsustained ventricular tachycardia with antitachycardia pacing. The cut off however appear to be below the threshold for the defibrillator to discharge. He responded well to epinephrine and DC cardioversion. At this particular time I would recommend that we continue to manage him medically with intravenous amiodarone loading. After that we will switch to p.o. Lasix. This will also depend on his swallowing evaluation later today Depending on how his blood pressure response his medications may be resumed. At this particular time the exact etiology for why his defibrillator discharge was not clear but certainly hypoglycemia, hypoxia and acidosis could be potential etiologies. * He appears to have been stable overnight without any cardiac dysrhythmias. He did have some nonsustained ventricular tachycardia's. Potassium and magnesium checks were noted to be normal 2. Coronary artery disease * He does have evidence of coronary artery disease status post bypass surgery. He does have mildly elevated cardiac troponin enzymes but at this time I would recommend that we continue to observe him to see how he does. * Will discuss with the family as to further investigations which may need to be performed. * His overall status at the moment is not particularly conducive to any further invasive cardiac investigations * 3. Left ventricular systolic dysfunction * He does have known severe left ventricular systolic dysfunction likely secondary to his coronary artery disease. He did not appear to be in any heart failure. He had previously been on a beta-mike and ANOOP inhibitor and depending on his recovery the above may be reinstituted. * Thank you for allowing me to participate in the care of your patient. Please don't hesitate to call if any issues arise * * 4. Status post ICD implantation * His ICD was interrogated and he had been noted to have nonsustained ventricular tachyarrhythmias with ATP pacing. Defibrillator appears to be functioning well. The ventricular tachycardia was below the cutoff point for the defibrillator discharge. * * He can probably be transferred to the stepdown unit if need be. His overall demeanor suggest that he may have suffered global amnesia at some point. His overall prognosis appears to be rather guarded. And I will continue to follow with you.
[2019-06-23 07:45] LABS: Bedside Glucose 93 mg/dL (70-110)
--- NOTE | 2019-06-23 08:09 | PN_ITS ---
Subjective: The patient was seen and examined at the bedside this morning. Events from the last 24 hours have been reviewed. The patient is currently afebrile, hemodynamically stable and maintaining appropriate oxygen saturations on room air. The patient did not pass his swallow evaluation yesterday and in fact had to be made n.p.o. once again. His blood sugars once again fell in the afternoon, requiring the D10 infusion to be restarted. I did call and personally speak with endocrinology this morning regarding the patient's persistent hypoglycemia. It was their feeling that the patient's hypoglycemia was likely secondary to his renal insufficiency coupled with sulfonylurea utilization on presentation. The recommendation was made to check a sulf onylurea level. Objective: The patient's most recent lab work, culture data and imaging studies have all been personally reviewed. Blood and urine cultures have shown no growth to date. Surface echocardiogram revealed normal LV size with an ejection fraction of 15%. General: Cooperative, No apparent distress, - - Appears more alert and interact alayna this morning. HEENT: Atraumatic, Normocephalic Oral: Dry Mucosa Neck: Supple, No Nodes, Trachea Midline Lungs: Normal air movement, No rhonchi, No wheeze, No rales Cardiovascular: Regular rate, Regular Rhythm, Normal S1, Normal S2 Abdomen: Bowel Sounds Present, Soft, Non Tender Extremities: No clubbing, No cyanosis Skin: No breakdown Musculoskeletal: No Tenderness to Palpation of Joints or Extremities Lymphatic: No Cervical, Supraclavicular, or Inguinal Adenopathy Neurological: Neuro grossly intact Psych/Mental Status: Flat Affect Vital Signs Temp Pulse Resp BP Pulse Ox 97.1 F L 75 14 112/68 98 06/23/19 06:00 06/23/19 07:56 06/23/19 06:00 06/23/19 06:00 06/23/19 06:00 Oxygen Flow Rate (L/min) 1 Oxygen Delivery Method Room Air Weight: 170 lb 10.205 oz Body Mass Index (BMI) 24.0 Intake and Output for Last 24 Hours 06/21/19 06/22/19 06/23/19 23:59 23:59 23:59 Intake Total 1065.06 / 1065.06 291.90 / 291.90 Output Total 1800 / 3200 2049 / 2049 Balance -734.94 / -2134.94 -1758.10 / -1758.10 Labs (Last 48 Hours) 06/21/19 06/21/19 06/21/19 08:06 08:37 08:45 WBC RBC Hgb Hct MCV MCH MCHC RDW Std Deviation RDW Coeff of Shelbi Plt Count MPV Immature Gran % (Auto) Neut % (Auto) Lymph % (Auto) [place] % (Auto) Eos % (Auto) Baso % (Auto) Absolute Neuts (auto) Absolute Lymphs (auto) Nucleated RBC % PT 32.7 H INR 3.2 Sodium Potassium Chloride Carbon Dioxide Anion Gap BUN Creatinine Estim Creat Clear Calc Est GFR (MDRD) Af Amer Est GFR (MDRD) Non-Af BUN/Creatinine Ratio Glucose Calcium Phosphorus Magnesium TSH Urine Creatinine Urine Urea Nitrogen POC Glucose 68 L 75 06/21/19 06/21/19 06/21/19 09:40 11:01 13:08 WBC RBC Hgb Hct MCV MCH MCHC RDW Std Deviation RDW Coeff of Shelbi Plt Count MPV Immature Gran % (Auto) Neut % (Auto) Lymph % (Auto) [place] % (Auto) Eos % (Auto) Baso % (Auto) Absolute Neuts (auto) Absolute Lymphs (auto) Nucleated RBC % PT INR Sodium Potassium Chloride Carbon Dioxide Anion Gap BUN Creatinine Estim Creat Clear Calc Est GFR (MDRD) Af Amer Est GFR (MDRD) Non-Af BUN/Creatinine Ratio Glucose Calcium Phosphorus Magnesium TSH Urine Creatinine Urine Urea Nitrogen POC Glucose 77 80 90 06/21/19 06/21/19 06/21/19 16:40 18:04 19:54 WBC RBC Hgb Hct MCV MCH MCHC RDW Std Deviation RDW Coeff of Shelbi Plt Count MPV Immature Gran % (Auto) Neut % (Auto) Lymph % (Auto) [place] % (Auto) Eos % (Auto) Baso % (Auto) Absolute Neuts (auto) Absolute Lymphs (auto) Nucleated RBC % PT INR Sodium Potassium Chloride Carbon Dioxide Anion Gap BUN Creatinine Estim Creat Clear Calc Est GFR (MDRD) Af Amer Est GFR (MDRD) Non-Af BUN/Creatinine Ratio Glucose Calcium Phosphorus Magnesium TSH Urine Creatinine Urine Urea Nitrogen POC Glucose 124 H 142 H 116 H 06/21/19 06/21/19 06/21/19 21:03 22:13 23:16 WBC RBC Hgb Hct MCV MCH MCHC RDW Std Deviation RDW Coeff of Shelbi Plt Count MPV Immature Gran % (Auto) Neut % (Auto) Lymph % (Auto) [place] % (Auto) Eos % (Auto) Baso % (Auto) Absolute Neuts (auto) Absolute Lymphs (auto) Nucleated RBC % PT INR Sodium Potassium Chloride Carbon Dioxide Anion Gap BUN Creatinine Estim Creat Clear Calc Est GFR (MDRD) Af Amer Est GFR (MDRD) Non-Af BUN/Creatinine Ratio Glucose Calcium Phosphorus Magnesium TSH Urine Creatinine Urine Urea Nitrogen POC Glucose 107 96 95 06/22/19 06/22/19 06/22/19 00:37 02:03 03:45 WBC 7.5 RBC 3.10 L Hgb 9.1 L Hct 29.2 L MCV 94.2 H MCH 29.4 MCHC 31.2 L RDW Std Deviation 55.1 H RDW Coeff of Shelbi 16.3 H Plt Count 135 L MPV 10.6 Immature Gran % (Auto) 0.400 Neut % (Auto) 68.3 Lymph % (Auto) 14.6 L [place] % (Auto) 10.8 H Eos % (Auto) 5.8 H Baso % (Auto) 0.1 Absolute Neuts (auto) 5.1 Absolute Lymphs (auto) 1.09 Nucleated RBC % 0 PT INR Sodium Potassium Chloride Carbon Dioxide Anion Gap BUN Creatinine Estim Creat Clear Calc Est GFR (MDRD) Af Amer Est GFR (MDRD) Non-Af BUN/Creatinine Ratio Glucose Calcium Phosphorus Magnesium TSH Urine Creatinine Urine Urea Nitrogen POC Glucose 89 126 H 06/22/19 06/22/19 06/22/19 03:45 03:45 06:01 WBC RBC Hgb Hct MCV MCH MCHC RDW Std Deviation RDW Coeff of Shel[place] Plt Count MPV Immature Gran % (Auto) Neut % (Auto) Lymph % (Auto) [place] % (Auto) Eos % (Auto) Baso % (Auto) Absolute Neuts (auto) Absolute Lymphs (auto) Nucleated RBC % PT INR Sodium 141 Potassium 4.1 Chloride 109 H Carbon Dioxide 26.0 Anion Gap 6 BUN 54 H Creatinine 2.54 H Estim Creat Clear Calc 21.65 Est GFR (MDRD) Af Amer 31 L Est GFR (MDRD) Non-Af 26 L BUN/Creatinine Ratio 21.3 H Glucose 102 Calcium 8.7 Phosphorus 4.4 Magnesium 1.9 TSH 0.71 Urine Creatinine Urine Urea Nitrogen POC Glucose 79 06/22/19 06/22/19 06/22/19 07:32 08:26 09:41 WBC RBC Hgb Hct MCV MCH MCHC RDW Std Deviation RDW Coeff of Shelbi Plt Count MPV Immature Gran % (Auto) Neut % (Auto) Lymph % (Auto) [place] % (Auto) Eos % (Auto) Baso % (Auto) Absolute Neuts (auto) Absolute Lymphs (auto) Nucleated RBC % PT INR Sodium Potassium Chloride Carbon Dioxide Anion Gap BUN Creatinine Estim Creat Clear Calc Est GFR (MDRD) Af Amer Est GFR (MDRD) Non-Af BUN/Creatinine Ratio Glucose Calcium Phosphorus Magnesium TSH Urine Creatinine Urine Urea Nitrogen POC Glucose 111 H 91 125 H 06/22/19 06/22/19 06/22/19 11:04 11:45 11:45 WBC RBC Hgb Hct MCV MCH MCHC RDW Std Deviation RDW Coeff of Shel[place] Plt Count MPV Immature Gran % (Auto) Neut % (Auto) Lymph % (Auto) [place] % (Auto) Eos % (Auto) Baso % (Auto) Absolute Neuts (auto) Absolute Lymphs (auto) Nucleated RBC % PT INR Sodium Potassium Chloride Carbon Dioxide Anion Gap BUN Creatinine Estim Creat Clear Calc Est GFR (MDRD) Af Amer Est GFR (MDRD) Non-Af BUN/Creatinine Ratio Glucose Calcium Phosphorus Magnesium TSH Urine Creatinine 99.80 Urine Urea Nitrogen 774 POC Glucose 112 H 06/22/19 06/22/19 06/22/19 13:11 14:05 14:40 WBC RBC Hgb Hct MCV MCH MCHC RDW Std Deviation RDW Coeff of Shelbi Plt Count MPV Immature Gran % (Auto) Neut % (Auto) Lymph % (Auto) [place] % (Auto) Eos % (Auto) Baso % (Auto) Absolute Neuts (auto) Absolute Lymphs (auto) Nucleated RBC % PT 23.4 H INR 2.1 Sodium Potassium Chloride Carbon Dioxide Anion Gap BUN Creatinine Estim Creat Clear Calc Est GFR (MDRD) Af Amer Est GFR (MDRD) Non-Af BUN/Creatinine Ratio Glucose Calcium Phosphorus Magnesium TSH Urine Creatinine Urine Urea Nitrogen POC Glucose 99 107 06/22/19 06/22/19 06/22/19 15:00 18:04 19:14 WBC RBC Hgb Hct MCV MCH MCHC RDW Std Deviation RDW Coeff of Shelbi Plt Count MPV Immature Gran % (Auto) Neut % (Auto) Lymph % (Auto) [place] % (Auto) Eos % (Auto) Baso % (Auto) Absolute Neuts (auto) Absolute Lymphs (auto) Nucleated RBC % PT INR Sodium Potassium Chloride Carbon Dioxide Anion Gap BUN Creatinine Estim Creat Clear Calc Est GFR (MDRD) Af Amer Est GFR (MDRD) Non-Af BUN/Creatinine Ratio Glucose Calcium Phosphorus Magnesium TSH Urine Creatinine Urine Urea Nitrogen POC Glucose 113 H 87 69 L 06/22/19 06/22/19 06/22/19 20:18 21:14 22:04 WBC RBC Hgb Hct MCV MCH MCHC RDW Std Deviation RDW Coeff of Shelbi Plt Count MPV Immature Gran % (Auto) Neut % (Auto) Lymph % (Auto) [place] % (Auto) Eos % (Auto) Baso % (Auto) Absolute Neuts (auto) Absolute Lymphs (auto) Nucleated RBC % PT INR Sodium Potassium Chloride Carbon Dioxide Anion Gap BUN Creatinine Estim Creat Clear Calc Est GFR (MDRD) Af Amer Est GFR (MDRD) Non-Af BUN/Creatinine Ratio Glucose Calcium Phosphorus Magnesium TSH Urine Creatinine Urine Urea Nitrogen POC Glucose 85 77 93 06/22/19 06/23/19 06/23/19 23:18 01:17 04:00 WBC RBC Hgb Hct MCV MCH MCHC RDW Std Deviation RDW Coeff of Shelbi Plt Count MPV Immature Gran % (Auto) Neut % (Auto) Lymph % (Auto) [place] % (Auto) Eos % (Auto) Baso % (Auto) Absolute Neuts (auto) Absolute Lymphs (auto) Nucleated RBC % PT 22.7 H INR 2.0 Sodium Potassium Chloride Carbon Dioxide Anion Gap BUN Creatinine Estim Creat Clear Calc Est GFR (MDRD) Af Amer Est GFR (MDRD) Non-Af BUN/Creatinine Ratio Glucose Calcium Phosphorus Magnesium TSH Urine Creatinine Urine Urea Nitrogen POC Glucose 86 96 06/23/19 06/23/19 06/23/19 04:00 04:00 07:43 WBC 6.8 RBC 3.13 L Hgb 9.2 L Hct 29.6 L MCV 94.6 H MCH 29.4 MCHC 31.1 L RDW Std Deviation 55.0 H RDW Coeff of Shelbi 16.1 H Plt Count 132 L MPV 10.3 Immature Gran % (Auto) 0.400 Neut % (Auto) 65.2 Lymph % (Auto) 15.8 L [place] % (Auto) 12.7 H Eos % (Auto) 5.6 H Baso % (Auto) 0.3 Absolute Neuts (auto) 4.5 Absolute Lymphs (auto) 1.08 Nucleated RBC % 0 PT INR Sodium 143 Potassium 3.8 Chloride 107 Carbon Dioxide 29.0 Anion Gap 7 BUN 48 H Creatinine 2.15 H Estim Creat Clear Calc 25.58 Est GFR (MDRD) Af Amer 38 L Est GFR (MDRD) Non-Af 31 L BUN/Creatinine Ratio 22.3 H Glucose 91 Calcium 8.8 Phosphorus Magnesium TSH Urine Creatinine Urine Urea Nitrogen POC Glucose 93 Microbiology 06/18/19 22:20 Urine Catheter - Arguello Urine Culture - Final Culture exhibits no growth. Clinical Impression(s) from Imaging Studies Chest X-Ray 06/18/19 12:12 IMPRESSION: Cardiomegaly. The lungs are clear. Electronically Signed: Doni Mcneal at 12:36 EST , Service support , Brain CT 06/18/19 15:54 IMPRESSION: Chronic involutional and ischemic changes of the brain, as described. No acute intracranial injury. Electronically Signed: Jesus Pandya MD at 16:32 EST , Service support , Chest X-Ray 06/18/19 20:42 IMPRESSION: Prominent interstitial markings consistent with component of interstitial edema with moderate cardiomegaly. Electronically Signed: Gerhard Metz DO at 21:19 EST , Service support , Renal Ultrasound 06/22/19 11:12 IMPRESSION: Mildly atrophic kidneys. Electronically Signed: John Salazar MD at 23:09 EDT , Service support , Medical Necessity - Tobacco Use Smoking Status: Former smoker Tobacco Use: Cigars Assessment/Plan All Active Problems Hypoglycemia (Acute) CHF (congestive heart failure) (Acute) Hypotension (Acute) Cardiac arrest (Acute) RECOMMENDATIONS: 1. Continue to hold BP and DM medications. 2. Check sulfonylurea level. 3. Speech therapy planning for modified barium swallow. 4. Continue diuretic therapy and amiodarone per cardiology recommendations. 5. Wean supplemental oxygen to maintain saturations at or above 90%. 6. Encourage incentive spirometer use and mobilize patient as tolerated. 7. Continue Synthroid. IMPRESSIONS: 1. Sustained ventricular tachycardia arrest/history of coronary artery disease status post CABG/systolic heart failure Cardiology is currently following to assist with medical management. Continue amiodarone and diuretic therapy. Recommend continuing to hold ANOOP inhibitor, given issues with renal function. 2. Hypoglycemia Clinical suspicion for slowed elimination of sulfonylureas leading to recurrent hypoglycemia. Continue D10 infusion, given n.p.o. status and persistent hypoglycemia. Speech therapy planning for modified barium swallow tomorrow. 3. Coagulopathy secondary to Coumadin Clinical suspicion for interactions with Coumadin leading to elevated INR. However, patient is not actively bleeding. Would continue to monitor on a daily basis. Once INR falls below 2.0, the patient will likely need to be placed on a weight-based heparin infusion. 4. Worsening renal insufficiency Unclear if this is related to low perfusion state in the setting of heart failure. The patient is currently being diuresed. Renal function is slowly improving. 5. Delirium/advanced age/poor historian/diabetes mellit us/hyperlipidemia/GERD/hypothyroidism Complicates care, management, recovery and prognosis. Continue to hold ANOOP inhibitor and diabetic medications. Continue Synthroid. Physical therapy to work with the patient. This note was generated with [employer] dictation software. It may contain incorrect words, spelling, and punctuation that were not noted in checking the note before signing. Inpatient E&M: 45720 Subs Hosp L2
[2019-06-23 09:00] LABS: Bedside Glucose 98 mg/dL (70-110)
--- NOTE | 2019-06-23 09:50 | CASEMGMT ---
Social Work Pt is currently a resident at [facility]. Updated clinicals faxed to [facility], pt will need precert when ready to return. Precert not started at this time due to pt medical condition. RAGINI Santiago
[2019-06-23 10:05] LABS: Bedside Glucose 105 mg/dL (70-110)
[2019-06-23] MEDS: Menthol/Lanolin/Calamine/Znox 113 GM Tube 1 APPLIC TOPICAL ×2 (10:13→22:13)
[2019-06-23] MEDS: Furosemide 40 MG/4 ML Vial IV ×2 (10:13→17:48)
--- NOTE | 2019-06-23 10:24 | PN_ITS ---
Patient Problems: Active and Suspected Problems Hypoglycemia (Acute) CHF (congestive heart failure) (Acute) Hypotension (Acute) Cardiac arrest (Acute) Subjective: Patient seen and examined became hypotensive glycemic overnight and saw to be started back on the D10 drip. He still lethargic and even though he opens his eyes, he does not really answer any questions and seems to prefer to just sleep. Unable to do comprehensive review of systems. Labs and vitals reviewed. He has remained hemodynamically stable. Creatinine is trended down to 2.15 from 2.54 yesterday. WBC 6.8 and hemoglobin is 9.2. Platelets are 132. Vitals/I&O's: Vital Signs Temp Pulse Resp BP Pulse Ox 97.7 F L 78 18 117/71 95 06/23/19 10:01 06/23/19 10:01 06/23/19 10:01 06/23/19 10:01 06/23/19 10:07 Oxygen Flow Rate (L/min) 1 Oxygen Delivery Method Nasal Cannula Weight: 170 lb 10.205 oz Body Mass Index (BMI) 24.0 Intake and Output for Last 24 Hours 06/21/19 06/22/19 06/23/19 23:59 23:59 23:59 Intake Total 1065.06 / 1065.06 291.90 / 291.90 Output Total 1800 / 3200 2049 / 2049 Balance -734.94 / -2134.94 -1758.10 / -1758.10 General: Alert, Cooperative, Lethargic HEENT: Atraumatic, PERRLA, EOMI, Normocephalic Oral: Dry Mucosa Neck: Supple, No JVD, Negative Carotid Bruits Lungs: Clear to auscultation, Normal air movement, No rhonchi, No wheeze Cardiovascular: Regular rate, Regular Rhythm, Normal S1, Normal S2, No murmurs Abdomen: Bowel Sounds Present, Soft, Non Tender Extremities: No clubbing, No cyanosis, No edema, Capillary Refill Less than 3 Seconds Skin: No rashes, No breakdown Musculoskeletal: No Tenderness to Palpation of Joints or Extremities Neurological: Cranial nerves II-XII grossly intact Psych/Mental Status: Flat Affect Microbiology Past 72 Hours 06/18/19 22:20 Urine Catheter - [place] Urine Culture - Final Culture exhibits no growth. 06/18/19 14:05 Blood Culture (Wb) - Left Forearm Blood Culture - Preliminary No growth in 48 hours. 06/18/19 13:02 Blood Culture (Wb) - Right Forearm Blood Culture - Preliminary No growth in 48 hours. Laboratory Results 06/22/19 11:04: POC Glucose 112 H 06/22/19 11:45: Urine Creatinine 99.80 06/22/19 11:45: Urine Urea Nitrogen 774 06/22/19 13:11: POC Glucose 99 06/22/19 14:05: POC Glucose 107 06/22/19 14:40: PT 23.4 H, INR 2.1 06/22/19 15:00: POC Glucose 113 H 06/22/19 18:04: POC Glucose 87 06/22/19 19:14: POC Glucose 69 L 06/22/19 20:18: POC Glucose 85 06/22/19 21:14: POC Glucose 77 06/22/19 22:04: POC Glucose 93 06/22/19 23:18: POC Glucose 86 06/23/19 01:17: POC Glucose 96 06/23/19 04:00: PT 22.7 H, INR 2.0 06/23/19 04:00: WBC 6.8, RBC 3.13 L, Hgb 9.2 L, Hct 29.6 L, MCV 94.6 H, MCH 29.4, MCHC 31.1 L, RDW Std Deviation 55.0 H, RDW Coeff of Shelbi 16.1 H, Plt Count 132 L, MPV 10.3, Immature Gran % (Auto) 0.400, Neut % (Auto) 65.2, Lymph % (Auto) 15.8 L, [place] % (Auto) 12.7 H, Eos % (Auto) 5.6 H, Baso % (Auto) 0.3, Absolute Neuts (auto) 4.5, Absolute Lymphs (auto) 1.08, Nucleated RBC % 0 06/23/19 04:00: Sodium 143, Potassium 3.8, Chloride 107, Carbon Dioxide 29.0, Anion Gap 7, BUN 48 H, Creatinine 2.15 H, Estim Creat Clear Calc 25.58, Est GFR (MDRD) Af Amer 38 L, Est GFR (MDRD) Non-Af 31 L, BUN/Creatinine Ratio 22.3 H, Glucose 91, Calcium 8.8 06/23/19 07:43: POC Glucose 93 06/23/19 08:50: POC Glucose 98 06/23/19 09:55: Miscellaneous Test Pending 06/23/19 09:59: POC Glucose [address] 06/18/19 15:54 IMPRESSION: Chronic involutional and ischemic changes of the brain, as described. No acute intracranial injury. Electronically Signed: Jesus Pandya MD at 16:32 EST , Service support , Chest X-Ray 06/18/19 20:42 IMPRESSION: Prominent interstitial markings consistent with component of interstitial edema with moderate cardiomegaly. Electronically Signed: Gerhard Metz DO at 21:19 EST , Service support , Renal Ultrasound 06/22/19 11:12 IMPRESSION: Mildly atrophic kidneys. Electronically Signed: John Salazar MD at 23:09 EDT , Service support , Current Medications Calamine/Phenol (Calmoseptine Ointment) 1 applic TOPICAL BID [facility]; Protocol Last Admin: 06/23/19 10:13 Dose: 1 applicatio Documented by: Furosemide (Lasix) 40 mg IV BID@1000,1800 [facility] Last Admin: 06/23/19 10:13 Dose: 40 mg Documented by: Glucagon () 1 mg IM .X1 PRN PRN Reason: Hypoglycemia Amiodarone HCl 360 mg/ (Dextrose) 200 mls @ 16.667 mls/hr CONT INF .Q12H [facility] Last Infusion: 06/23/19 06:00 Dose: 0.5 mg/min, 16.7 mls/hr Documented by: Sodium Chloride 19.25 meq/ (Dextrose) 254.8125 mls @ 25 mls/hr IV .[id number] [facility] Last Infusion: 06/23/19 06:00 Dose: 25 mls/hr Documented by: Levothyroxine Sodium (Synthroid) 125 mcg PO DAILY@0600 [facility] Last Admin: 06/23/19 04:43 Dose: Not Given Documented by: Ondansetron HCl (Zofran) 4 mg IV Q8H PRN PRN PRN Reason: NAUSEA/VOMITING Sodium Chloride () 10 - 40 ml IV UD PRN PRN Reason: SALINE FLUSH Last Admin: 06/21/19 01:06 Dose: 10 ml Documented by: STROKE Vital Signs/Narrative: Vital Signs Temp Pulse Resp BP BP Pulse Ox 06/23/19 10:07 95 06/23/19 10:01 97.7 F L 78 18 117/71 97 06/23/19 08:52 97.7 F L 75 18 104/68 96 06/23/19 07:56 75 Medical Necessity - Tobacco Use Smoking Status: Former smoker Tobacco Use: Cigars Assessment/Plan All Active Problems Hypoglycemia (Acute) CHF (congestive heart failure) (Acute) Hypotension (Acute) Cardiac arrest (Acute) 1.s/p cardiac arrest due to sustained Ventricular tachycardia * still on amiodarone drip. * pacemaker was interrogated and showed he went into Vtach 4 times * 2D Echo shows EF of 15% * cardiology on board * on lasix. in cumulative positive balance by 718mL since admission. 2. Acute on chronic HFreF * EF is 15%. on PO lasix 40mg bid. * cardiology on board 3. Supratherapeutic INR: INR is now down to 2. Was 4.7 on admission. Coumadin on hold,. Reason why he is on coumadin not clear 4. Hypoglycemia * became hypoglycemic overnight, with blood sugar falling to 69 * on accuchecks 1-2 hrly due to hypoglycemia * on 10% dextrose drip 5. KARRI on CKD 3: * Cr is 2.54; was 1.88 on admission. No baseline in system * will check urine electrolytes and renal USG * consider nephrology consult if kidney function worsens 6. Diabetes mellitus: * was having hypoglycemia. * Delayed clearance of sulfonylureas due to impaired kidney function thought to be contributing to hypoglycemia. * All meds on hold. Insulin sliding scale. * Accu-Cheks q2 hrly 7. Anemia of chronic disease: Hb is 9.1 today. Will monitor 8. Hypothyroidism: on synthroid.; TSH was 0.71. DVT prophylaxis: not indicated. INR is 2 Inpatient E&M: 27498 [facility] Hosp L3
[2019-06-23 11:25] LABS: Bedside Glucose 115 mg/dL (70-110)
[2019-06-23 13:56] LABS: Bedside Glucose 110 mg/dL (70-110)
[2019-06-23 14:31] LABS: Bedside Glucose 98 mg/dL (70-110)
[2019-06-23 16:30] LABS: Bedside Glucose 93 mg/dL (70-110)
[2019-06-23] MEDS: 0.9% Saline Lock 10 ML Syringe IV (17:48)
[2019-06-23 17:50] LABS: Bedside Glucose 101 mg/dL (70-110)
[2019-06-23 22:21] LABS: Bedside Glucose 121 mg/dL (70-110)
[2019-06-24] VITALS (29 sets, daily range): BP systolic 93–122; BP diastolic 53–91; PULSE 75–82; RESP 12–201; TEMP 35.9–36.7; O2SAT 90–100
[2019-06-24 01:51] LABS: Bedside Glucose 124 mg/dL (70-110)
[2019-06-24] MEDS: Sodium Chloride 19.25 MEQ in Dextrose 10%-Water 250 ML 25 MEQ IV ×2 (02:59→14:15)
[2019-06-24] MEDS: Amiodarone 360 MG in Dextrose 5% Viaflo Bag 192.8 ML 16.7 MG CONT INF ×2 (03:55→16:44)
[2019-06-24 04:56] LABS: Absolute Lymphocyte Count 1.09 X10^3/uL (0.83-4.51); Absolute Neutrophil Count 3.6 X10^3/uL (2.0-7.7); Basophil# 0.01 X10^3/uL; Basophil% 0.2 % (0-1); Eosinophil# 0.28 X10^3/uL; Eosinophils% 4.9 % (0-5); Hematocrit 30.2 % (40-54); Hemoglobin 9.3 g/dL (13.0-16.5); Lymphocyte # 1.09 X10^3/ul (4.0); Lymphocyte % 19.2 % (19-41); Mean Corp Hgb Conc 30.8 g/dL (32-36); Mean Corpuscular Volume 94.1 fL (80-94); Mean Platelet Vol. 10.5 fl (6.2-12.0); Monocyte# 0.69 X10^3/uL; Monocyte% 12.1 % (0-10); NRBC Flagged by Analyzer 0 % (0-5); Neutrophil # 3.59 X10^3/uL (2.7-7.7); Neutrophil % 63.2 % (47-70); Platelet Count 159 K/mm3 (150-450); RBC Distribution Width SD 54.1 fl (35.1-43.9); Red Blood Count 3.21 M/mm3 (4.6-6.2); White Blood Count 5.7 K/mm3 (4.4-11.0)
[2019-06-24 05:20] LABS: Anion Gap 2 (5-15); BUN 38 mg/dL (7-18); BUN/Creat Ratio 20.7 RATIO (10-20); Calcium,Total 9.1 mg/dL (8.5-10.1); Chloride 108 mmol/L (98-107); Creatinine, Serum 1.84 mg/dL (0.70-1.30); EST Glomerular Filtration Rate 37 mL/min (>60); Est Glom Filt Rate - Afr Amer 45 mL/min (>60); Estimated Creatinine Clearance 29.89 ml/min; Glucose 100 mg/dL (74-106); Potassium 3.6 mmol/L (3.5-5.1); Sodium Level 144 mmol/L (136-145)
--- NOTE | 2019-06-24 06:29 | PN_ITS ---
Subjective: The patient was seen and examined at the bedside this morning. Events from the last 24 hours have been reviewed. The patient is currently afebrile, hemodynamically stable and maintaining appropriate oxygen saturations on 3 L/min via nasal cannula. The patient is awaiting modified barium swallow today. Objective: The patient's most recent lab work, culture data and imaging studies have all been personally reviewed. Blood and urine cultures have shown no growth to date. Surface echocardiogram revealed normal LV size with an ejection fraction of 15%. General: Alert, Cooperative HEENT: Atraumatic, PERRLA, Normocephalic Oral: Dry Mucosa Neck: Supple, No Nodes, Trachea Midline Lungs: Normal air movement, No rhonchi, No wheeze, No rales Cardiovascular: Regular rate, Regular Rhythm, Normal S1, Normal S2 Abdomen: Bowel Sounds Present, Soft, Non Tender Extremities: No clubbing, No cyanosis, No edema Skin: No breakdown Musculoskeletal: No Tenderness to Palpation of Joints or Extremities Lymphatic: No Cervical, Supraclavicular, or Inguinal Adenopathy Neurological: Neuro grossly intact Psych/Mental Status: Flat Affect Vital Signs Temp Pulse Resp BP Pulse Ox 96.9 F L 75 13 106/73 98 06/24/19 06:00 06/24/19 06:00 06/24/19 06:00 06/24/19 06:00 06/24/19 06:00 Oxygen Flow Rate (L/min) 3 Oxygen Delivery Method Nasal Cannula Weight: 170 lb 13.732 oz Body Mass Index (BMI) 24.0 Intake and Output for Last 24 Hours 06/22/19 06/23/19 06/24/19 23:59 23:59 23:59 Intake Total 1065.06 / 1065.06 673.6925 / 1028.9725 565.0225 / 565.0225 Output Total 1800 / 3200 3350 / 4350 1350 / 1350 Balance -734.94 / -2134.94 -2676.3075 / -3321.0275 -784.9775 / -784.9775 Labs (Last 48 Hours) 06/22/19 06/22/19 06/22/19 03:45 07:32 08:26 WBC RBC Hgb Hct MCV MCH MCHC RDW Std Deviation RDW Coeff of Shelbi Plt Count MPV Immature Gran % (Auto) Neut % (Auto) Lymph % (Auto) [place] % (Auto) Eos % (Auto) Baso % (Auto) Absolute Neuts (auto) Absolute Lymphs (auto) Nucleated RBC % PT INR Sodium Potassium Chloride Carbon Dioxide Anion Gap BUN Creatinine Estim Creat Clear Calc Est GFR (MDRD) Af Amer Est GFR (MDRD) Non-Af BUN/Creatinine Ratio Glucose Calcium TSH 0.71 Urine Creatinine Urine Urea Nitrogen Miscellaneous Test POC Glucose 111 H 91 06/22/19 06/22/19 06/22/19 09:41 11:04 11:45 WBC RBC Hgb Hct MCV MCH MCHC RDW Std Deviation RDW Coeff of Shelbi Plt Count MPV Immature Gran % (Auto) Neut % (Auto) Lymph % (Auto) [place] % (Auto) Eos % (Auto) Baso % (Auto) Absolute Neuts (auto) Absolute Lymphs (auto) Nucleated RBC % PT INR Sodium Potassium Chloride Carbon Dioxide Anion Gap BUN Creatinine Estim Creat Clear Calc Est GFR (MDRD) Af Amer Est GFR (MDRD) Non-Af BUN/Creatinine Ratio Glucose Calcium TSH Urine Creatinine 99.80 Urine Urea Nitrogen Miscellaneous Test POC Glucose 125 H 112 H 06/22/19 06/22/19 06/22/19 11:45 13:11 14:05 WBC RBC Hgb Hct MCV MCH MCHC RDW Std Deviation RDW Coeff of Shelbi Plt Count MPV Immature Gran % (Auto) Neut % (Auto) Lymph % (Auto) [place] % (Auto) Eos % (Auto) Baso % (Auto) Absolute Neuts (auto) Absolute Lymphs (auto) Nucleated RBC % PT INR Sodium Potassium Chloride Carbon Dioxide Anion Gap BUN Creatinine Estim Creat Clear Calc Est GFR (MDRD) Af Amer Est GFR (MDRD) Non-Af BUN/Creatinine Ratio Glucose Calcium TSH Urine Creatinine Urine Urea Nitrogen 774 Miscellaneous Test POC Glucose 99 107 06/22/19 06/22/19 06/22/19 14:40 15:00 18:04 WBC RBC Hgb Hct MCV MCH MCHC RDW Std Deviation RDW Coeff of Shelbi Plt Count MPV Immature Gran % (Auto) Neut % (Auto) Lymph % (Auto) [place] % (Auto) Eos % (Auto) Baso % (Auto) Absolute Neuts (auto) Absolute Lymphs (auto) Nucleated RBC % PT 23.4 H INR 2.1 Sodium Potassium Chloride Carbon Dioxide Anion Gap BUN Creatinine Estim Creat Clear Calc Est GFR (MDRD) Af Amer Est GFR (MDRD) Non-Af BUN/Creatinine Ratio Glucose Calcium TSH Urine Creatinine Urine Urea Nitrogen Miscellaneous Test POC Glucose 113 H 87 06/22/19 06/22/19 06/22/19 19:14 20:18 21:14 WBC RBC Hgb Hct MCV MCH MCHC RDW Std Deviation RDW Coeff of Shelbi Plt Count MPV Immature Gran % (Auto) Neut % (Auto) Lymph % (Auto) [place] % (Auto) Eos % (Auto) Baso % (Auto) Absolute Neuts (auto) Absolute Lymphs (auto) Nucleated RBC % PT INR Sodium Potassium Chloride Carbon Dioxide Anion Gap BUN Creatinine Estim Creat Clear Calc Est GFR (MDRD) Af Amer Est GFR (MDRD) Non-Af BUN/Creatinine Ratio Glucose Calcium TSH Urine Creatinine Urine Urea Nitrogen Miscellaneous Test POC Glucose 69 L 85 77 06/22/19 06/22/19 06/23/19 22:04 23:18 01:17 WBC RBC Hgb Hct MCV MCH MCHC RDW Std Deviation RDW Coeff of Shelbi Plt Count MPV Immature Gran % (Auto) Neut % (Auto) Lymph % (Auto) [place] % (Auto) Eos % (Auto) Baso % (Auto) Absolute Neuts (auto) Absolute Lymphs (auto) Nucleated RBC % PT INR Sodium Potassium Chloride Carbon Dioxide Anion Gap BUN Creatinine Estim Creat Clear Calc Est GFR (MDRD) Af Amer Est GFR (MDRD) Non-Af BUN/Creatinine Ratio Glucose Calcium TSH Urine Creatinine Urine Urea Nitrogen Miscellaneous Test POC Glucose 93 86 96 06/23/19 06/23/19 06/23/19 04:00 04:00 04:00 WBC 6.8 RBC 3.13 L Hgb 9.2 L Hct 29.6 L MCV 94.6 H MCH 29.4 MCHC 31.1 L RDW Std Deviation 55.0 H RDW Coeff of Shelbi 16.1 H Plt Count 132 L MPV 10.3 Immature Gran % (Auto) 0.400 Neut % (Auto) 65.2 Lymph % (Auto) 15.8 L [place] % (Auto) 12.7 H Eos % (Auto) 5.6 H Baso % (Auto) 0.3 Absolute Neuts (auto) 4.5 Absolute Lymphs (auto) 1.08 Nucleated RBC % 0 PT 22.7 H INR 2.0 Sodium 143 Potassium 3.8 Chloride 107 Carbon Dioxide 29.0 Anion Gap 7 BUN 48 H Creatinine 2.15 H Estim Creat Clear Calc 25.58 Est GFR (MDRD) Af Amer 38 L Est GFR (MDRD) Non-Af 31 L BUN/Creatinine Ratio 22.3 H Glucose 91 Calcium 8.8 TSH Urine Creatinine Urine Urea Nitrogen Miscellaneous Test POC Glucose 06/23/19 06/23/19 06/23/19 07:43 08:50 09:55 WBC RBC Hgb Hct MCV MCH MCHC RDW Std Deviation RDW Coeff of Shelbi Plt Count MPV Immature Gran % (Auto) Neut % (Auto) Lymph % (Auto) [place] % (Auto) Eos % (Auto) Baso % (Auto) Absolute Neuts (auto) Absolute Lymphs (auto) Nucleated RBC % PT INR Sodium Potassium Chloride Carbon Dioxide Anion Gap BUN Creatinine Estim Creat Clear Calc Est GFR (MDRD) Af Amer Est GFR (MDRD) Non-Af BUN/Creatinine Ratio Glucose Calcium TSH Urine Creatinine Urine Urea Nitrogen Miscellaneous Test Pending POC Glucose 93 98 06/23/19 06/23/19 06/23/19 09:59 11:18 12:36 WBC RBC Hgb Hct MCV MCH MCHC RDW Std Deviation RDW Coeff of Shelbi Plt Count MPV Immature Gran % (Auto) Neut % (Auto) Lymph % (Auto) [place] % (Auto) Eos % (Auto) Baso % (Auto) Absolute Neuts (auto) Absolute Lymphs (auto) Nucleated RBC % PT INR Sodium Potassium Chloride Carbon Dioxide Anion Gap BUN Creatinine Estim Creat Clear Calc Est GFR (MDRD) Af Amer Est GFR (MDRD) Non-Af BUN/Creatinine Ratio Glucose Calcium TSH Urine Creatinine Urine Urea Nitrogen Miscellaneous Test POC Glucose 105 115 H 110 06/23/19 06/23/19 06/23/19 14:14 16:24 17:45 WBC RBC Hgb Hct MCV MCH MCHC RDW Std Deviation RDW Coeff of Shelbi Plt Count MPV Immature Gran % (Auto) Neut % (Auto) Lymph % (Auto) [place] % (Auto) Eos % (Auto) Baso % (Auto) Absolute Neuts (auto) Absolute Lymphs (auto) Nucleated RBC % PT INR Sodium Potassium Chloride Carbon Dioxide Anion Gap BUN Creatinine Estim Creat Clear Calc Est GFR (MDRD) Af Amer Est GFR (MDRD) Non-Af BUN/Creatinine Ratio Glucose Calcium TSH Urine Creatinine Urine Urea Nitrogen Miscellaneous Test POC Glucose 98 93 101 06/23/19 06/24/19 06/24/19 22:11 01:43 04:15 WBC 5.7 RBC 3.21 L Hgb 9.3 L Hct 30.2 L MCV 94.1 H MCH 29.0 MCHC 30.8 L RDW Std Deviation 54.1 H RDW Coeff of Shelbi 16.0 H Plt Count 159 MPV 10.5 Immature Gran % (Auto) 0.400 Neut % (Auto) 63.2 Lymph % (Auto) 19.2 [place] % (Auto) 12.1 H Eos % (Auto) 4.9 Baso % (Auto) 0.2 Absolute Neuts (auto) 3.6 Absolute Lymphs (auto) 1.09 Nucleated RBC % 0 PT INR Sodium Potassium Chloride Carbon Dioxide Anion Gap BUN Creatinine Estim Creat Clear Calc Est GFR (MDRD) Af Amer Est GFR (MDRD) Non-Af BUN/Creatinine Ratio Glucose Calcium TSH Urine Creatinine Urine Urea Nitrogen Miscellaneous Test POC Glucose 121 H 124 H 06/24/19 04:15 WBC RBC Hgb Hct MCV MCH MCHC RDW Std Deviation RDW Coeff of Shelbi Plt Count MPV Immature Gran % (Auto) Neut % (Auto) Lymph % (Auto) [place] % (Auto) Eos % (Auto) Baso % (Auto) Absolute Neuts (auto) Absolute Lymphs (auto) Nucleated RBC % PT INR Sodium 144 Potassium 3.6 Chloride 108 H Carbon Dioxide 34.0 H Anion Gap 2 L BUN 38 H Creatinine 1.84 H Estim Creat Clear Calc 29.89 Est GFR (MDRD) Af Amer 45 L Est GFR (MDRD) Non-Af 37 L BUN/Creatinine Ratio 20.7 H Glucose 100 Calcium 9.1 TSH Urine Creatinine Urine Urea Nitrogen Miscellaneous Test POC Glucose Microbiology 06/18/19 14:05 Blood Culture (Wb) - Left Forearm Blood Culture - Final No growth in 5 days. 06/18/19 13:02 Blood Culture (Wb) - Right Forearm Blood Culture - Final No growth in 5 days. Clinical Impression(s) from Imaging Studies Chest X-Ray 06/18/19 12:12 IMPRESSION: Cardiomegaly. The lungs are clear. Electronically Signed: Doni Mcneal, at 12:36 EST , Service support , Brain CT 06/18/19 15:54 IMPRESSION: Chronic involutional and ischemic changes of the brain, as described. No acute intracranial injury. Electronically Signed: Jesus Pandya MD at 16:32 EST , Service support , Chest X-Ray 06/18/19 20:42 IMPRESSION: Prominent interstitial markings consistent with component of interstitial edema with moderate cardiomegaly. Electronically Signed: Gerhard Metz DO at 21:19 EST , Service support , Renal Ultrasound 06/22/19 11:12 IMPRESSION: Mildly atrophic kidneys. Electronically Signed: John Salazar MD at 23:09 EDT , Service support , Medical Necessity - Tobacco Use Smoking Status: Former smoker Tobacco Use: Cigars Assessment/Plan All Active Problems Hypoglycemia (Acute) CHF (congestive heart failure) (Acute) Hypotension (Acute) Cardiac arrest (Acute) RECOMMENDATIONS: 1. Modified barium swallow pending today. 2. Start weight-based heparin infusion, given subtherapeutic INR. 3. Continue dextrose supplementation until patient allowed to take p.o. intake. 4. Continue diuretic therapy and amiodarone per cardiology recommendations. 5. Wean supplemental oxygen to maintain saturations at or above 90%. 6. Encourage incentive spirometer use and mobilize patient as tolerated. 7. Continue Synthroid. IMPRESSIONS: 1. Sustained ventricular tachycardia arrest/history of coronary artery disease status post CABG/systolic heart failure Cardiology is currently following to assist with medical management. Continue amiodarone and diuretic therapy. Recommend continuing to hold ANOOP inhibitor, given issues with renal function. 2. Hypoglycemia Clinical suspicion for slowed elimination of sulfonylureas leading to recurrent hypoglycemia. Continue D10 infusion, given n.p.o. status and persistent hypoglycemia. Speech therapy planning for modified barium swallow. 3. Coagulopathy secondary to Coumadin Clinical suspicion for interactions with Coumadin leading to elevated INR. However, patient is not actively bleeding. Would continue to monitor on a daily basis. Once INR falls below 2.0, the patient will likely need to be placed on a weight-based heparin infusion. 4. Worsening renal insufficiency Unclear if this is related to low perfusion state in the setting of heart failure. The patient is currently being diuresed. Renal function is slowly improving. 5. Delirium/advanced age/poor historian/diabetes mellitus/hyperlipidemia/GERD/hypothyroidism Complicates care, management, recovery and prognosis. Continue to hold ANOOP inhibitor and diabetic medications. Continue Synthroid. Physical therapy to work with the patient. This note was generated with [employer] dictation software. It may contain incorrect words, spelling, and punctuation that were not noted in checking the note before signing. Inpatient E&M: 27491 Subs Hosp L2
--- NOTE | 2019-06-24 09:43 | PN_ITS ---
Patient Problems: Active and Suspected Problems Hypoglycemia (Acute) CHF (congestive heart failure) (Acute) Hypotension (Acute) Cardiac arrest (Acute) Subjective: Patient seen and examined. He remains on the D10 drip and amiodarone drip. He denies any cough, shortness of breath, fever, chills, nausea, vomiting or diarrhea. Review of systems is otherwise negative. Labs and vitals reviewed. He is due for a barium swallow today to assess swallowing. Cr is down to 1.84, Vitals/I&O's: Vital Signs Temp Pulse Resp BP Pulse Ox 96.9 F L 75 13 106/73 94 06/24/19 06:00 06/24/19 08:00 06/24/19 06:00 06/24/19 06:00 06/24/19 07:36 Oxygen Flow Rate (L/min) 2.5 Oxygen Delivery Method Nasal Cannula Weight: 170 lb 13.732 oz Body Mass Index (BMI) 24.0 Intake and Output for Last 24 Hours 06/22/19 06/23/19 06/24/19 23:59 23:59 23:59 Intake Total 1065.06 / 1065.06 673.6925 / 1028.9725 565.0225 / 565.0225 Output Total 1800 / 3200 3350 / 4350 1350 / 1350 Balance -734.94 / -2134.94 -2676.3075 / -3321.0275 -784.9775 / -784.9775 General: Alert, Cooperative, Lethargic HEENT: Atraumatic, PERRLA, EOMI, Normocephalic Oral: Dry Mucosa Neck: Supple, No JVD, Negative Carotid Bruits Lungs: Clear to auscultation, Normal air movement, No rhonchi, No wheeze; on 2L of oxygen Cardiovascular: Regular rate, Regular Rhythm, Normal S1, Normal S2, No murmurs Abdomen: Bowel Sounds Present, Soft, Non Tender Extremities: No clubbing, No cyanosis, No edema, Capillary Refill Less than 3 Seconds Skin: No rashes, No breakdown Musculoskeletal: No Tenderness to Palpation of Joints or Extremities Neurological: Cranial nerves II-XII grossly intact Psych/Mental Status: Flat Affect Microbiology Past 72 Hours 06/18/19 14:05 Blood Culture (Wb) - Left Forearm Blood Culture - Final No growth in 5 days. 06/18/19 13:02 Blood Culture (Wb) - Right Forearm Blood Culture - Final No growth in 5 days. 06/18/19 22:20 Urine Catheter - Argu[place] Urine Culture - Final Culture exhibits no growth. Laboratory Results 06/23/19 09:55: Miscellaneous Test Pending 06/23/19 09:59: POC Glucose 105 06/23/19 11:18: POC Glucose 115 H 06/23/19 12:36: POC Glucose 110 06/23/19 14:14: POC Glucose 98 06/23/19 16:24: POC Glucose 93 06/23/19 17:45: POC Glucose 101 06/23/19 22:11: POC Glucose 121 H 06/24/19 01:43: POC Glucose 124 H 06/24/19 04:15: WBC 5.7, RBC 3.21 L, Hgb 9.3 L, Hct 30.2 L, MCV 94.1 H, MCH 29.0, MCHC 30.8 L, RDW Std Deviation 54.1 H, RDW Coeff of [place] 16.0 H, Plt Count 159, MPV 10.5, Immature Gran % (Auto) 0.400, Neut % (Auto) 63.2, Lymph % (Auto) 19.2, [place] % (Auto) 12.1 H, Eos % (Auto) 4.9, Baso % (Auto) 0.2, Absolute Neuts (auto) 3.6, Absolute Lymphs (auto) 1.09, Nucleated RBC % 0 06/24/19 04:15: Sodium 144, Potassium 3.6, Chloride 108 H, Carbon Dioxide 34.0 H , Anion Gap 2 L, BUN 38 H, Creatinine 1.84 H, Estim Creat Clear Calc 29.89, Est GFR (MDRD) Af Amer 45 L, Est GFR (MDRD) Non-Af 37 L, BUN/Creatinine Ratio 20.7 H , Glucose 100, Calcium 9.[address] 06/18/19 15:54 IMPRESSION: Chronic involutional and ischemic changes of the brain, as described. No acute intracranial injury. Electronically Signed: Jesus Pandya MD at 16:32 EST , Service support , Chest X-Ray 06/18/19 20:42 IMPRESSION: Prominent interstitial markings consistent with component of interstitial edema with moderate cardiomegaly. Electronically Signed: Gerhard Metz DO at 21:19 EST , Service support , Renal Ultrasound 06/22/19 11:12 IMPRESSION: Mildly atrophic kidneys. Electronically Signed: John Salazar MD at 23:09 EDT , Service support , Current Medications Calamine/Phenol (Calmoseptine Ointment) 1 applic TOPICAL BID [facility]; Protocol Last Admin: 06/23/19 22:13 Dose: 1 applicatio Documented by: Furosemide (Lasix) 40 mg IV BID@1000,1800 [facility] Last Admin: 06/23/19 17:48 Dose: 40 mg Documented by: Glucagon () 1 mg IM .X1 PRN PRN Reason: Hypoglycemia Amiodarone HCl 360 mg/ (Dextrose) 200 mls @ 16.667 mls/hr CONT INF .Q12H [facility] Last Infusion: 06/24/19 06:00 Dose: 0.5 mg/min, 16.7 mls/hr Documented by: Sodium Chloride 19.25 meq/ (Dextrose) 254.8125 mls @ 25 mls/hr IV .[id number] [facility] Last Infusion: 06/24/19 06:00 Dose: 25 mls/hr Documented by: Levothyroxine Sodium (Synthroid) 125 mcg PO DAILY@0600 [facility] Last Admin: 06/24/19 06:20 Dose: Not Given Documented by: Ondansetron HCl (Zofran) 4 mg IV Q8H PRN PRN PRN Reason: NAUSEA/VOMITING Sodium Chloride () 10 - 40 ml IV UD PRN PRN Reason: SALINE FLUSH Last Admin: 06/23/19 17:48 Dose: 10 ml Documented by: STROKE Vital Signs/Narrative: Vital Signs Temp Pulse Resp BP Pulse Ox 06/24/19 08:00 75 06/24/19 07:36 94 06/24/19 06:00 96.9 F L 75 13 106/73 98 Medical Necessity - Tobacco Use Smoking Status: Former smoker Tobacco Use: Cigars Assessment/Plan All Active Problems Hypoglycemia (Acute) CHF (congestive heart failure) (Acute) Hypotension (Acute) Cardiac arrest (Acute) 1.s/p cardiac arrest due to sustained Ventricular tachycardia * still on amiodarone drip. * 2D Echo shows EF of 15% * cardiology on board * on lasix. in negative balance by 984mls since admission 2. Acute on chronic HFreF * EF is 15%. on IV lasix 40mg bid. * cardiology on board. bicarb is up to 34, likely due to contraction alkalosis from diuresis. * will discuss with cardiology about cutting down on lasixn to 40mg daily IV 3. Supratherapeutic INR: INR is now down to 2. coumadin on hold 4. Hypoglycemia * blood sugars have remained stable on 10% dextrose drip. * for bariuim swallow today, to assess swallowing. If patient fails barium swallow, he may need a PEG tube * sulfonylurea screen is pending * on 10% dextrose drip 5. KARRI on CKD 3: * Cr is down to 1.84 * renal USG showed mild atrophic kidneys bilaterally * continue to monitor * 6. Diabetes mellitus: * still on d10 drip o/a of hypoglycemia, * Delayed clearance of sulfonylureas due to impaired kidney function thought to be contributing to hypoglycemia. sulfonylurea screen is pendin * All meds on hold. Insulin sliding scale. * Accu-Cheks q2 hrly 7. Anemia of chronic disease: Hb is 9.3 today. Will monitor 8. Hypothyroidism: on synthroid.; TSH was 0.71. DVT prophylaxis: not indicated as INR was supratherapeutic. INR is 1.9 Inpatient E&M: 63236 Subs Hosp L3
[2019-06-24] MEDS: Furosemide 40 MG/4 ML Vial IV (09:55)
[2019-06-24] MEDS: Menthol/Lanolin/Calamine/Znox 113 GM Tube 1 APPLIC TOPICAL ×2 (09:55→21:38)
[2019-06-24 10:06] LABS: Bedside Glucose 100 mg/dL (70-110)
--- NOTE | 2019-06-24 10:18 | CASEMGMT ---
SW called [facility], message left. SW called daughter also, message left. SW will continue to follow for discharge planning, it is anticipated pt will return to [facility] at discharge, a new precert will be needed. NAYE Diallo
[2019-06-24 10:46] LABS: International Normalized Ratio 1.9; Prothrombin Time (Protime)PT. 21.3 SECONDS (11.7-14.9)
--- NOTE | 2019-06-24 12:50 | CHAPLAIN ---
Type of Pastoral Visit ___ Initial Visit _x__ Follow-up Visit ___ On-call Visit ___ General Patient Visit ___ Spiritual Assessment ___ Family Conference ___ Bereavement ___ Rapid Response ___ Code Blue ___ Other (describe below) Pastoral Care Referral From _x__ Patient ___ Family ___ Nurse ___ Physician ___ Band Aid Machine Operator ___ Hide Salter ___ Other (describe below) Sacrament/Intervention _x__ Active listening ___ Anointing ___ Yazidism ___ Bereavement ___ Communion ___ Kimberly exploration ___ ___ Life review _x__ Prayer ___ Reconciliation ___ Sacrament of Sick ___ Supportive presence ___ Wedding ___ Other (describe below) Pastoral Comments
--- NOTE | 2019-06-24 13:00 | SP.MBSS_ITS ---
PRIMARY / SECONDARY DIAGNOSIS: dysphagia (R13.10) REFERRING PHYSICIAN: Dr. Roseann Lozano MD CURRENT DIET: NPO DENTITION: WFL MENTAL STATUS: WNL RESPIRATORY STATUS: O2 at 3L/min via nasal cannula REASON FOR REFERRAL: The Patient is an 84 year old male referred for a modified barium swallow (MBS) study to objectively assess the Patients oropharyngeal swallow function under fluoroscopy secondary to reported concerns for PO intake tolerance at bedside; currently admitted to [facility] due to acute ventricular tachycardic arrest with hypoglycemia MEDICAL HISTORY: Chronic obstructive pulmonary disease, coronary artery disease status post coronary artery bypass graft, myocardial infarct, status post pacemaker placement, congestive heart failure, type II diabetes mellitus PREVIOUS MODIFIED BARIUM SWALLOW STUDY: None ADDITIONAL OBJECTIVE ASSESSMENT RESULTS: 06/18/2019 chest x-ray revealed cardiomegaly; lungs are clear. 06/18/[address] revealed chronic involutional and ischemic changes of the brain; no acute intracranial injury. 06/18/2019 chest x-ray revealed prominent interstitial markings consistent with component of interstitial edema with moderate cardiomegaly. ASSESSMENT PARAMETERS: The Patient participated in a Modified Barium Swallow (MBS) study on 06/24/2019. This study was recorded in the lateral view and images were sent to PACs for storage. Scoring was completed through each trial using the 8- point Penetration-Aspiration Scale (PAS) and the Videofluoroscopic Scale Score (VSS), and summarized via the Modified Barium Swallow Impairment Profile (MBSImP) and the Bolus Residue Scale (BRS), with severity scoring through the Dysphagia Severity Rating Scale (DSRS) and the Swallowing Performance Scale (SPS), and recommended diet textures through the International Dysphagia Diet Standardisation Initiative (IDDSI) RESULTS OF THE EVALUATION: The Patient presents with moderate oropharyngeal dysphagia (DSRS: 4; SPS: 5) with grade III SILENT and overt aspiration of thin liquids OBJECTIVE ASSESSMENT OF SWALLOW FUNCTION (QUANTITATIVE ? PER TRIAL): PENETRATION / ASPIRATION SCALE (DIAZ): 1 = does not enter airway 2 = enters airway/above vocal folds/ejected 3 = enters airway/above vocal folds/not ejected 4 = enters airway/contacts vocal folds/ejected 5 = enters airway/contacts vocal folds/not ejected 6 = enters airway/below vocal folds/ejected 7 = enters airway/below vocal folds/not ejected despite effort 8 = enters airway/below vocal folds/no effort VIDEOFLOROSCOPIC SCALE SCORE (DIAZ): Grade I = aspiration of material that has penetrated into the laryngeal vestibule, intact cough reflex Grade II = aspiration < 10 % of the bolus, intact cough reflex Grade III = aspiration of < 10 % of the bolus, reduced cough reflex or aspiration of > 10 % of the bolus, intact cough reflex Grade IV = aspiration of > 10 % of the bolus, reduced cough reflex PENETRATION / ASPIRATION SCALE (SCORE) WITH VIDEOFLOROSCOPIC SCALE SCORE: Thin liquid - 5 mL tsp.: 1 Thin liquids via straw (single sip): 2 Thin liquids via straw (single sip): 2 Thin liquids via straw (single sip): 2 Thin liquids via straw (single sip): 2 Thin liquids via cup (sequential swallows): 8 ? Grade III [place] thickened liquids via straw (single sip): 1 [place] thickened liquids via straw (single sip): 2 [place] thickened liquids via straw (single sip): 2 Pudding via spoon: 1 Regular textured cookie: 1 [place] thickened liquids via straw (single sip): 1 Thin liquids via straw (chin tuck): 7 ? Grade III OBJECTIVE ASSESSMENT OF SWALLOW FUNCTION (QUANTITATIVE ? AGGREGATE): MODIFIED BARIUM SWALLOW IMPAIRMENT PROFILE (MBSImP) LABIAL SEAL: 2 (of 4) escape beyond interlabial space; no extension TONGUE CONTROL: 2 (of 3) posterior escape < 50% BOLUS PREPARATION / MASTICATION: 2 (of 3) disorganized chewing; pieces unchewed BOLUS TRANSPORT / LINGUAL MOTION: 1 (of 4) delayed initiation of motion ORAL RESIDUE: 3 (of 4) majority remaining INITIATION OF PHARYNGEAL SWALLOW: 1 (of 4) valleculae SOFT PALATE ELEVATION: 0 (of 4) no bolus between soft palate & pharyngeal wall LARYNGEAL ELEVATION: 1 (of 3) partial superior movement / approximation ANTERIOR HYOID EXCURSION: 1 (of 2) partial movement EPIGLOTTIC MOVEMENT: 1 (of 2) partial inversion LARYNGEAL VESTIBULE CLOSURE: 0 (of 2) complete closure PHARYNGEAL STRIPPING WAVE: 1 (of 2) present / diminished PE SEGMENT OPENIN (of 3) complete distension / duration; no obstruction TONGUE BASE RETRACTION: 2 (of 4) narrow column of contrast PHARYNGEAL RESIDUE: 2 (of 4) collection of residue ESOPHAGEAL BOLUS CLEARANCE: could not view BOLUS RESIDUE SCALE (BRS): 2 (of 6) residue in valleculae OBJECTIVE ASSESSMENT OF SWALLOW FUNCTION (SEVERITY GRADING): DYSPHAGIA SEVERITY RATING SCALE (DSRS): 4 (moderate) SWALLOWING PERFORMANCE SCALE (SPS): 5 (moderate) OBJECTIVE ASSESSMENT OF SWALLOW FUNCTION (QUALITATIVE): ORAL PREPARATORY PHASE: mastication inefficiency with prolonged mastication and lack of rotary mastication / anterior munching quality; inconsistent anterior bolus containment during oral presentation / oral manipulation without side specific weakness; preserved management of breathing / bolus formation ORAL TRANSITIONAL PHASE: intermittent fragmented swallowing (piecemeal deglutition) and transient mild oral phase swallow onset delay (1-2 seconds in length max); suboptimal oral clearance without side specific consolidation particularly with solid textures; pre-prandial penetration / aspiration of AAAAA PHARYNGEAL PHASE: no clinically significant findings suggesting pharyngeal dyssynchrony; reduced hyolaryngeal excursion and duration with sufficient / consistent laryngeal vestibule pressure generated to expel penetrated material; mild pharyngeal dysmotility, though limited functional impact noted. ESOPHAGEAL PHASE: no obvious esophageal phase abnormalities observed. RESPONSE TO STRATEGIES: all deficits managed successfully with reduction in bolus rate / volume adjustments and diet texture / viscosity adjustments; insufficient effects noted with execution of the chin tuck posture, DYSPHAGIA ASSOCIATED MEDICAL CONSIDERATIONS / INTERVENTION CONSIDERATIONS: The Patient was noted to both overtly and SILENTLY aspirate with thin liquids, with clinical assessment at bedside relying on identification of classic overt signs and symptoms of aspiration considered unreliable. I would caution clinical advancement past nectar thickened liquids without completion of a repeat modified barium swallow study. I would recommend a repeat modified barium swallow study within 2 - 4 weeks (if clinically appropriate) to further assess the presence and extent of silent and overt aspiration prior to advancement to a less restrictive diet. RECOMMENDATIONS FOR INTERVENTION: The Patient would benefit from continued skilled speech-language intervention targeting diet texture management and training / implementation of recommended compensatory strategies; training, implementation, and Patient / caregiver education regarding implementation of the [place] Free Water Protocol (FFWP) if deemed clinically appropriate post-acute care admission; and Patient / caregiver training targeting meal preparation / thickened liquid preparation POST ASSESSMENT EDUCATION: The results and recommendations were discussed with the Patient immediately following MBS completion, with the Patient verbalizing understanding and agreement with all recommendations and education provided. DIET TEXTURE RECOMMENDATIONS: Will recommend a pureed textured (IDDSI: 4), nectar thickened liquid (IDDSI: 2) diet RECOMMENDED COMPENSATORY STRATEGIES: Direct supervision with TOTAL FEED as needed, reduced bolus volume / rate of ingestion, straws with all liquids (particularly if assisting with feeding), seated upright at 90 degrees during PO intake, remain upright for 30-60 minutes post meal (GERD precaution), medications one at a time with purees. IMAGE COUNT: [id number] Maurice Barrios M.A., CCC-BUILDING AND GROUNDS SUPERVISOR, CBIS MBSImP Certified, LSVT Certified [facility] Speech-Language Pathology Department [email or web address]
[2019-06-24 14:15] LABS: Bedside Glucose 131 mg/dL (70-110)
--- NOTE | 2019-06-24 16:43 | PN.CARD_ITS ---
Subjectve: Patient seen and evaluated. Appears to be more alert today Objective: Vital Signs Temp Pulse Resp BP Pulse Ox 96.9 F L 75 23 H 94/63 91 06/24/19 12:00 06/24/19 15:00 06/24/19 15:00 06/24/19 15:00 06/24/19 15:00 Oxygen Flow Rate (L/min) 3 Oxygen Delivery Method Nasal Cannula Weight: 170 lb 13.732 oz Body Mass Index (BMI) 24.0 Intake and Output for Last 24 Hours 06/22/19 06/23/19 06/24/19 23:59 23:59 23:59 Intake Total 1065.06 / 1065.06 673.6925 / 1028.9725 744.4150 / 744.4150 Output Total 1800 / 3200 3350 / 4350 2250 / 2250 Balance -734.94 / -2134.94 -2676.3075 / -3321.0275 -1505.5850 / -1505.5850 General: Awake, Alert, Oriented x 3 HEENT: PERRL, EOMI, Sclera Non Icteric Neck: Supple, Good ROM, No Lymph Node Enlargement Lungs: Clear to auscultation Cardiovascular: Regular Rhythm, Normal S1, Normal S2, No Murmurs, No Rubs, No Gallops Vascular: No Carotid Bruits, Normal Femoral Pulses, Normal Radial Pulses, Normal Dorsalis Pedal Pulse, Normal Posterior Tibial Pulses Abdomen: Bowel Sounds Present, Soft, Non Tender, No HSM, No Organomegaly Extremities: No Cyanosis, No Clubbing, No edema Musculoskeletal: No Erythema Lymphatic: No Lymph Node Enlargement Neurological: No Focal Motor or Sensory Deficit Psych/Mental Status: Appropriate 06/24/19 04:15: WBC 5.7, RBC 3.21 L, Hgb 9.3 L, Hct 30.2 L, MCV 94.1 H, MCH 29.0, MCHC 30.8 L, Plt Count 159, MPV 10.5, Immature Gran % (Auto) 0.400, Neut % (Auto) 63.2, Lymph % (Auto) 19.2, [place] % (Auto) 12.1 H, Eos % (Auto) 4.9, Baso % (Auto) 0.2, Absolute Neuts (auto) 3.6, Nucleated RBC % 0 06/24/19 04:15: Sodium 144, Potassium 3.6, Chloride 108 H, Carbon Dioxide 34.0 H , Anion Gap 2 L, BUN 38 H, Creatinine 1.84 H, Est GFR (MDRD) Af Amer 45 L, Est GFR (MDRD) Non-Af 37 L, BUN/Creatinine Ratio 20.7 H, Glucose 100, Calcium 9.1 06/24/19 10:05: PT 21.3 H, INR 1.9 Rhythm: EKG: ECHO: Stress Test: Cardiac Cath: PCI: CT Surgery: Holter monitor: EPS: PPM: CXR: Chest CT Scan: Medical Necessity - Tobacco Use Smoking Status: Former smoker Tobacco Use: Cigars Assessment/Plan 1. Sustained ventricular tachycardia and cardiac arrest Patient appears to have sustained ventricular tachycardia and had a cardiac arrest. Interrogation of his ICD demonstrated numerous episodes of nonsustained ventricular tachycardia with antitachycardia pacing. The cut off however appear to be below the threshold for the defibrillator to discharge. He responded well to epinephrine and DC cardioversion. At this particular time I would recommend that we continue to manage him medically with intravenous amiodarone loading. We will switch to p.o. amiod arone from tomorrow. After that we will switch to p.o. Lasix. Depending on how his blood pressure response his medications may be resumed. At this particular time the exact etiology for why his defibrillator discharge was not clear but certainly hypoglycemia, hypoxia and acidosis could be potential etiologies. * He appears to have been stable overnight without any cardiac dysrhythmias. He did have some nonsustained ventricular tachycardia's. Potassium and magnesium checks were noted to be normal 2. Coronary artery disease * He does have evidence of coronary artery disease status post bypass surgery. He does have mildly elevated cardiac troponin enzymes but at this time I would recommend that we continue to observe him to see how he does. * Will discuss with the family as to further investigations which may need to be performed. * His overall status at the moment is not particularly conducive to any further invasive cardiac investigations * 3. Left ventricular systolic dysfunction * He does have known severe left ventricular systolic dysfunction likely secondary to his coronary artery disease. He did not appear to be in any heart failure. He had previously been on a beta-mike and ANOOP inhibitor and depending on his recovery the above may be reinstituted. * * 4. Status post ICD implantation * His ICD was interrogated and he had been noted to have nonsustained ventricu lar tachyarrhythmias with ATP pacing. Defibrillator appears to be functioning well. The ventricular tachycardia was below the cutoff point for the defibrillator discharge. * * He can probably be transferred to the stepdown unit if need be. His overall demeanor suggest that he may have suffered global amnesia at some point. His overall prognosis appears to be rather guarded. And I will continue to follow with you.
[2019-06-24 17:35] LABS: Bedside Glucose 136 mg/dL (70-110)
[2019-06-24 22:40] LABS: Bedside Glucose 94 mg/dL (70-110)
[2019-06-24 23:53] LABS: Vancomycin, Trough Level 7.5 ug/mL (5.0-15.0)
[2019-06-25] VITALS (16 sets, daily range): BP systolic 107–132; BP diastolic 52–87; PULSE 75–93; RESP 16–26; TEMP 36.6–36.7; O2SAT 93–100
[2019-06-25 01:11] LABS: Bedside Glucose 95 mg/dL (70-110)
[2019-06-25] MEDS: Levothyroxine 125 MCG Tablet PO (05:01)
[2019-06-25 05:15] LABS: Bedside Glucose 84 mg/dL (70-110)
[2019-06-25 05:42] LABS: Absolute Lymphocyte Count 1.22 X10^3/uL (0.83-4.51); Absolute Neutrophil Count 5.3 X10^3/uL (2.0-7.7); Basophil# 0.02 X10^3/uL; Basophil% 0.3 % (0-1); Eosinophil# 0.33 X10^3/uL; Eosinophils% 4.2 % (0-5); Hematocrit 28.7 % (40-54); Hemoglobin 8.9 g/dL (13.0-16.5); Lymphocyte # 1.22 X10^3/ul (4.0); Lymphocyte % 15.5 % (19-41); Mean Corpuscular Hgb 29.6 pg (27.0-32.0); Mean Corpuscular Volume 95.3 fL (80-94); Monocyte# 1.01 X10^3/uL; Monocyte% 12.8 % (0-10); NRBC Flagged by Analyzer 0 % (0-5); Neutrophil # 5.26 X10^3/uL (2.7-7.7); Neutrophil % 66.9 % (47-70); Platelet Count 177 K/mm3 (150-450); RBC Distribution Width CV 15.9 % (11.6-14.6); RBC Distribution Width SD 54.4 fl (35.1-43.9); Red Blood Count 3.01 M/mm3 (4.6-6.2); White Blood Count 7.9 K/mm3 (4.4-11.0)
[2019-06-25 06:05] LABS: Anion Gap 6 (5-15); BUN 39 mg/dL (7-18); BUN/Creat Ratio 20.7 RATIO (10-20); Calcium,Total 8.6 mg/dL (8.5-10.1); Chloride 105 mmol/L (98-107); Creatinine, Serum 1.88 mg/dL (0.70-1.30); EST Glomerular Filtration Rate 37 mL/min (>60); Est Glom Filt Rate - Afr Amer 44 mL/min (>60); Estimated Creatinine Clearance 29.25 ml/min; Glucose 82 mg/dL (74-106); Potassium 3.4 mmol/L (3.5-5.1); Sodium Level 142 mmol/L (136-145)
[2019-06-25] MEDS: Furosemide 40 MG Tablet PO (10:35)
[2019-06-25] MEDS: Menthol/Lanolin/Calamine/Znox 113 GM Tube 1 APPLIC TOPICAL ×2 (10:35→22:30)
[2019-06-25] MEDS: Amiodarone 200 MG Tablet PO (10:35)
[2019-06-25 10:51] LABS: Bedside Glucose 143 mg/dL (70-110)
--- NOTE | 2019-06-25 10:52 | PCM.PN.PUL ---
Patient Problems: Active and Suspected Problems Hypoglycemia (Acute) CHF (congestive heart failure) (Acute) Hypotension (Acute) Cardiac arrest (Acute) Subjective: The patient was seen and examined at the bedside this morning. Events from the last 24 hours have been reviewed. The patient is currently afebrile, hemodynamically stable and maintaining appropriate oxygen saturations on 2 L/min via nasal cannula. Objective: The patient's most recent lab work, culture data and imaging studies have all been personally reviewed. Blood and urine cultures have shown no growth to date. Surface echocardiogram revealed normal LV size with an ejection fraction of 15%. - Physical Exam Vitals/I&O's: Vital Signs Temp Pulse Resp BP Pulse Ox 97.9 F 77 18 107/52 L 98 06/25/19 10:00 06/25/19 10:00 06/25/19 10:00 06/25/19 10:00 06/25/19 10:00 Oxygen Flow Rate (L/min) 2 Oxygen Delivery Method Nasal Cannula Weight: 163 lb 2.273 oz Body Mass Index (BMI) 24.0 Intake and Output for Last 24 Hours 06/23/19 06/24/19 06/25/19 23:59 23:59 23:59 Intake Total 673.6925 / 1028.9725 1205.9950 / 1205.9950 382.38 / 382.38 Output Total 3350 / 4350 2750 / 2750 400 / 400 Balance -2676.3075 / -3321.0275 -1544.0050 / -1544.0050 -17.62 / -17.62 General: Alert, Cooperative, No apparent distress HEENT: Atraumatic, PERRLA, Normocephalic Oral: No Gingival or Mucosal Lesions/ Ulcerations Neck: Supple, No Nodes, Trachea Midline Lungs: Normal air movement, No rhonchi, No wheeze, No rales Cardiovascular: Regular rate, Regular Rhythm, Normal S1, Normal S2 Abdomen: Bowel Sounds Present, Soft, Non Tender Extremities: No clubbing, No cyanosis, No edema Skin: No breakdown Musculoskeletal: No Tenderness to Palpation of Joints or Extremities Lymphatic: No Cervical, Supraclavicular, or Inguinal Adenopathy Neurological: Neuro grossly intact Psych/Mental Status: Flat Affect Labs (Last 48 Hours) 06/23/19 06/23/19 06/23/19 11:18 12:36 14:14 WBC RBC Hgb Hct MCV MCH MCHC RDW Std Deviation RDW Coeff of Shelbi Plt Count MPV Immature Gran % (Auto) Neut % (Auto) Lymph % (Auto) Brule % (Auto) Eos % (Auto) Baso % (Auto) Absolute Neuts (auto) Absolute Lymphs (auto) Nucleated RBC % PT INR Sodium Potassium Chloride Carbon Dioxide Anion Gap BUN Creatinine Estim Creat Clear Calc Est GFR (MDRD) Af Amer Est GFR (MDRD) Non-Af BUN/Creatinine Ratio Glucose Calcium Vancomycin Trough POC Glucose 115 H 110 98 06/23/19 06/23/19 06/23/19 16:24 17:45 22:11 WBC RBC Hgb Hct MCV MCH MCHC RDW Std Deviation RDW Coeff of Shelbi Plt Count MPV Immature Gran % (Auto) Neut % (Auto) Lymph % (Auto) Brule % (Auto) Eos % (Auto) Baso % (Auto) Absolute Neuts (auto) Absolute Lymphs (auto) Nucleated RBC % PT INR Sodium Potassium Chloride Carbon Dioxide Anion Gap BUN Creatinine Estim Creat Clear Calc Est GFR (MDRD) Af Amer Est GFR (MDRD) Non-Af BUN/Creatinine Ratio Glucose Calcium Vancomycin Trough POC Glucose 93 101 121 H 06/24/19 06/24/19 06/24/19 01:43 04:15 04:15 WBC 5.7 RBC 3.21 L Hgb 9.3 L Hct 30.2 L MCV 94.1 H MCH 29.0 MCHC 30.8 L RDW Std Deviation 54.1 H RDW Coeff of Shelbi 16.0 H Plt Count 159 MPV 10.5 Immature Gran % (Auto) 0.400 Neut % (Auto) 63.2 Lymph % (Auto) 19.2 Brule % (Auto) 12.1 H Eos % (Auto) 4.9 Baso % (Auto) 0.2 Absolute Neuts (auto) 3.6 Absolute Lymphs (auto) 1.09 Nucleated RBC % 0 PT INR Sodium 144 Potassium 3.6 Chloride 108 H Carbon Dioxide 34.0 H Anion Gap 2 L BUN 38 H Creatinine 1.84 H Estim Creat Clear Calc 29.89 Est GFR (MDRD) Af Amer 45 L Est GFR (MDRD) Non-Af 37 L BUN/Creatinine Ratio 20.7 H Glucose 100 Calcium 9.1 Vancomycin Trough POC Glucose 124 H 06/24/19 06/24/19 06/24/19 09:53 10:05 14:13 WBC RBC Hgb Hct MCV MCH MCHC RDW Std Deviation RDW Coeff of Shelbi Plt Count MPV Immature Gran % (Auto) Neut % (Auto) Lymph % (Auto) Brule % (Auto) Eos % (Auto) Baso % (Auto) Absolute Neuts (auto) Absolute Lymphs (auto) Nucleated RBC % PT 21.3 H INR 1.9 Sodium Potassium Chloride Carbon Dioxide Anion Gap BUN Creatinine Estim Creat Clear Calc Est GFR (MDRD) Af Amer Est GFR (MDRD) Non-Af BUN/Creatinine Ratio Glucose Calcium Vancomycin Trough POC Glucose 100 131 H 06/24/19 06/24/19 06/24/19 17:26 21:22 22:58 WBC RBC Hgb Hct MCV MCH MCHC RDW Std Deviation RDW Coeff of Shelbi Plt Count MPV Immature Gran % (Auto) Neut % (Auto) Lymph % (Auto) Brule % (Auto) Eos % (Auto) Baso % (Auto) Absolute Neuts (auto) Absolute Lymphs (auto) Nucleated RBC % PT INR Sodium Potassium Chloride Carbon Dioxide Anion Gap BUN Creatinine Estim Creat Clear Calc Est GFR (MDRD) Af Amer Est GFR (MDRD) Non-Af BUN/Creatinine Ratio Glucose Calcium Vancomycin Trough 7.5 POC Glucose 136 H 94 06/25/19 06/25/19 06/25/19 01:03 04:50 04:50 WBC 7.9 RBC 3.01 L Hgb 8.9 L Hct 28.7 L MCV 95.3 H MCH 29.6 MCHC 31.0 L RDW Std Deviation 54.4 H RDW Coeff of Shelbi 15.9 H Plt Count 177 MPV 10.0 Immature Gran % (Auto) 0.300 Neut % (Auto) 66.9 Lymph % (Auto) 15.5 L Brule % (Auto) 12.8 H Eos % (Auto) 4.2 Baso % (Auto) 0.3 Absolute Neuts (auto) 5.3 Absolute Lymphs (auto) 1.22 Nucleated RBC % 0 PT INR Sodium 142 Potassium 3.4 L Chloride 105 Carbon Dioxide 31.0 Anion Gap 6 BUN 39 H Creatinine 1.88 H Estim Creat Clear Calc 29.25 Est GFR (MDRD) Af Amer 44 L Est GFR (MDRD) Non-Af 37 L BUN/Creatinine Ratio 20.7 H Glucose 82 Calcium 8.6 Vancomycin Trough POC Glucose 95 06/25/19 06/25/19 05:00 10:31 WBC RBC Hgb Hct MCV MCH MCHC RDW Std Deviation RDW Coeff of Shelbi Plt Count MPV Immature Gran % (Auto) Neut % (Auto) Lymph % (Auto) Brule % (Auto) Eos % (Auto) Baso % (Auto) Absolute Neuts (auto) Absolute Lymphs (auto) Nucleated RBC % PT INR Sodium Potassium Chloride Carbon Dioxide Anion Gap BUN Creatinine Estim Creat Clear Calc Est GFR (MDRD) Af Amer Est GFR (MDRD) Non-Af BUN/Creatinine Ratio Glucose Calcium Vancomycin Trough POC Glucose 84 143 H Microbiology 06/18/19 14:05 Blood Culture (Wb) - Left Forearm Blood Culture - Final No growth in 5 days. 06/18/19 13:02 Blood Culture (Wb) - Right Forearm Blood Culture - Final No growth in 5 days. Clinical Impression(s) from Imaging Studies Chest X-Ray 06/18/19 12:12 IMPRESSION: Cardiomegaly. The lungs are clear. Electronically Signed: Doni Mcneal, at 12:36 EST , Service support , Brain CT 06/18/19 15:54 IMPRESSION: Chronic involutional and ischemic changes of the brain, as described. No acute intracranial injury. Electronically Signed: Jesus Pandya MD at 16:32 EST , Service support , Chest X-Ray 06/18/19 20:42 IMPRESSION: Prominent interstitial markings consistent with component of interstitial edema with moderate cardiomegaly. Electronically Signed: Gerhard Mezt DO at 21:19 EST , Service support , Renal Ultrasound 06/22/19 11:12 IMPRESSION: Mildly atrophic kidneys. Electronically Signed: John Salazar MD at 23:09 EDT , Service support , Current Medications Amiodarone HCl (Cordarone) 200 mg PO DAILY [facility] Last Admin: 06/25/19 10:35 Dose: 200 mg Documented by: Calamine/Phenol (Calmoseptine Ointment) 1 applic TOPICAL BID [facility]; Protocol Last Admin: 06/25/19 10:35 Dose: 1 applicatio Documented by: Furosemide (Lasix) 40 mg PO DAILY [facility] Last Admin: 06/25/19 10:35 Dose: 40 mg Documented by: Glucagon () 1 mg IM .X1 PRN PRN Reason: Hypoglycemia Amiodarone HCl 360 mg/ (Dextrose) 200 mls @ 16.667 mls/hr CONT INF .Q12H [facility] Last Infusion: 06/25/19 04:43 Dose: Infused Documented by: Levothyroxine Sodium (Synthroid) 125 mcg PO DAILY@0600 [facility] Last Admin: 06/25/19 05:01 Dose: 125 mcg Documented by: Ondansetron HCl (Zofran) 4 mg IV Q8H PRN PRN PRN Reason: NAUSEA/VOMITING Sodium Chloride () 10 - 40 ml IV UD PRN PRN Reason: SALINE FLUSH Last Admin: 06/23/19 17:48 Dose: 10 ml Documented by: Medical Necessity - Tobacco Use Smoking Status: Former smoker Tobacco Use: Cigars Assessment/Plan All Active Problems Hypoglycemia (Acute) CHF (congestive heart failure) (Acute) Hypotension (Acute) Cardiac arrest (Acute) RECOMMENDATIONS: 1. Dietary recommendations per speech therapy. 2. Continue Coumadin and check daily INR. 3. Potassium repletion as ordered. 4. Continue Lasix. 5. Wean supplemental oxygen to maintain saturations at or above 90%. Encourage incentive spirometer use. 6. Will sign off from a critical care perspective. IMPRESSIONS: 1. Sustained ventricular tachycardia arrest/history of coronary artery disease status post CABG/systolic heart failure Cardiology is currently following to assist with medical management. Continue amiodarone and diuretic therapy. Recommend continuing to hold ANOOP inhibitor, given issues with renal function. 2. Hypoglycemia Clinical suspicion for slowed elimination of sulfonylureas leading to recurrent hypoglycemia. Blood sugars have subsequently stabilized. The patient has been weaned off of the D10 infusion. Continue dietary advancement per speech therapy recommendations. 3. Coagulopathy secondary to Coumadin Clinical suspicion for interactions with Coumadin leading to elevated INR. However, patient is not actively bleeding. Would continue to monitor on a daily basis. Once INR falls below 2.0, the patient will likely need to be placed on a weight-based heparin infusion. 4. Worsening renal insufficiency Unclear if this is related to low perfusion state in the setting of heart failure. The patient is currently being diuresed. Renal function is slowly improving. 5. Delirium/advanced age/poor historian/diabetes mellitus/hyperlipidemia/GERD/hypothyroidism Complicates care, management, recovery and prognosis. Continue to hold ANOOP inhibitor and diabetic medications. Continue Synthroid. Physical therapy to work with the patient. This note was generated with [employer] dictation software. It may contain incorrect words, spelling, and punctuation that were not noted in checking the note before signing. Inpatient E&M: 29648 Subs Hosp L2
--- NOTE | 2019-06-25 12:53 | PN_ITS ---
Patient Problems: Active and Suspected Problems Hypoglycemia (Acute) CHF (congestive heart failure) (Acute) Hypotension (Acute) Cardiac arrest (Acute) Subjective: Patient seen and examined. He was lying comfortably in bed. He denied any shortness of breath, nausea vomiting or diarrhea. Review of systems otherwise negative. labs and vitals reviewed. He has remained hemodynamically stable. He still remains on 2L of oxygen. Creatinine is down to 1.88 potassium is 3.4 today. Hemoglobin is 8.9. Vitals/I&O's: Vital Signs Temp Pulse Resp BP Pulse Ox 97.9 F 75 18 107/52 L 98 06/25/19 10:00 06/25/19 11:00 06/25/19 10:00 06/25/19 10:00 06/25/19 10:00 Oxygen Flow Rate (L/min) 2 Oxygen Delivery Method Nasal Cannula Weight: 163 lb 2.273 oz Body Mass Index (BMI) 24.0 Intake and Output for Last 24 Hours 06/23/19 06/24/19 06/25/19 23:59 23:59 23:59 Intake Total 673.6925 / 1028.9725 1205.9950 / 1205.9950 382.38 / 382.38 Output Total 3350 / 4350 2750 / 2750 400 / 400 Balance -2676.3075 / -3321.0275 -1544.0050 / -1544.0050 -17.62 / -17.62 General: Alert, Cooperative, HEENT: Atraumatic, PERRLA, EOMI, Normocephalic Oral: Dry Mucosa Neck: Supple, No JVD, Negative Carotid Bruits Lungs: Clear to auscultation, Normal air movement, No rhonchi, No wheeze; on 2L of oxygen Cardiovascular: Regular rate, Regular Rhythm, Normal S1, Normal S2, No murmurs Abdomen: Bowel Sounds Present, Soft, Non Tender Extremities: No clubbing, No cyanosis, No edema, Capillary Refill Less than 3 Seconds Skin: No rashes, No breakdown Musculoskeletal: No Tenderness to Palpation of Joints or Extremities Neurological: Cranial nerves II-XII grossly intact Psych/Mental Status: Flat Affect Microbiology Past 72 Hours 06/18/19 14:05 Blood Culture (Wb) - Left Forearm Blood Culture - Final No growth in 5 days. 06/18/19 13:02 Blood Culture (Wb) - Right Forearm Blood Culture - Final No growth in 5 days. Laboratory Results 06/24/19 14:13: POC Glucose 131 H 06/24/19 17:26: POC Glucose 136 H 06/24/19 21:22: POC Glucose 94 06/24/19 22:58: Vancomycin Trough 7.5 06/25/19 01:03: POC Glucose 95 06/25/19 04:50: WBC 7.9, RBC 3.01 L, Hgb 8.9 L, Hct 28.7 L, MCV 95.3 H, MCH 29.6, MCHC 31.0 L, RDW Std Deviation 54.4 H, RDW Coeff of Shelbi 15.9 H, Plt Count 177, MPV 10.0, Immature Gran % (Auto) 0.300, Neut % (Auto) 66.9, Lymph % (Auto) 15.5 L, Josephine % (Auto) 12.8 H, Eos % (Auto) 4.2, Baso % (Auto) 0.3, Absolute Neuts (auto) 5.3, Absolute Lymphs (auto) 1.22, Nucleated RBC % 0 06/25/19 04:50: Sodium 142, Potassium 3.4 L, Chloride 105, Carbon Dioxide 31.0, Anion Gap 6, BUN 39 H, Creatinine 1.88 H, Estim Creat Clear Calc 29.25, Est GFR (MDRD) Af Amer 44 L, Est GFR (MDRD) Non-Af 37 L, BUN/Creatinine Ratio 20.7 H, Glucose 82, Calcium 8.6 06/25/19 05:00: POC Glucose 84 06/25/19 10:31: POC Glucose 143 H Diagnostic Data Brain CT 06/18/19 15:54 IMPRESSION: Chronic involutional and ischemic changes of the brain, as described. No acute intracranial injury. Electronically Signed: Jesus Pandya MD at 16:32 EST , Service support , Chest X-Ray 06/18/19 20:42 IMPRESSION: Prominent interstitial markings consistent with component of interstitial edema with moderate cardiomegaly. Electronically Signed: Gerhard Metz DO at 21:19 EST , Service support , Renal Ultrasound 06/22/19 11:12 IMPRESSION: Mildly atrophic kidneys. Electronically Signed: John Salazar MD at 23:09 EDT , Service support , Current Medications Amiodarone HCl (Cordarone) 200 mg PO DAILY [facility] Last Admin: 06/25/19 10:35 Dose: 200 mg Documented by: Calamine/Phenol (Calmoseptine Ointment) 1 applic TOPICAL BID [facility]; Protocol Last Admin: 06/25/19 10:35 Dose: 1 applicatio Documented by: Furosemide (Lasix) 40 mg PO DAILY [facility] Last Admin: 06/25/19 10:35 Dose: 40 mg Documented by: Glucagon () 1 mg IM .X1 PRN PRN Reason: Hypoglycemia Amiodarone HCl 360 mg/ (Dextrose) 200 mls @ 16.667 mls/hr CONT INF .Q12H [facility] Last Infusion: 06/25/19 04:43 Dose: Infused Documented by: Levothyroxine Sodium (Synthroid) 125 mcg PO DAILY@0600 [facility] Last Admin: 06/25/19 05:01 Dose: 125 mcg Documented by: Ondansetron HCl (Zofran) 4 mg IV Q8H PRN PRN PRN Reason: NAUSEA/VOMITING Sodium Chloride () 10 - 40 ml IV UD PRN PRN Reason: SALINE FLUSH Last Admin: 06/23/19 17:48 Dose: 10 ml Documented by: STROKE Vital Signs/Narrative: Vital Signs Temp Pulse Resp BP Pulse Ox 06/25/19 11:00 75 06/25/19 10:00 97.9 F 77 18 107/52 L 98 Medical Necessity - Tobacco Use Smoking Status: Former smoker Tobacco Use: Cigars Assessment/Plan All Active Problems Hypoglycemia (Acute) CHF (congestive heart failure) (Acute) Hypotension (Acute) Cardiac arrest (Acute) 1.s/p cardiac arrest due to sustained Ventricular tachycardia * still on amiodarone drip. * 2D Echo shows EF of 15% * cardiology on board * on lasix. Will switch to p.o. Lasix since he is now on pur?ed nectar thick diet. In negative balance by 1460 since admission 2. Acute on chronic HFreF * EF is 15%. on IV lasix 40mg daily. * cardiology on board. Bicarb is down to 31 today from 34 yesterday * Will switch from IV Lasix 40 mg daily to p.o. Lasix 40 mg daily. * 3. Supratherapeutic INR: INR is now down to 1.9. Will resume coumadin today as he can now take oral diet 4. Hypoglycemia * Off D10 drip. Sulfonylurea screen is pending. * Will hold diabetes medications. Has been started on pur?ed nectar thick diet. * 5. KARRI on CKD 3: * Cr is 1.88 * renal USG showed mild atrophic kidneys bilaterally * stable. * 6. Diabetes mellitus: * D10 drip discontinued. * Patient now on nectar thick pureed diet. insulin on hold. * Accuchecks ACHS. * Sulfonylurea screen pending. 7. Anemia of chronic disease: Hb is 8.9 today. Will monitor 8. Hypothyroidism: on synthroid.; TSH was 0.71. DVT prophylaxis: Was initially not indicated as INR was supratherapeutic. INR now down to 1.9. Coumadin resumed. Inpatient E&M: 74791 Subs Hosp L2
[2019-06-25 14:00] LABS: International Normalized Ratio 1.6; Prothrombin Time (Protime)PT. 18.8 SECONDS (11.7-14.9)
[2019-06-25 18:15] LABS: Bedside Glucose 112 mg/dL (70-110)
[2019-06-25 18:15] LABS: Bedside Glucose 101 mg/dL (70-110)
[2019-06-25] MEDS: Carvedilol 25 MG Tablet PO (22:30)
[2019-06-25] MEDS: Pravastatin 80 MG Tablet PO (22:30)
[2019-06-25 23:01] LABS: Bedside Glucose 87 mg/dL (70-110)
[2019-06-26] VITALS (7 sets, daily range): BP systolic 94–116; BP diastolic 43–69; PULSE 74–96; RESP 14–20; TEMP 36.6–36.8; O2SAT 95–97
[2019-06-26 02:11] LABS: Bedside Glucose 110 mg/dL (70-110)
[2019-06-26] MEDS: Levothyroxine 125 MCG Tablet PO (05:08)
[2019-06-26 05:21] LABS: Bedside Glucose 90 mg/dL (70-110)
[2019-06-26 05:57] LABS: Absolute Lymphocyte Count 1.27 X10^3/uL (0.83-4.51); Absolute Neutrophil Count 4.2 X10^3/uL (2.0-7.7); Basophil# 0.01 X10^3/uL; Basophil% 0.1 % (0-1); Eosinophil# 0.27 X10^3/uL; Hematocrit 28.3 % (40-54); Hemoglobin 8.7 g/dL (13.0-16.5); Lymphocyte # 1.27 X10^3/ul (4.0); Lymphocyte % 18.8 % (19-41); Mean Corp Hgb Conc 30.7 g/dL (32-36); Mean Corpuscular Hgb 28.9 pg (27.0-32.0); Mean Platelet Vol. 9.9 fl (6.2-12.0); Monocyte# 0.93 X10^3/uL; Monocyte% 13.8 % (0-10); NRBC Flagged by Analyzer 0 % (0-5); Neutrophil # 4.23 X10^3/uL (2.7-7.7); Neutrophil % 62.9 % (47-70); Platelet Count 193 K/mm3 (150-450); RBC Distribution Width SD 54.9 fl (35.1-43.9); Red Blood Count 3.01 M/mm3 (4.6-6.2); White Blood Count 6.7 K/mm3 (4.4-11.0)
[2019-06-26 06:45] LABS: Anion Gap 5 (5-15); BUN 40 mg/dL (7-18); BUN/Creat Ratio 21.7 RATIO (10-20); Chloride 108 mmol/L (98-107); Creatinine, Serum 1.84 mg/dL (0.70-1.30); EST Glomerular Filtration Rate 37 mL/min (>60); Est Glom Filt Rate - Afr Amer 45 mL/min (>60); Estimated Creatinine Clearance 29.89 ml/min; Glucose 91 mg/dL (74-106); Potassium 3.9 mmol/L (3.5-5.1); Sodium Level 145 mmol/L (136-145)
[2019-06-26] MEDS: Ferrous Sulfate 325 MG Tablet PO (08:41)
[2019-06-26] MEDS: Carvedilol 25 MG Tablet PO (08:41)
[2019-06-26] MEDS: Pantoprazole Sodium 20 MG Tablet PO (08:41)
[2019-06-26] MEDS: Furosemide 40 MG Tablet PO (08:41)
[2019-06-26] MEDS: Amiodarone 200 MG Tablet PO (08:41)
[2019-06-26] MEDS: Menthol/Lanolin/Calamine/Znox 113 GM Tube 1 APPLIC TOPICAL (08:41)
[2019-06-26] MEDS: Calcitriol 0.25 MCG Capsule PO (08:42)
[2019-06-26] MEDS: Lisinopril 10 MG Tablet PO (08:42)
[2019-06-26] MEDS: Magnesium Oxide 400 MG Tablet PO (08:57)
[2019-06-26 10:11] LABS: Bedside Glucose 106 mg/dL (70-110)
--- NOTE | 2019-06-26 11:24 | CASEMGMT ---
SW received a call from patient's daughter. She was surprised to hear her dad is being discharged today and no one called her to let her know. SW explained to her SW found out from [facility] he was approved about 15 minutes ago and SW has not had a chance to call her yet. She is concerned regarding whether or not her dad is ready for discharge. LUDY told her SW can see if the physician can call her. She would appreciate this. She asked SW to call her when SW has a time as she would like to see him before he goes to [facility] as he is not allowed to have visitors at the longterm. She said she gets off at 4p. LUDY told her SW will work on arranging transport for around 5p. SW passed along message to physician letting him know patient's daughter would like to talk with him. Marley SOLARES
--- NOTE | 2019-06-26 11:43 | PCM.TXEXTCAR ---
- Diet 06/24/19 13:51 Diet: Regular Diet Food consistency:: Puree Liquid Consistency:: [place] Thick Is pt able to select menu?: Yes Diet Comments: Supervision; straw ok, seated at 90 degrees; meds w/ purees - Routine Orders/Code Status Routine Lab Work: INR Code Status: Full Code - No Intubation - Wound(s) L forrester Wound Type: Skin Tear LFA distal Wound Type: Skin Tear LFA proximal Wound Type: Skin Tear left underarm, near elbow Wound Type: Skin Tear - Therapies Physical Therapy: Eval and Treat Occupational Therapy: Eval and Treat Speech Therapy: Eval and Treat - Allergies/Procedures Done in Hospital Allergies/Adverse Reactions: Allergies No Known Allergies Allergy (Verified 06/18/19 11:28) Procedures: 2-D Echocardiogram - Type of Care/Length of Stay Estimated LOS: Convalescent Care Less Than 30 days Type of Care Needed: Skilled Rehab Potential: Fair Prognosis: Fair - Additional Orders/Day of Discharge Day of Discharge: 06/26/19 - Dietary and Speech Recommendations Dietitian Recommendations/Changes: Will monitor ability to resume PO diet and provide Glucerna w/ medpass as appropriate. If unable to resume PO diet, pt would benefit from enteral nutrition support. Consult RDN for further recommendations as indicated. - Follow Up Care Primary Care Physician: Jens Giraldo MD [STAFF PHYSICIAN] - Please follow up with your Primary Care Physician in: 3-5 days Please Follow Up With: Cardiology When: 2-4 weeks
--- NOTE | 2019-06-26 12:04 | CASEMGMT ---
LUDY called [facility] and arranged for patient to get picked up at 5p via cot. Awaiting rest of orders. Marley LUNA COURT REPORTER
--- NOTE | 2019-06-26 13:24 | CASEMGMT ---
LUDY faxed orders to [facility]. LUDY called patient's daughter and let her know that patient will be picked up at 5p. LUDY also notified Denise at [facility], RN, and special agent in charge. Plan: d/c back to [facility] under skilled level of care. [facility] transported patient via cot. Marley LUNA MSW
--- NOTE | 2019-06-26 13:42 | DS.PCM_ITS ---
Discharge Date and Diagnosis - Problem List Patient Problems: Active and Suspected Problems Hypoglycemia (Acute) CHF (congestive heart failure) (Acute) Hypotension (Acute) Cardiac arrest (Acute) Date of Admission: 06/18/19 Date of Discharge: 06/26/19 - Primary Discharge Diagnosis Active and Suspected Problems Hypoglycemia (Acute) CHF (congestive heart failure) (Acute) Hypotension (Acute) Cardiac arrest (Acute) - Secondary Discharge Diagnosis Chronic Problems CAD (coronary artery disease) (Chronic) Pacemaker (Chronic) Diabetes (Chronic) Hospital Course and Treatment Imaging Results: CT Brain: IMPRESSION: Chronic involutional and ischemic changes of the brain, as described. No acute intracranial injury. CXR: IMPRESSION: Cardiomegaly. The lungs are clear. Echo: Interpretation Summary Normal LV size. The estimated ejection fraction is 15 %. ICD or pacer leads identified within the right ventricle. The left atrium is moderately enlarged. The right atrium is mildly enlarged. Contrast injection was performed. Renal US: IMPRESSION: Mildly atrophic kidneys. Modified Swallow: RECOMMENDATIONS FOR INTERVENTION: The Patient would benefit from continued skilled speech-language intervention targeting diet texture management and training / implementation of recommended compensatory strategies; training, implementation, and Patient / caregiver education regarding implementation of the [place] Free Water Protocol (FFWP) if deemed clinically appropriate post-acute care admission; and Patient / caregiver training targeting meal preparation / thickened liquid preparation Consults: Cardiology ICU Operations: None Procedures: 2-D Echocardiogram, CPR performed Summary of Care Provided: Per HPI: The patient is a 84 year old M with pmhx of CAD with CABG, pacemaker, CHF, who was sent to the ER from assisted living with multiple complaints. Reportedly he has been very lethargic, and today he is noted to have a change in his right pupil, low blood pressure, and supposedly he was told that he was dehydrated. The patient is in the [place] [facility] after being admitted to [facility] and treated for pneumonia. Prior to that he was completely independent. Today he is very lethargic and unable to follow commands, however this improved after he was given D50 for a blood sugar of 22. He was found to have evidence of congestive heart failure with severe swelling of the lower extremities. He does not have any respiratory complaints at this time. He is resting comfortably in bed off oxygen. He has had all his care at [place] and we do not have any records of his previous diagnoses and treatments. Hospital Course: 1. Acute on chronic systolic CHF/hypoglycemia/V. 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 He was also been found to have a low blood sugar and was started on replacement. The night of his admission he went into V. tach arrest. 2 rounds of CPR were performed and he was shocked once and recovered. He did not need to be intubated but he was transferred to the ICU. We had significant difficulty controlling his hypoglycemia secondary to his sulfonylurea and renal failure. As his kidney function improved and he started taking more p.o. his hypoglycemia improved. He is discontinued on all his blood sugar medications including his insulin and his sulfonylurea and he should never be restarted on a sulfonylurea. He also had an echo after his arrest which showed an EF of 15%, unfortunately he had to be given a D10 IV fluids to maintain his blood sugar and when able he was diuresed. His creatinine peaked at 2.54 and is now down to 1.84. He will need to have follow-up as an outpatient. Cardiology was consul osiris and started him on amiodarone, initially his all of his blood pressure medications were held however during his stay he was improved and he was slowly able to get his blood pressure medications restarted. He will continue with amiodarone as well. He did have his pacemaker and defibrillator check and found that the lower threshold for heart rate to activate his defibrillator was 165 and it looked like his V. tach peaked at 155. As for his acute metabolic encephalopathy, but that has improved with the improvement in his blood sugar. He does have periods of being confused and has periods of lucidity. I discussed this with the family and they understand that given his cardiac arrest this could be his new baseline. They are okay with him being transferred to an alf facility today for further therapy. They also understand that they will not be able to see him for 3 to 4 weeks because of the coronavirus. Also of note he has had a Arguello in place since he was transferred to the ICU after his cardiac arrest and code, unfortunately we were unable to remove the Arguello and would recommend that as he gets therapy and becomes more mobile to try a voiding trial at the care home and if he is has to have the Arguello reinserted and he should follow-up with a urologist as an outpatient. 2. DM 2/hypoglycemia/anemia of chronic disease-majority of his hypoglycemia is likely related to his renal failure and his sulfonylurea. We will hold his insulin as well. Continue with a diet, based on the speech therapy recommendations. Blood sugar has been stable in the 90s to low 100s. Also his hemoglobin is stable currently at 8.7, baseline appears to be around 9. Patient Problems: Active and Suspected Problems Hypoglycemia (Acute) CHF (congestive heart failure) (Acute) Hypotension (Acute) Cardiac arrest (Acute) - Physical Exam Vitals/I&O's: Vital Signs Temp Pulse Resp BP Pulse Ox 98.2 F 75 20 H 116/69 97 06/26/19 08:45 06/26/19 08:45 06/26/19 08:45 06/26/19 08:45 06/26/19 08:45 Oxygen Flow Rate (L/min) 2 Oxygen Delivery Method Nasal Cannula Weight: 164 lb 3.91 oz Body Mass Index (BMI) 24.0 Intake and Output for Last 24 Hours 06/24/19 06/25/19 06/26/19 23:59 23:59 23:59 Intake Total 1205.9950 / 1205.9950 682.38 / 682.38 220 / 220 Output Total 2750 / 2750 1350 / 1350 450 / 450 Balance -1544.0050 / -1544.0050 -667.62 / -667.62 -230 / -230 General: Alert, states that he is in [place] but otherwise not very communicative, Cooperative, No apparent distress HEENT: Atraumatic, PERRLA, EOMI, Normocephalic Oral: Moist Mucosa Neck: Supple, No JVD Lungs: Clear to auscultation, Normal air movement, No rhonchi, No wheeze, No rales, Diminished Cardiovascular: Regular rate, Regular Rhythm, Normal S1, Normal S2, No murmurs Abdomen: Soft, Non Tender, Non-Distended, No Hepato-splenomegaly Extremities: Capillary Refill Less than 3 Seconds, no edema Skin: No rashes, No breakdown Neurological: Neuro grossly intact, Sensory exam intact to light touch and pain Psych/Mental Status: Normal Affect, Appropriate Microbiology Past 72 Hours 03/05/20 14:05 Blood Culture (Wb) - Left Forearm Blood Culture - Final No growth in 5 days. 06/18/19 13:02 Blood Culture (Wb) - Right Forearm Blood Culture - Final No growth in 5 days. Laboratory Results 06/25/19 13:33: PT 18.8 H, INR 1.6 06/25/19 16:04: POC Glucose 101 06/25/19 18:13: POC Glucose 112 H 06/25/19 22:34: POC Glucose 87 06/26/19 02:05: POC Glucose 110 06/26/19 05:04: POC Glucose 90 06/26/19 05:14: WBC 6.7, RBC 3.01 L, Hgb 8.7 L, Hct 28.3 L, MCV 94.0, MCH 28.9, MCHC 30.7 L, RDW Std Deviation 54.9 H, RDW Coeff of [place] 16.0 H, Plt Count 193, MPV 9.9, Immature Gran % (Auto) 0.400, Neut % (Auto) 62.9, Lymph % (Auto) 18.8 L , [place] % (Auto) 13.8 H, Eos % (Auto) 4.0, Baso % (Auto) 0.1, Absolute Neuts (auto) 4.2, Absolute Lymphs (auto) 1.27, Nucleated RBC % 0 06/26/19 05:14: Sodium 145, Potassium 3.9, Chloride 108 H, Carbon Dioxide 32.0, Anion Gap 5, BUN 40 H, Creatinine 1.84 H, Estim Creat Clear Calc 29.89, Est GFR (MDRD) Af Amer 45 L, Est GFR (MDRD) Non-Af 37 L, BUN/Creatinine Ratio 21.7 H, Glucose 91, Calcium 9.0 06/26/19 10:07: POC Glucose 106 Current Medications Amiodarone HCl (Cordarone) 200 mg PO DAILY [facility] Last Admin: 06/26/19 08:41 Dose: 200 mg Documented by: Calamine/Phenol (Calmoseptine Ointment) 1 applic TOPICAL BID [facility]; Protocol Last Admin: 06/26/19 08:41 Dose: 1 applicatio Documented by: Calcitriol (Rocaltrol) 0.25 mcg PO DAILY [facility] Last Admin: 06/26/19 08:42 Dose: 0.25 mcg Documented by: Carvedilol (Coreg) 25 mg PO BID [facility] Last Admin: 06/26/19 08:41 Dose: 25 mg Documented by: Ferrous Sulfate (Ferrous Sulfate) 325 mg PO DAILYCM [facility] Last Admin: 06/26/19 08:41 Dose: 325 mg Documented by: Furosemide (Lasix) 40 mg PO DAILY [facility] Last Admin: 06/26/19 08:41 Dose: 40 mg Documented by: Glucagon () 1 mg IM .X1 PRN PRN Reason: Hypoglycemia Levothyroxine Sodium (Synthroid) 125 mcg PO DAILY@0600 [facility] Last Admin: 06/26/19 05:08 Dose: 125 mcg Documented by: Lisinopril (Zestril) 10 mg PO DAILY [facility] Last Admin: 06/26/19 08:42 Dose: 10 mg Documented by: Magnesium Oxide (Mag-Ox 400) 400 mg PO DAILY [facility] Last Admin: 06/26/19 08:57 Dose: 400 mg Documented by: Ondansetron HCl (Zofran) 4 mg IV Q8H PRN PRN PRN Reason: NAUSEA/VOMITING Pantoprazole Sodium (Protonix) 20 mg PO DAILY [facility] Last Admin: 06/26/19 08:41 Dose: 20 mg Documented by: Pravastatin Sodium (Pravachol) 80 mg PO QHS [facility] Last Admin: 06/25/19 22:30 Dose: 80 mg Documented by: Sodium Chloride () 10 - 40 ml IV UD PRN PRN Reason: SALINE FLUSH Last Admin: 06/23/19 17:48 Dose: 10 ml Documented by: Warfarin Sodium (Coumadin (Pbkc)) 2 mg PO QHS [facility] Last Admin: 06/25/19 22:31 Dose: 2 mg Documented by: Home Medications: Medications to take at Discharge Calcitriol 0.25 mcg PO DAILY 06/18/19 Carvedilol 25 mg PO BID 06/18/19 Ferrous Sulfate 325 mg PO DAILY 06/18/19 Levothyroxine Sodium [Synthroid] 125 mcg PO DAILY 06/18/19 Lisinopril [Zestril] 10 mg PO DAILY 06/18/19 Magnesium Oxide 400 mg PO DAILY 06/18/19 Omeprazole [Prilosec] 20 mg PO DAILY 06/18/19 Pravastatin Sodium 80 mg PO QHS 06/18/19 Warfarin Sodium [Coumadin] 2 mg PO QHS 06/18/19 Amiodarone HCl [Cordarone] 200 mg PO DAILY tab 06/26/19 Furosemide [Lasix] 40 mg PO DAILY tab 06/26/19 Primary Care Physician: Jens Giraldo MD [STAFF PHYSICIAN] - Please follow up with your Primary Care Physician in: 3-5 days Please Follow Up With: Cardiology When: 2-4 weeks [facility]position: [facility] Minutes spent on discharge:: 35 Patient Condition:: Stable Medical Necessity - Tobacco Use Smoking Status: Former smoker Tobacco Use: Cigars Meaningful Use Info Meaningful Use Diagnoses (Choose all that apply): CHF - CHF ANOOP/ARB ordered at discharge?: Yes Documented LVEF (%): 15 Inpatient E&M: 25762 Disch Hosp
[2019-06-26 14:11] LABS: Bedside Glucose 103 mg/dL (70-110)
--- NOTE | 2019-06-26 14:15 | NURSING ---
per ashley Chris to be left in at [facility] to [facility]
--- NOTE | 2019-06-26 14:28 | NURSING ---
report called to [facility] at [facility]
== END 2019-06-26 17:45 | disposition skilled nursing facility (03) | DRG 291 ==
LOC: ED 12:27 → PCU 15:53 → ICU 06-19 07:32 → PCU 06-25 06:05
PROVIDERS: Hospitalist; Internal Medicine Critical Care Medicine; Physician Assistant; Student in an Organized Health Care Education/Training Program; Admitting Provider Family Medicine; Emergency Provider Emergency Medicine; PCP Family Medicine; Visit Provider Family Medicine
DX: I50.23 Acute on chronic systolic (congestive) heart failure (principal); G93.41 Metabolic encephalopathy; I46.2 Cardiac arrest due to underlying cardiac condition; I47.2 Ventricular tachycardia; N17.9 Acute kidney failure, unspecified; E11.649 Type 2 diabetes mellitus with hypoglycemia without coma; I25.10 Atherosclerotic heart disease of native coronary artery without angina pectoris; R79.1 Abnormal coagulation profile; E03.9 Hypothyroidism, unspecified; I95.9 Hypotension, unspecified; N18.3 Chronic kidney disease, stage 3 (moderate); E11.22 Type 2 diabetes mellitus with diabetic chronic kidney disease; E86.0 Dehydration; Z95.810 Presence of automatic (implantable) cardiac defibrillator; Z95.1 Presence of aortocoronary bypass graft; D63.8 Anemia in other chronic diseases classified elsewhere; Z79.01 Long term (current) use of anticoagulants
CPT/HCPCS: 36415; 36600; 70450; 71045; 74230; 76770; 80048; 80061; 80076; 80202; 81001; 82570; 82803; 82962; 83605; 83690; 83735; 83880; 84100; 84443; 84484; 84540; 85025; 85610; 87040; 87086; 92526; 92610; 92611; 92950; 93005; 93306; 97110; 97116; 97162; 97166; 97530; 97535; 97802; 97803; 99285; J7030; J7050; Q9957; A4216; C8929; J1940; J7799

== ENCOUNTER → 2019-07-16 | Outpatient (CLI) | payer MEDICARE, SELFPAY ==
[2019-06-18 17:05] VITALS: BMI 24.0
[2019-07-16 18:21] LABS: Color, Urine Yellow (Yellow); Glucose, Dipstick Normal (Normal); Ketone-Dipstick Negative (Negative); Leukocyte Esterase-Dipstick 500 /ul (Negative); Nitrite-Dipstick Negative (Negative); Occult Blood-Urine 250 /ul (Negative); Protein-Dipstick 100 mg/dl (Negative); Specific Gravity, Urine 1.015 (1.002-1.030); Urine Bilirubin Dipstick Negative (Negative); Urine Clarity Turbid (Clear); Urine Urobilinogen Normal (Normal)
== END | disposition home or self-care (01) ==
LOC: OLS.AVEB 07-20 10:25 → LABSPEC 07-20 10:26
PROVIDERS: PCP Family Medicine; Visit Provider Family Medicine
DX: Z79.899 Other long term (current) drug therapy (principal)
CPT/HCPCS: 81002; 87077; 87086; 87088; 87186

== ENCOUNTER 2019-07-23 19:44 | Inpatient (IN) | payer MEDICARE, SELFPAY ==
[2019-06-18 17:05] VITALS: BMI 24.0
[2019-07-23] VITALS (7 sets, daily range): BP systolic 80–107; BP diastolic 31–60; PULSE 74–76; RESP 22–26; TEMP 36–36.2; O2SAT 94–99; BMI 26.6
--- NOTE | 2019-07-23 20:04 | EKG12_ITS ---
Test Reason : SOB Blood Pressure : / mmHG Vent. Rate : 075 BPM Atrial Rate : 104 BPM P-R Int : 000 ms QRS Dur : 186 ms QT Int : 474 ms P-R-T Axes : 013 -73 109 degrees QTc Int : 529 ms Sinus tachycardia with complete heart block and Ventricular-paced rhythm Abnormal ECG Confirmed by BANDAR GUERIN, NATALIIA ([id number]), web content editor CODI PEGUERO ([id number]) on 07/27/2019 8:33:21 AM Referred By: VISHNU Confirmed By:NATALIIA PORTILLO MD
--- NOTE | 2019-07-23 20:10 | ED.VIS.GEN ---
History of Present Illness Chief Complaint: Hypotension Informant: Appraisal Specialist Onset: Today Maximum Severity: Mild Narrative: Coronavirus national emergency patients from correction no exposures per the correction staff The patient is resident of a correction who has history of RI CHF ejection fraction about 15% per echo in June 2019, diabetes , defibrillator, CABG, history of V. tach arrest in June when he was admitted for exacerbation of CHF, who was diagnosed with UTI a few days ago he is been on antibiotics today the correction personnel noted blood pressures been about 85-90 range IV was started he was given incremental doses of IV fluids his pressure remained 90 when they noticed that he seemed less responsive and seemed to have coarse breath sounds were concerned about exacerbation of CHF the patient's cough is not new he has a chronic cough it seems worse after the IV fluids, he is had no fever and again no exposures that we were informed of related to coronavirus The patient is awake and alert he answers to his name he knows he is at the hospital he indicates nothing is bothering him Past Medical History - Allergies and Home Meds Allergies/Adverse Reactions: Allergies Sulfonylureas Allergy (Verified 07/23/19 19:52) PT UNSURE OF REACTION Primary Care Physician: Blake Rhodes MD [Primary Care Provider] - Past Medical History: - Surgical History: no surgical history Smoking Status: Former smoker - Family History Maternal Family History: Reports: No pertinent history Paternal Family History: Reports: No pertinent history Review of Systems ROS: - Insert past history as above General: Reports: - - Potential and recent UTI. Denies: Chills, Fever, Sweats Eyes: Denies: Visual changes - bilaterally, Diplopia ENT: Denies: Rhinorrhea, Sore throat Cardiovascular: Denies: Chest pain, Palpitations Respiratory: Reports: Dyspnea. Denies: Cough, Dyspnea on exertion Gastrointestinal: Denies: Abdominal pain, Nausea, Vomiting, Diarrhea, Melena, Hematochezia Genitourinary: Denies: Dysuria, Hematuria, Frequency Musculoskeletal: Denies: Back pain, Extremity Pain Skin: Denies: Rash, Wounds Neurological: Denies: Headache, Weakness, Numbness Physical Exam Vital Signs/Narrative: Vital Signs Temp Pulse Resp BP Pulse Ox 07/23/19 19:49 97.1 F L 75 24 H 80/54 L 94 General: Well nourished, Well developed, No Acute Distress Head: Normocephalic, Atraumatic Eyes: Perrl, EOMI ENT: Moist mucous membranes, No rhinorrhea Neck: Supple, Nontender Cardiovascular: Regular rate, Regular rhythm, No murmurs Respiratory: No distress, Chest nontender, Rales, Rhonchi Abdomen: Soft, Nontender, Nondistended, Normal bowel sounds Back: Nontender, Normal Inspection Extremities: Nontender, No edema Skin: Normal color, No rash Neurological: Alert, Oriented x3, Cranial nerves II-XII grossly intact, Normal Strength, Normal Sensation Psychological: Normal affect, Normal Mood Diagnostic/Tx/Re-eval - Medical Decision Making Blood pressure is about 95 over palp his pulse ox is 96% on 2 L he opens his eyes he answers questions he seems to have a contraction involving the left upper extremity that is not new he has some rhonchi and rales at the bases, he denies being short of breath and has no specific complaints given all the above screening labs were obtained x-ray The patient's blood pressure now is 96 over about 60 he remains awake answering questions, his chest x-ray shows right-sided infiltrate white count is 9 creatinine elevated again to 2.2, BNP is 500 troponin unremarkable he has been started on antibiotics, we are waiting for lactate level, EKG shows a paced rhythm rate of about 75 Discussed with hospitalist admission and further management options Admit stable pending hospice evaluation Final impression, hypotension, pneumonia, history of cardiomyopathy with ejection fraction 50%, history of CABG CAD CHF ED Disposition - Plan for ED Patient: Diagnosis: CHF (congestive heart failure), CAD (coronary artery disease), Hypotension, Pacemaker, Pneumonia Referrals: Blake Rhodes MD [Primary Care Provider] -
[2019-07-23 20:26] LABS: Absolute Lymphocyte Count 1.76 X10^3/uL (0.83-4.51); Absolute Neutrophil Count 6.9 X10^3/uL (2.0-7.7); Basophil# 0.02 X10^3/uL; Basophil% 0.2 % (0-1); Eosinophil# 0.15 X10^3/uL; Eosinophils% 1.6 % (0-5); Hematocrit 28.5 % (40-54); Lymphocyte # 1.76 X10^3/ul (4.0); Lymphocyte % 18.4 % (19-41); Mean Corp Hgb Conc 31.6 g/dL (32-36); Mean Corpuscular Hgb 28.2 pg (27.0-32.0); Mean Corpuscular Volume 89.3 fL (80-94); Mean Platelet Vol. 9.4 fl (6.2-12.0); Monocyte# 0.54 X10^3/uL; Monocyte% 5.6 % (0-10); NRBC Flagged by Analyzer 0 % (0-5); Neutrophil # 6.91 X10^3/uL (2.7-7.7); Neutrophil % 72.2 % (47-70); Platelet Count 221 K/mm3 (150-450); RBC Distribution Width CV 15.7 % (11.6-14.6); RBC Distribution Width SD 51.3 fl (35.1-43.9); Red Blood Count 3.19 M/mm3 (4.6-6.2); White Blood Count 9.6 K/mm3 (4.4-11.0)
[2019-07-23] MEDS: 0.9% Normal Saline 1,000 ML 15 ML IV (20:35)
[2019-07-23 20:42] LABS: Bacteria 0 SEEN /hpf (None Seen); Mucous, Urine 0 SEEN /hpf (<or=2+); Red Blood Cells-Urine 0 SEEN /hpf (0-5); Squamous Epithelial Cells - UA 0 SEEN /hpf (0-5)
[2019-07-23 20:43] LABS: Color, Urine Yellow (Yellow); Glucose, Dipstick Normal (Normal); Ketone-Dipstick Negative (Negative); Leukocyte Esterase-Dipstick 500 /ul (Negative); Nitrite-Dipstick Negative (Negative); Occult Blood-Urine 10 /ul (Negative); Protein-Dipstick Negative (Negative); Specific Gravity, Urine 1.015 (1.002-1.030); Urine Bilirubin Dipstick Negative (Negative); Urine Clarity Clear (Clear); Urine Urobilinogen Normal (Normal)
[2019-07-23 20:50] LABS: White Blood Cells 10-25 SEEN /hpf (0-5)
[2019-07-23 20:54] LABS: Anion Gap 5 (5-15); BUN 75 mg/dL (7-18); BUN/Creat Ratio 33.8 RATIO (10-20); Calcium,Total 9.1 mg/dL (8.5-10.1); Chloride 102 mmol/L (98-107); Creatinine, Serum 2.22 mg/dL (0.70-1.30); EST Glomerular Filtration Rate 30 mL/min (>60); Est Glom Filt Rate - Afr Amer 36 mL/min (>60); Estimated Creatinine Clearance 23.96 ml/min; Glucose 144 mg/dL (74-106); Potassium 5.2 mmol/L (3.5-5.1); Prothrombin Time (Protime)PT. 40.6 SECONDS (11.7-14.9); Sodium Level 133 mmol/L (136-145)
[2019-07-23 20:56] LABS: International Normalized Ratio 4.2
--- NOTE | 2019-07-23 21:14 | RAD_ITS ---
STUDY: X-RAY CHEST REASON FOR EXAM: Male, 84 years old. pt BP running in the 90s systolic per squad. on arrival 80/54. TECHNIQUE: Single AP portable view of the chest. COMPARISON: Prior study of 06/18/2019 FINDINGS: A left-sided pacemaker is noted. court monitor leads are seen. There is a right perihilar infiltrate. There is a small left-sided pleural effusion. There is mild cardiomegaly. Status post sternotomy changes are noted. Normal mediastinum and nevaeh. Normal visualized pulmonary arteries. Normal visualized aortic arch and descending thoracic aorta. Normal visualized thoracic spine. Normal visualized ribs, clavicles, and shoulders. There is no demonstrated abnormality of the visualized soft tissue structures of the upper abdomen. RAD/Chest 1 View (Portable) IMPRESSION: 1. Right perihilar infiltrate. This is new in the interval. 2. Small left-sided pleural effusion. This is also new in the interval. 3. Mild cardiomegaly. Status post sternotomy. 4. Left-sided pacemaker is seen. Electronically Signed: John Salazar MD at 21:34 EDT , Service support ,
--- NOTE | 2019-07-23 21:44 | ED.RN ---
spoke with pt's daughterWinter for update. Daughter also spoke to pt with assistance.
[2019-07-23 22:18] LABS: Lactic Acid 1.2 mmol/L (0.4-1.9)
--- NOTE | 2019-07-23 22:44 | HP.PCM_ITS ---
Problem List (1) Pneumonia Status: Acute Qualifiers: Pneumonia type: due to unspecified organism Laterality: right Lung location: unspecified part of lung Qualified Code(s): J18.9 - Pneumonia, unspecified organism (2) Sepsis Status: Acute Qualifiers: Sepsis type: sepsis due to unspecified organism Sepsis acute organ dysfunction status: unspecified Qualified Code(s): A41.9 - Sepsis, unspecified organism (3) HTN (hypertension) Status: Chronic Qualifiers: Hypertension type: essential hypertension Qualified Code(s): I10 - Essential (primary) hypertension (4) HLD (hyperlipidemia) Status: Chronic Qualifiers: Hyperlipidemia type: unspecified Qualified Code(s): E78.5 - Hyperlipidemia, unspecified (5) Hypothyroidism Status: Chronic Qualifiers: Hypothyroidism type: unspecified Qualified Code(s): E03.9 - Hypothyroidism, unspecified (6) CHF (congestive heart failure) Status: Chronic Qualifiers: Heart failure type: systolic Heart failure chronicity: chronic Qualified Code(s): I50.22 - Chronic systolic (congestive) heart failure (7) CAD (coronary artery disease) Status: Chronic Qualifiers: Coronary Disease-Associated Artery/Lesion type: [place] artery [place] vs. transplanted heart: [place] heart Associated angina: angina presence unspecified Qualified Code(s): I25.10 - Atherosclerotic heart disease of [place] coronary artery without angina pectoris (8) Diabetes Status: Chronic Qualifiers: Diabetes mellitus type: type 2 Diabetes mellitus [employer] insulin use: without [employer] use Diabetes mellitus complication status: with other specified complication Qualified Code(s): E11.69 - Type 2 diabetes mellitus with other specified complication History of Present Illness Date of Admission: 07/23/19 Chief Complaint: Dyspnea, cough, encephalopathy The patient is a 84 y/o M w/ PMHx: Chronic anemia, CKD stage IV, CAD s/p CABG x 3, Ischemic Cardiomyopathy, Systolic CHF s/p AICD/pacemaker implantation, HTN, HLD, Hypothyroidism, Diabetes mellitus type II, Fe Deficiency anemia, GERD, ? PAF on coumadin therapy with recent admission 06/18/19-06/26/19 following treatment of acute on chronic systolic CHF exacerbation, hypoglycemia treatment, VT arrest with CPR with ROSC, KARRI treatment who now re-presents to the [facility] ED on 07/23/19 with history of worsening cough, moderately productive with fatigue, malaise, frontal throbbing headaches, nausea and emesis without abdominal pain or diarrhea, myalgias as well as sore throat and subjective fever and chills, not improving prompting SNF referral to the ED for evaluation. Patient prior to his most recent admission per review of records had been admitted to [facility] with Pneumonia at that time as well. Work-up in the ED included T 97.1, heart rate 75, BP initially 80/54 with improvement to 107/31, initial respiratory rate 24, 94% on room air-->98% on 2 L nasal cannula, CBC with WC 9.6, hemoglobin 9, platelet 221 with mild left shift with some lymphopenia noted, INR 4.2, BMP with sodium 133, potassium 5.2, BUN/creatinine 75/2.22, glucose 144, lactic acid 1.2, BNP 501, urinalysis with specific gravity 1.015, occult blood 10, negative nitrite, leukocyte esterase 500, urine WBCs 10-25 but 0 urine bacteria, UCx pending per ED, chest x-ray with right perihilar infiltrate, small left-sided pleural effusion, mild cardiomegaly with evidence status post tenotomy with a left-sided pacemaker present, EKG paced. In the ED patient administered Zosyn, vancomycin. Past Medical History Past Medical History (Chronic Problems): Chronic Problems CHF (congestive heart failure) (Chronic) CAD (coronary artery disease) (Chronic) Pacemaker (Chronic) Diabetes (Chronic) HTN (hypertension) (Chronic) HLD (hyperlipidemia) (Chronic) Hypothyroidism (Chronic) Allergies Sulfonylureas Allergy (Verified 07/23/19 19:52) PT UNSURE OF REACTION Home Medications: Ambulatory Orders Medication Instructions Recorded Calcitriol 0.25 mcg PO DAILY 06/18/19 Carvedilol 12.5 mg PO BID 06/18/19 Ferrous Sulfate 325 mg PO DAILY 06/18/19 Levothyroxine Sodium [Synthroid] 125 mcg PO DAILY 06/18/19 Lisinopril [Zestril] 5 mg PO DAILY 06/18/19 Magnesium Oxide 400 mg PO DAILY 06/18/19 Omeprazole [Prilosec] 20 mg PO DAILY 06/18/19 Pravastatin Sodium 80 mg PO QHS 06/18/19 Warfarin Sodium [Coumadin] 2 mg PO QHS 06/18/19 Amiodarone HCl [Cordarone] 200 mg PO DAILY tab 06/26/19 Bisacodyl 10 mg RI DAILY 07/23/19 Carvedilol 25 mg PO BID 07/23/19 Ciprofloxacin [Cipro] 500 mg PO BID 07/23/19 Furosemide [Lasix] 20 mg PO DAILY 07/23/19 L. Acidophilus/L.bulgaricus 1 ea PO BID 07/23/19 [Lactobacillus Tablet] Magnesium Hydroxide [Milk Of 30 ml PO DAILY PRN PRN 07/23/19 Magnesia] Surgical History: - - CABG x 3, Pacemaker/AICD. Psychiatric History: No pertinent psych hx Lives: [facility] Smoking Status: Former smoker Tobacco Use: Non-smoker Alcohol: None Drugs: None - *Family History Maternal History Items: Heart Disease Paternal History Items: Heart Disease Review of Systems Constitutional: Reports: Anorexia, Chills, Fever, Malaise, Weakness, Fatigue. Denies: Weight Change HEENT: Reports: Head Aches, Nasal Congestion, Sore Throat. Denies: Sinus Congestion, Sinus Drainage Cardiovascular: Denies: Chest Pain, Chest Pressure, Chest Tightness, Light H eadedness, Orthopnea, Palpitations, Syncope Respiratory: Reports: Cough, Shortness of Breath, Shortness of breath at rest, Shortness of breath upon exertion, Sputum production. Denies: Wheezing Gastrointestinal: Reports: Nausea, Vomiting. Denies: Abdominal Pain, Diarrhea Genitourinary: Denies: Dysuria Musculoskeletal: Reports: Back Pain, Joint Pain, Muscle pain. Denies: Joint Tenderness Skin: Denies: Rash, Wounds Neurological: Denies: Numbness, Tingling, Focal weakness Psychiatric: Denies: Anxiety, Depression, Homicidal Ideations, Suicidal Ideations Hematologic/ Lymphatic: Reports: Anemia, Easy Bruising, Easy Bleeding VTE Information - Inpt Only VTE Present on Admission: No VTE Mechan Device Prophylaxis: SCD's VTE Pharm Prophylaxis ordered?: No Patient Problems: Active and Suspected Problems Hypotension (Acute) Pneumonia (Acute) Sepsis (Acute) Subjective: Patient seated upright in the ED bed, fatigued and lethargic, answering questions but slow to respond and soft voice but improved since initial ED presentation, able to give 3 orientation questions. Objective: Physical Examination: General: Wakens to stimuli, intermittently alert, fatigued and lethargic but improved since initial ED presentation, now able to give some orientation questions including place and some recent events, seated upright in the ED bed, fatigued and ill-appearing, very soft spoken and slow responses. Skin: normal color, turgor, no icterus, cyanosis septa occasional very states ecchymoses to the extremities. HEENT: AT/NC, EOMI, PERRLA, facemask in place, no carotid bruits or JVD noted. Lungs: Diffusely diminished breath sounds, greater bases, no obvious rales, rhonchi or wheezing, mild increased work of breathing but no specific distress. Heart: Paced; no gallop, rub audible. Abdomen: soft, NTTP, ND, normal BS, no HSM. Extremities: no cyanosis, clubbing, mild bilateral ankle edema. Neurological: patient awake, alert, oriented as noted; cognitive function decreased from baseline intact; pupils equally reactive to light and accomodation; cranial nerves II-XII grossly normal, moving all 4 extremities, no focal deficits, strength severely global decrease secondary to acute presentation. Psychiatric: affect appears fatigued, lethargic, ill, no acute evidence of depressive or anxiety feelings. - Physical Exam Vitals/I&O's: Vital Signs Temp Pulse Resp BP Pulse Ox 97 F L 75 25 H 106/53 L 99 07/23/19 22:00 07/23/19 22:18 07/23/19 22:18 07/23/19 22:18 07/23/19 22:18 Oxygen Flow Rate (L/min) 2 Oxygen Delivery Method Nasal Cannula Weight: 175 lb 4.28 oz Body Mass Index (BMI) 26.6 Intake and Output for Last 24 Hours 07/21/19 07/22/19 07/23/19 23:59 23:59 23:59 Intake Total 100 / 100 Balance 100 / 100 Laboratory Results 07/23/19 20:15: WBC 9.6, RBC 3.19 L, Hgb 9.0 L, Hct 28.5 L, MCV 89.3, MCH 28.2, MCHC 31.6 L, RDW Std Deviation 51.3 H, RDW Coeff of [place] 15.7 H, Plt Count 221, MPV 9.4, Immature Gran % (Auto) 2.000 H, Neut % (Auto) 72.2 H, Lymph % (Auto) 18.4 L, [place] % (Auto) 5.6, Eos % (Auto) 1.6, Baso % (Auto) 0.2, Absolute Neuts (auto) 6.9, Absolute Lymphs (auto) 1.76, Nucleated RBC % 0 07/23/19 20:15: Sodium 133 L, Potassium 5.2 H, Chloride 102, Carbon Dioxide 26.0, Anion Gap 5, BUN 75 H, Creatinine 2.22 H, Estim Creat Clear Calc 23.96, Est GFR (MDRD) Af Amer 36 L, Est GFR (MDRD) Non-Af 30 L, BUN/Creatinine Ratio 33.8 H, Glucose 144 H, Calcium 9.1, Troponin I 0.024 07/23/19 20:15: B-Natriuretic Peptide 501.0 H 07/23/19 20:15: PT 40.6 H, INR 4.2 H* 07/23/19 20:29: Urine Color Yellow, Urine Clarity Clear, Urine pH 5.0, Ur Specific [place] 1.015, Urine Protein Negative, Urine Glucose (UA) Normal, Urine Ketones Negative, Urine Occult Blood 10 H, Urine Nitrite Negative, Urine Bilirubin Negative, Urine Urobilinogen Normal, Ur Leukocyte Esterase 500 H, Urine RBC 0 SEEN, Urine WBC 10-25 SEEN, Ur Squamous Epith Cells 0 SEEN, Urine Bacteria 0 SEEN, Urine Mucus 0 SEEN 07/23/19 21:50: Lactic Acid 1.2 Current Medications Sodium Chloride () 1,000 mls @ 15 mls/hr IV .Q48H SHADY Last Admin: 07/23/19 20:35 Dose: 15 mls/hr Documented by: Vancomycin HCl 1,250 mg/ (Sodium Chloride) 275 mls @ 167 mls/hr IV X1 ONE Stop: 07/23/19 23:06 Last Admin: 07/23/19 22:32 Dose: 167 mls/hr Documented by: Assessment/Plan All Active Problems Hypoglycemia (Acute) Hypotension (Acute) Cardiac arrest (Acute) Pneumonia (Acute) Sepsis (Acute) The patient is a 84 y/o M w/ PMHx: Chronic anemia, CKD stage IV, CAD s/p CABG x 3, Ischemic Cardiomyopathy, Systolic CHF s/p AICD/pacemaker implantation, HTN, HLD, Hypothyroidism, Diabetes mellitus type II, Fe Deficiency anemia, GERD, ? PAF on coumadin therapy with recent admission 06/18/19-06/26/19 following treatment of acute on chronic systolic CHF exacerbation, hypoglycemia treatment, VT arrest with CPR with ROSC, KARRI treatment who now re-presents to the [facility] ED on 07/23/19 with history of worsening cough, moderately productive with fatigue, malaise, frontal throbbing headaches, nausea and emesis without abdominal pain or diarrhea, myalgias as well as sore throat and subjective fever and chills, not improving prompting SNF referral to the ED. 1. Acute Sepsis secondary to Pneumonia, Possible GN/GP Organism and given symptoms, Possible Acute Viral Syndrome, COVID-19: Will admit to the COVID unit, will maintain on oxygen with wean as tolerated to room air, continue ATC duoneb, PRN albuterol, maintain on IV Zosyn and Vancomycin w/ pending MRSA screen with de-escalation as able, HOB, IS parameters w/ pending sputum cultures and urine antigens, will obtain procalcitonin, CRP, CPK, Ferritin, LDH, Alk phos/AST/ALT, trop, continue supportive care including q 2 hour turning including prone given no prone bed availability and judicious hydration, closely monitor for worsening status for ARDS and multiorgan failure, pending these labs if appropriate would consider COVID-19 testing and if worsening status would consider initiation of hydroxychloroquine with close EKG monitoring for QT prolongation with trending of the liver functions. If patient worsens with need for oxygen >6 L would plan intubation with ICU physician continued care. Bld cx x 2 obtained in the ED. Speech will be re-consulted. 2. Ischemic Cardiomyopathy, Systolic CHF: s/p AICD/pacemaker implantation, BNP 500, increased from prior, chest x-ray with right perihilar infiltrate and small left-sided pleural effusion, mild cardiomegaly, avoiding aggressive hydration given history and reduced EF, 06/19/2019 echocardiogram with normal LV size, EF 50%, moderately enlarged LA, mildly enlarged RA, ICD or pacer leads identified within the RV, currently hypotensive, holding patient hypertensive regimen, add back regimen including diuretic once able to tolerate. 3. Chronic Kidney Disease Stage IV: Admission BUN/Cr 75/2.22, baseline renal function 1.8-2.1, similar to baseline, repeat BMP in AM. 4. CAD: s/p CABG x 3, will continue Coumadin with INR trending and hold for supratherapeutic states, holding patient home Coreg and lisinopril given low blood pressure, continue statin therapy. 5. Chronic anemia, iron deficiency anemia: Admission hemoglobin 9.0, baseline appears 8-9, stable, trend, continue iron supplementation. 6. History Recent VT Arrest w/ ROSC: Continue recently initiated amiodarone. 7. Hypertension: Patient with notably low blood pressure, hold hypertensive regimen, add once appropriate. 8. Hyperlipidemia: Continue home statin regimen. 9. Hypothyroidism: Continue home synthroid regimen. 10. Diabetes mellitus type II: Not on regimen, HgbA1c requested given noted in history, maintained NPO currently, maintain on q 6 hour accu checks w/ ISS. 11. GERD: Maintain on PPI. 12. ? PAF: Unclear if atrial fibrillation history but uncertain why patient was on Coumadin therapy, supratherapeutic INR upon presentation, will continue with hold parameters, holding patient Coreg but will continue amiodarone, trend INR. 13. DVT prophylaxis: SCDs, supratherapeutic INR upon presentation, 4.2 will continue Coumadin with specific hold parameters for supratherapeutic INR. 14. CODE STATUS: Per [facility] paperwork patient is a full code. Inpatient E&M: 75643 Init Hosp L3
--- NOTE | 2019-07-23 23:38 | ED.RN ---
daughter of pt called and updated on admission.
[2019-07-24] VITALS (17 sets, daily range): BP systolic 95–123; BP diastolic 57–70; PULSE 54–79; RESP 16–24; TEMP 36–36.6; O2SAT 96–100; BMI 23.5
--- NOTE | 2019-07-24 00:54 | PCM.RX.CS ---
Consult Pharmacy has been consulted to manage selected antiobiotic: Vancomycin Type of Consult: New start Suspected Infection: Sepsis, Pneumonia Labs: Sodium 133 mmol/L (136-145) L 07/23/19 20:15 Potassium 5.2 mmol/L (3.5-5.1) H 07/23/19 20:15 Chloride 102 mmol/L (98-107) 07/23/19 20:15 Carbon Dioxide 26.0 mmol/L (21.0-32.0) 07/23/19 20:15 Anion Gap 5 (5-15) 07/23/19 20:15 BUN 75 mg/dL (7-18) H 07/23/19 20:15 Creatinine 2.22 mg/dL (0.70-1.30) H 07/23/19 20:15 Est GFR (MDRD) Af Amer 36 mL/min (>60) L 07/23/19 20:15 Est GFR (MDRD) Non-Af 30 mL/min (>60) L 07/23/19 20:15 BUN/Creatinine Ratio 33.8 RATIO (10-20) H 07/23/19 20:15 Glucose 144 mg/dL (74-106) H 07/23/19 20:15 Weight used for dosin.5 kg Estimated Creatinine Clearance: 23.96 Goal Trough: 15-20 mcg/mL Pharmacy Plan for Drug Dosing: Pharmacy Service will continue to monitor and adjust dosing as required. Medications Vancomycin HCl 750 mg/ Sodium (Chloride) 265 mls @ 250 mls/hr IV Q24H SHADY Discontinued Medications Vancomycin HCl 1,250 mg/ (Sodium Chloride) 275 mls @ 167 mls/hr IV X1 ONE Stop: 07/23/19 23:06 Last Admin: 07/24/19 00:11 Dose: Infused Documented by: Follow-Up Labs: Trough Vancomycin Labs to be done on [date and time ordered]: 07/24 @ 2412
[2019-07-24] MEDS: MELATONIN 3 MG TABLET PO (01:04)
[2019-07-24 01:22] LABS: Hemoglobin A1c 6.7 % (4.2-6.3)
[2019-07-24 02:20] LABS: Procalcitonin 0.37 ng/mL (0.00-0.09)
[2019-07-24 02:53] LABS: M R Staph aureus DNA By PCR POSITIVE (Negative); Probe Check PASS
[2019-07-24 03:13] LABS: AST(SGOT) 22 U/L (15-37); Alanine Aminotransfer ALT/SGPT 28 U/L (16-61); Albumin, Serum 2.2 g/dL (3.2-5.0); Alkaline Phosphatase 111 U/L (45-117); Bilirubin, Direct 0.16 mg/dL (0.00-0.30); Ferritin 333 ng/mL (26-388); Globulin 3.9 g/dL (2.2-4.2); LDH 175 U/L (87-241); Magnesium 2.1 mg/dL (1.6-2.6); Protein, Total 6.1 g/dL (6.4-8.2)
--- NOTE | 2019-07-24 04:50 | RAD_ITS ---
STUDY: X-RAY CHEST REASON FOR EXAM: Male, 84 years old. Shortness of breath and cough. TECHNIQUE: AP portable upright COMPARISON: 07/23/2019 at 10:21 PM FINDINGS: Moderate cardiomegaly, implanted cardiac device, sternotomy wires, right perihilar and infrahilar and retrocardiac opacities are similar to prior. No apparent pneumothorax. RAD/Chest 1 View (Portable) IMPRESSION: No significant change. Cardiomegaly with kristofer and infrahilar opacities which could represent pneumonia or edema. Electronically Signed: John Rivers, at 6:38 EDT Tel , Service support ,
[2019-07-24 06:30] LABS: Bedside Glucose 123 mg/dL (70-110)
[2019-07-24 07:09] LABS: Absolute Lymphocyte Count 1.64 X10^3/uL (0.83-4.51); Absolute Neutrophil Count 5.1 X10^3/uL (2.0-7.7); Basophil# 0.03 X10^3/uL; Basophil% 0.4 % (0-1); Eosinophils% 2.7 % (0-5); Hemoglobin 8.5 g/dL (13.0-16.5); Lymphocyte # 1.64 X10^3/ul (4.0); Lymphocyte % 21.8 % (19-41); Mean Corp Hgb Conc 31.5 g/dL (32-36); Mean Corpuscular Hgb 28.1 pg (27.0-32.0); Mean Corpuscular Volume 89.1 fL (80-94); Mean Platelet Vol. 9.1 fl (6.2-12.0); Monocyte# 0.44 X10^3/uL; Monocyte% 5.8 % (0-10); NRBC Flagged by Analyzer 0 % (0-5); Neutrophil # 5.07 X10^3/uL (2.7-7.7); Neutrophil % 67.3 % (47-70); Platelet Count 179 K/mm3 (150-450); RBC Distribution Width CV 15.8 % (11.6-14.6); RBC Distribution Width SD 51.8 fl (35.1-43.9); Red Blood Count 3.03 M/mm3 (4.6-6.2); White Blood Count 7.5 K/mm3 (4.4-11.0)
[2019-07-24 07:19] LABS: Prothrombin Time (Protime)PT. 39.4 SECONDS (11.7-14.9)
[2019-07-24 07:23] LABS: International Normalized Ratio 4.1
[2019-07-24 07:42] LABS: ALB/GLOB Ratio 0.6 RATIO (0.9-2.4); AST(SGOT) 19 U/L (15-37); Alanine Aminotransfer ALT/SGPT 25 U/L (16-61); Alkaline Phosphatase 94 U/L (45-117); Anion Gap 5 (5-15); BUN 72 mg/dL (7-18); Chloride 103 mmol/L (98-107); Creatinine, Serum 2.06 mg/dL (0.70-1.30); EST Glomerular Filtration Rate 33 mL/min (>60); Est Glom Filt Rate - Afr Amer 40 mL/min (>60); Estimated Creatinine Clearance 26.69 ml/min; Globulin 3.5 g/dL (2.2-4.2); Glucose 113 mg/dL (74-106); Potassium 4.8 mmol/L (3.5-5.1); Protein, Total 5.5 g/dL (6.4-8.2); Sodium Level 136 mmol/L (136-145)
[2019-07-24] MEDS: Ipratropium/Albuterol Sulfate 3 ML AMPUL.NEB INHALATION ×4 (07:53→19:47)
--- NOTE | 2019-07-24 09:22 | PCM.PN.HOSP ---
Patient Problems: Active and Suspected Problems Hypotension (Acute) Pneumonia (Acute) Sepsis (Acute) Subjective: Admits to some shortness of breath as well as a cough. He says that he also coughs whenever he eats. Vitals/I&O's: Vital Signs Temp Pulse Resp BP Pulse Ox 97.3 F L 78 18 97/63 100 07/24/19 05:50 07/24/19 07:40 07/24/19 05:50 07/24/19 05:50 07/24/19 05:50 Oxygen Flow Rate (L/min) 2 Oxygen Delivery Method Nasal Cannula Weight: 159 lb 2.78 oz Body Mass Index (BMI) 23.5 Intake and Output for Last 24 Hours 07/22/19 07/23/19 07/24/19 23:59 23:59 23:59 Intake Total 100 / 100 509.75 / 509.75 Output Total 950 / 950 Balance 100 / 100 -440.25 / -440.25 General: Alert, Oriented x3, Cooperative, No apparent distress HEENT: Atraumatic, PERRLA, EOMI, Normocephalic Oral: Moist Mucosa Neck: Supple, No JVD Lungs: Clear to auscultation - On the left, No wheeze, No rales, Diminished, Rhonchi - Rhonchi on the right Cardiovascular: Regular rate, Regular Rhythm, Normal S1, Normal S2, No murmurs Abdomen: Soft, Non Tender, Non-Distended, No Hepato-splenomegaly Extremities: No edema, Capillary Refill Less than 3 Seconds Skin: No rashes, No breakdown Neurological: Neuro grossly intact, Sensory exam intact to light touch and pain Psych/Mental Status: Normal Affect, Appropriate Microbiology Past 72 Hours 07/24/19 02:30 Mucosa - Nose Respiratory Panel (PCR) - Final 07/24/19 01:00 Urine Catheter - Arguello Streptococcus pneumoniae Antigen (M - Final 07/24/19 01:00 Urine Catheter - Catheter Legionella Antigen - Final Laboratory Results 07/23/19 20:15: WBC 9.6, RBC 3.19 L, Hgb 9.0 L, Hct 28.5 L, MCV 89.3, MCH 28.2, MCHC 31.6 L, RDW Std Deviation 51.3 H, RDW Coeff of Shelbi 15.7 H, Plt Count 221, MPV 9.4, Immature Gran % (Auto) 2.000 H, Neut % (Auto) 72.2 H, Lymph % (Auto) 18.4 L, [place] % (Auto) 5.6, Eos % (Auto) 1.6, Baso % (Auto) 0.2, Absolute Neuts (auto) 6.9, Absolute Lymphs (auto) 1.76, Nucleated RBC % 0 07/23/19 20:15: Sodium 133 L, Potassium 5.2 H, Chloride 102, Carbon Dioxide 26.0, Anion Gap 5, BUN 75 H, Creatinine 2.22 H, Estim Creat Clear Calc 23.96, Est GFR (MDRD) Af Amer 36 L, Est GFR (MDRD) Non-Af 30 L, BUN/Creatinine Ratio 33.8 H, Glucose 144 H, Calcium 9.1, Troponin I 0.024 07/23/19 20:15: B-Natriuretic Peptide 501.0 H 07/23/19 20:15: PT 40.6 H, INR 4.2 H* 07/23/19 20:15: Magnesium 2.1, Ferritin 333, Total Bilirubin 0.40, Direct Bilirubin 0.16, AST 22, ALT 28, Alkaline Phosphatase 111, Lactate Dehydrogenase 175, C-React Prot Ext Range 93.90 H, Total Protein 6.1 L, Albumin 2.2 L, Globulin 3.9 07/23/19 20:15: Procalcitonin 0.37 H 07/23/19 20:15: Hemoglobin A1c 6.7 H 07/23/19 20:29: Urine Color Yellow, Urine Clarity Clear, Urine pH 5.0, Ur Specific [place] 1.015, Urine Protein Negative, Urine Glucose (UA) Normal, Urine Ketones Negative, Urine Occult Blood 10 H, Urine Nitrite Negative, Urine Bilirubin Negative, Urine Urobilinogen Normal, Ur Leukocyte Esterase 500 H, Urine RBC 0 SEEN, Urine WBC 10-25 SEEN, Ur Squamous Epith Cells 0 SEEN, Urine Bacteria 0 SEEN, Urine Mucus 0 SEEN 07/23/19 21:50: Lactic Acid 1.2 07/24/19 01:02: MRSA (PCR) POSITIVE H 07/24/19 01:50: COVID-19 (YOMI) Pending 07/24/19 06:06: POC Glucose 123 H 07/24/19 06:25: WBC 7.5, RBC 3.03 L, Hgb 8.5 L, Hct 27.0 L, MCV 89.1, MCH 28.1, MCHC 31.5 L, RDW Std Deviation 51.8 H, RDW Coeff of Shelbi 15.8 H, Plt Count 179, MPV 9.1, Immature Gran % (Auto) 2.000 H, Neut % (Auto) 67.3, Lymph % (Auto) 21.8, [place] % (Auto) 5.8, Eos % (Auto) 2.7, Baso % (Auto) 0.4, Absolute Neuts (auto) 5.1, Absolute Lymphs (auto) 1.64, Nucleated RBC % 0 07/24/19 06:25: Sodium 136, Potassium 4.8, Chloride 103, Carbon Dioxide 28.0, Anion Gap 5, BUN 72 H, Creatinine 2.06 H, Estim Creat Clear Calc 26.69, Est GFR (MDRD) Af Amer 40 L, Est GFR (MDRD) Non-Af 33 L, BUN/Creatinine Ratio 35.0 H, Glucose 113 H, Calcium 9.0, Total Bilirubin 0.50, AST 19, ALT 25, Alkaline Phosphatase 94, Total Protein 5.5 L, Albumin 2.0 L, Globulin 3.5, Albumin/Globulin Ratio 0.6 L 07/24/19 06:25: PT 39.4 H, INR 4.1 H* Current Medications Acetaminophen (Tylenol) 650 mg PO Q6H PRN PRN PRN Reason: Pain Score 1-10/Temp > 100.7 F Al Hydroxide/Mg Hydroxide (Mylanta Ii) 30 ml PO Q6H PRN PRN PRN Reason: Gastric Burning Albuterol Sulfate (Ventolin Aerosols) 2.5 mg INHALATION Q2H PRN PRN PRN Reason: Dyspnea, wheezing Albuterol/Ipratropium (Duoneb) 3 ml INHALATION Q4HWA.RT SHADY Amiodarone HCl (Cordarone) 200 mg PO DAILY [facility] Bisacodyl (Dulcolax) 10 mg RECTAL DAILY PRN PRN PRN Reason: Constipation Calcitriol (Rocaltrol) 0.25 mcg PO DAILY [facility] Dextrose (D50w Syringe) 0 gm IV X1 PRN; Protocol PRN Reason: Hypoglycemia Ferrous Sulfate (Ferrous Sulfate) 325 mg PO DAILY SHADY Glucagon () 1 mg IM .X1 PRN PRN Reason: Hypoglycemia Guaifenesin (Robitussin) 20 ml PO Q4H PRN PRN PRN Reason: COUGH Hydralazine HCl (Apresoline Iv) 10 mg IV Q4H PRN PRN PRN Reason: SBP > 160 Sodium Chloride () 1,000 mls @ 15 mls/hr IV .Q48H [facility] Last Infusion: 07/24/19 05:34 Dose: 0 mls/hr Documented by: Piperacillin Sod/Tazobactam (Sod 3.375 gm/ Sodium Chloride) 50 mls @ 12.5 mls/hr IV Q8 SHADY Last Admin: 07/24/19 05:34 Dose: 12.5 mls/hr Documented by: Vancomycin IV Pharmacy to Dose (1 ea/ Sodium Chloride) 500 mls @ 250 mls/hr IV X1 PRN; Protocol PRN Reason: Rx to Dose Vancomycin HCl 750 mg/ Sodium (Chloride) 265 mls @ 250 mls/hr IV Q24H [facility] Insulin Human Lispro (Humalog Kwikpen (Bkc)) 0 unit SC Q6 [facility]; Protocol Last Admin: 07/24/19 06:11 Dose: Not Given Documented by: Lactobacillus Acidophilus (Acidophilus) 1 tablet PO BID [facility] Levothyroxine Sodium (Synthroid) 125 mcg PO DAILY [facility] Magnesium Hydroxide (Milk Of Magnesia) 30 ml PO DAILY PRN PRN PRN Reason: Constipation Magnesium Oxide (Mag-Ox 400) 400 mg PO DAILY [facility] Melatonin (Melatonin) 3 mg PO QHS PRN PRN PRN Reason: INSOMNIA Last Admin: 07/24/19 01:04 Dose: 3 mg Documented by: Morphine Sulfate () 2 mg IV Q3H PRN PRN PRN Reason: Pain Score 6-10/10 Nitroglycerin (Nitrostat) 0.4 mg SUBLINGUAL Q5M PRN PRN Reason: CARDIAC/CHEST PAIN Ondansetron HCl (Zofran) 4 mg IV Q8H PRN PRN PRN Reason: NAUSEA/VOMITING Oxycodone HCl (Oxyir) 5 mg PO Q4H PRN PRN PRN Reason: Pain Score 4-5/10 Pantoprazole Sodium (Protonix) 20 mg PO DAILY [facility] Pravastatin Sodium (Pravachol) 80 mg PO QHS [facility] Prochlorperazine Edisylate (Compazine Iv) 5 mg IV Q4H PRN PRN PRN Reason: Breakthrough Nausea/Vomiting Psyllium Hydrophilic Mucilloid (Metamucil) 1 packet PO DAILY PRN PRN PRN Reason: Constipation Senna/Docusate Sodium (Senokot-S, Zena-Colace) 2 tablet PO BID PRN PRN PRN Reason: Constipation Sodium Chloride () 10 - 40 ml IV UD PRN PRN Reason: SALINE FLUSH Throat Lozenges (Cepacol Sore Throat Lozenge) 1 lozenge MUCOUS MEM Q2H PRN PRN PRN Reason: SORE THROAT Warfarin Sodium (Coumadin (Pbkc)) 2 mg PO QHS [facility] STROKE Vital Signs/Narrative: Vital Signs Temp Pulse Resp BP Pulse Ox 07/24/19 07:40 78 07/24/19 06:59 75 07/24/19 05:50 97.3 F L 77 18 97/63 100 Medical Necessity - Tobacco Use Smoking Status: Former smoker Tobacco Use: Non-smoker Assessment/Plan All Active Problems Hypoglycemia (Acute) Hypotension (Acute) Cardiac arrest (Acute) Pneumonia (Acute) Sepsis (Acute) 1. Sepsis secondary to aspiration pneumonia -He is from a jail and therefore coronavirus test is also pending -He has a right-sided infiltrate and he had difficulty swallowing on his previous admission and he does express a problem with coughing when he eats -Zosyn and Vanco for now, can likely transition off the vancomycin in a day or 2 -He is on amiodarone therefore there is a high likelihood of interaction between Plaquenil and amiodarone therefore will not consider use of Plaquenil given the lack of robust evidence for help in coronavirus -Need a speech therapy evaluation 2. Chronic systolic CHF/hx of V. tach arrest/CAD status post CABG/HTN/HLD -He had CPR 06/18/2019 and has been stable since -Pacemaker demonstrated that he had gone into V. tach 4 times and was paced out of it. Echo demonstrates an EF of 15% -BNP of 501 -Continue with amiodarone hold off any IV fluids and will restart Lasix in a day or so -We will hold his home blood pressure medications -We will hold his Coumadin and recheck INR in the morning 3. DM 2 -Not on any medications, he had recent difficulty with hypoglycemia therefore we will just continue to monitor and place him on a sliding scale insulin 4. GERD -Stable -Continue with PPI Had a 16-minute discussion on advanced care planning with the daughter today. I did express to her that if he does get worse and he is positive for coronavirus that he would likely not do very well even if intubated. At this time he is still a full code but if there is any change in clinical condition will discuss it further with the family. DVT: supratherapeutic INR Inpatient E&M: 34432 Subs Hosp L2 Procedures: 37051 Advncd Care Plan 30 Min
--- NOTE | 2019-07-24 10:40 | CASEMGMT ---
Social Work Note Pt is listed as being from [facility]. LUDY reviewed chart, COVID sample has been collected but but per health department, form cannot be faxed until respiratory results are back. Physician states it is unlikely that pt has COVID. LUDY placed a call to Denise at [facility]. 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 LUDY updated Denise that pt will likely be tested for COVID. Denise states they will need results of COVID test before pt is able to return and if pt is COVID postive, she would need to speak with her administrators to determine if they can take pt back with positive COVID results. LUDY faxed updated clinicals to Denise at [facility]. LUDY attempted to call pt's daughter Winter but call went to [employer] [place] and voicemail mailbox is full, LUDY unable to leave message. SW to continue to follow along. If COVID test is sent to , [facility] will need results before they are able to accept pt back. If pt tests positive for COVID then [facility] would need to decide if they are still able to accept pt back or not. If pt doesn't have COVID test sent out, or if results are negative, pt is able to return to [facility] when medically cleared. Plan: TBD pending pt's COVID tests. Pricila Coley INTERNAL MEDICINE DOCTOR, SHIP LOADER
[2019-07-24 11:35] LABS: Bedside Glucose 99 mg/dL (70-110)
--- NOTE | 2019-07-24 12:58 | CASEMGMT ---
Social Work Note SW attempted again to call pt's daughter Winter to confirm discharge plans, no answer, voicemail is full unable to leave message. SW attempted to call pt's room, no answer. SW will continue to try and call pt's daughter to confirm discharge plans as time allows. Pricila Coley RETORT SETTER, CONCRETE CONVEYOR OPERATOR
--- NOTE | 2019-07-24 13:39 | CASEMGMT ---
Social Work Note Per bullet assembly press setter operator questions, pt was unable to provide any information regarding advanced directives. SW has attempted to call pt and pt's daughter multiple times today with no answer. Pricila Coley YARD CLEANER, COMPLIANCE MANAGER
[2019-07-24] MEDS: 0.9% Saline Lock 10 ML Syringe IV (13:43)
[2019-07-24 18:00] LABS: Bedside Glucose 110 mg/dL (70-110)
[2019-07-24] MEDS: Pravastatin 80 MG Tablet PO (21:05)
[2019-07-24] MEDS: Insulin Lispro 100 UNIT/ML INSULN.PEN SC (23:11)
[2019-07-24 23:25] LABS: Bedside Glucose 154 mg/dL (70-110)
[2019-07-25] VITALS (14 sets, daily range): BP systolic 107–145; BP diastolic 61–91; PULSE 74–123; RESP 16–22; TEMP 36.4–37.9; O2SAT 96–100
[2019-07-25 06:30] LABS: Bedside Glucose 90 mg/dL (70-110)
[2019-07-25] MEDS: Ipratropium/Albuterol Sulfate 3 ML AMPUL.NEB INHALATION (06:30)
[2019-07-25 07:03] LABS: Absolute Lymphocyte Count 1.41 X10^3/uL (0.83-4.51); Absolute Neutrophil Count 5.3 X10^3/uL (2.0-7.7); Basophil# 0.03 X10^3/uL; Basophil% 0.4 % (0-1); Eosinophils% 2.7 % (0-5); Hematocrit 26.9 % (40-54); Hemoglobin 8.4 g/dL (13.0-16.5); Lymphocyte # 1.41 X10^3/ul (4.0); Lymphocyte % 18.8 % (19-41); Mean Corp Hgb Conc 31.2 g/dL (32-36); Mean Corpuscular Hgb 28.2 pg (27.0-32.0); Mean Corpuscular Volume 90.3 fL (80-94); Mean Platelet Vol. 9.2 fl (6.2-12.0); Monocyte# 0.51 X10^3/uL; Monocyte% 6.8 % (0-10); NRBC Flagged by Analyzer 0 % (0-5); Neutrophil # 5.28 X10^3/uL (2.7-7.7); Neutrophil % 70.1 % (47-70); Platelet Count 196 K/mm3 (150-450); RBC Distribution Width CV 15.9 % (11.6-14.6); Red Blood Count 2.98 M/mm3 (4.6-6.2); White Blood Count 7.5 K/mm3 (4.4-11.0)
[2019-07-25 07:09] LABS: International Normalized Ratio 3.4; Prothrombin Time (Protime)PT. 33.9 SECONDS (11.7-14.9)
[2019-07-25 07:47] LABS: Anion Gap 5 (5-15); BUN 58 mg/dL (7-18); BUN/Creat Ratio 30.9 RATIO (10-20); Calcium,Total 9.2 mg/dL (8.5-10.1); Chloride 106 mmol/L (98-107); Creatinine, Serum 1.88 mg/dL (0.70-1.30); EST Glomerular Filtration Rate 37 mL/min (>60); Est Glom Filt Rate - Afr Amer 44 mL/min (>60); Estimated Creatinine Clearance 29.25 ml/min; Glucose 86 mg/dL (74-106); Sodium Level 137 mmol/L (136-145)
[2019-07-25] MEDS: Levothyroxine 125 MCG Tablet PO (08:38)
[2019-07-25] MEDS: Ferrous Sulfate 325 MG Tablet PO (08:38)
[2019-07-25] MEDS: Amiodarone 200 MG Tablet PO (08:39)
[2019-07-25] MEDS: Calcitriol 0.25 MCG Capsule PO (08:39)
[2019-07-25] MEDS: Pantoprazole Sodium 20 MG Tablet PO (08:39)
[2019-07-25] MEDS: Magnesium Oxide 400 MG Tablet PO (08:39)
--- NOTE | 2019-07-25 08:49 | PCM.PN.HOSP ---
Patient Problems: Active and Suspected Problems Hypotension (Acute) Pneumonia (Acute) Sepsis (Acute) Subjective: Doing about the same as he was yesterday. Currently not coughing, he knows that he is at [facility] but states that he should not be here and then when asked why he is here he does not give an answer. Vitals/I&O's: Vital Signs Temp Pulse Resp BP Pulse Ox 98.9 F 74 18 119/76 97 07/25/19 08:37 07/25/19 08:37 07/25/19 08:37 07/25/19 08:37 07/25/19 08:37 Oxygen Flow Rate (L/min) 2 Oxygen Delivery Method Nasal Cannula Weight: 159 lb 2.78 oz Body Mass Index (BMI) 23.5 Intake and Output for Last 24 Hours 07/23/19 07/24/19 07/25/19 23:59 23:59 23:59 Intake Total 100 / 100 947.75 / 947.75 94.25 / 94.25 Output Total 1650 / 1950 1000 / 1000 Balance 100 / 100 -702.25 / -1002.25 -905.75 / -905.75 General: Alert, Oriented x3, Cooperative, No apparent distress HEENT: Atraumatic, PERRLA, EOMI, Normocephalic Oral: Moist Mucosa Neck: Supple, No JVD Lungs: Clear to auscultation - On the left, No wheeze, No rales, Diminished, Rhonchi - Rhonchi on the right Cardiovascular: Regular rate, Regular Rhythm, Normal S1, Normal S2, No murmurs Abdomen: Soft, Non Tender, Non-Distended, No Hepato-splenomegaly Extremities: No edema, Capillary Refill Less than 3 Seconds Skin: No rashes, No breakdown Neurological: Neuro grossly intact, Sensory exam intact to light touch and pain Psych/Mental Status: Normal Affect, Appropriate Microbiology Past 72 Hours 07/24/19 02:30 Mucosa - Nose Respiratory Panel (PCR) - Final 07/24/19 01:00 Urine Catheter - Arguello Streptococcus pneumoniae Antigen (M - Final 07/24/19 01:00 Urine Catheter - Catheter Legionella Antigen - Final Laboratory Results 07/24/19 01:50: COVID-19 (YOMI) Pending 07/24/19 10:53: POC Glucose 99 07/24/19 17:02: POC Glucose 110 07/24/19 23:09: POC Glucose 154 H 07/25/19 06:12: POC Glucose 90 07/25/19 06:30: WBC 7.5, RBC 2.98 L, Hgb 8.4 L, Hct 26.9 L, MCV 90.3, MCH 28.2, MCHC 31.2 L, RDW Std Deviation 52.0 H, RDW Coeff of Shelbi 15.9 H, Plt Count 196, MPV 9.2, Immature Gran % (Auto) 1.200 H, Neut % (Auto) 70.1 H, Lymph % (Auto) 18.8 L, [place] % (Auto) 6.8, Eos % (Auto) 2.7, Baso % (Auto) 0.4, Absolute Neuts (auto) 5.3, Absolute Lymphs (auto) 1.41, Nucleated RBC % 0 07/25/19 06:30: PT 33.9 H, INR 3.4 07/25/19 06:30: Sodium 137, Potassium 5.0, Chloride 106, Carbon Dioxide 26.0, Anion Gap 5, BUN 58 H, Creatinine 1.88 H, Estim Creat Clear Calc 29.25, Est GFR (MDRD) Af Amer 44 L, Est GFR (MDRD) Non-Af 37 L, BUN/Creatinine Ratio 30.9 H, Glucose 86, Calcium 9.2 Current Medications Acetaminophen (Tylenol) 650 mg PO Q6H PRN PRN PRN Reason: Pain Score 1-10/Temp > 100.7 F Al Hydroxide/Mg Hydroxide (Mylanta Ii) 30 ml PO Q6H PRN PRN PRN Reason: Gastric Burning Albuterol Sulfate (Ventolin Aerosols) 2.5 mg INHALATION Q2H PRN PRN PRN Reason: Dyspnea, wheezing Amiodarone HCl (Cordarone) 200 mg PO DAILY [facility] Last Admin: 07/25/19 08:39 Dose: 200 mg Documented by: Bisacodyl (Dulcolax) 10 mg RECTAL DAILY PRN PRN PRN Reason: Constipation Calcitriol (Rocaltrol) 0.25 mcg PO DAILY [facility] Last Admin: 07/25/19 08:39 Dose: 0.25 mcg Documented by: Dextrose (D50w Syringe) 0 gm IV X1 PRN; Protocol PRN Reason: Hypoglycemia Ferrous Sulfate (Ferrous Sulfate) 325 mg PO DAILY [facility] Last Admin: 07/25/19 08:38 Dose: 325 mg Documented by: Furosemide (Lasix) 20 mg IV X1 ONE Stop: 07/25/19 08:49 Glucagon () 1 mg IM .X1 PRN PRN Reason: Hypoglycemia Guaifenesin (Robitussin) 20 ml PO Q4H PRN PRN PRN Reason: COUGH Hydralazine HCl (Apresoline Iv) 10 mg IV Q4H PRN PRN PRN Reason: SBP > 160 Sodium Chloride () 1,000 mls @ 15 mls/hr IV .Q48H [facility] Last Infusion: 07/25/19 06:14 Dose: 0 mls/hr Documented by: Piperacillin Sod/Tazobactam (Sod 3.375 gm/ Sodium Chloride) 50 mls @ 12.5 mls/hr IV Q8 [facility] Last Admin: 07/25/19 06:13 Dose: 12.5 mls/hr Documented by: Vancomycin IV Pharmacy to Dose (1 ea/ Sodium Chloride) 500 mls @ 250 mls/hr IV X1 PRN; Protocol PRN Reason: Rx to Dose Vancomycin HCl 750 mg/ Sodium (Chloride) 265 mls @ 250 mls/hr IV Q24H [facility] Last Infusion: 07/24/19 23:11 Dose: Infused Documented by: Sodium Chloride () 250 mls @ 15 mls/hr IV .[id number] PRN PRN Reason: Saline Flush Last Infusion: 07/24/19 13:40 Dose: 0 mls/hr Documented by: Sodium Chloride () 250 mls @ 15 mls/hr IV .[id number] PRN PRN Reason: Additional IVPB Infusion Insulin Human Lispro (Humalog Kwikpen (Bkc)) 0 unit SC Q6 [facility]; Protocol Last Admin: 07/25/19 06:13 Dose: Not Given Documented by: Lactobacillus Acidophilus (Acidophilus) 1 tablet PO BID [facility] Last Admin: 07/25/19 08:39 Dose: 1 tablet Documented by: Levothyroxine Sodium (Synthroid) 125 mcg PO DAILY [facility] Last Admin: 07/25/19 08:38 Dose: 125 mcg Documented by: Magnesium Hydroxide (Milk Of Magnesia) 30 ml PO DAILY PRN PRN PRN Reason: Constipation Magnesium Oxide (Mag-Ox 400) 400 mg PO DAILY [facility] Last Admin: 07/25/19 08:39 Dose: 400 mg Documented by: Melatonin (Melatonin) 3 mg PO QHS PRN PRN PRN Reason: INSOMNIA Last Admin: 07/24/19 01:04 Dose: 3 mg Documented by: Morphine Sulfate () 2 mg IV Q3H PRN PRN PRN Reason: Pain Score 6-10/10 Nitroglycerin (Nitrostat) 0.4 mg SUBLINGUAL Q5M PRN PRN Reason: CARDIAC/CHEST PAIN Ondansetron HCl (Zofran) 4 mg IV Q8H PRN PRN PRN Reason: NAUSEA/VOMITING Oxycodone HCl (Oxyir) 5 mg PO Q4H PRN PRN PRN Reason: Pain Score 4-5/10 Pantoprazole Sodium (Protonix) 20 mg PO DAILY [facility] Last Admin: 07/25/19 08:39 Dose: 20 mg Documented by: Pravastatin Sodium (Pravachol) 80 mg PO QHS [facility] Last Admin: 07/24/19 21:05 Dose: 80 mg Documented by: Prochlorperazine Edisylate (Compazine Iv) 5 mg IV Q4H PRN PRN PRN Reason: Breakthrough Nausea/Vomiting Psyllium Hydrophilic Mucilloid (Metamucil) 1 packet PO DAILY PRN PRN PRN Reason: Constipation Senna/Docusate Sodium (Senokot-S, Zena-Colace) 2 tablet PO BID PRN PRN PRN Reason: Constipation Sodium Chloride () 10 - 40 ml IV UD PRN PRN Reason: SALINE FLUSH Last Admin: 07/24/19 13:43 Dose: 10 ml Documented by: Throat Lozenges (Cepacol Sore Throat Lozenge) 1 lozenge MUCOUS MEM Q2H PRN PRN PRN Reason: SORE THROAT Warfarin Sodium (Coumadin (Pbkc)) 2 mg PO QHS [facility] STROKE Vital Signs/Narrative: Vital Signs Temp Pulse Resp BP Pulse Ox 07/25/19 08:37 98.9 F 74 18 119/76 97 07/25/19 06:57 82 07/25/19 06:30 76 22 H 97 Medical Necessity - Tobacco Use Smoking Status: Former smoker Tobacco Use: Non-smoker Assessment/Plan All Active Problems Hypoglycemia (Acute) Hypotension (Acute) Cardiac arrest (Acute) Pneumonia (Acute) Sepsis (Acute) 1. Sepsis secondary to aspiration pneumonia -He is from a alf and therefore coronavirus test is also pending -He has a right-sided infiltrate and he had difficulty swallowing on his previous admission and he does express a problem with coughing when he eats -Zosyn and Vanco for now, can likely transition off the vancomycin in a day or 2 -He is on amiodarone therefore there is a high likelihood of interaction between Plaquenil and amiodarone therefore will not consider use of Plaquenil given the lack of robust evidence for help in coronavirus -Need a speech therapy evaluation -Cultures are pending 2. Chronic systolic CHF/hx of V. tach arrest/CAD status post CABG/HTN/HLD -He had CPR 06/18/2019 and has been stable since -Pacemaker demonstrated that he had gone into V. tach 4 times and was paced out of it. Echo demonstrates an EF of 15% -BNP of 501 -Continue with amiodarone, will do a one-time dose of Lasix today -We will hold his home blood pressure medications -We will hold his Coumadin and recheck INR in the morning 3. DM 2 -Not on any medications, he had recent difficulty with hypoglycemia therefore we will just continue to monitor and place him on a sliding scale insulin 4. GERD -Stable -Continue with PPI DVT: supratherapeutic INR Inpatient E&M: 20506 Subs Hosp L2
[2019-07-25] MEDS: 0.9% Saline Lock 10 ML Syringe IV (11:55)
[2019-07-25] MEDS: Furosemide 20 MG/2 ML VIAL IV (11:55)
[2019-07-25] MEDS: Insulin Lispro 100 UNIT/ML INSULN.PEN SC (11:55)
[2019-07-25 13:15] LABS: Bedside Glucose 156 mg/dL (70-110)
[2019-07-25 17:20] LABS: Bedside Glucose 103 mg/dL (70-110)
[2019-07-25] MEDS: 0.9% Normal Saline 1,000 ML 15 ML IV (19:37)
--- NOTE | 2019-07-25 20:22 | NURSING ---
Notied by Lab: Covid 19 results Negative
[2019-07-25] MEDS: Metoprolol Tartrate 5 MG/5 ML Vial IV ×2 (21:18→22:13)
[2019-07-25] MEDS: Pravastatin 80 MG Tablet PO (22:12)
[2019-07-25 22:41] LABS: Vancomycin, Trough Level 16.8 ug/mL (5.0-15.0)
[2019-07-26] VITALS (12 sets, daily range): BP systolic 90–111; BP diastolic 52–66; PULSE 73–80; RESP 16–20; TEMP 36.3–37.9; O2SAT 96–100
[2019-07-26] MEDS: Carvedilol 25 MG Tablet PO ×3 (00:14→21:19)
[2019-07-26 00:35] LABS: Bedside Glucose 107 mg/dL (70-110)
--- NOTE | 2019-07-26 05:12 | PCM.RX.CS ---
Consult Pharmacy has been consulted to manage selected antiobiotic: Vancomycin Type of Consult: Follow-up Labs: Sodium 137 mmol/L (136-145) 07/25/19 06:30 Potassium 5.0 mmol/L (3.5-5.1) 07/25/19 06:30 Chloride 106 mmol/L (98-107) 07/25/19 06:30 Carbon Dioxide 26.0 mmol/L (21.0-32.0) 07/25/19 06:30 Anion Gap 5 (5-15) 07/25/19 06:30 BUN 58 mg/dL (7-18) H 07/25/19 06:30 Creatinine 1.88 mg/dL (0.70-1.30) H 07/25/19 06:30 Est GFR (MDRD) Af Amer 44 mL/min (>60) L 07/25/19 06:30 Est GFR (MDRD) Non-Af 37 mL/min (>60) L 07/25/19 06:30 BUN/Creatinine Ratio 30.9 RATIO (10-20) H 07/25/19 06:30 Glucose 86 mg/dL (74-106) 07/25/19 06:30 Vancomycin Trough 16.8 ug/mL (5.0-15.0) H 07/25/19 21:32 Microbiology: Microbiology 07/23/19 20:29 Urine Catheter - Catheter Urine Culture - Preliminary Culture exhibits no growth. 07/24/19 02:30 Mucosa - Nose Respiratory Panel (PCR) - Final 07/24/19 01:00 Urine Catheter - Arguello Streptococcus pneumoniae Antigen (M - Final 07/24/19 01:00 Urine Catheter - Catheter Legionella Antigen - Final Weight used for dosin kg Goal Trough: 15-20 mcg/mL Pharmacy Plan for Drug Dosing: Vancomycin trough in goal range. Continue. Trough prior to 4th dose. Pharmacy Service will continue to monitor and adjust dosing as required. Follow-Up Labs: Trough Vancomycin - 07/28 @ 2130
[2019-07-26 06:26] LABS: Bedside Glucose 85 mg/dL (70-110)
[2019-07-26 06:49] LABS: Absolute Lymphocyte Count 1.71 X10^3/uL (0.83-4.51); Basophil# 0.02 X10^3/uL; Basophil% 0.2 % (0-1); Eosinophil# 0.16 X10^3/uL; Eosinophils% 1.9 % (0-5); Hematocrit 25.5 % (40-54); Hemoglobin 8.2 g/dL (13.0-16.5); Lymphocyte # 1.71 X10^3/ul (4.0); Lymphocyte % 20.1 % (19-41); Mean Corp Hgb Conc 32.2 g/dL (32-36); Mean Platelet Vol. 9.4 fl (6.2-12.0); Monocyte# 0.55 X10^3/uL; Monocyte% 6.5 % (0-10); NRBC Flagged by Analyzer 0 % (0-5); Neutrophil # 5.98 X10^3/uL (2.7-7.7); Neutrophil % 70.4 % (47-70); Platelet Count 172 K/mm3 (150-450); RBC Distribution Width CV 16.1 % (11.6-14.6); RBC Distribution Width SD 50.6 fl (35.1-43.9); Red Blood Count 2.93 M/mm3 (4.6-6.2); White Blood Count 8.5 K/mm3 (4.4-11.0)
[2019-07-26 07:03] LABS: International Normalized Ratio 2.6; Prothrombin Time (Protime)PT. 27.4 SECONDS (11.7-14.9)
[2019-07-26 07:05] LABS: Anion Gap 6 (5-15); BUN 57 mg/dL (7-18); BUN/Creat Ratio 25.7 RATIO (10-20); Calcium,Total 8.7 mg/dL (8.5-10.1); Chloride 106 mmol/L (98-107); Creatinine, Serum 2.22 mg/dL (0.70-1.30); EST Glomerular Filtration Rate 30 mL/min (>60); Est Glom Filt Rate - Afr Amer 36 mL/min (>60); Estimated Creatinine Clearance 24.77 ml/min; Glucose 83 mg/dL (74-106); Potassium 4.6 mmol/L (3.5-5.1); Sodium Level 138 mmol/L (136-145)
--- NOTE | 2019-07-26 08:22 | PN_ITS ---
Patient Problems: Active and Suspected Problems Hypotension (Acute) Pneumonia (Acute) Sepsis (Acute) Subjective: States that he feels terrible, still with intermittent fevers overnight reaching 100.2. Still on 2 L nasal cannula Vitals/I&O's: Vital Signs Temp Pulse Resp BP Pulse Ox 100.2 F H 75 20 H 111/64 97 07/26/19 04:08 07/26/19 07:00 07/26/19 04:08 07/26/19 04:08 07/26/19 04:08 Oxygen Flow Rate (L/min) 2 Oxygen Delivery Method Nasal Cannula Weight: 160 lb 7.944 oz Body Mass Index (BMI) 23.5 Intake and Output for Last 24 Hours 07/24/19 07/25/19 07/26/19 23:59 23:59 23:59 Intake Total 947.75 / 947.75 1029.50 / 1029.50 170 / 170 Output Total 1650 / 1950 2675 / 2675 500 / 500 Balance -702.25 / -1002.25 -1645.50 / -1645.50 -330 / -330 General: Alert, Oriented x3, Cooperative, No apparent distress HEENT: Atraumatic, PERRLA, EOMI, Normocephalic Oral: Moist Mucosa Neck: Supple, No JVD Lungs: Clear to auscultation, No wheeze, No rales, Diminished, minimal rhonchi on the right Cardiovascular: Regular rate, Regular Rhythm, Normal S1, Normal S2, No murmurs Abdomen: Soft, Non Tender, Non-Distended, No Hepato-splenomegaly Extremities: No edema, Capillary Refill Less than 3 Seconds Skin: No rashes, No breakdown Neurological: Neuro grossly intact, Sensory exam intact to light touch and pain Psych/Mental Status: Normal Affect, Appropriate Microbiology Past 72 Hours 07/23/19 20:29 Urine Catheter - Catheter Urine Culture - Final Culture exhibits no growth. 07/24/19 02:30 Mucosa - Nose Respiratory Panel (PCR) - Final 07/24/19 01:00 Urine Catheter - [place] Streptococcus pneumoniae Antigen (M - Final 07/24/19 01:00 Urine Catheter - Catheter Legionella Antigen - Final Laboratory Results 07/24/19 01:50: COVID-19 (YOMI) Not Detected 07/25/19 11:54: POC Glucose 156 H 07/25/19 16:59: POC Glucose 103 07/25/19 21:32: Vancomycin Trough 16.8 H 07/25/19 23:40: POC Glucose 107 07/26/19 05:54: PT 27.4 H, INR 2.6 07/26/19 05:54: WBC 8.5, RBC 2.93 L, Hgb 8.2 L, Hct 25.5 L, MCV 87.0, MCH 28.0, MCHC 32.2, RDW Std Deviation 50.6 H, RDW Coeff of Shelbi 16.1 H, Plt Count 172, MPV 9.4, Immature Gran % (Auto) 0.900, Neut % (Auto) 70.4 H, Lymph % (Auto) 20.1, [place] % (Auto) 6.5, Eos % (Auto) 1.9, Baso % (Auto) 0.2, Absolute Neuts (auto) 6.0, Absolute Lymphs (auto) 1.71, Nucleated RBC % 0 07/26/19 05:54: Sodium 138, Potassium 4.6, Chloride 106, Carbon Dioxide 26.0, Anion Gap 6, BUN 57 H, Creatinine 2.22 H, Estim Creat Clear Calc 24.77, Est GFR (MDRD) Af Amer 36 L, Est GFR (MDRD) Non-Af 30 L, BUN/Creatinine Ratio 25.7 H, Glucose 83, Calcium 8.7 07/26/19 06:10: POC Glucose 85 Current Medications Acetaminophen (Tylenol) 650 mg PO Q6H PRN PRN PRN Reason: Pain Score 1-10/Temp > 100.7 F Al Hydroxide/Mg Hydroxide (Mylanta Ii) 30 ml PO Q6H PRN PRN PRN Reason: Gastric Burning Albuterol Sulfate (Ventolin Aerosols) 2.5 mg INHALATION Q2H PRN PRN PRN Reason: Dyspnea, wheezing Amiodarone HCl (Cordarone) 200 mg PO DAILY [facility] Last Admin: 07/25/19 08:39 Dose: 200 mg Documented by: Bisacodyl (Dulcolax) 10 mg RECTAL DAILY PRN PRN PRN Reason: Constipation Calcitriol (Rocaltrol) 0.25 mcg PO DAILY [facility] Last Admin: 07/25/19 08:39 Dose: 0.25 mcg Documented by: Carvedilol (Coreg) 25 mg PO BID [facility] Dextrose (D50w Syringe) 0 gm IV X1 PRN; Protocol PRN Reason: Hypoglycemia Ferrous Sulfate (Ferrous Sulfate) 325 mg PO DAILY [facility] Last Admin: 07/25/19 08:38 Dose: 325 mg Documented by: Glucagon () 1 mg IM .X1 PRN PRN Reason: Hypoglycemia Guaifenesin (Robitussin) 20 ml PO Q4H PRN PRN PRN Reason: COUGH Hydralazine HCl (Apresoline Iv) 10 mg IV Q4H PRN PRN PRN Reason: SBP > 160 Sodium Chloride () 1,000 mls @ 15 mls/hr IV .Q48H [facility] Last Infusion: 07/25/19 23:16 Dose: 15 mls/hr Documented by: Piperacillin Sod/Tazobactam (Sod 3.375 gm/ Sodium Chloride) 50 mls @ 12.5 mls/hr IV Q8 [facility] Last Admin: 07/26/19 06:15 Dose: 12.5 mls/hr Documented by: Sodium Chloride () 250 mls @ 15 mls/hr IV .[id number] PRN PRN Reason: Saline Flush Last Infusion: 07/25/19 19:35 Dose: 0 mls/hr Documented by: Sodium Chloride () 250 mls @ 15 mls/hr IV .[id number] PRN PRN Reason: Additional IVPB Infusion Insulin Human Lispro (Humalog Kwikpen (Bkc)) 0 unit SC Q6 [facility]; Protocol Last Admin: 07/26/19 06:14 Dose: Not Given Documented by: Lactobacillus Acidophilus (Acidophilus) 1 tablet PO BID [facility] Last Admin: 07/25/19 22:12 Dose: 1 tablet Documented by: Levothyroxine Sodium (Synthroid) 125 mcg PO DAILY [facility] Last Admin: 07/25/19 08:38 Dose: 125 mcg Documented by: Magnesium Hydroxide (Milk Of Magnesia) 30 ml PO DAILY PRN PRN PRN Reason: Constipation Magnesium Oxide (Mag-Ox 400) 400 mg PO DAILY [facility] Last Admin: 07/25/19 08:39 Dose: 400 mg Documented by: Melatonin (Melatonin) 3 mg PO QHS PRN PRN PRN Reason: INSOMNIA Last Admin: 07/24/19 01:04 Dose: 3 mg Documented by: Morphine Sulfate () 2 mg IV Q3H PRN PRN PRN Reason: Pain Score 6-10/10 Nitroglycerin (Nitrostat) 0.4 mg SUBLINGUAL Q5M PRN PRN Reason: CARDIAC/CHEST PAIN Ondansetron HCl (Zofran) 4 mg IV Q8H PRN PRN PRN Reason: NAUSEA/VOMITING Oxycodone HCl (Oxyir) 5 mg PO Q4H PRN PRN PRN Reason: Pain Score 4-5/10 Pantoprazole Sodium (Protonix) 20 mg PO DAILY [facility] Last Admin: 07/25/19 08:39 Dose: 20 mg Documented by: Pravastatin Sodium (Pravachol) 80 mg PO QHS [facility] Last Admin: 07/25/19 22:12 Dose: 80 mg Documented by: Prochlorperazine Edisylate (Compazine Iv) 5 mg IV Q4H PRN PRN PRN Reason: Breakthrough Nausea/Vomiting Psyllium Hydrophilic Mucilloid (Metamucil) 1 packet PO DAILY PRN PRN PRN Reason: Constipation Senna/Docusate Sodium (Senokot-S, Zena-Colace) 2 tablet PO BID PRN PRN PRN Reason: Constipation Sodium Chloride () 10 - 40 ml IV UD PRN PRN Reason: SALINE FLUSH Last Admin: 07/25/19 11:55 Dose: 10 ml Documented by: Throat Lozenges (Cepacol Sore Throat Lozenge) 1 lozenge MUCOUS MEM Q2H PRN PRN PRN Reason: SORE THROAT Warfarin Sodium (Coumadin (Pbkc)) 2 mg PO QHS [facility] STROKE Vital Signs/Narrative: Vital Signs Pulse 07/26/19 07:00 75 Medical Necessity - Tobacco Use Smoking Status: Former smoker Tobacco Use: Non-smoker Assessment/Plan All Active Problems Hypoglycemia (Acute) Hypotension (Acute) Cardiac arrest (Acute) Pneumonia (Acute) Sepsis (Acute) 1. Sepsis secondary to aspiration pneumonia -He is from a skilled nursing and therefore coronavirus test was obtained and is negative -He has a right-sided infiltrate and he had difficulty swallowing on his previous admission and he does express a problem with coughing when he eats -Zosyn will discontinue the vancomycin -Appreciate speech therapy, PT and OT -Cultures are still pending, urine cultures negative -Plan to be transferred to PCU to have assistance with incentive spirometer and sitting in the chair at bedside as we are not allowed to have chairs on the coronavirus unit 2. Chronic systolic CHF/hx of V. tach arrest/CAD status post CABG/HTN/HLD -He had CPR 06/18/2019 and has been stable since -Pacemaker demonstrated that he had gone into V. tach 4 times and was paced out of it. Echo demonstrates an EF of 15% -BNP of 501 -Continue with amiodarone, will do a one-time dose of Lasix today -We will hold his home blood pressure medications -We will hold his Coumadin and recheck INR in the morning 3. DM 2 -Not on any medications, he had recent difficulty with hypoglycemia therefore we will just continue to monitor and place him on a sliding scale insulin 4. GERD -Stable -Continue with PPI DVT: Coumadin Inpatient E&M: [id number] Subs Hosp L2
--- NOTE | 2019-07-26 08:35 | NURSING ---
daughter Winter called for patient update, notified of negative covid status. informed Winter that MD was still looking in patient and determining if pt was appropriate for DC [facility] today or if he would be transferred to another unit for continued hospital care and reassured that we would call with updated plan of care. also informed Winter that when previous attempts were made to contact her, we noted that her voicemail box was full.
[2019-07-26] MEDS: Amiodarone 200 MG Tablet PO (09:56)
[2019-07-26] MEDS: Ferrous Sulfate 325 MG Tablet PO (09:56)
[2019-07-26] MEDS: Pantoprazole Sodium 20 MG Tablet PO (09:56)
[2019-07-26] MEDS: Levothyroxine 125 MCG Tablet PO (09:56)
[2019-07-26] MEDS: Calcitriol 0.25 MCG Capsule PO (09:56)
[2019-07-26] MEDS: Magnesium Oxide 400 MG Tablet PO (09:56)
--- NOTE | 2019-07-26 10:57 | NURSING ---
Report called to [facility] RN for transfer to PCU.
[2019-07-26 11:35] LABS: Bedside Glucose 128 mg/dL (70-110)
--- NOTE | 2019-07-26 13:54 | CCHN_ITS ---
Hospitalist Note Patient was seen and examined by my colleague in the morning and transferred to PCU after covid-19 was ruled out. Patient has right lower lobe aspiration pneumonia. Patient still gets intermittent fever, T-max 100.2 Fahrenheit early in the morning. No tachycardia. On 2 L of oxygen, pulse ox 96%. On exam Lungs: Air entry diminished in bilateral lower lobes, more on the right side. Egophony present. Weak cough reflex. Right coarse crepitation present. Heart: Paced rhythm on art display maker. No murmur. Left subclavicular pacemaker present. GI: Patient had good bowel movement. No tenderness or distention. Mild oropharyngeal dysphagia; patient gets cough on swallowing. Extremities: Mild to moderate muscle atrophy of extremities. Assessment and plan: 1. Sepsis secondary to aspiration pneumonia: Patient on IV Zosyn. Speech therapy evaluation. PT and OT. 2. Chronic systolic heart failure, history of V. tach arrest, coronary artery status post CABG On amiodarone, carvedilol, and pravastatin. Patient is on Coumadin. INR therapeutic, 2.6.
[2019-07-26] MEDS: 0.9% Saline Lock 10 ML Syringe IV ×2 (14:30→17:52)
[2019-07-26 17:36] LABS: Bedside Glucose 174 mg/dL (70-110)
[2019-07-26] MEDS: Insulin Lispro 100 UNIT/ML INSULN.PEN SC (17:52)
[2019-07-26] MEDS: Pravastatin 80 MG Tablet PO (21:35)
[2019-07-27] VITALS (24 sets, daily range): BP systolic 92–115; BP diastolic 56–81; PULSE 71–83; RESP 12–20; TEMP 35.9–36.7; O2SAT 97–100
[2019-07-27 00:11] LABS: Bedside Glucose 113 mg/dL (70-110)
[2019-07-27 05:36] LABS: Bedside Glucose 105 mg/dL (70-110)
[2019-07-27 07:17] LABS: Magnesium 1.8 mg/dL (1.6-2.6)
[2019-07-27 07:53] LABS: International Normalized Ratio 2.2
--- NOTE | 2019-07-27 08:28 | EKG12_ITS ---
Test Reason : VTACH Blood Pressure : / mmHG Vent. Rate : 075 BPM Atrial Rate : 082 BPM P-R Int : 000 ms QRS Dur : 190 ms QT Int : 480 ms P-R-T Axes : 000 248 092 degrees QTc Int : 536 ms Ventricular-paced rhythm Abnormal ECG When compared with ECG of 23-JUL-2019 20:48, Sinus rhythm is no longer with complete heart block Confirmed by DAVID ROBIN ([id number]), greeting card editor CODI PEGUERO ([id number]) on 07/30/2019 10:32:04 AM Referred By: STANISLAV Confirmed By:DAVID ROBIN
[2019-07-27] MEDS: Amiodarone 200 MG Tablet PO (08:45)
--- NOTE | 2019-07-27 10:01 | CASEMGMT ---
LUDY called Denise at [facility] and she confirmed patient does not need a pre-cert to return. LUDY faxed her updates including the negative COVID test. Plan: [facility] when ready Marley SOLARES
--- NOTE | 2019-07-27 10:02 | PN_ITS ---
Patient Problems: Active and Suspected Problems Hypotension (Acute) Pneumonia (Acute) Sepsis (Acute) Reason for Visit: Follow-up for NSVT and aspiration pneumonia. Objective: Patient having runs of NSVT, PVCs since parking cashier today. When asked directly, patient had good sleep. He did not feel palpitation, missed heartbeat or flutter waves or quivering sensation. Patient denies chest pain but has mild shortness of breath which is getting better. Vitals/I&O's: Vital Signs Temp Pulse Resp BP Pulse Ox 96.7 F L 73 16 111/56 L 98 07/27/19 08:24 07/27/19 08:24 07/27/19 08:24 07/27/19 08:24 07/27/19 08:24 Oxygen Flow Rate (L/min) 2 Oxygen Delivery Method Nasal Cannula Weight: 161 lb 2.526 oz Body Mass Index (BMI) 23.5 Intake and Output for Last 24 Hours 07/25/19 07/26/19 07/27/19 23:59 23:59 23:59 Intake Total 1029.50 / 1029.50 530.21 / 530.21 72.29 / 72.29 Output Total 2675 / 2675 1800 / 1800 200 / 200 Balance -1645.50 / -1645.50 -1269.79 / -1269.79 -127.71 / -127.71 General: Alert, Oriented x3, Cooperative HEENT: Atraumatic, PERRLA, EOMI, Normocephalic Neck: Supple, No JVD, Negative Carotid Bruits Lungs: Diminished - Air entry diminished on right posterior half of lung. Bilateral lower lobes coarse rales present., Short of Breath Cardiovascular: Regular rate, Regular Rhythm, Normal S1, Normal S2, No murmurs, - - Paced rhythm on classroom monitor with multiple PVCs, bigeminy and short runs of NSVT Abdomen: Bowel Sounds Present, Soft, Non Tender, Non-Distended Extremities: No edema, Capillary Refill Less than 3 Seconds Skin: No rashes, No breakdown Musculoskeletal: No Tenderness to Palpation of Joints or Extremities, Arthritic Changes, Muscle Wasting - Mild to moderate muscle wasting/atrophy of extremities. Neurological: Cranial nerves II-XII grossly intact Psych/Mental Status: Normal Affect, Appropriate Microbiology Past 72 Hours 07/23/19 20:15 Blood Culture (Wb) - Right Hand Blood Culture - Preliminary No growth in 48 hours. 07/23/19 20:10 Blood Culture (Wb) - Left Forearm Blood Culture - Preliminary No growth in 48 hours. 07/23/19 20:29 Urine Catheter - Catheter Urine Culture - Final Culture exhibits no growth. 07/24/19 02:30 Mucosa - Nose Respiratory Panel (PCR) - Final Laboratory Results 07/26/19 11:28: POC Glucose 128 H 07/26/19 17:23: POC Glucose 174 H 07/26/19 23:50: POC Glucose 113 H 07/27/19 05:31: POC Glucose 105 07/27/19 06:23: PT 24.0 H, INR 2.2 07/27/19 06:23: Magnesium 1.8 Current Medications Acetaminophen (Tylenol) 650 mg PO Q6H PRN PRN PRN Reason: Pain Score 1-10/Temp > 100.7 F Albuterol Sulfate (Ventolin Aerosols) 2.5 mg INHALATION Q2H PRN PRN PRN Reason: Dyspnea, wheezing Bisacodyl (Dulcolax) 10 mg RECTAL DAILY PRN PRN PRN Reason: Constipation Calcitriol (Rocaltrol) 0.25 mcg PO DAILY [facility] Last Admin: 07/26/19 09:56 Dose: 0.25 mcg Documented by: Carvedilol (Coreg) 25 mg PO BID [facility] Last Admin: 07/26/19 21:19 Dose: 25 mg Documented by: Dextrose (D50w Syringe) 0 gm IV X1 PRN; Protocol PRN Reason: Hypoglycemia Ferrous Sulfate (Ferrous Sulfate) 325 mg PO DAILY [facility] Last Admin: 07/26/19 09:56 Dose: 325 mg Documented by: Glucagon () 1 mg IM .X1 PRN PRN Reason: Hypoglycemia Guaifenesin (Robitussin) 20 ml PO Q4H PRN PRN PRN Reason: COUGH Hydralazine HCl (Apresoline Iv) 10 mg IV Q4H PRN PRN PRN Reason: SBP > 160 Sodium Chloride () 1,000 mls @ 15 mls/hr IV .Q48H [facility] Last Infusion: 07/26/19 23:39 Dose: Infused Documented by: Piperacillin Sod/Tazobactam (Sod 3.375 gm/ Sodium Chloride) 50 mls @ 12.5 mls/hr IV Q8 [facility] Last Infusion: 07/27/19 06:00 Dose: 12.5 mls/hr Documented by: Sodium Chloride () 250 mls @ 15 mls/hr IV .[id number] PRN PRN Reason: Saline Flush Last Infusion: 07/26/19 19:00 Dose: 0 mls/hr Documented by: Sodium Chloride () 250 mls @ 15 mls/hr IV .[id number] PRN PRN Reason: Additional IVPB Infusion Amiodarone HCl 150 mg/ (Dextrose) 103 mls @ 600 mls/hr IV BOLUS X1 ONE Stop: 07/27/19 10:06 Amiodarone HCl 360 mg/ (Dextrose) 200 mls @ 33.333 mls/hr CONT INF .Q6H [facility] Stop: 07/27/19 15:59 Amiodarone HCl 360 mg/ (Dextrose) 200 mls @ 16.667 mls/hr CONT INF .Q12H [facility] Insulin Human Lispro (Humalog Kwikpen (Bkc)) 0 unit SC Q6 [facility]; Protocol Last Admin: 07/27/19 05:32 Dose: Not Given Documented by: Lactobacillus Acidophilus (Acidophilus) 1 tablet PO BID [facility] Last Admin: 07/26/19 21:20 Dose: 1 tablet Documented by: Levothyroxine Sodium (Synthroid) 125 mcg PO DAILY [facility] Last Admin: 07/26/19 09:56 Dose: 125 mcg Documented by: Magnesium Oxide (Mag-Ox 400) 400 mg PO DAILY [facility] Last Admin: 07/26/19 09:56 Dose: 400 mg Documented by: Melatonin (Melatonin) 3 mg PO QHS PRN PRN PRN Reason: INSOMNIA Last Admin: 07/24/19 01:04 Dose: 3 mg Documented by: Morphine Sulfate () 2 mg IV Q3H PRN PRN PRN Reason: Pain Score 6-10/10 Nitroglycerin (Nitrostat) 0.4 mg SUBLINGUAL Q5M PRN PRN Reason: CARDIAC/CHEST PAIN Ondansetron HCl (Zofran) 4 mg IV Q8H PRN PRN PRN Reason: NAUSEA/VOMITING Oxycodone HCl (Oxyir) 5 mg PO Q4H PRN PRN PRN Reason: Pain Score 4-5/10 Pantoprazole Sodium (Protonix) 20 mg PO DAILY [facility] Last Admin: 07/26/19 09:56 Dose: 20 mg Documented by: Pravastatin Sodium (Pravachol) 80 mg PO QHS [facility] Last Admin: 07/26/19 21:35 Dose: 80 mg Documented by: Prochlorperazine Edisylate (Compazine Iv) 5 mg IV Q4H PRN PRN PRN Reason: Breakthrough Nausea/Vomiting Psyllium Hydrophilic Mucilloid (Metamucil) 1 packet PO DAILY PRN PRN PRN Reason: Constipation Senna/Docusate Sodium (Senokot-S, Zena-Colace) 2 tablet PO BID PRN PRN PRN Reason: Constipation Sodium Chloride () 10 - 40 ml IV UD PRN PRN Reason: SALINE FLUSH Last Admin: 07/26/19 17:52 Dose: 10 ml Documented by: Throat Lozenges (Cepacol Sore Throat Lozenge) 1 lozenge MUCOUS MEM Q2H PRN PRN PRN Reason: SORE THROAT Warfarin Sodium (Coumadin (Pbkc)) 2 mg PO QHS [facility] Last Admin: 07/26/19 21:35 Dose: 2 mg Documented by: STROKE Vital Signs/Narrative: Vital Signs Temp Pulse Resp BP Pulse Ox 07/27/19 08:24 96.7 F L 73 16 111/56 L 98 07/27/19 07:18 83 07/27/19 07:00 78 Medical Necessity - Tobacco Use Smoking Status: Former smoker Tobacco Use: Non-smoker Assessment/Plan All Active Problems Hypoglycemia (Acute) Hypotension (Acute) Cardiac arrest (Acute) Pneumonia (Acute) Sepsis (Acute) This 84-year-old patient with multiple comorbidities including coronary artery status post CABG x3, ischemic cardiomyopathy, AICD, CKD stage IV, chronic anemia was admitted for cough, nausea and emesis, shortness of breath fever and chills consistent with acute sepsis secondary to pneumonia. Chest x-ray shows right lower lung consolidation consistent with possible aspiration pneumonia Assessment and plan: 1. Sepsis secondary to aspiration pneumonia: Patient on IV Zosyn. Speech therapy evaluation. PT and OT. COVID 19 test was negative. Urinary antigens, respiratory panel, urine culture and blood culture x2- for more than 48 hours. 2. Arrhythmia: NSVT: EKG done. Ventricular paced rhythm at 70 bpm. Patient had 16 beats, 1.28 second and 14 beats x2 NSVT. Besides that he had frequent PVCs and bigeminy and short runs of NSVT about 3-4 beats. Patient is on baseline amiodarone 200 mg daily. Started on amiodarone 150 mg IV bolus and then infusion over next 24 hours as per protocol. Discussed with reel assembler Dr. prasad. Agree with the plan. After completion of sumatriptan, will resume his amiodarone 200 mg daily dose. No chest pain or increasing shortness of breath. Troponin is negative. 3. Chronic systolic and diastolic heart failure, history of V. tach, cardiac arrest, coronary artery status post CABG On amiodarone, carvedilol, and pravastatin. Patient is on Coumadin. INR therapeutic, 2.6. Patient had echo on 06/19/2019 reported as EF 15% with normal LV size. Left atrium moderately enlarged right atrium mildly enlarged. Mild to moderate eccentric MR, mild AR. Overall echo findings are stable chronic systolic and diastolic heart failure, combined. BNP 501. Patient had CPR on 06/18/2019. On Coumadin most likely for V. tach history. INR 2.2. 4. Diabetes mellitus type 2: Accu-Chek before meals and at bedtime. On sliding scale insulin. Glucose is well controlled. 5. Other comorbidities include hypertension, dyslipidemia, GERD: Stable. On medications. Blood pressure is in normotensive range. DVT prophylaxis on Coumadin. Living will/CODE STATUS: As per [facility] patient is full code. Total time of the visit including total time spent in counseling or coordination of care, (more than 50% of the total time, spent in obtaining medical information from nurses and other ancillary care providers), discussion with bridal stylist sales consultant, reel assembler, review of labs and imaging is 35 minutes Inpatient E&M: [id number] [facility] L3
[2019-07-27 10:38] LABS: Absolute Lymphocyte Count 1.25 X10^3/uL (0.83-4.51); Absolute Neutrophil Count 5.2 X10^3/uL (2.0-7.7); Basophil# 0.02 X10^3/uL; Basophil% 0.3 % (0-1); Eosinophil# 0.22 X10^3/uL; Hematocrit 25.2 % (40-54); Lymphocyte # 1.25 X10^3/ul (4.0); Lymphocyte % 17.1 % (19-41); Mean Corp Hgb Conc 31.7 g/dL (32-36); Mean Corpuscular Hgb 28.3 pg (27.0-32.0); Mean Platelet Vol. 9.5 fl (6.2-12.0); Monocyte# 0.63 X10^3/uL; Monocyte% 8.6 % (0-10); NRBC Flagged by Analyzer 0 % (0-5); Neutrophil # 5.16 X10^3/uL (2.7-7.7); Neutrophil % 70.3 % (47-70); Platelet Count 161 K/mm3 (150-450); RBC Distribution Width CV 16.4 % (11.6-14.6); RBC Distribution Width SD 53.1 fl (35.1-43.9); Red Blood Count 2.83 M/mm3 (4.6-6.2); White Blood Count 7.3 K/mm3 (4.4-11.0)
[2019-07-27 10:39] LABS: Anion Gap 7 (5-15); BUN 51 mg/dL (7-18); BUN/Creat Ratio 24.2 RATIO (10-20); Calcium,Total 9.1 mg/dL (8.5-10.1); Chloride 107 mmol/L (98-107); Creatinine, Serum 2.11 mg/dL (0.70-1.30); EST Glomerular Filtration Rate 32 mL/min (>60); Est Glom Filt Rate - Afr Amer 39 mL/min (>60); Estimated Creatinine Clearance 26.06 ml/min; Glucose 106 mg/dL (74-106); Phosphorus 3.8 mg/dL (2.5-4.9); Potassium 4.1 mmol/L (3.5-5.1); Sodium Level 140 mmol/L (136-145)
[2019-07-27] MEDS: Carvedilol 25 MG Tablet PO ×2 (11:30→22:37)
[2019-07-27] MEDS: Pantoprazole Sodium 20 MG Tablet PO (11:31)
[2019-07-27] MEDS: Magnesium Oxide 400 MG Tablet PO (11:31)
[2019-07-27] MEDS: Ferrous Sulfate 325 MG Tablet PO (11:31)
[2019-07-27] MEDS: Levothyroxine 125 MCG Tablet PO (11:31)
[2019-07-27] MEDS: Amiodarone 360 MG in Dextrose 5% Viaflo Bag 192.8 ML 33.3 MG CONT INF (11:33)
[2019-07-27] MEDS: Calcitriol 0.25 MCG Capsule PO (12:13)
[2019-07-27 12:25] LABS: Bedside Glucose 136 mg/dL (70-110)
[2019-07-27] MEDS: Insulin Lispro 100 UNIT/ML INSULN.PEN SC (16:30)
[2019-07-27 16:35] LABS: Bedside Glucose 169 mg/dL (70-110)
[2019-07-27] MEDS: Amiodarone 360 MG in Dextrose 5% Viaflo Bag 192.8 ML 16.7 MG CONT INF (18:07)
[2019-07-27] MEDS: Pravastatin 80 MG Tablet PO (22:37)
[2019-07-28] VITALS (24 sets, daily range): BP systolic 77–116; BP diastolic 55–79; PULSE 74–77; RESP 13–24; TEMP 36.4–37.1; O2SAT 94–99
[2019-07-28 00:05] LABS: Bedside Glucose 119 mg/dL (70-110)
[2019-07-28 05:07] LABS: Absolute Lymphocyte Count 1.31 X10^3/uL (0.83-4.51); Absolute Neutrophil Count 6.2 X10^3/uL (2.0-7.7); Basophil# 0.02 X10^3/uL; Basophil% 0.2 % (0-1); Eosinophil# 0.21 X10^3/uL; Eosinophils% 2.5 % (0-5); Hematocrit 25.7 % (40-54); Lymphocyte # 1.31 X10^3/ul (4.0); Lymphocyte % 15.6 % (19-41); Mean Corp Hgb Conc 31.1 g/dL (32-36); Mean Corpuscular Hgb 27.7 pg (27.0-32.0); Mean Corpuscular Volume 88.9 fL (80-94); Mean Platelet Vol. 8.9 fl (6.2-12.0); Monocyte# 0.62 X10^3/uL; Monocyte% 7.4 % (0-10); NRBC Flagged by Analyzer 0 % (0-5); Neutrophil # 6.18 X10^3/uL (2.7-7.7); Neutrophil % 73.5 % (47-70); Platelet Count 142 K/mm3 (150-450); RBC Distribution Width CV 16.3 % (11.6-14.6); RBC Distribution Width SD 52.7 fl (35.1-43.9); Red Blood Count 2.89 M/mm3 (4.6-6.2); White Blood Count 8.4 K/mm3 (4.4-11.0)
[2019-07-28 05:16] LABS: International Normalized Ratio 2.2; Prothrombin Time (Protime)PT. 24.1 SECONDS (11.7-14.9)
[2019-07-28 05:31] LABS: Anion Gap 5 (5-15); BUN 47 mg/dL (7-18); BUN/Creat Ratio 22.6 RATIO (10-20); Calcium,Total 8.8 mg/dL (8.5-10.1); Chloride 107 mmol/L (98-107); Creatinine, Serum 2.08 mg/dL (0.70-1.30); EST Glomerular Filtration Rate 33 mL/min (>60); Est Glom Filt Rate - Afr Amer 39 mL/min (>60); Estimated Creatinine Clearance 26.44 ml/min; Glucose 108 mg/dL (74-106); Potassium 4.1 mmol/L (3.5-5.1); Sodium Level 140 mmol/L (136-145)
[2019-07-28 06:56] LABS: Bedside Glucose 101 mg/dL (70-110)
[2019-07-28] MEDS: Amiodarone 360 MG in Dextrose 5% Viaflo Bag 192.8 ML 16.7 MG CONT INF (07:06)
[2019-07-28] MEDS: Furosemide 20 MG Tablet PO (08:11)
[2019-07-28] MEDS: Levothyroxine 125 MCG Tablet PO (08:16)
--- NOTE | 2019-07-28 09:54 | PN_ITS ---
Patient Problems: Active and Suspected Problems Hypotension (Acute) Pneumonia (Acute) Sepsis (Acute) Reason for Visit: Follow-up NSVT, aspiration pneumonia Subjective: Patient looks more drowsy and lethargic today. Patient feels tired and he did not had good sleep last night. Heart rate is controlled 75/min. Blood pressure 108/70. His blood pressure further dropped to 85/57 and 1 Litre normal saline bolus is running. compliance monitor shows few pulses bigeminy and one 3-4 beats of NSVT but NSVT is better controlled on amiodarone drip. I talked to the patient's daughter and updated clinical course. Objective: General: Drowsy, lethargic. Somnolent. Not able to understand simple questions. HEENT: Atraumatic, PERRLA, EOMI, Normocephalic Neck: Supple, No JVD, Negative Carotid Bruits Lungs: Air entry diminished on right posterior half of lung. Bilateral lower lobes coarse rales present., Short of Breath, respiratory rate 19 to 22/min Cardiovascular: Regular rate, Regular Rhythm, Normal S1, Normal S2, No murmurs, - - Paced rhythm on cardiac tech with multiple PVCs, bigeminy and short runs of NSVT Abdomen: Bowel Sounds Present, Soft, Non Tender, Non-Distended Extremities: No edema, Capillary Refill Less than 3 Seconds Skin: No rashes, No breakdown Musculoskeletal: No Tenderness to Palpation of Joints or Extremities, Arthritic Changes, Mild to moderate muscle wasting/atrophy of extremities. Neurological: Cranial nerves II-XII grossly intact Psych/Mental Status: Normal Affect, Appropriate Vitals/I&O's: Vital Signs Temp Pulse Resp BP Pulse Ox 97.5 F L 74 22 H 108/70 98 07/28/19 08:00 07/28/19 09:00 07/28/19 09:00 07/28/19 09:00 07/28/19 09:00 Oxygen Flow Rate (L/min) 2 Oxygen Delivery Method Nasal Cannula Weight: 161 lb 2.526 oz Body Mass Index (BMI) 23.5 Intake and Output for Last 24 Hours 07/26/19 07/27/19 07/28/19 23:59 23:59 23:59 Intake Total 530.21 / 530.21 1201.01 / 1217.71 200.19 / 200.19 Output Total 1800 / 1800 1375 / 1375 200 / 200 Balance -1269.79 / -1269.79 -173.99 / -157.29 0.19 / 0.19 Microbiology Past 72 Hours 07/23/19 20:15 Blood Culture (Wb) - Right Hand Blood Culture - Preliminary No growth in 48 hours. 07/23/19 20:10 Blood Culture (Wb) - Left Forearm Blood Culture - Preliminary No growth in 48 hours. 07/23/19 20:29 Urine Catheter - Catheter Urine Culture - Final Culture exhibits no growth. Laboratory Results 07/27/19 06:23: Sodium 140, Potassium 4.1, Chloride 107, Carbon Dioxide 26.0, Anion Gap 7, BUN 51 H, Creatinine 2.11 H, Estim Creat Clear Calc 26.06, Est GFR (MDRD) Af Amer 39 L, Est GFR (MDRD) Non-Af 32 L, BUN/Creatinine Ratio 24.2 H, Glucose 106, Calcium 9.1, Phosphorus 3.8, Troponin I 0.026 07/27/19 06:23: WBC 7.3, RBC 2.83 L, Hgb 8.0 L, Hct 25.2 L, MCV 89.0, MCH 28.3, MCHC 31.7 L, RDW Std Deviation 53.1 H, RDW Coeff of Shelbi 16.4 H, Plt Count 161, MPV 9.5, Immature Gran % (Auto) 0.700, Neut % (Auto) 70.3 H, Lymph % (Auto) 17.1 L, Dubois % (Auto) 8.6, Eos % (Auto) 3.0, Baso % (Auto) 0.3, Absolute Neuts (auto) 5.2, Absolute Lymphs (auto) 1.25, Nucleated RBC % 0 07/27/19 12:06: POC Glucose 136 H 07/27/19 16:28: POC Glucose 169 H 07/28/19 00:02: POC Glucose 119 H 07/28/19 04:49: PT 24.1 H, INR 2.2 07/28/19 04:49: WBC 8.4, RBC 2.89 L, Hgb 8.0 L, Hct 25.7 L, MCV 88.9, MCH 27.7, MCHC 31.1 L, RDW Std Deviation 52.7 H, RDW Coeff of Shelbi 16.3 H, Plt Count 142 L, MPV 8.9, Immature Gran % (Auto) 0.800, Neut % (Auto) 73.5 H, Lymph % (Auto) 15.6 L, Dubois % (Auto) 7.4, Eos % (Auto) 2.5, Baso % (Auto) 0.2, Absolute Neuts (auto) 6.2, Absolute Lymphs (auto) 1.31, Nucleated RBC % 0 07/28/19 04:49: Sodium 140, Potassium 4.1, Chloride 107, Carbon Dioxide 28.0, Anion Gap 5, BUN 47 H, Creatinine 2.08 H, Estim Creat Clear Calc 26.44, Est GFR (MDRD) Af Amer 39 L, Est GFR (MDRD) Non-Af 33 L, BUN/Creatinine Ratio 22.6 H, Glucose 108 H, Calcium 8.8 07/28/19 06:24: POC Glucose 101 Current Medications Acetaminophen (Tylenol) 650 mg PO Q6H PRN PRN PRN Reason: Pain Score 1-10/Temp > 100.7 F Albuterol Sulfate (Ventolin Aerosols) 2.5 mg INHALATION Q2H PRN PRN PRN Reason: Dyspnea, wheezing Bisacodyl (Dulcolax) 10 mg RECTAL DAILY PRN PRN PRN Reason: Constipation Calcitriol (Rocaltrol) 0.25 mcg PO DAILY [facility] Last Admin: 07/27/19 12:13 Dose: 0.25 mcg Documented by: Carvedilol (Coreg) 25 mg PO BID [facility] Last Admin: 07/27/19 22:37 Dose: 25 mg Documented by: Dextrose (D50w Syringe) 0 gm IV X1 PRN; Protocol PRN Reason: Hypoglycemia Ferrous Sulfate (Ferrous Sulfate) 325 mg PO DAILY [facility] Last Admin: 07/27/19 11:31 Dose: 325 mg Documented by: Furosemide (Lasix) 20 mg PO DAILY [facility] Last Admin: 07/28/19 08:11 Dose: 20 mg Documented by: Glucagon () 1 mg IM .X1 PRN PRN Reason: Hypoglycemia Guaifenesin (Robitussin) 20 ml PO Q4H PRN PRN PRN Reason: COUGH Hydralazine HCl (Apresoline Iv) 10 mg IV Q4H PRN PRN PRN Reason: SBP > 180 Sodium Chloride () 1,000 mls @ 15 mls/hr IV .Q48H [facility] Last Admin: 07/27/19 21:35 Dose: Not Given Documented by: Piperacillin Sod/Tazobactam (Sod 3.375 gm/ Sodium Chloride) 50 mls @ 12.5 mls/hr IV Q8 [facility] Last Admin: 07/28/19 06:26 Dose: 12.5 mls/hr Documented by: Sodium Chloride () 250 mls @ 15 mls/hr IV .[id number] PRN PRN Reason: Saline Flush Last Infusion: 07/27/19 11:33 Dose: 0 mls/hr Documented by: Sodium Chloride () 250 mls @ 15 mls/hr IV .[id number] PRN PRN Reason: Additional IVPB Infusion Amiodarone HCl 360 mg/ (Dextrose) 200 mls @ 16.667 mls/hr CONT INF .Q12H [facility] Stop: 07/28/19 12:03 Last Infusion: 07/28/19 09:00 Dose: 0.5 mg/min, 16.7 mls/hr Documented by: Sodium Chloride () 500 mls @ 500 mls/hr IV .Q1H ONE Stop: 07/28/19 10:45 Insulin Human Lispro (Humalog Kwikpen (Bkc)) 0 unit SC Q6 [facility]; Protocol Last Admin: 07/28/19 06:27 Dose: Not Given Documented by: Lactobacillus Acidophilus (Acidophilus) 1 tablet PO BID [facility] Last Admin: 07/27/19 22:37 Dose: 1 tablet Documented by: Levothyroxine Sodium (Synthroid) 125 mcg PO DAILY [facility] Last Admin: 07/28/19 08:16 Dose: 125 mcg Documented by: Lisinopril (Zestril) 2.5 mg PO DAILY [facility] Magnesium Oxide (Mag-Ox 400) 400 mg PO DAILY [facility] Last Admin: 07/27/19 11:31 Dose: 400 mg Documented by: Melatonin (Melatonin) 3 mg PO QHS PRN PRN PRN Reason: INSOMNIA Last Admin: 07/24/19 01:04 Dose: 3 mg Documented by: Morphine Sulfate () 2 mg IV Q3H PRN PRN PRN Reason: Pain Score 6-10/10 Nitroglycerin (Nitrostat) 0.4 mg SUBLINGUAL Q5M PRN PRN Reason: CARDIAC/CHEST PAIN Oxycodone HCl (Oxyir) 5 mg PO Q4H PRN PRN PRN Reason: Pain Score 4-5/10 Pantoprazole Sodium (Protonix) 20 mg PO DAILY [facility] Last Admin: 07/27/19 11:31 Dose: 20 mg Documented by: Pravastatin Sodium (Pravachol) 80 mg PO QHS [facility] Last Admin: 07/27/19 22:37 Dose: 80 mg Documented by: Prochlorperazine Edisylate (Compazine Iv) 5 mg IV Q4H PRN PRN PRN Reason: Breakthrough Nausea/Vomiting Psyllium Hydrophilic Mucilloid (Metamucil) 1 packet PO DAILY PRN PRN PRN Reason: Constipation Senna/Docusate Sodium (Senokot-S, Zena-Colace) 2 tablet PO BID PRN PRN PRN Reason: Constipation Sodium Chloride () 10 - 40 ml IV UD PRN PRN Reason: SALINE FLUSH Last Admin: 07/26/19 17:52 Dose: 10 ml Documented by: Throat Lozenges (Cepacol Sore Throat Lozenge) 1 lozenge MUCOUS MEM Q2H PRN PRN PRN Reason: SORE THROAT Warfarin Sodium (Coumadin (Pbkc)) 2 mg PO QHS [facility] Last Admin: 07/27/19 22:40 Dose: 2 mg Documented by: STROKE Vital Signs/Narrative: Vital Signs Temp Pulse Resp BP Pulse Ox 07/28/19 09:00 74 22 H 108/70 98 07/28/19 08:09 75 20 H 111/71 96 07/28/19 08:00 97.5 F L 75 20 H 111/71 96 07/28/19 07:03 95 07/28/19 07:00 77 18 99/62 96 07/28/19 06:59 75 07/28/19 06:00 75 17 100/64 98 Medical Necessity - Tobacco Use Smoking Status: Former smoker Tobacco Use: Non-smoker Assessment/Plan All Active Problems Hypoglycemia (Acute) Hypotension (Acute) Cardiac arrest (Acute) Pneumonia (Acute) Sepsis (Acute) This 84-year-old patient with multiple comorbidities including coronary artery status post CABG x3, ischemic cardiomyopathy, AICD, CKD stage IV, chronic anemia was admitted for cough, nausea and emesis, shortness of breath fever and chills consistent with acute sepsis secondary to pneumonia. Chest x-ray shows right lower lung consolidation consistent with possible aspiration pneumonia Assessment and plan: 1. Sepsis secondary to aspiration pneumonia: Patient on IV Zosyn. Speech therapy evaluation. PT and OT. COVID 19 test was negative. Urinary antigens, respiratory panel, urine culture and blood culture x2- for more than 48 hours. 07/27: Afebrile. On IV Zosyn. lactic acid ordered. MRSA nasal screen was postive and was on Vanco which was discontinued on 07/25/2019. Will resume vancomycin 750 mg IV daily as patient looks deteriorated with hypotension and altered mental status. Chest x-ray ordered. IV fluid 1 L normal saline bolus ordered. Monitor clinically. Patient had 1400 normal urine output yesterday. Since midnight, urine output decreased to 200 mL. IV fluid resuscitation 2. Arrhythmia: NSVT: EKG done. Ventricular paced rhythm at 70 bpm. Patient had 16 beats, 1.28 second and 14 beats x2 NSVT. Besides that he had frequent PV Cs and bigeminy and short runs of NSVT about 3-4 beats. Patient is on baseline amiodarone 200 mg daily. Started on amiodarone 150 mg IV bolus and then infusion over next 24 hours as per protocol. Discussed with tire building supervisor Dr. prasad. Agree with the plan. After completion of sumatriptan, will resume his amiodarone 200 mg daily dose. No chest pain or increasing shortness of breath. Troponin is negative. 07/27: Troponin is negative. Continue amiodarone drip to completion and then switch to oral amiodarone 200 mg daily. 3. Acute encephalopathy on baseline dementia, etiology unclear possible sepsis or polypharmacy. Treat the underlying disorder. Avoid benzodiazepine or other sedating medication. 4. Chronic systolic and diastolic heart failure, history of V. tach, cardiac arrest, coronary artery status post CABG On amiodarone, carvedilol, and pravastatin. Patient is on Coumadin. INR therapeutic, 2.6. Patient had echo on 06/19/2019 reported as EF 15% with normal LV size. Left atrium moderately enlarged right atrium mildly enlarged. Mild to moderate eccentric MR, mild AR. Overall echo findings are stable chronic systolic and diastolic heart failure, combined. BNP 501. Patient had CPR on 06/18/2019. On Coumadin most likely for V. tach history. INR 2.2. 5. Diabetes mellitus type 2: Accu-Chek before meals and at bedtime. On sliding scale insulin. Glucose is well controlled. 6. Other comorbidities include hypertension, dyslipidemia, GERD: Stable. On medications. Blood pressure is in normotensive range. DVT prophylaxis on Coumadin. Living will/advanced directive/end of life care: Patient does not have living will or advanced directive. After discussion of procedures involved with full code, DNR CC arrest and DNR CC with power of litigation attorney associate, the patient's daughter, Ms. Winter Gomez, she wants DNR CC arrest with no intubation. Poor prognosis explained to the patient's daughter. She does not want the patient to go through intubation or more suffering. Patient does not want artificial life support including intubation, tube feed, ventilator and/chest compression, central venous catheter, vasopressor and DC shock if needed DNR CC arrest. Total time spent in [id number] encounter in discussion of advanced directive 16 minutes. Inpatient E&M: [id number] [facility] L3
[2019-07-28] MEDS: 0.9% Saline Lock 10 ML Syringe IV (10:04)
--- NOTE | 2019-07-28 11:01 | RAD_ITS ---
STUDY: X-RAY CHEST REASON FOR EXAM: Male, 84 years old. SOB TECHNIQUE: Single AP portable view of the chest. COMPARISON: Comparison is made with prior study dated July 24, 2019. FINDINGS: Mild increased markings at the lung bases although there has been improvement as compared to prior study. There is no demonstrated pleural abnormality. Sternal cerclage wires and vascular clips are present from a prior sternotomy and coronary artery bypass graft procedure (CABG). Moderate cardiomegaly. A left-sided dual-chamber pacemaker is seen. Normal mediastinum and nevaeh. Normal visualized pulmonary arteries. There is atherosclerotic calcification of the aortic arch with tortuosity. There are degenerative changes of the visualized thoracic spine. There is degenerative osteoarthritis of the bilateral shoulders. There is no demonstrated abnormality of the visualized soft tissue structures of the upper abdomen. RAD/Chest 1 View (Portable) IMPRESSION: Improved aeration of both lungs. Mild residual changes persist. Electronically Signed: Doni Mcneal, at 12:01 EDT , Service support ,
[2019-07-28] MEDS: Magnesium Oxide 400 MG Tablet PO (11:11)
[2019-07-28] MEDS: Ferrous Sulfate 325 MG Tablet PO (11:11)
[2019-07-28] MEDS: Pantoprazole Sodium 20 MG Tablet PO (11:12)
[2019-07-28] MEDS: Calcitriol 0.25 MCG Capsule PO (11:12)
[2019-07-28 11:38] LABS: Lactic Acid 1.4 mmol/L (0.4-1.9)
[2019-07-28 11:52] LABS: AST(SGOT) 19 U/L (15-37); Alanine Aminotransfer ALT/SGPT 20 U/L (16-61); Albumin, Serum 2.1 g/dL (3.2-5.0); Alkaline Phosphatase 80 U/L (45-117); Bilirubin, Direct 0.23 mg/dL (0.00-0.30); Globulin 3.1 g/dL (2.2-4.2); Protein, Total 5.2 g/dL (6.4-8.2)
[2019-07-28 12:40] LABS: Bedside Glucose 117 mg/dL (70-110)
[2019-07-28] MEDS: 0.9% Normal Saline 1,000 ML 100 ML IV (12:53)
--- NOTE | 2019-07-28 13:03 | PCM.RX.CS ---
Consult Pharmacy has been consulted to manage selected antiobiotic: Vancomycin Type of Consult: New start Suspected Infection: Pneumonia Prior Doses of Antibiotics Received/Current Regimen: Received 1250mg iv x 1 on 07.28.19 @1240. Labs: Sodium 140 mmol/L (136-145) 07/28/19 04:49 Potassium 4.1 mmol/L (3.5-5.1) 07/28/19 04:49 Chloride 107 mmol/L (98-107) 07/28/19 04:49 Carbon Dioxide 28.0 mmol/L (21.0-32.0) 07/28/19 04:49 Anion Gap 5 (5-15) 07/28/19 04:49 BUN 47 mg/dL (7-18) H 07/28/19 04:49 Creatinine 2.08 mg/dL (0.70-1.30) H 07/28/19 04:49 Est GFR (MDRD) Af Amer 39 mL/min (>60) L 07/28/19 04:49 Est GFR (MDRD) Non-Af 33 mL/min (>60) L 07/28/19 04:49 BUN/Creatinine Ratio 22.6 RATIO (10-20) H 07/28/19 04:49 Glucose 108 mg/dL (74-106) H 07/28/19 04:49 Vancomycin Trough 16.8 ug/mL (5.0-15.0) H 07/25/19 21:32 Microbiology: Microbiology 07/23/19 20:15 Blood Culture (Wb) - Right Hand Blood Culture - Preliminary No growth in 48 hours. 07/23/19 20:10 Blood Culture (Wb) - Left Forearm Blood Culture - Preliminary No growth in 48 hours. 07/23/19 20:29 Urine Catheter - Catheter Urine Culture - Final Culture exhibits no growth. 07/24/19 02:30 Mucosa - Nose Respiratory Panel (PCR) - Final 07/24/19 01:00 Urine Catheter - Argu[place] Streptococcus pneumoniae Antigen (M - Final 07/24/19 01:00 Urine Catheter - Catheter Legionella Antigen - Final Weight used for dosin.1 kg Estimated Creatinine Clearance: ~26ml/min Goal Trough: 15-20 mcg/mL Pharmacy Plan for Drug Dosing: Per pharmacokinetic protocol, will begin 750mg iv q24h starting 24hrs after loading dose. Vancomycin trough has been ordered for before 3rd total dose on 07.30.19. Pharmacy Service will continue to monitor and adjust dosing as required. Follow-Up Labs: Trough Vancomycin - 07.30.19 @1230 before 1300 dose
[2019-07-28] MEDS: Amiodarone 200 MG Tablet PO (15:19)
[2019-07-28 16:26] LABS: Bacteria 0 SEEN /hpf (None Seen); Mucous, Urine 0 SEEN /hpf (<or=2+); Red Blood Cells-Urine 0 SEEN /hpf (0-5); Squamous Epithelial Cells - UA 0 SEEN /hpf (0-5)
[2019-07-28 16:45] LABS: Color, Urine Yellow (Yellow); Glucose, Dipstick Normal (Normal); Ketone-Dipstick Negative (Negative); Leukocyte Esterase-Dipstick 25 /ul (Negative); Nitrite-Dipstick Negative (Negative); Occult Blood-Urine Negative /ul (Negative); Protein-Dipstick Negative (Negative); Specific Gravity, Urine 1.015 (1.002-1.030); Urine Bilirubin Dipstick Negative (Negative); Urine Clarity Clear (Clear); Urine Urobilinogen Normal (Normal)
[2019-07-28 16:48] LABS: White Blood Cells 0-5 SEEN /hpf (0-5); Yeast-Urine RARE /hpf (None Seen)
[2019-07-28 17:45] LABS: Bedside Glucose 122 mg/dL (70-110)
--- NOTE | 2019-07-28 17:55 | NURSING ---
This RN is taking over care of this patient at this time. Report given by ELISEO Mullins.
[2019-07-28] MEDS: Carvedilol 25 MG Tablet PO (21:33)
[2019-07-28] MEDS: Pravastatin 80 MG Tablet PO (21:33)
[2019-07-29 00:30] LABS: Bedside Glucose 90 mg/dL (70-110)
[2019-07-29 02:00] VITALS: BP 104/58; PULSE 76; RESP 16; TEMP 37.2; O2SAT 97
[2019-07-29 02:59] VITALS: PULSE 79
[2019-07-29 06:20] LABS: Absolute Lymphocyte Count 2.05 X10^3/uL (0.83-4.51); Absolute Neutrophil Count 6.8 X10^3/uL (2.0-7.7); Basophil# 0.02 X10^3/uL; Basophil% 0.2 % (0-1); Eosinophil# 0.11 X10^3/uL; Eosinophils% 1.1 % (0-5); Hematocrit 27.4 % (40-54); Hemoglobin 8.4 g/dL (13.0-16.5); Lymphocyte # 2.05 X10^3/ul (4.0); Lymphocyte % 20.8 % (19-41); Mean Corp Hgb Conc 30.7 g/dL (32-36); Mean Corpuscular Hgb 27.8 pg (27.0-32.0); Mean Corpuscular Volume 90.7 fL (80-94); Mean Platelet Vol. 9.5 fl (6.2-12.0); Monocyte# 0.86 X10^3/uL; Monocyte% 8.7 % (0-10); NRBC Flagged by Analyzer 0 % (0-5); Neutrophil # 6.76 X10^3/uL (2.7-7.7); Neutrophil % 68.6 % (47-70); Platelet Count 187 K/mm3 (150-450); RBC Distribution Width CV 16.5 % (11.6-14.6); RBC Distribution Width SD 53.8 fl (35.1-43.9); Red Blood Count 3.02 M/mm3 (4.6-6.2); White Blood Count 9.9 K/mm3 (4.4-11.0)
[2019-07-29 06:28] LABS: International Normalized Ratio 2.7; Prothrombin Time (Protime)PT. 28.6 SECONDS (11.7-14.9)
[2019-07-29 06:44] LABS: AST(SGOT) 18 U/L (15-37); Alanine Aminotransfer ALT/SGPT 21 U/L (16-61); Albumin, Serum 2.2 g/dL (3.2-5.0); Alkaline Phosphatase 90 U/L (45-117); Anion Gap 7 (5-15); BUN 39 mg/dL (7-18); BUN/Creat Ratio 18.4 RATIO (10-20); Bilirubin, Direct 0.23 mg/dL (0.00-0.30); Calcium,Total 8.7 mg/dL (8.5-10.1); Chloride 110 mmol/L (98-107); Creatinine, Serum 2.12 mg/dL (0.70-1.30); EST Glomerular Filtration Rate 32 mL/min (>60); Est Glom Filt Rate - Afr Amer 38 mL/min (>60); Estimated Creatinine Clearance 25.94 ml/min; Globulin 3.8 g/dL (2.2-4.2); Glucose 77 mg/dL (74-106); Potassium 3.9 mmol/L (3.5-5.1); Sodium Level 142 mmol/L (136-145)
[2019-07-29 06:46] LABS: Bedside Glucose 76 mg/dL (70-110)
[2019-07-29 06:53] VITALS: PULSE 81
[2019-07-29 07:06] VITALS: PULSE 90
[2019-07-29 07:20] VITALS: O2SAT 96
[2019-07-29 08:00] VITALS: BP 134/73; PULSE 76; RESP 18; TEMP 37; O2SAT 96
--- NOTE | 2019-07-29 09:34 | PCM.TXEXTCAR ---
- Diet 07/24/19 15:16 Diet: Regular Diet Food consistency:: Puree Liquid Consistency:: Honey Thick Is pt able to select menu?: No Diet Comments: TOTAL FEED, liquids by straw only, frequent oral care - Routine Orders/Code Status Suppository Type: Dulcolax 10mg Suppository Frequency: Daily PRN Routine Lab Work: INR - twice week INR until stable Code Status: DNRCC-A - Wound(s) Left Forearm Wound Type: Skin Tear Right Forearm Wound Type: Skin Tear Left Hand Wound Type: Skin Tear - Therapies Weight Bearing: Weight bearing as tolerated Extremity Affected:: Bilateral Lower Physical Therapy: Eval and Treat Occupational Therapy: Eval and Treat Speech Therapy: Eval and Treat - Allergies/Procedures Done in Hospital Allergies/Adverse Reactions: Allergies Sulfonylureas Allergy (Verified 07/23/19 19:52) PT UNSURE OF REACTION - Type of Care/Length of Stay Estimated LOS: Convalescent Care Less Than 30 days Type of Care Needed: Skilled Rehab Potential: Fair Prognosis: Poor - Additional Orders/Day of Discharge Day of Discharge: 07/29/19 - Dietary and Speech Recommendations Dietitian Recommendations/Changes: Continue liberal diet d/t issues with dysphagia. - Follow Up Care Primary Care Physician: Blake Rhodes MD [Primary Care Provider] - Please follow up with your Primary Care Physician in: in 2 week Please Follow Up With: Tan Moore MD When: in 2-4 weeks for NSVT Please Follow Up With: Cornelio Rosario DO When: IN 2 Weeks, vitual visit to Colleen Lindsey NP
[2019-07-29] MEDS: Ferrous Sulfate 325 MG Tablet PO (09:40)
[2019-07-29] MEDS: Pantoprazole Sodium 20 MG Tablet PO (09:41)
[2019-07-29] MEDS: Amiodarone 200 MG Tablet PO (09:41)
[2019-07-29] MEDS: Lisinopril 2.5 MG Tablet PO (09:41)
[2019-07-29] MEDS: Magnesium Oxide 400 MG Tablet PO (09:41)
[2019-07-29] MEDS: Carvedilol 25 MG Tablet PO (09:41)
[2019-07-29] MEDS: Levothyroxine 125 MCG Tablet PO (09:41)
[2019-07-29] MEDS: Furosemide 20 MG Tablet PO (09:41)
[2019-07-29] MEDS: Calcitriol 0.25 MCG Capsule PO (09:41)
--- NOTE | 2019-07-29 09:43 | DS.PCM_ITS ---
Discharge Date and Diagnosis - Problem List Patient Problems: Active and Suspected Problems Hypotension (Acute) Pneumonia (Acute) Sepsis (Acute) Date of Admission: 07/23/19 Date of Discharge: 07/29/19 - Primary Discharge Diagnosis Active and Suspected Problems Hypotension (Acute) Pneumonia (Acute) Sepsis (Acute) - Secondary Discharge Diagnosis Chronic Problems CHF (congestive heart failure) (Chronic) CAD (coronary artery disease) (Chronic) Pacemaker (Chronic) Diabetes (Chronic) HTN (hypertension) (Chronic) HLD (hyperlipidemia) (Chronic) Hypothyroidism (Chronic) Hospital Course and Treatment Consultations 07/28/19 04:30 Consult: Onc/Wound/chemical packager Routine Comment: skin tears on L arm seem worse Reason for Consult:: skin tears Operations: None Summary of Care Provided: [] This 84-year-old patient with multiple comorbidities including coronary artery s tatus post CABG x3, ischemic cardiomyopathy, AICD, CKD stage IV, chronic anemia was admitted for cough, nausea and emesis, shortness of breath fever and chills consistent with acute sepsis secondary to pneumonia. Chest x-ray shows right lower lung consolidation consistent with possible aspiration pneumonia Assessment and plan: 1. Sepsis secondary to aspiration pneumonia: Patient on IV Zosyn. Speech therapy evaluation. PT and OT. COVID 19 test was negative. Urinary antigens, respiratory panel, urine culture and blood culture x2- for more than 48 hours. It has been on Zosyn completed 6 days. Need 1 more day of antibiotic therefore prescription given for Augmentin 500-125 mg 1 tablet twice daily for total 3 tablets. Hypotension has resolved. Patient also given 1 dose of vancomycin for suspicion of MRSA but subsequently stopped. Blood pressure recovered. Good urine output. Arguello catheter discontinued. 07/28: Repeat chest x-ray shows and shows improved aeration of both lungs. Right midlung residual changes of pneumonia. 2. Arrhythmia: NSVT: EKG done. Ventricular paced rhythm at 70 bpm. Patient had 16 beats, 1.28 second and 14 beats x2 NSVT. Besides that he had frequent PVCs and bigeminy and short runs of NSVT about 3-4 beats. Patient is on baseline amiodarone 200 mg daily. Started on amiodarone 150 mg IV bolus and then infusion over next 24 hours as per protocol. Discussed with americ[employer] board certified orthotist Dr. prasad. No chest pain or increasing shortness of breath. Troponin is negative. Patient is back on amiodarone 200 mg daily. 3. Acute encephalopathy on baseline dementia, etiology unclear etiology possible metabolic encephalopathy or polypharmacy. Treat the underlying disorder. Avoid benzodiazepine or other sedating medication. 07/28: Resolved. Lactic acid was normal. UA negative. 4. Chronic systolic and diastolic heart failure, history of V. tach, cardiac arrest, coronary artery status post CABG On amiodarone, carvedilol, and pravastatin. Patient is on Coumadin. INR therapeutic, 2.6. Patient had echo on 06/19/2019 reported as EF 15% with normal LV size. Left atrium moderately enlarged right atrium mildly enlarged. Mild to moderate eccentric MR, mild AR. Overall echo findings are stable chronic systolic and diastolic heart failure, combined. BNP 501. Patient had CPR on 06/18/2019. On Coumadin most likely for V. tach history. INR 2.7. Monitor INR daily and adjust the dose of Coumadin accordingly 5. Diabetes mellitus type 2: Accu-Chek before meals and at bedtime. On sliding scale insulin. Glucose is well controlled. 6. Other comorbidities include hypertension, dyslipidemia, GERD: Stable. On medications. Blood pressure is in normotensive range. DVT prophylaxis on Coumadin. Living will/advanced directive/end of life care: Patient does not have living will or advanced directive. DNR CC arrest as per patient's daughter Ms. Winter Gomez. Discharge medication reconciliation done. Discharge follow-up instructions completed. Discharge process discussed with the patient and all questions were answered to patient's satisfaction. Patient is being discharged to SNF. I called patient's daughter Ms. Winter Gomez today and informed about hospital course and discharge plan. She agrees with that Total time spent, exact 35 minutes on discharge meds reconciliation, examination, coordination of care with nurses and ancillary staff, review of imaging and blood test and discussion with the patient on follow-up instructions Patient Problems: Active and Suspected Problems Hypotension (Acute) Pneumonia (Acute) Sepsis (Acute) Subjective: Patient is more awake and alert oriented x3 still weak. Blood pressure 134/73. It was in 110s last night. No fever, tachycardia. Pulse ox 96% on 2 L of oxygen. Urine output 1800 mL yesterday. - Physical Exam Vitals/I&O's: Vital Signs Temp Pulse Resp BP Pulse Ox 98.6 F 76 18 134/73 H 96 04/15/20 08:00 07/29/19 08:00 07/29/19 08:00 07/29/19 08:00 07/29/19 08:00 Oxygen Flow Rate (L/min) 2 Oxygen Delivery Method Nasal Cannula Weight: 172 lb 9.951 oz Body Mass Index (BMI) 23.5 Intake and Output for Last 24 Hours 07/27/19 07/28/19 07/29/19 23:59 23:59 23:59 Intake Total 1201.01 / 1217.71 2494.20 / 2494.20 966.66 / 966.66 Output Total 1375 / 1375 1175 / 1175 250 / 250 Balance -173.99 / -157.29 1319.20 / 1319.20 716.66 / 716.66 General: Alert, Oriented x3, Cooperative HEENT: Atraumatic, PERRLA, EOMI, Normocephalic Oral: No Gingival or Mucosal Lesions/ Ulcerations, Dry Mucosa Neck: Supple, No JVD, Negative Carotid Bruits Lungs: No rhonchi, No wheeze, No rales, Diminished - Air entry diminished bilateral lung bases. Cardiovascular: Regular rate, Normal S1, Normal S2, No murmurs, - - Paced rhythm on the laboratory monitor Abdomen: Bowel Sounds Present, Soft, Non Tender, Non-Distended Extremities: No edema, Capillary Refill Less than 3 Seconds Skin: No rashes, No breakdown Musculoskeletal: Arthritic Changes Neurological: Cranial nerves II-XII grossly intact, Deep Tendon Reflexes 2+/4 and Symmetrical, Neuro grossly intact Psych/Mental Status: Flat Affect Microbiology Past 72 Hours 07/23/19 20:10 Blood Culture (Wb) - Left Forearm Blood Culture - Final No growth in 5 days. 07/23/19 20:15 Blood Culture (Wb) - Right Hand Blood Culture - Final No growth in 5 days. 07/23/19 20:29 Urine Catheter - Catheter Urine Culture - Final Culture exhibits no growth. Laboratory Results 07/28/19 10:55: Lactic Acid 1.4 07/28/19 10:55: Total Bilirubin 0.40, Direct Bilirubin 0.23, AST 19, ALT 20, Alkaline Phosphatase 80, Total Protein 5.2 L, Albumin 2.1 L, Globulin 3.1 07/28/19 12:24: POC Glucose 117 H 07/28/19 16:10: Urine Color Yellow, Urine Clarity Clear, Urine pH 6.0, Ur Specific [place] 1.015, Urine Protein Negative, Urine Glucose (UA) Normal, Urine Ketones Negative, Urine Occult Blood Negative, Urine Nitrite Negative, Urine Bilirubin Negative, Urine Urobilinogen Normal, Ur Leukocyte Esterase 25 H, Urine RBC 0 SEEN, Urine WBC 0-5 SEEN, Ur Squamous Epith Cells 0 SEEN, Urine Bacteria 0 SEEN, Urine Mucus 0 SEEN, Urine Yeast RARE 07/28/19 17:32: POC Glucose 122 H 07/28/19 23:57: POC Glucose 90 07/29/19 05:50: PT 28.6 H, INR 2.7 07/29/19 05:50: WBC 9.9, RBC 3.02 L, Hgb 8.4 L, Hct 27.4 L, MCV 90.7, MCH 27.8, MCHC 30.7 L, RDW Std Deviation 53.8 H, RDW Coeff of [place] 16.5 H, Plt Count 187, MPV 9.5, Immature Gran % (Auto) 0.600, Neut % (Auto) 68.6, Lymph % (Auto) 20.8, [place] % (Auto) 8.7, Eos % (Auto) 1.1, Baso % (Auto) 0.2, Absolute Neuts (auto) 6.8, Absolute Lymphs (auto) 2.05, Nucleated RBC % 0 07/29/19 05:50: Sodium 142, Potassium 3.9, Chloride 110 H, Carbon Dioxide 25.0, Anion Gap 7, BUN 39 H, Creatinine 2.12 H, Estim Creat Clear Calc 25.94, Est GFR (MDRD) Af Amer 38 L, Est GFR (MDRD) Non-Af 32 L, BUN/Creatinine Ratio 18.4, Glucose 77, Calcium 8.7, Total Bilirubin 0.50, Direct Bilirubin 0.23, AST 18, ALT 21, Alkaline Phosphatase 90, Total Protein 6.0 L, Albumin 2.2 L, Globulin 3.8 07/29/19 06:19: POC Glucose 76 Current Medications Acetaminophen (Tylenol) 650 mg PO Q6H PRN PRN PRN Reason: Pain Score 1-10/Temp > 100.7 F Albuterol Sulfate (Ventolin Aerosols) 2.5 mg INHALATION Q2H PRN PRN PRN Reason: Dyspnea, wheezing Amiodarone HCl (Cordarone) 200 mg PO DAILY [facility] Last Admin: 07/29/19 09:41 Dose: 200 mg Documented by: Bisacodyl (Dulcolax) 10 mg RECTAL DAILY PRN PRN PRN Reason: Constipation Calcitriol (Rocaltrol) 0.25 mcg PO DAILY [facility] Last Admin: 07/29/19 09:41 Dose: 0.25 mcg Documented by: Carvedilol (Coreg) 25 mg PO BID [facility] Last Admin: 07/29/19 09:41 Dose: 25 mg Documented by: Dextrose (D50w Syringe) 0 gm IV X1 PRN; Protocol PRN Reason: Hypoglycemia Ferrous Sulfate (Ferrous Sulfate) 325 mg PO DAILY [facility] Last Admin: 07/29/19 09:40 Dose: 325 mg Documented by: Furosemide (Lasix) 20 mg PO DAILY [facility] Last Admin: 07/29/19 09:41 Dose: 20 mg Documented by: Glucagon () 1 mg IM .X1 PRN PRN Reason: Hypoglycemia Guaifenesin (Robitussin) 20 ml PO Q4H PRN PRN PRN Reason: COUGH Hydralazine HCl (Apresoline Iv) 10 mg IV Q4H PRN PRN PRN Reason: SBP > 180 Sodium Chloride () 1,000 mls @ 15 mls/hr IV .Q48H [facility] Last Admin: 07/27/19 21:35 Dose: Not Given Documented by: Piperacillin Sod/Tazobactam (Sod 3.375 gm/ Sodium Chloride) 50 mls @ 12.5 mls/hr IV Q8 [facility] Last Admin: 07/29/19 06:21 Dose: 12.5 mls/hr Documented by: Sodium Chloride () 250 mls @ 15 mls/hr IV .[id number] PRN PRN Reason: Saline Flush Last Infusion: 07/27/19 11:33 Dose: 0 mls/hr Documented by: Sodium Chloride () 250 mls @ 15 mls/hr IV .[id number] PRN PRN Reason: Additional IVPB Infusion Vancomycin IV Pharmacy to Dose (1 ea/ Sodium Chloride) 500 mls @ 250 mls/hr IV PRN PRN; Protocol PRN Reason: RX TO DOSE Vancomycin HCl 750 mg/ Sodium (Chloride) 265 mls @ 250 mls/hr IV Q24H [facility] Insulin Human Lispro (Humalog Kwikpen (Bkc)) 0 unit SC Q6 [facility]; Protocol Last Admin: 07/29/19 06:21 Dose: Not Given Documented by: Lactobacillus Acidophilus (Acidophilus) 1 tablet PO BID [facility] Last Admin: 07/29/19 09:41 Dose: 1 tablet Documented by: Levothyroxine Sodium (Synthroid) 125 mcg PO DAILY [facility] Last Admin: 07/29/19 09:41 Dose: 125 mcg Documented by: Lisinopril (Zestril) 2.5 mg PO DAILY [facility] Last Admin: 07/29/19 09:41 Dose: 2.5 mg Documented by: Magnesium Oxide (Mag-Ox 400) 400 mg PO DAILY [facility] Last Admin: 07/29/19 09:41 Dose: 400 mg Documented by: Melatonin (Melatonin) 3 mg PO QHS PRN PRN PRN Reason: INSOMNIA Last Admin: 07/24/19 01:04 Dose: 3 mg Documented by: Morphine Sulfate () 2 mg IV Q3H PRN PRN PRN Reason: Pain Score 6-10/10 Nitroglycerin (Nitrostat) 0.4 mg SUBLINGUAL Q5M PRN PRN Reason: CARDIAC/CHEST PAIN Oxycodone HCl (Oxyir) 5 mg PO Q4H PRN PRN PRN Reason: Pain Score 4-5/10 Pantoprazole Sodium (Protonix) 20 mg PO DAILY [facility] Last Admin: 07/29/19 09:41 Dose: 20 mg Documented by: Pravastatin Sodium (Pravachol) 80 mg PO QHS [facility] Last Admin: 07/28/19 21:33 Dose: 80 mg Documented by: Prochlorperazine Edisylate (Compazine Iv) 5 mg IV Q4H PRN PRN PRN Reason: Breakthrough Nausea/Vomiting Psyllium Hydrophilic Mucilloid (Metamucil) 1 packet PO DAILY PRN PRN PRN Reason: Constipation Senna/Docusate Sodium (Senokot-S, Zena-Colace) 2 tablet PO BID PRN PRN PRN Reason: Constipation Sodium Chloride () 10 - 40 ml IV UD PRN PRN Reason: SALINE FLUSH Last Admin: 07/28/19 10:04 Dose: 20 ml Documented by: Throat Lozenges (Cepacol Sore Throat Lozenge) 1 lozenge MUCOUS MEM Q2H PRN PRN PRN Reason: SORE THROAT Warfarin Sodium (Coumadin (Pbkc)) 2 mg PO QHS [facility] Last Admin: 07/28/19 21:33 Dose: 2 mg Documented by: Home Medications: Medications to take at Discharge Calcitriol 0.25 mcg PO DAILY 06/18/19 Ferrous Sulfate 325 mg PO DAILY 06/18/19 Levothyroxine Sodium [Synthroid] 125 mcg PO DAILY 06/18/19 Magnesium Oxide 400 mg PO DAILY 06/18/19 Omeprazole [Prilosec] 20 mg PO DAILY 06/18/19 Pravastatin Sodium 80 mg PO QHS 06/18/19 Warfarin Sodium [Coumadin] 2 mg PO QHS 06/18/19 Amiodarone HCl [Cordarone] 200 mg PO DAILY tab 06/26/19 Bisacodyl 10 mg DE DAILY PRN PRN 07/23/19 L. Acidophilus/L.bulgaricus [Lactobacillus Tablet] 1 ea PO BID 07/23/19 Amoxicillin/Potassium Clav [Augmentin 500-125 Tablet] 1 ea PO BID #3 tab 07/29/19 Carvedilol 12.5 mg PO BID #0 07/29/19 Furosemide [Lasix] 20 mg PO DAILY #0 07/29/19 Guaifenesin [Robitussin] 20 ml PO Q4H PRN PRN udc 07/29/19 Lisinopril [Zestril] 5 mg PO DAILY #0 07/29/19 Psyllium [Metamucil] 1 packet PO DAILY PRN PRN packet 07/29/19 Senna/Docusate Sodium [Senokot-S] 2 tablet PO BID PRN PRN tablet 07/29/19 Following Prescrptions Were Given to Patient: Amoxicillin/Potassium Clav [Augmentin 500-125 Tablet] 1 ea PO BID #3 tab Transmission Status: Received by [facility] Primary Care Physician: Blake Rhodes MD [Primary Care Provider] - Please follow up with your Primary Care Physician in: in 2 week Please Follow Up With: Tan Prasad MD When: in 2-4 weeks for NSVT Please Follow Up With: Cornelio Rosario DO When: IN 2 Weeks, vitual visit to Colleen Lindsey NP Medical Necessity - Tobacco Use Smoking Status: Former smoker Tobacco Use: Non-smoker Meaningful Use Info Meaningful Use Diagnoses (Choose all that apply): None applicable Inpatient E&M: 74115 Disch Hosp
--- NOTE | 2019-07-29 09:59 | CASEMGMT ---
Patient is ready for discharge back to [place]. LUDY faxed orders. LUDY called [facility] and arranged for patient to get picked up at 11a via cot. SW notified physician, RN, department secretary, and Denise at [facility]. Physician notified patient's daughter. Plan: d/c back to [place] under skilled level of care. [facility] transported him via cot. Marley SOLARES
[2019-07-29] MEDS: Tamsulosin HCl 0.4 MG Capsule PO (10:10)
--- NOTE | 2019-07-29 10:36 | NURSING ---
Report called to Maisha at [facility]
== END 2019-07-29 11:22 | disposition skilled nursing facility (03) | DRG 871 ==
LOC: ED 22:44 → MS2 23:27 → PCU 07-26 11:43
PROVIDERS: Family Medicine; Admitting Provider Family Medicine; Emergency Provider Emergency Medicine; PCP Family Medicine; Visit Provider Internal Medicine
DX: A41.9 Sepsis, unspecified organism (principal); J69.0 Pneumonitis due to inhalation of food and vomit; N18.4 Chronic kidney disease, stage 4 (severe); I13.0 Hypertensive heart and chronic kidney disease with heart failure and stage 1 through stage 4 chronic kidney disease, or unspecified chronic kidney disease; I50.42 Chronic combined systolic (congestive) and diastolic (congestive) heart failure; R65.20 Severe sepsis without septic shock; E11.22 Type 2 diabetes mellitus with diabetic chronic kidney disease; I25.5 Ischemic cardiomyopathy; D50.9 Iron deficiency anemia, unspecified; I25.10 Atherosclerotic heart disease of native coronary artery without angina pectoris; E78.5 Hyperlipidemia, unspecified; E03.9 Hypothyroidism, unspecified; I48.0 Paroxysmal atrial fibrillation; K21.9 Gastro-esophageal reflux disease without esophagitis; I25.2 Old myocardial infarction; Z95.1 Presence of aortocoronary bypass graft; Z95.810 Presence of automatic (implantable) cardiac defibrillator; Z87.891 Personal history of nicotine dependence; Z86.74 Personal history of sudden cardiac arrest; Z87.440 Personal history of urinary (tract) infections
CPT/HCPCS: 36415; 51702; 71045; 80048; 80053; 80076; 80202; 81001; 82728; 82962; 83036; 83605; 83615; 83735; 83880; 84100; 84145; 84484; 85025; 85610; 86140; 87040; 87086; 87088; 87449; 87633; 87635; 87641; 92526; 92610; 93005; 94640; 97110; 97116; 97162; 97166; 97530; 97535; 99251; 99285; J7030; J7040; J7050; A4216; G0463; J1940; U0004